=== PATIENT | female | born 1960 | race Caucasian/White ===

== ENCOUNTER → 2016-12-14 | Outpatient (CLI) | payer MEDICARE, MEDICAID ==
--- NOTE | 2016-12-14 11:10 | WOMENS IMAGING REPORT ---
EXAM DESCRIPTION: BONE DENSITY HIP/SPINE COMPLETED DATE/TIME: 12/14/2016 9:27 am REASON FOR STUDY: Z87.310 Z87.310 PERSONAL HISTORY OF (HEALED) OSTEOPOROSIS FRACTURE COMPARISON: None. TECHNIQUE: Dual-Energy X-ray Absorptiometry (DEXA) of the AP Spine and Hip. LIMITATIONS: None. FINDINGS: LUMBAR SPINE: The bone mineral density (BMD) measured from L1-L4 in the AP projection correlates with a T-score of -1.6, which is osteopenia as defined by the World Health Organization. HIP: The bone mineral density (BMD) measured in the right femoral neck at the hip correlates with a T-scor e of -1.8, which is osteopenia as defined by the World Health Organization. COMMENT: The World Health Organization defines low BMD as follows: T-score: Normal: Greater than -1.0 Osteopenia: Between -1.0 and -2.5 Osteoporosis: Less than -2.5 without fractures Established osteoporosis: Less than -2.5 with fractures In general, you may wish to consider: Diagnosis Treatment Follow-up DEXA Normal BMD Prevention 2-3 years Osteopenia Prevention/Therapy 1-2 years Osteoporosis Therapy Yearly TECHNICAL DOCUMENTATION: JOB ID: [id number] [employer]- All Rights Reserved
== END ==
LOC: WI 08:55
PROVIDERS: ATTEND Orthopaedic Surgery
DX: Z87.310 Personal history of (healed) osteoporosis fracture (principal)
CPT/HCPCS: 77080

== ENCOUNTER 2017-04-12 00:32 | Emergency (ER) | payer MEDICARE, MEDICAID ==
--- NOTE | 2017-04-12 01:31 | ER Document Report ---
ED General - General Stated Complaint: WEAKNESS Time Seen by Provider: 04/12/17 01:18 Notes: Patient is a 56-year-old female that comes from [facility] living [facility] for chief complaint of progressive altered mental status over the course of the past 2-3 days. Daughter states that this morning she noticed patient has begun to slur her words over the phone, patient here for evaluation for slurring words and intermittent. No fevers, no vomiting, patient states she has pains in her left hip which was broken. Patient has a history of schizophrenia, type 2 diabetes, COPD, obesity. Patient is on multiple sedating medications including Risperdal, gabapentin, Valium. Family states they believe she was started on the new medication but are unsure which one this is TRAVEL OUTSIDE OF THE [place] IN LAST 30 DAYS: No - Related Data Allergies/Adverse Reactions: dicyclomine HCl [From Bentyl] Allergy (Severe, Verified 11/06/16 06:24) throat swelling ibuprofen [From Motrin] Allergy (Severe, Verified 11/06/16 06:24) "increased headache",swelling Shellfish * [Shellfish] Allergy (Severe, Verified 11/06/16 06:24) rash,migraines Penicillins Allergy (Intermediate, Verified 11/06/16 06:24) Hives,vomit,fever sumatriptan succinate [From Imitrex] Allergy (Verified 11/06/16 06:24) Past Medical History - General Information source: Patient - Social History Smoking Status: Never Smoker Frequency of alcohol use: None Drug Abuse: None Lives with: Family Family History: Reviewed & Not Pertinent, Hypertension - Past Medical History Cardiac Medical History: Reports: Hx Coronary Artery Disease - 4 stents, Hx Heart Attack - AUG x 2, Hx Hypercholesterolemia, Hx Hypertension Denies: Hx Heart Murmur Pulmonary Medical History: Reports: Hx Asthma, Hx Bronchitis, Hx COPD, Hx Pneumonia Denies: Hx Respiratory Failure, Hx Sleep Apnea, Hx Tuberculosis Neurological Medical History: Reports: Hx Cerebrovascular Accident - 2007, Hx Migraine, Hx Seizures Endocrine Medical History: Reports: Hx Diabetes Mellitus Type 1, Hx Diabetes Mellitus Type 2 Renal/ Medical History: Reports: Hx Kidney Stones GI Medical History: Reports: Hx Gastroesophageal Reflux Disease, Hx Irritable Bowel Musculoskeltal Medical History: Reports Hx Arthritis - Back & Legs Psychiatric Medical History: Reports: Hx Bipolar Disorder, Hx Depression, Hx Post Traumatic Stress Disorder, Hx Schizophrenia Past Surgical History: Reports: Hx Appendectomy, Hx Cardiac Catheterization, Hx Cardiac Surgery - 3 stents, Hx Cholecystectomy, Hx Hysterectomy, Hx Orthopedic Surgery - L knee, Hx Tonsillectomy - Immunizations Immunizations up to date: Yes Hx Diphtheria, Pertussis, Tetanus Vaccination: Yes Hx Pneumococcal Vaccination: 11/26/12 Review of Systems - Review of Systems Constitutional: See HPI EENT: No symptoms reported Cardiovascular: No symptoms reported Respiratory: No symptoms reported Gastrointestinal: No symptoms reported Genitourinary: No symptoms reported Female Genitourinary: No symptoms reported Musculoskeletal: No symptoms reported Skin: No symptoms reported Hematologic/Lymphatic: No symptoms reported Neurological/Psychological: See HPI Physical Exam - Vital signs Vitals: Temp Pulse Resp BP Pulse Ox 98.7 F 80 14 115/49 L 93 04/12/17 01:18 04/12/17 01:18 04/12/17 01:18 04/12/17 01:18 04/12/17 01:18 Interpretation: Normal - General General appearance: Appears well - slightly drowsy in appearance In distress: None - HEENT Head: Normocephalic, Atraumatic Eyes: Normal Conjunctiva: Normal Extraocular movements intact: Yes Eyelashes: Normal Pupils: PERRL Nasal: Normal Mouth/Lips: Normal Mucous membranes: Normal Pharynx: Normal Neck: Normal - Respiratory Respiratory status: No respiratory distress Chest status: Nontender Breath sounds: Normal Chest palpation: Normal - Cardiovascular Rhythm: Regular. No: Tachycardia Heart sounds: Normal auscultation, S1 appreciated, S2 appreciated Murmur: No - Abdominal Inspection: Normal Distension: No distension Bowel sounds: Normal Tenderness: Nontender. No: Tender, Guarding Organomegaly: No organomegaly - Back Back: Normal, Nontender - Extremities General upper extremity: Normal inspection, Nontender, Normal color, Normal ROM , Normal temperature General lower extremity: Normal inspection, Nontender, Normal color, Normal ROM , Normal temperature, Normal weight bearing. No: Hellen's sign - Neurological Neuro grossly intact: Yes Cognition: Normal. No: Confused, Inattentive, Short term memory loss Orientation: AAOx4. 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 She denies any complaints other than feeling tired. CBC shows mild leukocytosis with no percentage shift, no fever, no tachycardia, no hypotension. Abdomen is soft, skin exam is unremarkable, urinalysis unremarkable, chest x-ray unremarkable. CAT scan of the head with no acute abnormality. Patient is on multiple sedating medications, I suspect this is why patient is drowsy. On reevaluation is patient less drowsy, more alert, more conversational, denies any complaint. Discussed workup and recommendations with patient, patient states understanding, states she is ready to go back home. Discharged with return precautions - Vital Signs Vital signs: Temp Pulse Resp BP Pulse Ox 98.7 F 80 14 115/49 L 93 04/12/17 01:18 04/12/17 01:18 04/12/17 01:18 04/12/17 01:18 04/12/17 01:18 - Laboratory Result Diagrams: 04/12/17 02:30 04/12/17 02:30 Laboratory results interpreted by me: 04/12/17 04/12/17 02:30 02:30 WBC 14.4 H Hgb 11.4 L Hct 35.9 L MCHC 31.8 L RDW 14.9 H Eosinophils % 6.7 H Absolute Neutrophils 8.4 H Absolute Eosinophils 1.0 H Est GFR (Non-Af Amer) 55 L Glucose 67 L Direct Bilirubin 0.5 H Discharge - Discharge Clinical Impression: Drowsiness Condition: Stable Disposition: HOME, SELF-CARE Additional Instructions: Imaging of the head shows no abnormality, workup shows no evidence of infection or other abnormality other than slightly low blood sugar. Patient may be overmedicated. Follow-up with primary within the next couple of days for a reevaluation. Return to emergency department for any concerning or worsening symptoms including fever, altered mental status, focal weakness, or any other concerning symptoms. Referrals: MARIELENA EVANS MD [Primary Care Provider] - Follow up as needed
[2017-04-12 02:52] LABS: ABSOLUTE BASOPHILS # (AUTO) 0.1 10^3/uL (0.0-0.2); ABSOLUTE MONOCYTES (AUTO) 0.9 10^3/uL (0.1-1.4); ABSOLUTE NEUT (AUTO) 8.4 10^3/uL (1.7-8.2); BASOPHILS % (AUTO) 0.9 % (0-2); EOSINOPHILS % (AUTO) 6.7 % (0-6); HEMATOCRIT 35.9 % (36.0-47.0); HEMOGLOBIN 11.4 g/dL (12.0-15.5); HGB HCT DIFFERENCE -1.7; LYMPHOCYTES % (AUTO) 28.1 % (13-45); MEAN CORPUSCULAR HEMOGLOBIN 28.6 pg (27.0-33.4); MEAN CORPUSCULAR HGB CONC 31.8 g/dL (32.0-36.0); MEAN CORPUSCULAR VOLUME 90 fl (80-97); MONOCYTES % (AUTO) 6.2 % (3-13); RED BLOOD COUNT 3.98 10^6/uL (3.72-5.28); RED CELL DISTRIBUTION WIDTH 14.9 % (11.5-14.0); SEGMENTED NEUTROPHILS % (AUTO) 58.1 % (42-78); WHITE BLOOD COUNT 14.4 10^3/uL (4.0-10.5)
[2017-04-12 03:04] LABS: ALANINE AMINOTRANSFERASE 31 U/L (9-52); ALKALINE PHOSPHATASE 90 U/L (38-126); ANION GAP 10 (5-19); ASPARTATE AMINO TRANSFERASE 31 U/L (14-36); BILIRUBIN,DIRECT 0.5 mg/dL (0.0-0.4); BILIRUBIN,TOTAL 0.7 mg/dL (0.2-1.3); BLOOD UREA NITROGEN 19 mg/dL (7-20); CALCIUM 9.9 mg/dL (8.4-10.2); CARBON DIOXIDE 26 mmol/L (22-30); CHLORIDE 107 mmol/L (98-107); CREATINE KINASE 89 U/L (30-135); CREATININE RESULT 1.05 mg/dL (0.52-1.25); GLUCOSE 67 mg/dL (75-110); POTASSIUM 4.6 mmol/L (3.6-5.0); SODIUM 142.9 mmol/L (137-145); TOTAL PROTEIN 6.9 g/dL (6.3-8.2)
[2017-04-12 03:16] LABS: CREATINE KINASE MB 1.25 ng/mL (<4.55); TROPONIN I < 0.012 ng/mL
[2017-04-12 05:11] LABS: APPEARANCE,URINE CLEAR; BILIRUBIN,URINE NEGATIVE (NEGATIVE); GLUCOSE, URINE NEGATIVE (NEGATIVE); KETONES,URINE NEGATIVE (NEGATIVE); LEUKOCYTE ESTERASE,URINE NEGATIVE (NEGATIVE); NITRITE,URINE NEGATIVE (NEGATIVE); PROTEIN,URINE NEGATIVE (NEGATIVE); URINE SPECIFIC GRAVITY 1.013; UROBILINOGEN,URINE NEGATIVE mg/dL (<2.0)
[2017-04-12 08:38] VITALS: BP 126/61
--- NOTE | 2017-04-12 10:31 | EKG REPORT ---
SEVERITY:- BORDERLINE ECG - SINUS RHYTHM BORDERLINE T ABNORMALITIES, ANT-LAT LEADS : Confirmed by: Eugenia Burgos MD 12-Apr-2017 10:30:27
== END 2017-04-12 08:38 | disposition home or self-care (01) ==
LOC: ER 00:32
DX: E11.9 Type 2 diabetes mellitus without complications (principal); R47.81 Slurred speech; D72.829 Elevated white blood cell count, unspecified; R53.83 Other fatigue; M25.552 Pain in left hip; F20.9 Schizophrenia, unspecified; I25.10 Atherosclerotic heart disease of native coronary artery without angina pectoris; I25.2 Old myocardial infarction; I10 Essential (primary) hypertension; J44.9 Chronic obstructive pulmonary disease, unspecified; Z79.899 Other long term (current) drug therapy; Z88.8 Allergy status to other drugs, medicaments and biological substances; Z88.6 Allergy status to analgesic agent; Z91.013 Allergy to seafood; Z88.0 Allergy status to penicillin; Z86.73 Personal history of transient ischemic attack (TIA), and cerebral infarction without residual deficits
CPT/HCPCS: 36415; 70450; 71010; 80053; 81001; 82550; 82553; 84484; 85025; 87040; 87086; 93005; 93010; 99285

== ENCOUNTER 2017-08-31 20:05 | Emergency (ER) | payer MEDICAID, MEDICARE ==
--- NOTE | 2017-08-31 20:34 | ER Document Report ---
ED Medical Screen (RME) - General Chief Complaint: Hip Pain Stated Complaint: FALL/HIP PAIN Time Seen by Provider: 08/31/17 20:33 Mode of Arrival: Wheelchair Information source: Patient, Relative Notes: 56-year-old female presents after a fall 4 days ago with complaints of right hip pain. I have greeted and performed a rapid initial assessment of this patient. A comprehensive ED assessment and evaluation of the patient, analysis of test results and completion of the medical decision making process will be conducted by additional ED providers. PHYSICAL EXAMINATION: GENERAL: Well-appearing, well-nourished and in no acute distress. HEAD: Atraumatic, normocephalic. EYES: Pupils equal round extraocular movements intact, conjunctiva are normal. ENT: Nares patent NECK: Normal range of motion LUNGS: No respiratory distress Musculoskeletal: pain with ROM of the right lower extremity NEUROLOGICAL: Normal speech, normal gait. PSYCH: Normal mood, normal affect. SKIN: Warm, Dry, normal turgor, no rashes or lesions noted. TRAVEL OUTSIDE OF THE [place] IN LAST 30 DAYS: No - Related Data Allergies/Adverse Reactions: dicyclomine HCl [From Bentyl] Allergy (Severe, Verified 11/06/16 06:24) throat swelling ibuprofen [From Motrin] Allergy (Severe, Verified 11/06/16 06:24) "increased headache",swelling Shellfish * [Shellfish] Allergy (Severe, Verified 11/06/16 06:24) rash,migraines Penicillins Allergy (Intermediate, Verified 11/06/16 06:24) Hives,vomit,fever sumatriptan succinate [From Imitrex] Allergy (Verified 11/06/16 06:24) Past Medical History - Past Medical History Cardiac Medical History: Reports: Hx Coronary Artery Disease - 4 stents, Hx Heart Attack - AUG x 2, Hx Hypercholesterolemia, Hx Hypertension Denies: Hx Heart Murmur Pulmonary Medical History: Reports: Hx Asthma, Hx Bronchitis, Hx COPD, Hx Pneumonia Denies: Hx Respiratory Failure, Hx Sleep Apnea, Hx Tuberculosis Neurological Medical History: Reports: Hx Cerebrovascular Accident - 2007, Hx Migraine, Hx Seizures Endocrine Medical History: Reports: Hx Diabetes Mellitus Type 1, Hx Diabetes Mellitus Type 2 Renal/ Medical History: Reports: Hx Kidney Stones. Denies: Hx Peritoneal Dialysis GI Medical History: Reports: Hx Gastroesophageal Reflux Disease, Hx Irritable Bowel Musculoskeltal Medical History: Reports Hx Arthritis - Back & Legs Psychiatric Medical History: Reports: Hx Bipolar Disorder, Hx Depression, Hx Post Traumatic Stress Disorder, Hx Schizophrenia Past Surgical History: Reports: Hx Appendectomy, Hx Cardiac Catheterization, Hx Cardiac Surgery - 3 stents, Hx Cholecystectomy, Hx Hysterectomy, Hx Orthopedic Surgery - L knee, Hx Tonsillectomy - Immunizations Immunizations up to date: Yes Hx Diphtheria, Pertussis, Tetanus Vaccination: Yes
[2017-08-31 20:35] VITALS: BP 148/69
--- NOTE | 2017-08-31 21:10 | RADIOLOGY REPORT (SQ) ---
EXAM DESCRIPTION: HIP RIGHT AP/LATERAL COMPLETED DATE/TIME: 08/31/2017 9:01 pm REASON FOR STUDY: fall COMPARISON: 11/06/2016 NUMBER OF VIEWS: Two views. TECHNIQUE: AP pelvis and additional frog-leg view of the right hip. LIMITATIONS: None. FINDINGS: MINERALIZATION: Normal. RIGHT HIP: No fracture or dislocation. No worrisome bone lesions. LEFT HIP: No hardware complication. No fracture or dislocation. No worrisome bone lesions. PUBIS AND ISCHIUM: No fracture. PELVIS: No fracture. SACRUM: No fracture or dislocation. No worrisome bone lesions. LOWER LUMBAR SPINE: No fracture or dislocation. No worrisome bone lesions. No significant disc disea se. SOFT TISSUES: No findings. OTHER: No other significant finding. IMPRESSION: NO RADIOGRAPHIC EVIDENCE OF ACUTE INJURY. TECHNICAL DOCUMENTATION: JOB ID: [id number] [employer]- All Rights Reserved
--- NOTE | 2017-08-31 21:10 | RADIOLOGY REPORT (SQ) ---
EXAM DESCRIPTION: KNEE RIGHT 4 VIEWS COMPLETED DATE/TIME: 08/31/2017 9:01 pm REASON FOR STUDY: fall COMPARISON: 03/13/2015 NUMBER OF VIEWS: Four views. TECHNIQUE: AP, lateral, and both oblique radiographic images acquired of the right knee. LIMITATIONS: None. FINDINGS: MINERALIZATION: Normal. BONES: No acute fracture or dislocation. No worrisome bone lesions. JOINT: No effusion. SOFT TISSUES: No soft tissue swelling. No radio-opaque foreign body. OTHER: No other significant finding. IMPRESSION: NO RADIOGRAPHIC EVIDENCE OF ACUTE INJURY. TECHNICAL DOCUMENTATION: JOB ID: [id number] [employer]- All Rights Reserved
[2017-08-31] MEDS ORDERED: TRAMADOL HCL 50 MG TABLET PO ONE (21:22)
--- NOTE | 2017-08-31 21:22 | ER Document Report ---
ED Hip Pain/Injury - General Chief Complaint: Hip Pain Stated Complaint: FALL/HIP PAIN Time Seen by Provider: 08/31/17 20:33 Mode of Arrival: Wheelchair Notes: Patient says she fell on her right hip about 4 days ago. She fell on a linoleum floor in her kitchen. She says the pain is getting worse. She is able to put weight on the leg and walk, although it is very painful. Hurt her thigh and down into the right knee somewhat as well. Denies any other injuries , however. Did not hit her head and does not have any neck pain. No loss of consciousness reported. No neurologic deficits. Patient is well-known to this emergency department and to this physician as she has had many visits here in the past. TRAVEL OUTSIDE OF THE [place] IN LAST 30 DAYS: No - Related Data Allergies/Adverse Reactions: dicyclomine HCl [From Bentyl] Allergy (Severe, Verified 08/31/17 20:35) throat swelling ibuprofen [From Motrin] Allergy (Severe, Verified 08/31/17 20:35) "increased headache",swelling Shellfish * [Shellfish] Allergy (Severe, Verified 08/31/17 20:35) rash,migraines Penicillins Allergy (Intermediate, Verified 08/31/17 20:35) Hives,vomit,fever sumatriptan succinate [From Imitrex] Allergy (Verified 08/31/17 20:35) Past Medical History - General Information source: Patient, Relative - Social History Smoking Status: Current Every Day Smoker Family History: Reviewed & Not Pertinent, Hypertension Patient has suicidal ideation: No Patient has homicidal ideation: No - Past Medical History Cardiac Medical History: Reports: Hx Coronary Artery Disease - 4 stents, Hx Heart Attack - AUG x 2, Hx Hypercholesterolemia, Hx Hypertension Pulmonary Medical History: Reports: Hx Asthma, Hx Bronchitis, Hx COPD, Hx Pneumonia Neurological Medical History: Reports: Hx Cerebrovascular Accident - 2007, Hx Migraine, Hx Seizures Endocrine Medical History: Reports: Hx Diabetes Mellitus Type 1, Hx Diabetes Mellitus Type 2 Renal/ Medical History: Reports: Hx Kidney Stones GI Medical History: Reports: Hx Gastroesophageal Reflux Disease, Hx Irritable Bowel Musculoskeltal Medical History: Reports Hx Arthritis - Back & Legs Psychiatric Medical History: Reports: Hx Bipolar Disorder, Hx Depression, Hx Post Traumatic Stress Disorder, Hx Schizophrenia Past Surgical History: Reports: Hx Appendectomy, Hx Cardiac Catheterization, Hx Cardiac Surgery - 3 stents, Hx Cholecystectomy, Hx Hysterectomy, Hx Orthopedic Surgery - L knee, Hx Tonsillectomy - Immunizations Immunizations up to date: Yes Hx Diphtheria, Pertussis, Tetanus Vaccination: Yes Hx Pneumococcal Vaccination: 11/26/12 Review of Systems - Review of Systems Notes: REVIEW OF SYSTEMS: CONSTITUTIONAL : Denies fever. EENT: Denies eye, ear, nose or mouth or throat pain or other symptoms. CARDIOVASCULAR: Denies chest pain. RESPIRATORY: Denies cough, chest congestion, or shortness of breath. GASTROINTESTINAL: Denies abdominal pain or nausea, vomiting, or diarrhea. GENITOURINARY: Denies difficulty or painful urinating, urinary frequency, blood in urine. MUSCULOSKELETAL: Denies back or neck pain. Denies joint pain or swelling. Pain in the right hip region, primarily with movement or standing. SKIN: Denies rash or skin lesions. NEUROLOGICAL: Denies LOC or altered mental status. Denies headache. Denies sensory loss or motor deficits. ALL OTHER SYSTEMS REVIEWED AND NEGATIVE. Physical Exam - Vital signs Vitals: Temp Pulse Resp BP Pulse Ox 98.3 F 88 20 148/69 H 95 08/31/17 20:32 08/31/17 20:32 08/31/17 20:32 08/31/17 20:32 08/31/17 20:32 Interpretation: Normal - Notes Notes: PHYSICAL EXAMINATION: GENERAL: Well-appearing, in no acute distress. Vital signs essentially normal. HEAD: Atraumatic, normocephalic. NECK: Normal range of motion, supple. No tenderness posteriorly. LUNGS: Breath sounds clear and equal bilaterally. No rib tenderness. HEART: Regular rate and rhythm without murmurs. ABDOMEN: Soft, nontender. No guarding or rebound. BACK: No tenderness throughout entire back. EXTREMITIES: Patient says she is having pain in the posterior aspect of the right hip. Tender to touch. No significant swelling. No displacement. Painful to move the right hip joint actively or passively. Otherwise, normal range of motion of other joints without pain. NEUROLOGICAL: Normal speech, normal gait. Normal sensory, motor, and reflex exams. Awake, alert, and oriented x3. Cranial nerves normal. PSYCH: Normal mood, normal affect. SKIN: Warm, dry, no rashes. Course - Vital Signs Vital signs: Temp Pulse Resp BP Pulse Ox 98.3 F 88 20 148/69 H 95 08/31/17 20:32 08/31/17 20:32 08/31/17 20:32 08/31/17 20:32 08/31/17 20:32 - Diagnostic Test Radiology results interpreted by me: 09/01/17 00:25 X-ray of the right hip is negative. Discharge - Discharge Clinical Impression: Contusion of right hip Condition: Stable Disposition: HOME, SELF-CARE Additional Instructions: MUSCLE STRAIN: You have strained a muscle -- torn the fibers within the muscle. This often occurs with strenuous exertion, or during an injury that suddenly stretches the muscle. The seriousness of a strain varies. Some strains heal within days, others cause problems for months. X-rays cannot show a muscle strain. X-rays are taken only if symptoms suggest that a fracture could be present. The usual treatment of a muscle strain is rest and ice packs. Sometimes, a sling, splint, or crutches may be necessary to rest the muscle. The muscle can be used again once pain subsides. Severe strains require a special exercise and stretching program to prevent permanent stiffness and disability. Your doctor will advise you if this will be necessary. Call the doctor immediately if pain or swelling becomes severe, or if numbness or discoloration develop. CONTUSION: Your injury has resulted in a contusion -- a crushing of the deep tissues. No injury to important structures was detected during the physician's exam. Contusions vary in the amount of pain they cause, and in the length of time required for healing. Typically, the area will become bruised, and will remain painful to touch for two or three weeks. However, most patients are back to working and playing within a few days. After the initial period of rest and cold-packs, your symptoms (together with the doctor's recommendations) will determine how rapidly you can get back to full activity. Usually this means "do what feels okay, but don't do things that hurt." If re-examination was recommended, it's important to follow up as instructed. Call the doctor or return any time if pain increases, if swelling becomes severe, if you develop numbness or weakness in an injured extremity, or if any other alarming symptoms occur. USE OF TYLENOL (ACETAMINOPHEN): Acetaminophen may be taken for pain relief or fever control. It's much safer than aspirin, offering a wider range of "safe" dosages. It is safe during . Some brand names are Tylenol, Panadol, Datril, Anacin 3, Tempra, and Liquiprin. Acetaminophen can be repeated every four hours. The following are maximum recommended dosages: WEIGHT Dose Drops Elixir Chewable( 80mg) (LBS.) drprs=droppers tsp=teaspoon >89 pounds or adults 650 mg to 900 mg Acetaminophen can be repeated every four hours. Maximum dose not to exceed 4000 mg a day. These maximum recommended dosages are slightly higher than the dosages written on the product container, but these dosages are very safe and below the toxic dosage for acetaminophen. WARM PACKS: After approximately two days, apply gentle heat (such as a heating pad or hot water bottle) for about 20 to 30 minutes about every two hours -- at least four times daily. Warmth and elevation will help you make a more rapid recovery , and will ease the pain considerably. Do not use HOT heat, and never apply heat for longer than 30 minutes. The continuous heat can invisibly damage skin and muscles -- even when no burn is seen on the surface. Damaged muscles can make you MORE sore. Ultram Ultram is an excellent drug for pain relief. It is not a narcotic, but it works in a similar way. Ultram can take up to two hours for full effect. Although not addicting, Ultram is best avoided in patients with a history of drug abuse. Ultram should not be used with alcohol, sleeping pills, or narcotics. If you're prone to seizures, Ultram can make you more likely to have a seizure. Ultram can be hazardous when combined with MAO-inhibitor antidepressants (such as Nardil or Parnate). Be sure your doctor is aware of all medicines you are taking. Persons with severe liver or kidney disease should increase the time between doses of Ultram. Discuss this with your doctor if you're uncertain. Side effects of Ultram can include dizziness, nausea, constipation, sleepiness, and itching. (These side effects are also seen with narcotic pain medicines.) Please call your doctor if you have other disturbing effects. FOLLOW-UP CARE: If you have been referred to a physician for follow-up care, call the physician s office for an appointment as you were instructed or within the next two days. If you experience worsening or a significant change in your symptoms, notify the physician immediately or return to the Emergency Department at any time for re-evaluation. Prescriptions: Tramadol HCl [Ultram 50 mg Tablet] 50 mg PO Q4HP PRN #10 tab PRN Reason:
== END 2017-08-31 21:37 | disposition home or self-care (01) ==
LOC: ER 20:05
DX: S70.01XA Contusion of right hip, initial encounter (principal); M25.551 Pain in right hip; W19.XXXA Unspecified fall, initial encounter
CPT/HCPCS: 99283; 73502; 73564; A9270

== ENCOUNTER → 2018-01-10 | Outpatient (CLI) | payer MEDICARE, MEDICAID ==
[2018-01-10 17:37] LABS: ALANINE AMINOTRANSFERASE 15 U/L (9-52); ALBUMIN 4.1 g/dL (3.5-5.0); ALKALINE PHOSPHATASE 137 U/L (38-126); ANION GAP 10 (5-19); ASPARTATE AMINO TRANSFERASE 12 U/L (14-36); BILIRUBIN,DIRECT 0.4 mg/dL (0.0-0.4); BILIRUBIN,TOTAL 0.4 mg/dL (0.2-1.3); BLOOD UREA NITROGEN 10 mg/dL (7-20); CALCIUM 9.9 mg/dL (8.4-10.2); CARBON DIOXIDE 27 mmol/L (22-30); CHLORIDE 106 mmol/L (98-107); GLUCOSE 125 mg/dL (75-110); POTASSIUM 4.7 mmol/L (3.6-5.0); SODIUM 142.9 mmol/L (137-145); TOTAL PROTEIN 7.2 g/dL (6.3-8.2)
== END ==
LOC: OD 16:56
PROVIDERS: ATTEND Internal Medicine Geriatric Medicine
DX: I10 Essential (primary) hypertension (principal)
CPT/HCPCS: 36415; 80053

== ENCOUNTER 2018-01-23 13:05 | Emergency (ER) | payer MEDICARE, MEDICAID ==
[2018-01-23] MEDS ORDERED: ASPIRIN 325 MG TABLET PO ONE (13:34)
--- NOTE | 2018-01-23 13:35 | ER Document Report ---
ED Medical Screen (RME) - General Chief Complaint: Cough Stated Complaint: COUGH Time Seen by Provider: 01/23/18 13:33 Notes: chest pain/cough for several days. hx cad with 4 stents. also copd TRAVEL OUTSIDE OF THE [place] IN LAST 30 DAYS: No - Related Data Allergies/Adverse Reactions: dicyclomine HCl [From Bentyl] Allergy (Severe, Verified 01/23/18 13:23) throat swelling ibuprofen [From Motrin] Allergy (Severe, Verified 01/23/18 13:23) "increased headache",swelling Shellfish * [Shellfish] Allergy (Severe, Verified 01/23/18 13:23) rash,migraines Penicillins Allergy (Intermediate, Verified 01/23/18 13:23) Hives,vomit,fever sumatriptan succinate [From Imitrex] Allergy (Verified 01/23/18 13:23) Past Medical History - Social History Chew tobacco use (# tins/day): No Frequency of alcohol use: Rare Drug Abuse: None - Past Medical History Cardiac Medical History: Reports: Hx Coronary Artery Disease - 4 stents, Hx Heart Attack - AUG x 2, Hx Hypercholesterolemia, Hx Hypertension Denies: Hx Heart Murmur Pulmonary Medical History: Reports: Hx Asthma, Hx Bronchitis, Hx COPD, Hx Pneumonia Denies: Hx Respiratory Failure, Hx Sleep Apnea, Hx Tuberculosis Neurological Medical History: Reports: Hx Cerebrovascular Accident - 2007, Hx Migraine, Hx Seizures Endocrine Medical History: Reports: Hx Diabetes Mellitus Type 1, Hx Diabetes Mellitus Type 2 Renal/ Medical History: Reports: Hx Kidney Stones. Denies: Hx Peritoneal Dialysis GI Medical History: Reports: Hx Gastroesophageal Reflux Disease, Hx Irritable Bowel. Denies: Hx Pancreatitis Musculoskeltal Medical History: Reports Hx Arthritis - Back & Legs Psychiatric Medical History: Reports: Hx Bipolar Disorder, Hx Depression, Hx Post Traumatic Stress Disorder, Hx Schizophrenia Past Surgical History: Reports: Hx Appendectomy, Hx Cardiac Catheterization, Hx Cardiac Surgery - 3 stents, Hx Cholecystectomy, Hx Hysterectomy, Hx Orthopedic Surgery - L knee, Hx Tonsillectomy - Immunizations Immunizations up to date: Yes Hx Diphtheria, Pertussis, Tetanus Vaccination: Yes Physical Exam - Vital signs Vitals: Temp Pulse Resp BP Pulse Ox 99.1 F 85 18 111/64 88 L 01/23/18 13:18 01/23/18 13:18 01/23/18 13:18 01/23/18 13:18 01/23/18 13:18 Course - Vital Signs Vital signs: Temp Pulse Resp BP Pulse Ox 99.1 F 85 18 111/64 95 01/23/18 13:18 01/23/18 13:18 01/23/18 13:18 01/23/18 13:18 01/23/18 13:26
--- NOTE | 2018-01-23 14:06 | RADIOLOGY REPORT (SQ) ---
EXAM DESCRIPTION: CHEST PA/LAT COMPLETED DATE/TIME: 01/23/2018 1:57 pm REASON FOR STUDY: cough COMPARISON: Chest films 11/12/2016, 08/07/2016, 10/13/2015 EXAM PARAMETERS: NUMBER OF VIEWS: two views TECHNIQUE: Digital Frontal and Lateral radiographic views of the chest acquired. RADIATION DOSE: NA LIMITATIONS: none FINDINGS: LUNGS AND PLEURA: No opacities, masses or pneumothorax. No pleural effusion. MEDIASTINUM AND HILAR STRUCTURES: No masses or contour abnormalities. HEART AND VASCULAR STRUCTURES: Heart normal size. No evidence for failure. BONES: Multiple old left lateral rib fractures. HARDWARE: None in the chest. OTHER: No other significant finding. IMPRESSION: Old left lateral rib fractures. No acute findings TECHNICAL DOCUMENTATION: JOB ID: [id number] [employer]- All Rights Reserved Reading location - IP/workstation name: [facility]
[2018-01-23 14:08] LABS: ABSOLUTE BASOPHILS # (AUTO) 0.1 10^3/uL (0.0-0.2); ABSOLUTE EOSINOPHILS # (AUTO) 0.3 10^3/uL (0.0-0.6); ABSOLUTE LYMPHOCYTES (AUTO) 2.6 10^3/uL (0.5-4.7); ABSOLUTE MONOCYTES (AUTO) 0.5 10^3/uL (0.1-1.4); ABSOLUTE NEUT (AUTO) 5.5 10^3/uL (1.7-8.2); BASOPHILS % (AUTO) 0.7 % (0-2); EOSINOPHILS % (AUTO) 3.3 % (0-6); HEMATOCRIT 39.8 % (36.0-47.0); LYMPHOCYTES % (AUTO) 28.8 % (13-45); MEAN CORPUSCULAR HEMOGLOBIN 27.3 pg (27.0-33.4); MEAN CORPUSCULAR HGB CONC 32.8 g/dL (32.0-36.0); MEAN CORPUSCULAR VOLUME 83 fl (80-97); PLATELET COUNT 245 10^3/uL (150-450); RED BLOOD COUNT 4.77 10^6/uL (3.72-5.28); RED CELL DISTRIBUTION WIDTH 15.8 % (11.5-14.0); SEGMENTED NEUTROPHILS % (AUTO) 61.2 % (42-78); TOTAL CELLS COUNTED % (AUTO) 100 %
[2018-01-23 14:28] LABS: ALANINE AMINOTRANSFERASE 21 U/L (9-52); ALKALINE PHOSPHATASE 129 U/L (38-126); ANION GAP 11 (5-19); ASPARTATE AMINO TRANSFERASE 14 U/L (14-36); BILIRUBIN,DIRECT 0.1 mg/dL (0.0-0.4); BILIRUBIN,TOTAL 0.3 mg/dL (0.2-1.3); BLOOD UREA NITROGEN 5 mg/dL (7-20); CALCIUM 9.5 mg/dL (8.4-10.2); CARBON DIOXIDE 27 mmol/L (22-30); CHLORIDE 104 mmol/L (98-107); GLUCOSE 99 mg/dL (75-110); SODIUM 141.9 mmol/L (137-145); TOTAL PROTEIN 6.7 g/dL (6.3-8.2)
--- NOTE | 2018-01-23 15:41 | ER Document Report ---
ED General - General Chief Complaint: Cough Stated Complaint: COUGH Time Seen by Provider: 01/23/18 13:33 Mode of Arrival: Ambulatory Information source: Patient Notes: Patient presents with cough cold and congestion for several days. She states that she is also having some left-sided chest pain that is worse with coughing. It is moderate. It does not radiate. It is intermittent. No vomiting or diarrhea. She states she does have previous cardiac history with multiple stents placed. No vomiting or diarrhea. TRAVEL OUTSIDE OF THE [place] IN LAST 30 DAYS: No - Related Data Allergies/Adverse Reactions: dicyclomine HCl [From Bentyl] Allergy (Severe, Verified 01/23/18 13:23) throat swelling ibuprofen [From Motrin] Allergy (Severe, Verified 01/23/18 13:23) "increased headache",swelling Shellfish * [Shellfish] Allergy (Severe, Verified 01/23/18 13:23) rash,migraines Penicillins Allergy (Intermediate, Verified 01/23/18 13:23) Hives,vomit,fever sumatriptan succinate [From Imitrex] Allergy (Verified 01/23/18 13:23) Past Medical History - General Information source: Patient - Social History Smoking Status: Current Every Day Smoker Chew tobacco use (# tins/day): No Frequency of alcohol use: Rare Drug Abuse: None Family History: Reviewed & Not Pertinent, Hypertension Patient has suicidal ideation: No Patient has homicidal ideation: No - Past Medical History Cardiac Medical History: Reports: Hx Coronary Artery Disease - 4 stents, Hx Heart Attack - AUG x 2, Hx Hypercholesterolemia, Hx Hypertension Denies: Hx Heart Murmur Pulmonary Medical History: Reports: Hx Asthma, Hx Bronchitis, Hx COPD, Hx Pneumonia Denies: Hx Respiratory Failure, Hx Sleep Apnea, Hx Tuberculosis Neurological Medical History: Reports: Hx Cerebrovascular Accident - 2007, Hx Migraine, Hx Seizures Endocrine Medical History: Reports: Hx Diabetes Mellitus Type 1, Hx Diabetes Mellitus Type 2 Renal/ Medical History: Reports: Hx Kidney Stones. Denies: Hx Peritoneal Dialysis GI Medical History: Reports: Hx Gastroesophageal Reflux Disease, Hx Irritable Bowel. Denies: Hx Pancreatitis Musculoskeltal Medical History: Reports Hx Arthritis - Back & Legs Psychiatric Medical History: Reports: Hx Bipolar Disorder, Hx Depression, Hx Post Traumatic Stress Disorder, Hx Schizophrenia Past Surgical History: Reports: Hx Appendectomy, Hx Cardiac Catheterization, Hx Cardiac Surgery - 3 stents, Hx Cholecystectomy, Hx Hysterectomy, Hx Orthopedic Surgery - L knee, Hx Tonsillectomy - Immunizations Immunizations up to date: Yes Hx Diphtheria, Pertussis, Tetanus Vaccination: Yes Hx Pneumococcal Vaccination: 11/26/12 Review of Systems - Review of Systems Constitutional: denies: Chills, Fever Cardiovascular: Chest pain. denies: Palpitations Respiratory: Cough, Short of breath -: Yes All other systems reviewed and negative Physical Exam - Vital signs Vitals: Temp Pulse Resp BP Pulse Ox 99.1 F 85 18 111/64 88 L 01/23/18 13:18 01/23/18 13:18 01/23/18 13:18 01/23/18 13:18 01/23/18 13:18 Interpretation: Normal, Other - Pulse ox was 88 apparently at triage. On my exam it was 95% on room air with unlabored respirations. - General General appearance: Appears well, Alert - HEENT Head: Normocephalic, Atraumatic Eyes: Normal Pupils: PERRL - Respiratory Respiratory status: No respiratory distress Chest status: Nontender Breath sounds: Normal Chest palpation: Normal - Cardiovascular Rhythm: Regular Heart sounds: Normal auscultation Murmur: No - Abdominal Inspection: Normal Distension: No distension Bowel sounds: Normal Tenderness: Nontender Organomegaly: No organomegaly - Back Back: Normal, Nontender - Extremities General upper extremity: Normal inspection, Nontender, Normal color, Normal ROM , Normal temperature General lower extremity: Normal inspection, Nontender, Normal color, Normal ROM , Normal temperature, Normal weight bearing. No: Hellen's sign - Neurological Neuro grossly intact: Yes Cognition: Normal Orientation: AAOx4 [place]loane Coma Scale Eye Opening: Spontaneous [place] Coma Scale Verbal: Oriented [place] Coma Scale Motor: Obeys Commands [place] Coma Scale Total: 15 Speech: Normal Motor strength normal: LUE, RUE, LLE, RLE Sensory: Normal - Psychological Associated symptoms: Normal affect, Normal mood - Skin Skin Temperature: Warm Skin Moisture: Dry Skin Color: Normal Course - Vital Signs Vital signs: Temp Pulse Resp BP Pulse Ox 99.1 F 85 18 111/64 95 01/23/18 13:18 01/23/18 13:18 01/23/18 13:18 01/23/18 13:18 01/23/18 13:26 - Laboratory Result Diagrams: 01/23/18 13:35 01/23/18 13:35 Laboratory results interpreted by me: 01/23/18 01/23/18 13:35 13:35 RDW 15.8 H BUN 5 L Alkaline Phosphatase 129 H - Diagnostic Test Radiology reviewed: Image reviewed, Reports reviewed - No infiltrate or edema - EKG Interpretation by Me EKG shows normal: Sinus rhythm Rate: Normal Rhythm: NSR Aydlett/QRS: No: Right axis deviation, Left axis deviation Discharge - Discharge Clinical Impression: COPD with exacerbation Condition: Stable Disposition: HOME, SELF-CARE Instructions: Chronic Obstructive Lung Disease ([facility]) Additional Instructions: Please make an appointment with your primary care physician as soon as possible Prescriptions: Albuterol Sulfate [Ventolin Hfa] 1 - 2 puff IH Q4 PRN #1 hfa.[id number].[id number] PRN Reason: Levofloxacin [Levaquin 750 mg Tablet] 750 mg PO DAILY #10 tab Tramadol HCl 50 mg PO Q6 PRN 5 Days #15 tablet PRN Reason:
[2018-01-23 15:55] VITALS: BP 104/68
--- NOTE | 2018-01-23 19:54 | EKG REPORT ---
SEVERITY:- ABNORMAL ECG - SINUS RHYTHM CONSIDER ANTEROSEPTAL INFARCT BORDERLINE T ABNORMALITIES, LATERAL LEADS : Confirmed by: Patrice Johnson MD 23-Jan-2018 19:53:53
== END 2018-01-23 15:58 | disposition home or self-care (01) ==
LOC: ER 13:05
DX: J44.1 Chronic obstructive pulmonary disease with (acute) exacerbation (principal); R05 Cough; R09.81 Nasal congestion; R07.9 Chest pain, unspecified; F17.200 Nicotine dependence, unspecified, uncomplicated
CPT/HCPCS: 93005; 99284; 36415; 85025; 80053; 84484; 71046; 93010; A9270

== ENCOUNTER 2018-05-14 02:28 | Emergency (ER) | payer MEDICARE, MEDICAID ==
--- NOTE | 2018-05-14 02:44 | ER Document Report ---
ED Cardiac - General Stated Complaint: CHEST PAIN Time Seen by Provider: 05/14/18 02:33 Mode of Arrival: Medic Information source: Patient Notes: Patient is a 57-year-old female who presents with complaint of chest pain. Patient reports the pain started at 11 PM tonight. Patient reports that the pain is worse with palpation. EMS gave patient 324 mg of aspirin as well as 2 sublingual nitro which completely resolved her chest pain. Patient is complaining of a headache, 2 out of 5. Patient has a history of angina, hypertension, diabetes and myocardial infarction with stent placement. Patient reports that this chest pain does not feel the same as when she has had heart attacks in the past however patient reports this does feel like her angina symptoms. Patient is completely alert and oriented and chest pain-free on my assessment. TRAVEL OUTSIDE OF THE [place] IN LAST 30 DAYS: No - Related Data Allergies/Adverse Reactions: dicyclomine HCl [From Bentyl] Allergy (Severe, Verified 01/23/18 13:23) throat swelling ibuprofen [From Motrin] Allergy (Severe, Verified 01/23/18 13:23) "increased headache",swelling Shellfish * [Shellfish] Allergy (Severe, Verified 01/23/18 13:23) rash,migraines Penicillins Allergy (Intermediate, Verified 01/23/18 13:23) Hives,vomit,fever sumatriptan succinate [From Imitrex] Allergy (Verified 01/23/18 13:23) Past Medical History - Social History Smoking Status: Current Every Day Smoker Frequency of alcohol use: None Drug Abuse: None Family History: Reviewed & Not Pertinent, Hypertension - Past Medical History Cardiac Medical History: Reports: Hx Coronary Artery Disease - 4 stents, Hx Heart Attack - AUG x 2, Hx Hypercholesterolemia, Hx Hypertension Denies: Hx Heart Murmur Pulmonary Medical History: Reports: Hx Asthma, Hx Bronchitis, Hx COPD, Hx Pneumonia Denies: Hx Respiratory Failure, Hx Sleep Apnea, Hx Tuberculosis Neurological Medical History: Reports: Hx Cerebrovascular Accident - 2007, Hx Migraine, Hx Seizures Endocrine Medical History: Reports: Hx Diabetes Mellitus Type 1, Hx Diabetes Mellitus Type 2 Renal/ Medical History: Reports: Hx Kidney Stones. Denies: Hx Peritoneal Dialysis GI Medical History: Reports: Hx Gastroesophageal Reflux Disease, Hx Irritable Bowel. Denies: Hx Pancreatitis Musculoskeltal Medical History: Reports Hx Arthritis - Back & Legs Psychiatric Medical History: Reports: Hx Bipolar Disorder, Hx Depression, Hx Post Traumatic Stress Disorder, Hx Schizophrenia Past Surgical History: Reports: Hx Appendectomy, Hx Cardiac Catheterization, Hx Cardiac Surgery - 3 stents, Hx Cholecystectomy, Hx Hysterectomy, Hx Orthopedic Surgery - L knee, Hx Tonsillectomy - Immunizations Immunizations up to date: Yes Hx Diphtheria, Pertussis, Tetanus Vaccination: Yes Hx Pneumococcal Vaccination: 11/26/12 Physical Exam - Vital signs Vitals: Resp 9 L 05/14/18 02:39 Course - Re-evaluation Re-evalutation: 57-year-old female patient with complaints of chest pain that began at 2300 last night. Patient does have a positive cardiac history for myocardial infarction with 4 stents placed. Patient is chest pain-free on arrival after received 2 sublingual nitro by EMS. Vital signs are within normal limits and without tachycardia or hypotension. Will perform chest pain workup. CBC and comprehensive metabolic panel are unremarkable. Initial troponin 0.074. Chest x-ray is unremarkable. EKG is a sinus rhythm with a rate of 82. There is some ST segment depression in leads V5 and V6 however this is unchanged from the previous EKG that was done in December 2017. Patient does remained chest pain-free since arrival to the emergency department. Delta troponin 0.068. Vital signs remained stable no tachycardia or hypotension. Will consult patient's primary care provider for possible observation versus admission. 05/14/18 07:[address] Hernández, awaiting call back. 05/14/18 08:[address] Hernández who recommends patient to be discharged. He will see patient in the office today. Patient's vital signs are within normal limits. Patient remains chest pain-free. - Vital Signs Vital signs: Temp Pulse Resp BP Pulse Ox 98.9 F 18 177/88 H 95 05/14/18 07:43 05/14/18 07:01 05/14/18 07:01 05/14/18 07:42 - Laboratory Result Diagrams: 05/14/18 02:46 05/14/18 02:46 Laboratory results interpreted by me: 05/14/18 05/14/18 02:46 02:46 WBC 15.0 H MCH 26.5 L RDW 16.8 H Absolute Neutrophils 11.0 H Chloride 108 H Glucose 144 H AST 9 L Alkaline Phosphatase 130 H Creatine Kinase 27 L Discharge - Discharge Clinical Impression: Chest pain Qualifiers: Chest pain type: unspecified Qualified Code(s): R07.9 - Chest pain, unspecified Condition: Stable Disposition: HOME, SELF-CARE Additional Instructions: Chest Pain of Unclear Cause The exact cause of your chest pain isn't clear. Fortunately, there is no evidence of a dangerous medical condition. Further testing may be required to find the source of the pain. Most often, we find that this pain is coming from the chest wall -- the muscles or rib joints in the chest. But chest pain can come from the lung and lung lining, the esophagus, the heart valves or heart lining, and even the stomach or gallbladder. Rest. Eat lightly until the pain is gone. We may prescribe medicine for pain and inflammation. You should call the physician immediately if the pain radiates to the shoulder, jaw or arms; if you start to run a fever or develop a cough; or if you develop shortness of breath, or other new or alarming symptoms. I spoke with Dr. Hernández who would like to see you in his office today. Please return to the emergency department if you develop worsening chest pain that is accompanied by nausea, diaphoresis, shortness of breath or any other symptom that is concerning to you. Referrals: LIYA HERNÁNDEZ MD [Primary Care Provider] - Follow up as needed
[2018-05-14 03:00] LABS: ABSOLUTE BASOPHILS # (AUTO) 0.1 10^3/uL (0.0-0.2); ABSOLUTE EOSINOPHILS # (AUTO) 0.3 10^3/uL (0.0-0.6); ABSOLUTE LYMPHOCYTES (AUTO) 2.8 10^3/uL (0.5-4.7); ABSOLUTE MONOCYTES (AUTO) 0.8 10^3/uL (0.1-1.4); BASOPHILS % (AUTO) 0.6 % (0-2); EOSINOPHILS % (AUTO) 2.2 % (0-6); HEMATOCRIT 37.2 % (36.0-47.0); LYMPHOCYTES % (AUTO) 18.8 % (13-45); MEAN CORPUSCULAR HEMOGLOBIN 26.5 pg (27.0-33.4); MEAN CORPUSCULAR HGB CONC 32.2 g/dL (32.0-36.0); MEAN CORPUSCULAR VOLUME 82 fl (80-97); MONOCYTES % (AUTO) 5.2 % (3-13); PLATELET COUNT 254 10^3/uL (150-450); RED BLOOD COUNT 4.52 10^6/uL (3.72-5.28); RED CELL DISTRIBUTION WIDTH 16.8 % (11.5-14.0); SEGMENTED NEUTROPHILS % (AUTO) 73.2 % (42-78); TOTAL CELLS COUNTED % (AUTO) 100 %
[2018-05-14 03:12] LABS: ALANINE AMINOTRANSFERASE 20 U/L (9-52); ALBUMIN 3.5 g/dL (3.5-5.0); ALKALINE PHOSPHATASE 130 U/L (38-126); ANION GAP 8 (5-19); ASPARTATE AMINO TRANSFERASE 9 U/L (14-36); BILIRUBIN,DIRECT 0.3 mg/dL (0.0-0.4); BILIRUBIN,TOTAL 0.4 mg/dL (0.2-1.3); BLOOD UREA NITROGEN 9 mg/dL (7-20); CALCIUM 9.4 mg/dL (8.4-10.2); CARBON DIOXIDE 27 mmol/L (22-30); CHLORIDE 108 mmol/L (98-107); CREATINE KINASE 27 U/L (30-135); GLUCOSE 144 mg/dL (75-110); POTASSIUM 3.9 mmol/L (3.6-5.0); SODIUM 143.1 mmol/L (137-145); TOTAL PROTEIN 6.6 g/dL (6.3-8.2)
[2018-05-14 03:23] LABS: CREATINE KINASE MB 0.69 ng/mL (<4.55)
[2018-05-14 03:27] LABS: TROPONIN I 0.074 ng/mL
--- NOTE | 2018-05-14 03:36 | RADIOLOGY REPORT (SQ) ---
EXAM DESCRIPTION: XR CHEST 1 VIEW COMPLETED DATE/TME: 05/14/2018 02:37 CLINICAL HISTORY: 57 years Female, chest pain COMPARISON: 2.28.18 NUMBER OF VIEWS/TECHNIQUE: 1/AP FINDINGS: Adequate lung volume, clear parenchyma, prominent cardiac silhouette, and intact bony thorax. IMPRESSION: No acute cardiopulmonary findings.
[2018-05-14] MEDS ORDERED: KETOROLAC TROMETHAMINE INJ/PF 30 MG/1 ML SDV IV ONE (06:37)
[2018-05-14 07:02] VITALS: BP 177/88
--- NOTE | 2018-05-14 08:38 | EKG REPORT ---
SEVERITY:- BORDERLINE ECG - SINUS RHYTHM CONSIDER ANTERIOR INFARCT BORDERLINE T ABNORMALITIES, INFERIOR LEADS : Confirmed by: Wilson Card 14-May-2018 08:37:58
== END 2018-05-14 09:02 | disposition home or self-care (01) ==
LOC: ER 02:28
DX: R07.9 Chest pain, unspecified (principal); R00.2 Palpitations; E11.9 Type 2 diabetes mellitus without complications; Z88.0 Allergy status to penicillin; Z88.6 Allergy status to analgesic agent; Z91.013 Allergy to seafood; Z90.49 Acquired absence of other specified parts of digestive tract; Z90.710 Acquired absence of both cervix and uterus
CPT/HCPCS: 93005; 99285; 96374; 36415; 82553; 82550; 85025; 80053; 84484; 71045; 93010; J1885

== ENCOUNTER → 2018-05-15 | Outpatient (CLI) | payer MEDICARE, MEDICAID ==
--- NOTE | 2018-05-16 14:33 | WOMENS IMAGING REPORT ---
EXAM DESCRIPTION: BILAT SCREENING MAMMO W/CAD COMPLETED DATE/TIME: 05/15/2018 1:08 pm REASON FOR STUDY: ROUTINE SCREENING;Z12.31 Z12.31 ENCNTR SCREEN MAMMOGRAM FOR MALIGNANT NEOPLASM OF SUSAN COMPARISON: None. TECHNIQUE: Standard craniocaudal and mediolateral oblique views of each breast recorded using [employer] acquisition. LIMITATIONS: None. FINDINGS: Findings present which are benign by mammographic criteria. No suspicious masses, calcifi cations or architectural distortion. Read with the assistance of CAD. .[facility] - R2 [employer] Version 1.3 .[facility] - R2 [employer] Version 1.3 .[facility] - R2 C[employer] Version 2.4 .[facility] - R2 C[employer] Version 2.4 .[facility] - R2 [employer] Version 9.2 Benign mammographic findings may include one or more of the following: Smooth masses, popcorn/rim/co arse calcifications, asymmetries, post-procedure changes, and lesions with long-standing stability. IMPRESSION: BENIGN MAMMOGRAPHIC FINDINGS. BIRADS 2 BREAST DENSITY: b. There are scattered areas of fibroglandular density. BIRAD: 2 BENIGN FINDING(S) RECOMMENDATION: ROUTINE SCREENING COMMENT: The patient has been notified of the results by letter per [place] requirements. Additional no tification policies are in place for contacting patient with suspicious or incomplete findings. Quality ID #[id number]: The [employer] recommends an annual screening mammogram for women aged 40 years or over. This facility utilizes a reminder system to ensure that all patients receive reminder letters, and/or direct phone calls for appointments. This includes reminders for routine scr eening mammograms, diagnostic mammograms, or other Breast Imaging Interventions when appropriate. Th is patient will be placed in the appropriate reminder system. The [employer] (ACR) has developed recommendations for screening MRI of the breast s in certain patient populations, to be used in conjunction with mammography. Breast MRI surveillanc e may be appropriate for women with more than 20% lifetime risk of developing breast cancer as deter mined by genetic testing, significant family history of the disease, or history of mantle radiation f or Hodgkins Disease. ACR Practice Guidelines 2008. TECHNICAL DOCUMENTATION: FINDING NUMBER: (1) ASSESSMENT: (1) JOB ID: [id number] [employer]- All Rights Reserved Reading location - IP/workstation name: [email or web address]
== END ==
LOC: WI 12:45
PROVIDERS: ATTEND Nurse Practitioner Family
DX: Z12.31 Encounter for screening mammogram for malignant neoplasm of breast (principal)
CPT/HCPCS: 77067

== ENCOUNTER 2018-05-22 21:53 | Inpatient (IN) | payer MEDICARE, MEDICAID ==
[2018-05-22] MEDS ORDERED: DEXTROSE 50%-WATER 25 GM/50 ML DISP.SYRIN IV ONE (22:25)
[2018-05-22] MEDS ORDERED: NORMAL SALINE 1000 ML 1,000 ML IV PRN (22:34)
--- NOTE | 2018-05-22 22:36 | ER Document Report ---
ED General - General Mode of Arrival: Ambulatory Information source: Patient TRAVEL OUTSIDE OF THE [place] IN LAST 30 DAYS: No - HPI Patient complains to provider of: Dictated <AVA OSULLIVAN - Last Filed: 05/23/18 03:50> <CHITRA OROZCOIAN - Last Filed: 05/23/18 06:18> - General Chief Complaint: Altered Mental Status Stated Complaint: ALTERED MENTAL STATUS Time Seen by Provider: 05/22/18 22:03 Notes: Chief complaint: Altered mentation History of complain:( obtained from----patient): 57 years old female with a history of COPD, chronic pain, diabetes, was found to have an altered mentation confused, EMS was called, EMS found her blood sugar be 46. Give sublingual glucose and brought her to the ED. She continuously being confused. Recheck of blood sugar was 59. Difficult to get history at this point. Onset: As above Duration: Sudden Severity: Moderate Quality: As above Context: On hypoglycemic, insulin Exacerbating factor and relieving factors: REVIEW OF SYSTEMS: CONSTITUTIONAL : Denies fever, chills, or sweats. Denies recent illness. EENT: Denies eye, ear, throat, or mouth pain or symptoms. Denies nasal or sinus congestion or discharge. Denies throat, tongue, or mouth swelling or difficulty swallowing. CARDIOVASCULAR: Denies chest pain. Denies palpitations or racing or irregular heart beat. Denies ankle edema. RESPIRATORY: Denies cough, cold, or chest congestion. Denies shortness of breath, difficulty breathing, or wheezing. GASTROINTESTINAL: Denies distention. Denies nausea, vomiting, or diarrhea. Denies blood in vomitus, stools, or per rectum. Denies black, tarry stools. Denies constipation. GENITOURINARY: Denies difficulty urinating, painful urination, burning, frequency, blood in urine, or discharge. FEMALE GENITOURINARY: Denies vaginal bleeding, heavy or abnormal periods, irregular periods. Denies vaginal discharge or odor. MUSCULOSKELETAL: Denies back or neck pain or stiffness. Denies joint pain or swelling. SKIN: Denies rash, lesions or sores. HEMATOLOGIC : Denies easy bruising or bleeding. LYMPHATIC: Denies swollen, enlarged glands. NEUROLOGICAL: Denies confusion or altered mental status. Denies passing out or loss of consciousness. Denies dizziness or lightheadedness. Denies headache. Denies weakness or paralysis or loss of use of either side. Denies problems with gait or speech. Denies sensory loss, numbness, or tingling. Denies seizures. PSYCHIATRIC: Denies anxiety or stress. Denies depression, suicidal ideation, or homicidal ideation. ALL OTHER SYSTEMS REVIEWED AND NEGATIVE. PHYSICAL EXAMINATION: GENERAL: Well-appearing, well-nourished and in acute distress. Morbid obesity HEAD: Atraumatic, normocephalic. EYES: Pupils equal round and reactive to light, extraocular movements intact, conjunctiva are normal. ENT: Nares patent, oropharynx clear without exudates. Moist mucous membranes. NECK: Normal range of motion, supple without lymphadenopathy LUNGS: Breath sounds clear to auscultation bilaterally and equal. No wheezes rales or rhonchi. HEART: Regular rate and rhythm without murmurs ABDOMEN: Soft, nontender, nondistended abdomen. No guarding, no rebound. No masses appreciated. Examination of genitals-deferred Musculoskeletal: Normal range of motion, no pitting or edema. No cyanosis. NEUROLOGICAL: Cranial nerves grossly intact. Normal speech, normal gait. Normal sensory, motor exams PSYCH: Normal mood, normal affect. SKIN: Warm, Dry, normal turgor, no rashes or lesions noted. Dictation was performed using [employer] voice recognition software altered mentation (AVA OSULLIVAN) - Related Data Allergies/Adverse Reactions: dicyclomine HCl [From Bentyl] Allergy (Severe, Verified 01/23/18 13:23) throat swelling ibuprofen [From Motrin] Allergy (Severe, Verified 01/23/18 13:23) "increased headache",swelling Shellfish * [Shellfish] Allergy (Severe, Verified 01/23/18 13:23) rash,migraines Penicillins Allergy (Intermediate, Verified 01/23/18 13:23) Hives,vomit,fever sumatriptan succinate [From Imitrex] Allergy (Verified 01/23/18 13:23) Past Medical History - General Information source: Patient - Social History Smoking Status: Former Smoker Cigarette use (# per day): No Chew tobacco use (# tins/day): No Smoking Education Provided: No Frequency of alcohol use: Rare Drug Abuse: None Family History: Reviewed & Not Pertinent, Hypertension - Past Medical History Cardiac Medical History: Reports: Hx Coronary Artery Disease - 4 stents, Hx Heart Attack - AUG x 2, Hx Hypercholesterolemia, Hx Hypertension Denies: Hx Heart Murmur Pulmonary Medical History: Reports: Hx Asthma, Hx Bronchitis, Hx COPD, Hx Pneumonia Denies: Hx Respiratory Failure, Hx Sleep Apnea, Hx Tuberculosis Neurological Medical History: Reports: Hx Cerebrovascular Accident - 2008, Hx Migraine, Hx Seizures Endocrine Medical History: Reports: Hx Diabetes Mellitus Type 1, Hx Diabetes Mellitus Type 2 Renal/ Medical History: Reports: Hx Kidney Stones. Denies: Hx Peritoneal Dialysis GI Medical History: Reports: Hx Gastroesophageal Reflux Disease, Hx Irritable Bowel. Denies: Hx Pancreatitis Musculoskeltal Medical History: Reports Hx Arthritis - Back & Legs Psychiatric Medical History: Reports: Hx Bipolar Disorder, Hx Depression, Hx Post Traumatic Stress Disorder, Hx Schizophrenia Past Surgical History: Reports: Hx Appendectomy, Hx Cardiac Catheterization, Hx Cardiac Surgery - 3 stents, Hx Cholecystectomy, Hx Hysterectomy, Hx Orthopedic Surgery - L knee, Hx Tonsillectomy - Immunizations Immunizations up to date: Yes Hx Diphtheria, Pertussis, Tetanus Vaccination: Yes Hx Pneumococcal Vaccination: 11/26/12 <AVA OSULLIVAN - Last Filed: 05/23/18 03:50> Review of Systems <AVA OSULLIVAN - Last Filed: 05/23/18 03:50> <EMEKA OROZCO - Last Filed: 05/23/18 06:18> - Review of Systems Notes: Dictated (AVA OSULLIVAN) Physical Exam <AVA OSULLIVAN - Last Filed: 05/23/18 03:50> <EMEKA OROZCO - Last Filed: 05/23/18 06:18> - Vital signs Vitals: Temp 99.8 F 05/22/18 22:03 - Notes Notes: Dictated (AVA OSULLIVAN) Course - Laboratory Result Diagrams: 05/22/18 22:30 05/22/18 22:30 - Diagnostic Test Radiology reviewed: Reports reviewed - CT of the head reported by radiologist as no acute bleeding or pathology. <AVA OSULLIVAN - Last Filed: 05/23/18 03:50> - Laboratory Result Diagrams: 05/22/18 22:30 06/27/18 22:30 <EMEKA OROZCO - Last Filed: 05/23/18 06:18> - Re-evaluation Re-evalutation: 05/23/18 03:49 Patient remained stable, alert and oriented. (AVA OSULLIVAN) Patient was up for discharge. Discharge was set up by Dr. Burdick. When the nurse went to discharge the patient family complained that the patient was still altered and requested patient be reevaluated. Dr. Lutz show a left and therefore I will reevaluate the patient. History of. Patient has history of COPD and she over last 3 days she has been more confused than usual and at times been slurring her words. On my exam she is awake and alert and does answer questions appropriately but occasionally does her words and does seem a little more somnolent than she should be. Her lung kaufman have some scattered wheezing and she does smell of cigarettes. Suspect is probably hypercapnic and therefore obtain a venous blood gas which showed that she is in respiratory acidosis with hypercapnia. Therefore gave her a dose Solu-Medrol and gave her DuoNeb treatment will place on BiPAP. I called and spoke with Dr. Hernández, patient's primary care physician, who agrees to admit the patient. Patient family agreeable to plan. Dictation of this chart was performed using voice recognition software; therefore, there may be some unintended grammatical errors. 05/23/18 06:17 (EMEKA OROZCO) - Vital Signs Vital signs: Temp Pulse Resp BP Pulse Ox 99.8 F 13 139/89 H 96 05/22/18 22:03 05/23/18 05:00 05/23/18 04:01 05/23/18 04:01 - Laboratory Laboratory results interpreted by me: 05/22/18 05/22/18 05/23/18 22:30 22:30 02:54 WBC 13.0 H MCH 25.7 L MCHC 31.6 L RDW 17.0 H Seg Neutrophils % 79.2 H Absolute Neutrophils 10.3 H VBG pH VBG pCO2 Sodium 145.9 H Chloride 108 H AST 13 L Ur Leukocyte Esterase SMALL H 05/23/18 05:55 WBC MCH MCHC RDW Seg Neutrophils % Absolute Neutrophils VBG pH 7.25 L VBG pCO2 71.9 H* Sodium Chloride AST Ur Leukocyte Esterase Discharge <AVA OSULLIVAN - Last Filed: 05/23/18 03:50> - Discharge Admitting Provider: Alexa Unit Admitted: I[facility] <EMEKA OROZCO - Last Filed: 05/23/18 06:18> - Discharge Clinical Impression: Hypoglycemia associated with type 2 diabetes mellitus, Respiratory acidosis, Hypercapnia Altered mental status Qualifiers: Altered mental status type: unspecified Qualified Code(s): R41.82 - Altered mental status, unspecified Condition: Stable Disposition: ADMITTED OBSERVATION Referrals: LIYA HERNÁNDEZ MD [Primary Care Provider] - Follow up as needed
[2018-05-22 22:40] LABS: ABSOLUTE BASOPHILS # (AUTO) 0.1 10^3/uL (0.0-0.2); ABSOLUTE EOSINOPHILS # (AUTO) 0.2 10^3/uL (0.0-0.6); ABSOLUTE LYMPHOCYTES (AUTO) 1.7 10^3/uL (0.5-4.7); ABSOLUTE MONOCYTES (AUTO) 0.7 10^3/uL (0.1-1.4); ABSOLUTE NEUT (AUTO) 10.3 10^3/uL (1.7-8.2); BASOPHILS % (AUTO) 0.6 % (0-2); EOSINOPHILS % (AUTO) 1.3 % (0-6); HEMATOCRIT 38.5 % (36.0-47.0); HEMOGLOBIN 12.1 g/dL (12.0-15.5); LYMPHOCYTES % (AUTO) 13.2 % (13-45); MEAN CORPUSCULAR HEMOGLOBIN 25.7 pg (27.0-33.4); MEAN CORPUSCULAR HGB CONC 31.6 g/dL (32.0-36.0); MEAN CORPUSCULAR VOLUME 81 fl (80-97); MONOCYTES % (AUTO) 5.7 % (3-13); PLATELET COUNT 188 10^3/uL (150-450); RED BLOOD COUNT 4.73 10^6/uL (3.72-5.28); SEGMENTED NEUTROPHILS % (AUTO) 79.2 % (42-78); TOTAL CELLS COUNTED % (AUTO) 100 %
[2018-05-22 22:53] LABS: ALANINE AMINOTRANSFERASE 18 U/L (9-52); ALBUMIN 3.6 g/dL (3.5-5.0); ALKALINE PHOSPHATASE 117 U/L (38-126); ANION GAP 12 (5-19); ASPARTATE AMINO TRANSFERASE 13 U/L (14-36); BILIRUBIN,DIRECT 0.3 mg/dL (0.0-0.4); BILIRUBIN,TOTAL 0.4 mg/dL (0.2-1.3); BLOOD UREA NITROGEN 9 mg/dL (7-20); CARBON DIOXIDE 26 mmol/L (22-30); CHLORIDE 108 mmol/L (98-107); GLUCOSE 88 mg/dL (75-110); POTASSIUM 3.8 mmol/L (3.6-5.0); SODIUM 145.9 mmol/L (137-145); TOTAL PROTEIN 6.4 g/dL (6.3-8.2)
--- NOTE | 2018-05-23 01:12 | RADIOLOGY REPORT (SQ) ---
EXAM DESCRIPTION: CT HEAD WITHOUT IV CONTRAST COMPLETED DATE/TME: 05/23/2018 00:00 CLINICAL HISTORY: 57 years, Female, confusion COMPARISON: 04/12/2017. TECHNIQUE: 194 Images stored on PACS. All CT scanners at this facility use dose modulation, iterative reconstruction, and/or weight based dosing when appropriate to reduce radiation dose to as low as reasonably achievable (ALARA). [facility]: Dose Right [facility]: CareDose [facility]: Dose Right [facility]: Teradose 4D [facility]: Smart Technologies LIMITATIONS: None. FINDINGS: Ventricles and sulci appear within normal limits for the patient's age and are unchanged as compared to the previous examination. No evidence of midline shift or mass effect. No acute intracranial hemorrhage. No extra axial fluid collection. Paranasal sinuses are clear. No masses identified. IMPRESSION: No evidence of acute process TECHNICAL DOCUMENTATION: Quality ID # 436: Final reports with documentation of one or more dose reduction techniques (e.g., Automated exposure control, adjustment of the mA and/or kV according to patient size, use of iterative reconstruction technique) 2010 [employer]- All Rights Reserved
[2018-05-23 03:39] LABS: APPEARANCE,URINE SLIGHTLY-CLOUDY; BILIRUBIN,URINE NEGATIVE (NEGATIVE); COLOR,URINE YELLOW; GLUCOSE, URINE NEGATIVE (NEGATIVE); KETONES,URINE NEGATIVE (NEGATIVE); LEUKOCYTE ESTERASE,URINE SMALL (NEGATIVE); NITRITE,URINE NEGATIVE (NEGATIVE); PROTEIN,URINE NEGATIVE (NEGATIVE); URINE SPECIFIC GRAVITY 1.016; UROBILINOGEN,URINE NEGATIVE mg/dL (<2.0)
[2018-05-23 06:04] LABS: VENOUS BLOOD BASE EXCESS 1.8 mmol/L; VENOUS BLOOD HCO3 30.8 mmol/L (20-32); VENOUS BLOOD PH 7.25 (7.30-7.42)
[2018-05-23 06:08] LABS: VENOUS BLOOD PCO2 71.9 mmHg (35-63)
[2018-05-23] MEDS ORDERED: METHYLPREDNISOLONE INJ 125 MG/2 ML SDV IV ONE (06:15)
[2018-05-23] MEDS ORDERED: IPRATROPIUM/ALBUTEROL 0.5-2.5 MG/3 ML AMPUL NEB ONE (06:16)
[2018-05-23 07:00] LABS: URINE AMPHETAMINES SCREEN NEGATIVE; URINE BARBITURATES SCREEN NEGATIVE; URINE BENZODIAZEPINES SCREEN NEGATIVE; URINE COCAINE SCREEN NEGATIVE; URINE MARIJUANA (THC) SCREEN NEGATIVE; URINE METHADONE SCREEN NEGATIVE; URINE PHENCYCLIDINE SCREEN NEGATIVE
[2018-05-23] MEDS ORDERED: FLUTICASONE NASAL SPRAY 50 MCG/SPRY 120 SPRAY/16 GM NASL PRN (18:06)
[2018-05-23] MEDS ORDERED: ALBUTEROL SULFATE HFA (90 MCG/PUFF) 200 PUFF/8.5 GM MDI IH PRN (18:06)
[2018-05-23] MEDS ORDERED: SUVOREXANT 10 MG PO PRN (18:06)
[2018-05-23] MEDS ORDERED: INSULIN LISPRO 100 UNIT/ML 3 ML VIAL SUBCUT PRN (18:08)
[2018-05-23] MEDS ORDERED: DEXTROSE 40% GEL 15 GM TUBE PO PRN ×2 (18:08)
[2018-05-23] MEDS ORDERED: DEXTROSE 50%-WATER 25 GM/50 ML DISP.SYRIN IV PRN ×2 (18:08)
[2018-05-23] MEDS ORDERED: GLUCAGON,HUMAN RECOMB 1 MG INJ IM PRN (18:08)
[2018-05-23 20:27] LABS: ARTERIAL BLOOD BASE EXCESS -2.1 mmol/L; ARTERIAL BLOOD FIO2 2.5; ARTERIAL BLOOD H2CO3 1.38 mmol/L (1.05-1.35); ARTERIAL BLOOD HCO3 23.9 mmol/L (20-26); ARTERIAL BLOOD O2 SATURATION 95.4 % (94-98); ARTERIAL BLOOD PCO2 45.7 mmHg (35-45); ARTERIAL BLOOD PH 7.34 (7.35-7.45); ARTERIAL BLOOD PO2 81.8 mmHg (80-100); ARTERIAL BLOOD TOTAL CO2 25.3 mmol/L (21-25)
[2018-05-23] MEDS ORDERED: ACETAMINOPHEN 325 MG TABLET PO PRN (20:46)
[2018-05-23] MEDS ORDERED: INSULIN DEGLUDEC 120 UNIT SQ SCH ×2 (21:00→22:00)
[2018-05-23] MEDS: PREGABALIN 75 MG CAPSULE PO SCH (21:34)
[2018-05-24] MEDS ORDERED: (PENDING PHARMACY ID) (Risperidone [Risperdal] 2 MG) PO SCH (08:00)
[2018-05-24] MEDS: RISPERIDONE 1 MG TABLET PO SCH (08:32)
--- NOTE | 2018-05-24 08:41 | PDOC H&P ---
History of Present Illness Admission Date/PCP: 05/23/18 06:25 LIYA EDGAR Patient complains of: Confusion History of Present Illness: NAVEEN TABARES is a 57 year old female known to my practice who presented to the ED via EMS with reported worsening confusional state. Patient's friend call the service due to patient's persistent inability to respond to questioning appropriately. She was found in hypoglycemia state by EMS crew upon arrival with glucose accuchek reading at 46mg/dL and despite resuscitative measures she persisted with hypoglycemia at 56 mg/dL necessitating transfer to the ED. Her initial evaluation in the ED was was significant for persistent alteration in mentation with hypercapnia and respiratory acidosis. She was managed with BiPAP support. At the time of my bedside evaluation she was awake, appropriate and able to contribute to her medical history. Her morbidities include COPD, Diabetes Mellitus type 2, Hypertension, CAD with old [place], Hyperlipidemia, GERD, Migraine Headache, Seizure disorder, Osteoarthritis and Chronic pain syndrome. She was advised admission to observation telemetry bed for further evaluation and management. Past Medical History Cardiac Medical History: Reports: Coronary Artery Disease - 4 stents, Myocardial Infarction - Jun x 2, Hyperlipidema, Hypertension Denies: Heart Murmur Pulmonary Medical History: Reports: Asthma, Bronchitis, Chronic Obstructive Pulmonary Disease (COPD), Pneumonia Denies: Respiratory Failure, Sleep Apnea, Tuberculosis Neurological Medical History: Reports: Migraine, Seizures Endocrine Medical History: Reports: Diabetes Mellitus Type 2 GI Medical History: Reports: Gastroesophageal Reflux Disease Musculoskeltal Medical History: Reports: Arthritis - Back & Legs Psychiatric Medical History: Reports: Bipolar Disorder, Depression, Post Traumatic Stress Disorder Hematology: Denies: Anemia Past Surgical History Past Surgical History: Reports: Appendectomy, Cardiac Catheterization, Cholecystectomy, Hysterectomy, Orthopedic Surgery - L knee, Tonsillectomy Social History Smoking Status: Current Every Day Smoker Cigarettes Packs Per Day: 0.5 Number of Years Smokin Last Time Smoked: yesterday Frequency of Alcohol Use: None Hx Recreational Drug Use: No Drugs: None Hx Prescription Drug Abuse: No Family History Family History: Reviewed & Not Pertinent, Hypertension Parental Family History Reviewed: Yes Children Family History Reviewed: Yes Sibling(s) Family History Reviewed.: Yes Medication/Allergy Home Medications: Albuterol Sulfate [Proair HFA Inhalation Aerosol 8.5 gm MDI] 1 puff IH Q4HP PRN 05/23/18 Atorvastatin Calcium [Lipitor 10 mg Tablet] 10 mg PO QPM 05/23/18 Benztropine Mesylate [Cogentin 1 mg Tablet] 1 mg PO BID 05/23/18 Clonazepam [Klonopin] 0.5 mg PO DAILY@1400 PRN 05/23/18 Fluticasone Propionate [Flonase Nasal [place] 50 Mcg/[place] 16 gm] 1 spray NASL DAILYP PRN 05/23/18 Insulin Degludec [Tresiba Flextouch U-200] 120 units SQ QHS 05/23/18 Levocetirizine Dihydrochloride [Xyzal] 5 mg PO DAILY 05/23/18 Lisinopril [Zestril] 5 mg PO DAILY 05/23/18 Metformin HCl [Glucophage] 1,000 mg PO BID 05/23/18 Pregabalin [Lyrica 75 mg Capsule] 75 mg PO Q12 05/23/18 Risperidone [Risperdal] 2 mg PO QAM 05/23/18 Risperidone [Risperdal] 3 mg PO QPM 05/23/18 Sertraline HCl [Zoloft] 100 mg PO DAILY 05/23/18 Sitagliptin Phosphate [Januvia] 100 mg PO DAILY 05/23/18 Suvorexant [Belsomra] 10 mg PO HSP PRN 05/23/18 Topiramate [Topamax 100 mg Tablet] 100 mg PO BID MDD TAKE WITH 50MG 05/23/18 Topiramate [Topamax] 50 mg PO BID MDD TAKE WITH 100MG 05/23/18 Allergies/Adverse Reactions: dicyclomine HCl [From Bentyl] Allergy (Severe, Verified 01/23/18 13:23) throat swelling ibuprofen [From Motrin] Allergy (Severe, Verified 01/23/18 13:23) "increased headache",swelling Shellfish * [Shellfish] Allergy (Severe, Verified 01/23/18 13:23) rash,migraines Penicillins Allergy (Intermediate, Verified 01/23/18 13:23) Hives,vomit,fever sumatriptan succinate [From Imitrex] Allergy (Verified 01/23/18 13:23) Review of Systems Constitutional: ABSENT: chills, fever(s), headache(s), weight gain, weight loss Eyes: ABSENT: visual disturbances Ears: ABSENT: hearing changes Nose, Mouth, and Throat: ABSENT: as per HPI, headache(s), mouth pain, sore throat, vertigo, other Cardiovascular: ABSENT: chest pain, dyspnea on exertion, edema, orthropnea, palpitations Respiratory: ABSENT: cough, hemoptysis Gastrointestinal: ABSENT: abdominal pain, constipation, diarrhea, hematemesis, hematochezia, nausea, vomiting Genitourinary: ABSENT: dysuria, hematuria Musculoskeletal: ABSENT: joint swelling Integumentary: ABSENT: rash, wounds Neurological: PRESENT: confusion Psychiatric: ABSENT: anxiety, depression, homidical ideation, suicidal ideation Endocrine: ABSENT: cold intolerance, heat intolerance, menstrual abnormalities, polydipsia, polyuria Hematologic/Lymphatic: ABSENT: easy bleeding, easy bruising, lymphadenopathy Allergic/Immunologic: ABSENT: seasonal rhinorrhea Physical Exam Vital Signs: Temp Pulse Resp BP Pulse Ox 99.3 F 80 24 H 164/70 H 95 05/23/18 15:30 05/23/18 15:30 05/23/18 15:30 05/23/18 15:30 05/23/18 16:34 Intake & Output 05/22/18 05/23/18 05/24/18 06:59 06:59 06:59 Intake Total 10 Balance 10 Weight 90.7 kg General appearance: PRESENT: mild distress - on supplemental oxygen via nasal cannula, obese Head exam: PRESENT: atraumatic, normocephalic Eye exam: PRESENT: conjunctiva pink, EOMI, PERRLA. ABSENT: scleral icterus Ear exam: PRESENT: normal external ear exam Mouth exam: PRESENT: moist, tongue midline Neck exam: PRESENT: full ROM. ABSENT: carotid bruit, JVD, lymphadenopathy, thyromegaly Respiratory exam: PRESENT: clear to auscultation luz elena Cardiovascular exam: PRESENT: RRR. ABSENT: diastolic murmur, rubs, systolic murmur Pulses: PRESENT: normal dorsalis pedis pul, +2 pedal pulses bilateral Vascular exam: PRESENT: normal capillary refill. ABSENT: pallor GI/Abdominal exam: PRESENT: normal bowel sounds, soft. ABSENT: distended, guarding, mass, organolmegaly, rebound, tenderness Rectal exam: PRESENT: deferred Extremities exam: ABSENT: pedal edema Musculoskeletal exam: PRESENT: normal inspection Neurological exam: PRESENT: alert, awake, oriented to person, oriented to place , oriented to time, oriented to situation, CN II-XII grossly intact. ABSENT: motor sensory deficit Psychiatric exam: PRESENT: appropriate affect, normal mood. ABSENT: homicidal ideation, suicidal ideation Skin exam: PRESENT: dry, intact, warm. ABSENT: cyanosis, rash Results Impressions: Head CT 05/23/18 00:00 IMPRESSION: No evidence of acute process TECHNICAL DOCUMENTATION: Quality ID # 436: Final reports with documentation of one or more dose reduction techniques (e.g., Automated exposure control, adjustment of the mA and/or kV according to patient size, use of iterative reconstruction technique) 2010 [employer]- All Rights Reserved Assessment & Plan - Diagnosis (1) Altered mental status Qualifiers: Altered mental status type: unspecified Qualified Code(s): R41.82 - Altered mental status, unspecified Is this a current diagnosis for this admission?: Yes Plan: See admitting physician orders. (2) Hypercapnia Is this a current diagnosis for this admission?: Yes Plan: See admitting physician orders. (3) Respiratory acidosis Is this a current diagnosis for this admission?: Yes Plan: See admitting physician orders. (4) COPD (chronic obstructive pulmonary disease) Qualifiers: Emphysema type: unspecified Is this a current diagnosis for this admission?: Yes Plan: See admitting physician orders. (5) Hypoglycemia associated with type 2 diabetes mellitus Is this a current diagnosis for this admission?: Yes Plan: See admitting physician orders. (6) Diabetes mellitus type 2 in obese Is this a current diagnosis for this admission?: Yes Plan: See admitting physician orders. (7) Hypertension Qualifiers: Hypertension type: essential hypertension Qualified Code(s): I10 - Essential (primary) hypertension Is this a current diagnosis for this admission?: Yes Plan: See admitting physician orders. (8) Hyperlipidemia associated with type 2 diabetes mellitus Is this a current diagnosis for this admission?: Yes Plan: See admitting physician orders. (9) GERD (gastroesophageal reflux disease) Qualifiers: Esophagitis presence: without esophagitis Qualified Code(s): K21.9 - Gastro -esophageal reflux disease without esophagitis Is this a current diagnosis for this admission?: Yes Plan: See admitting physician orders. (10) Osteoarthritis involving multiple joints on both sides of body Is this a current diagnosis for this admission?: Yes Plan: See admitting physician orders. (11) Chronic pain syndrome Is this a current diagnosis for this admission?: Yes Plan: See admitting physician orders. - Time Time Spent: 50 to 70 Minutes Medications reviewed and adjusted accordingly: Yes Anticipated discharge: Home Within: within 48 hours - Plan Summary Plan Summary: See admitting physician orders.
[2018-05-24] MEDS ORDERED: SITAGLIPTIN PHOSPHATE 50 MG TABLET PO SCH (10:00)
[2018-05-24] MEDS ORDERED: METFORMIN HCL 500 MG TABLET PO SCH (10:00)
[2018-05-24] MEDS: LISINOPRIL 5 MG TABLET PO SCH (10:20)
[2018-05-24] MEDS: PREGABALIN 75 MG CAPSULE PO SCH ×2 (10:33→23:05)
[2018-05-24] MEDS: CETIRIZINE 5 MG TABLET PO SCH (10:33)
[2018-05-24] MEDS: SERTRALINE HCL 50 MG TABLET PO SCH (10:33)
[2018-05-24] MEDS: BENZTROPINE MESYLATE 1 MG TABLET PO SCH ×2 (10:33→17:34)
[2018-05-24] MEDS: TOPIRAMATE 25 MG TABLET PO SCH ×2 (10:34→17:34)
[2018-05-24] MEDS: TOPIRAMATE 100 MG TABLET PO SCH ×2 (10:34→17:34)
[2018-05-24] MEDS ORDERED: SITAGLIPTIN PHOSPHATE 50 MG TABLET PO ONE (12:00)
[2018-05-24] MEDS ORDERED: METFORMIN HCL 500 MG TABLET PO ONE (12:00)
--- NOTE | 2018-05-24 14:20 | PDOC PROGRESS REPORT ---
Subjective Progress Note for:: 05/24/18 Subjective:: Patient had episode of low blood glucose on POC accu-check necessitating decrease in her diabetic mellitus medication management. No chest pain or difficulty. No fever or chills. There has been improvement in her confusional state. Reason For Visit: HYPOGLYCEMIA,AMS,RESPIRATORY ACIDOSIS,HYPERCAPNIA, Physical Exam Vital Signs: Temp Pulse Resp BP Pulse Ox 98.7 F 81 18 128/71 H 99 05/24/18 11:57 05/24/18 14:00 05/24/18 11:57 05/24/18 11:57 05/24/18 11:57 Intake & Output 05/23/18 05/24/18 05/25/18 06:59 06:59 06:59 Intake Total 133 225 Balance 133 225 Weight 91.8 kg General appearance: PRESENT: obese Head exam: PRESENT: atraumatic, normocephalic Mouth exam: PRESENT: moist Respiratory exam: PRESENT: clear to auscultation luz elena Cardiovascular exam: PRESENT: RRR. ABSENT: diastolic murmur, rubs, systolic murmur Vascular exam: PRESENT: normal capillary refill. ABSENT: pallor GI/Abdominal exam: PRESENT: normal bowel sounds, soft. ABSENT: distended, guarding, mass, organolmegaly, rebound, tenderness Extremities exam: PRESENT: tenderness - right knee joint. ABSENT: pedal edema Musculoskeletal exam: PRESENT: deformity - related to multiple joints involvement with arthritis Neurological exam: PRESENT: alert, awake, oriented to person, oriented to place , oriented to time, oriented to situation, CN II-XII grossly intact. ABSENT: motor sensory deficit Psychiatric exam: PRESENT: appropriate affect, normal mood. ABSENT: homicidal ideation, suicidal ideation Skin exam: PRESENT: dry, intact, warm. ABSENT: cyanosis, rash Results Laboratory Results: 05/23/18 18:50 Carbonic Acid 1.38 H HCO3/H2CO3 Ratio 17:1 ABG pH 7.34 L ABG pCO2 45.7 H ABG pO2 81.8 ABG HCO3 23.9 ABG O2 Saturation 95.4 ABG Base Excess -2.1 FiO2 2.5 Impressions: Head CT 05/23/18 00:00 IMPRESSION: No evidence of acute process TECHNICAL DOCUMENTATION: Quality ID # 436: Final reports with documentation of one or more dose reduction techniques (e.g., Automated exposure control, adjustment of the mA and/or kV according to patient size, use of iterative reconstruction technique) 2010 [employer]- All Rights Reserved Assessment & Plan - Diagnosis (1) Altered mental status Qualifiers: Altered mental status type: unspecified Qualified Code(s): R41.82 - Altered mental status, unspecified Is this a current diagnosis for this admission?: Yes Plan: Improving. (2) Hypercapnia Is this a current diagnosis for this admission?: Yes Plan: Improving. (3) Respiratory acidosis Is this a current diagnosis for this admission?: Yes Plan: Improving. (4) COPD (chronic obstructive pulmonary disease) Qualifiers: Emphysema type: unspecified Is this a current diagnosis for this admission?: Yes Plan: Continue current medication management. (5) Hypoglycemia associated with type 2 diabetes mellitus Is this a current diagnosis for this admission?: Yes Plan: Improving. Decrease diabetes mellitus medication dosage. See attending physician orders. (6) Diabetes mellitus type 2 in obese Is this a current diagnosis for this admission?: Yes Plan: Decrease Metformin to 500 mg po bid. Split Januvia to 50 mg po bid. See admitting physician orders. (7) Hypertension Qualifiers: Hypertension type: essential hypertension Qualified Code(s): I10 - Essential (primary) hypertension Is this a current diagnosis for this admission?: Yes Plan: See attending physician orders. (8) Hyperlipidemia associated with type 2 diabetes mellitus Is this a current diagnosis for this admission?: Yes Plan: See attending physician orders. (9) GERD (gastroesophageal reflux disease) Qualifiers: Esophagitis presence: without esophagitis Qualified Code(s): K21.9 - Gastro -esophageal reflux disease without esophagitis Is this a current diagnosis for this admission?: Yes Plan: See attending physician orders. (10) Osteoarthritis involving multiple joints on both sides of body Is this a current diagnosis for this admission?: Yes Plan: See attending physician orders. (11) Chronic pain syndrome Is this a current diagnosis for this admission?: Yes Plan: See attending physician orders. - Time Time Spent with patient: 25-34 minutes Medications reviewed and adjusted accordingly: Yes Anticipated discharge: Home Within: within 24 hours - Plan Summary Plan Summary: See attending physician orders.
[2018-05-24] MEDS: SITAGLIPTIN PHOSPHATE 50 MG TABLET PO SCH (17:34)
[2018-05-24] MEDS: METFORMIN HCL 500 MG TABLET PO SCH (17:34)
[2018-05-24] MEDS ORDERED: (PENDING PHARMACY ID) (Risperidone [Risperdal] 3 MG) PO SCH (18:00)
[2018-05-24] MEDS ORDERED: ATORVASTATIN CALCIUM 10 MG TABLET PO SCH (18:00)
[2018-05-24] MEDS ORDERED: RISPERIDONE 1 MG TABLET PO SCH (18:00)
[2018-05-25] MEDS: RISPERIDONE 1 MG TABLET PO SCH (09:02)
[2018-05-25] MEDS: BENZTROPINE MESYLATE 1 MG TABLET PO SCH (09:03)
[2018-05-25] MEDS: SITAGLIPTIN PHOSPHATE 50 MG TABLET PO SCH (09:03)
[2018-05-25] MEDS: LISINOPRIL 5 MG TABLET PO SCH (09:03)
[2018-05-25 09:04] VITALS: BP 141/82
[2018-05-25] MEDS: SERTRALINE HCL 50 MG TABLET PO SCH (09:04)
[2018-05-25] MEDS: PREGABALIN 75 MG CAPSULE PO SCH (09:04)
[2018-05-25] MEDS: METFORMIN HCL 500 MG TABLET PO SCH (09:04)
[2018-05-25] MEDS: TOPIRAMATE 25 MG TABLET PO SCH (09:07)
[2018-05-25] MEDS: CETIRIZINE 5 MG TABLET PO SCH (09:07)
[2018-05-25] MEDS: TOPIRAMATE 100 MG TABLET PO SCH (09:07)
--- NOTE | 2018-05-25 13:57 | PDOC DISCHARGE SUMMARY ---
General - Admit/Disc Date/PCP Admission Date/Primary Care Provider: 05/23/18 06:25 LIYA EDGAR Discharge Date: 05/25/18 - Discharge Diagnosis (1) Hypoglycemic encephalopathy Is this a current diagnosis for this admission?: Yes (3) Diabetes mellitus type 2 in obese Is this a current diagnosis for this admission?: Yes - Additional Information Home Medications: Albuterol Sulfate [Proair HFA Inhalation Aerosol 8.5 gm MDI] 1 puff IH Q4HP PRN 05/23/18 Atorvastatin Calcium [Lipitor 10 mg Tablet] 10 mg PO QPM 05/23/18 Benztropine Mesylate [Cogentin 1 mg Tablet] 1 mg PO BID 05/23/18 Clonazepam [Klonopin] 0.5 mg PO DAILY@1400 PRN 05/23/18 Fluticasone Propionate [Flonase Nasal [place] 50 Mcg/[place] 16 gm] 1 spray NASL DAILYP PRN 05/23/18 Insulin Degludec [Tresiba Flextouch U-200] 120 units SQ QHS 05/23/18 Levocetirizine Dihydrochloride [Xyzal] 5 mg PO DAILY 05/23/18 Lisinopril [Zestril] 5 mg PO DAILY 05/23/18 Pregabalin [Lyrica 75 mg Capsule] 75 mg PO Q12 05/23/18 Risperidone [Risperdal] 2 mg PO QAM 05/23/18 Risperidone [Risperdal] 3 mg PO QPM 05/23/18 Sertraline HCl [Zoloft] 100 mg PO DAILY 05/23/18 Suvorexant [Belsomra] 10 mg PO HSP PRN 05/23/18 Metformin HCl [Glucophage 500 mg Tablet] 500 mg PO BIDBS #60 tablet 05/25/18 Sitagliptin Phosphate [Januvia 50 mg Tablet] 50 mg PO BIDBS #60 tablet 05/25/18 Topiramate [Topamax 25 mg Tablet] 50 mg PO BID tablet 05/25/18 History of Present Illness History of Present Illness: NAVEEN TABARES is a 57 year old female she was admitted on 05/23/2018 when she presented with altered mental status, she was confused, she was found to be severely hypoglycemic the Accu-Chek was 46 mg but this year. She was resuscitated in the emergency room with 50% dextrose despite all that she remained hypoglycemic, she also had hypercapnic respiratory failure requiring noninvasive ventilation in the emergency room, admission was advised. Hospital Course Hospital Course: Patient was admitted for the management of hypoglycemia and hypercapnic respiratory failure, medication was adjusted, she was admitted and managed by Dr. Liu. The dosages of Januvia and metformin was adjusted downwards, I saw patient this morning she is alert she is oriented to time place or person she wants to go home, there is no more indication to continue inpatient care at this time, she be discharged home today she will follow with Dr. Liu outpatient. Physical Exam Vital Signs: Temp Pulse Resp BP Pulse Ox 99.3 F 77 18 141/82 H 97 05/25/18 07:57 05/25/18 07:57 05/25/18 07:57 05/25/18 07:57 05/25/18 08:00 Intake & Output 05/24/18 05/25/18 05/26/18 06:59 06:59 06:59 Intake Total 133 715 655 Balance 133 715 655 Weight 91.8 kg 91.8 kg General appearance: PRESENT: no acute distress, well-developed, well-nourished Head exam: PRESENT: atraumatic, normocephalic Eye exam: PRESENT: conjunctiva pink, EOMI, PERRLA Ear exam: PRESENT: normal external ear exam Mouth exam: PRESENT: moist, tongue midline Neck exam: PRESENT: full ROM Respiratory exam: PRESENT: clear to auscultation luz elena Cardiovascular exam: PRESENT: RRR, +S1, +S2 Vascular exam: PRESENT: normal capillary refill GI/Abdominal exam: PRESENT: normal bowel sounds, soft Rectal exam: PRESENT: deferred Neurological exam: PRESENT: alert, awake, oriented to person, oriented to place , oriented to time, oriented to situation, CN II-XII grossly intact Psychiatric exam: PRESENT: appropriate affect, normal mood Skin exam: PRESENT: dry, intact, warm Results Impressions: Head CT 05/23/18 00:00 IMPRESSION: No evidence of acute process TECHNICAL DOCUMENTATION: Quality ID # 436: Final reports with documentation of one or more dose reduction techniques (e.g., Automated exposure control, adjustment of the mA and/or kV according to patient size, use of iterative reconstruction technique) 2010 [employer]- All Rights Reserved Qualifiers - * PATIENT BEING DISCHARGED WITH ANY OF THE FOLLOWING DIAGNOSIS: No
== END 2018-05-25 15:20 | disposition home health service (06) | DRG 637 ==
LOC: ER 21:53 → OBSVTOIN 05-23 06:25 → EH 05-23 06:25 → 4W 05-23 13:56 → 3N 05-23 15:11
PROVIDERS: ADMIT Internal Medicine Geriatric Medicine; ATTEND Internal Medicine Geriatric Medicine
PROC: 5A09457 Assistance with Respiratory Ventilation, 24-96 Consecutive Hours, Continuous Positive Airway Pressure (ICD-10-PCS; principal; 2018-05-23)
DX: E11.649 Type 2 diabetes mellitus with hypoglycemia without coma (principal); G93.41 Metabolic encephalopathy; J96.02 Acute respiratory failure with hypercapnia; E66.9 Obesity, unspecified; Z79.4 Long term (current) use of insulin; Z79.899 Other long term (current) drug therapy; J44.9 Chronic obstructive pulmonary disease, unspecified; I10 Essential (primary) hypertension; I25.10 Atherosclerotic heart disease of native coronary artery without angina pectoris; I25.2 Old myocardial infarction; E78.5 Hyperlipidemia, unspecified; K21.9 Gastro-esophageal reflux disease without esophagitis; F17.210 Nicotine dependence, cigarettes, uncomplicated; F31.9 Bipolar disorder, unspecified; G40.909 Epilepsy, unspecified, not intractable, without status epilepticus; G43.909 Migraine, unspecified, not intractable, without status migrainosus; M19.90 Unspecified osteoarthritis, unspecified site; G89.29 Other chronic pain; Z95.5 Presence of coronary angioplasty implant and graft; Z86.59 Personal history of other mental and behavioral disorders; Z90.49 Acquired absence of other specified parts of digestive tract; Z91.013 Allergy to seafood; Z88.0 Allergy status to penicillin; Z88.8 Allergy status to other drugs, medicaments and biological substances
CPT/HCPCS: 36415; 36600; 70450; 80053; 80307; 81001; 82803; 82962; 85025; 94640; 94660; 96374; 99285; G0378; J2930; J3490; J7620

== ENCOUNTER 2018-07-22 16:16 | Inpatient (IN) | payer MEDICARE, MEDICAID ==
[2018-07-22] MEDS ORDERED: NORMAL SALINE 500 ML IV ONE (16:44)
--- NOTE | 2018-07-22 17:06 | RADIOLOGY REPORT (SQ) ---
EXAM DESCRIPTION: CT HEAD WITHOUT COMPLETED DATE/TIME: 07/22/2018 4:54 pm REASON FOR STUDY: feeling unwell COMPARISON: 05/23/2018 TECHNIQUE: Axial images acquired through the brain without intravenous contrast. Images reviewed wi th bone, brain and subdural windows. Additional sagittal and coronal reconstructions were generated. Images stored on PACS. All CT scanners at this facility use dose modulation, iterative reconstruction, and/or weight based d osing when appropriate to reduce radiation dose to as low as reasonably achievable (ALARA). [facility]: Dose Right [facility]: CareDose [facility]: Dose Right [facility]: Teradose 4D [facility]: [employer] RADIATION DOSE: CT Rad equipment meets quality standard of care and radiation dose reduction techniq ues were employed. CTDIvol: 53.2 mGy. DLP: 1070 mGy-cm. mGy. LIMITATIONS: None. FINDINGS: VENTRICLES: Normal size and contour. CEREBRUM: No masses. No hemorrhage. No midline shift. No evidence for acute infarction. Normal gra y/white matter differentiation. No areas of low density in the white matter. CEREBELLUM: No masses. No hemorrhage. No alteration of density. No evidence for acute infarction. EXTRAAXIAL SPACES: No fluid collections. No masses. ORBITS AND GLOBE: No intra- or extraconal masses. Normal contour of globe without masses. CALVARIUM: No fracture. PARANASAL SINUSES: No fluid or mucosal thickening. SOFT TISSUES: No mass or hematoma. OTHER: No other significant finding. IMPRESSION: NORMAL BRAIN CT WITHOUT CONTRAST. EVIDENCE OF ACUTE STROKE: NO. COMMENT: Quality ID # 436: Final reports with documentation of one or more dose reduction techniques (e.g., Automated exposure control, adjustment of the mA and/or kV according to patient size, use of iterative reconstruction technique) TECHNICAL DOCUMENTATION: JOB ID: [id number] [employer]- All Rights Reserved Reading location - IP/workstation name: [email or web address]
--- NOTE | 2018-07-22 17:08 | RADIOLOGY REPORT (SQ) ---
EXAM DESCRIPTION: CHEST SINGLE VIEW COMPLETED DATE/TIME: 07/22/2018 4:57 pm REASON FOR STUDY: feeling unwell COMPARISON: 05/14/2018 EXAM PARAMETERS: NUMBER OF VIEWS: One view. TECHNIQUE: Single frontal radiographic view of the chest acquired. RADIATION DOSE: NA LIMITATIONS: None. FINDINGS: LUNGS AND PLEURA: Ill-defined opacification in the medial right base. MEDIASTINUM AND HILAR STRUCTURES: No masses. Contour normal. HEART AND VASCULAR STRUCTURES: Heart size is borderline. No pulmonary edema. BONES: No acute findings. HARDWARE: None in the chest. OTHER: No other significant finding. IMPRESSION: Borderline cardiomegaly without CHF. Cannot exclude limited right middle lobe or lower lobe pneumonia. TECHNICAL DOCUMENTATION: JOB ID: [id number] [employer]- All Rights Reserved Reading location - IP/workstation name: [email or web address]
[2018-07-22 18:37] LABS: ABSOLUTE BASOPHILS # (AUTO) 0.1 10^3/uL (0.0-0.2); ABSOLUTE EOSINOPHILS # (AUTO) 0.4 10^3/uL (0.0-0.6); ABSOLUTE LYMPHOCYTES (AUTO) 2.9 10^3/uL (0.5-4.7); ABSOLUTE MONOCYTES (AUTO) 0.6 10^3/uL (0.1-1.4); ABSOLUTE NEUT (AUTO) 9.1 10^3/uL (1.7-8.2); BASOPHILS % (AUTO) 0.5 % (0-2); HEMATOCRIT 38.1 % (36.0-47.0); HEMOGLOBIN 12.2 g/dL (12.0-15.5); MEAN CORPUSCULAR HEMOGLOBIN 26.8 pg (27.0-33.4); MEAN CORPUSCULAR HGB CONC 31.9 g/dL (32.0-36.0); MEAN CORPUSCULAR VOLUME 84 fl (80-97); MONOCYTES % (AUTO) 4.6 % (3-13); PLATELET COUNT 194 10^3/uL (150-450); RED BLOOD COUNT 4.54 10^6/uL (3.72-5.28); SEGMENTED NEUTROPHILS % (AUTO) 69.9 % (42-78); TOTAL CELLS COUNTED % (AUTO) 100 %; WHITE BLOOD COUNT 13.1 10^3/uL (4.0-10.5)
[2018-07-22 18:38] LABS: VENOUS BLOOD BASE EXCESS -4.4 mmol/L; VENOUS BLOOD HCO3 25.4 mmol/L (20-32)
[2018-07-22 18:45] LABS: VENOUS BLOOD PCO2 70.6 mmHg (35-63); VENOUS BLOOD PH 7.17 (7.30-7.42)
[2018-07-22 18:58] LABS: ALANINE AMINOTRANSFERASE 16 U/L (9-52); ALBUMIN 3.8 g/dL (3.5-5.0); ALKALINE PHOSPHATASE 98 U/L (38-126); ANION GAP 12 (5-19); ASPARTATE AMINO TRANSFERASE 15 U/L (14-36); BILIRUBIN,DIRECT 0.3 mg/dL (0.0-0.4); BILIRUBIN,TOTAL 0.3 mg/dL (0.2-1.3); BLOOD UREA NITROGEN 20 mg/dL (7-20); CALCIUM 9.5 mg/dL (8.4-10.2); CARBON DIOXIDE 25 mmol/L (22-30); CHLORIDE 110 mmol/L (98-107); CREATINE KINASE 43 U/L (30-135); GLUCOSE 83 mg/dL (75-110); POTASSIUM 4.4 mmol/L (3.6-5.0); SODIUM 147.3 mmol/L (137-145); TOTAL PROTEIN 6.8 g/dL (6.3-8.2)
[2018-07-22 19:22] LABS: APPEARANCE,URINE CLEAR; BILIRUBIN,URINE NEGATIVE (NEGATIVE); COLOR,URINE YELLOW; GLUCOSE, URINE NEGATIVE (NEGATIVE); KETONES,URINE NEGATIVE (NEGATIVE); LEUKOCYTE ESTERASE,URINE NEGATIVE (NEGATIVE); NITRITE,URINE NEGATIVE (NEGATIVE); PROTEIN,URINE 100 mg/dL (NEGATIVE); URINE SPECIFIC GRAVITY 1.015; UROBILINOGEN,URINE NEGATIVE mg/dL (<2.0)
--- NOTE | 2018-07-22 19:25 | EKG REPORT ---
SEVERITY:- ABNORMAL ECG - SINUS RHYTHM ANTERIOR INFARCT, AGE INDETERMINATE : Confirmed by: Patrice Johnson MD 22-Jul-2018 19:24:39
[2018-07-22] MEDS ORDERED: LEVOFLOXACIN 500 MG/D5W RTU 500 MG/100 ML RTUPB IV ONE (19:27)
[2018-07-22 19:31] LABS: CREATINE KINASE MB 0.37 ng/mL (<4.55)
[2018-07-22 19:32] LABS: TROPONIN I < 0.012 ng/mL
[2018-07-22 19:35] LABS: URINE AMPHETAMINES SCREEN NEGATIVE; URINE BARBITURATES SCREEN NEGATIVE; URINE BENZODIAZEPINES SCREEN NEGATIVE; URINE COCAINE SCREEN NEGATIVE; URINE METHADONE SCREEN NEGATIVE; URINE PHENCYCLIDINE SCREEN NEGATIVE
[2018-07-22] MEDS ORDERED: NORMAL SALINE 1000 ML 1,000 ML IV ONE (19:39)
[2018-07-22] MEDS ORDERED: CEFEPIME 2 GM/D5W RTU 2 GM/50 ML RTUPB IV ONE ×3 (19:46→23:03)
--- NOTE | 2018-07-22 19:47 | ER Document Report ---
ED General - General Chief Complaint: Weakness Stated Complaint: ALTERED MENTAL STATUS Time Seen by Provider: 07/22/18 16:32 TRAVEL OUTSIDE OF THE [place] IN LAST 30 DAYS: No - HPI Patient complains to provider of: Altered mental status weakness Notes: Patient coming in for depressive symptoms apparently ongoing for 2 days according to EMS report. Upon my evaluation patient is a note to the 3 which is waxing and waning the patient denies any chest pain abdominal pain nausea vomiting fever chills. Apparently patient does wear CPAP states she has been compliant with her CPAP at home. Patient otherwise is disheveled denies any shortness of breath numbness or tingling. - Related Data Allergies/Adverse Reactions: dicyclomine HCl [From Bentyl] Allergy (Severe, Verified 07/22/18 16:19) throat swelling ibuprofen [From Motrin] Allergy (Severe, Verified 07/22/18 16:19) "increased headache",swelling Shellfish * [Shellfish] Allergy (Severe, Verified 07/22/18 16:19) rash,migraines Penicillins Allergy (Intermediate, Verified 07/22/18 16:19) Hives,vomit,fever sumatriptan succinate [From Imitrex] Allergy (Verified 07/22/18 16:19) Past Medical History - Social History Smoking Status: Current Every Day Smoker Chew tobacco use (# tins/day): No Frequency of alcohol use: None Family History: Reviewed & Not Pertinent, Hypertension Patient has suicidal ideation: No Patient has homicidal ideation: No - Past Medical History Cardiac Medical History: Reports: Hx Coronary Artery Disease - 4 stents, Hx Heart Attack - AUG x 2, Hx Hypercholesterolemia, Hx Hypertension Denies: Hx Heart Murmur Pulmonary Medical History: Reports: Hx Asthma, Hx Bronchitis, Hx COPD, Hx Pneumonia Denies: Hx Respiratory Failure, Hx Sleep Apnea, Hx Tuberculosis Neurological Medical History: Reports: Hx Cerebrovascular Accident - 2007, Hx Migraine, Hx Seizures Endocrine Medical History: Reports: Hx Diabetes Mellitus Type 1, Hx Diabetes Mellitus Type 2 Renal/ Medical History: Reports: Hx Kidney Stones. Denies: Hx Peritoneal Dialysis GI Medical History: Reports: Hx Gastroesophageal Reflux Disease, Hx Irritable Bowel. Denies: Hx Pancreatitis Musculoskeletal Medical History: Reports Hx Arthritis - Back & Legs Psychiatric Medical History: Reports: Hx Bipolar Disorder, Hx Depression, Hx Post Traumatic Stress Disorder, Hx Schizophrenia Past Surgical History: Reports: Hx Appendectomy, Hx Cardiac Catheterization, Hx Cardiac Surgery - 3 stents, Hx Cholecystectomy, Hx Hysterectomy, Hx Orthopedic Surgery - L knee, Hx Tonsillectomy - Immunizations Immunizations up to date: Yes Hx Diphtheria, Pertussis, Tetanus Vaccination: Yes Hx Pneumococcal Vaccination: 11/26/12 Review of Systems - Review of Systems -: Yes ROS unobtainable due to patient's medical condition - Altered mental status Physical Exam - Vital signs Vitals: Temp Pulse Resp BP Pulse Ox 98.8 F 70 16 104/90 H 93 07/22/18 16:41 07/22/18 16:41 07/22/18 16:41 07/22/18 16:41 07/22/18 16:41 Interpretation: Normal - General General appearance: Appears well, Alert - HEENT Head: Normocephalic, Atraumatic Eyes: Normal Pupils: PERRL - Respiratory Respiratory status: No respiratory distress Chest status: Nontender Breath sounds: Normal Chest palpation: Normal - Cardiovascular Rhythm: Regular Heart sounds: Normal auscultation Murmur: No - Abdominal Inspection: Normal Distension: No distension Bowel sounds: Normal Tenderness: Nontender Organomegaly: No organomegaly - Back Back: Normal, Nontender - Extremities General upper extremity: Normal inspection, Nontender, Normal color, Normal ROM , Normal temperature General lower extremity: Normal inspection, Nontender, Normal color, Normal ROM , Normal temperature, Normal weight bearing. No: Hellen's sign - Neurological Neuro grossly intact: Yes Cognition: Normal Orientation: No: AAOx4 - Waxing and waning and a 2-3 patient has become confused as far as the date and year but is easily redirected Sloane Coma Scale Eye Opening: Spontaneous [place]ane Coma Scale Verbal: Oriented [place] Coma Scale Motor: Obeys Commands Sloane Coma Scale Total: 15 Speech: Normal Motor strength normal: LUE, RUE, LLE, RLE Sensory: Normal - Psychological Associated symptoms: Normal affect, Normal mood - Skin Skin Temperature: Warm Skin Moisture: Dry Skin Color: Normal Course - Re-evaluation Re-evalutation: 07/22/18 23:39 Chest x-ray is concerning for possible pneumonia patient is acidotic with hypercapnia. Patient was placed on BiPAP. Discuss with PCP will admit the patient to [facility] use of pain Levaquin started for the patient. - Vital Signs Vital signs: Temp Pulse Resp BP Pulse Ox 98.2 F 65 12 140/58 H 92 07/22/18 22:59 07/22/18 22:59 07/22/18 22:59 07/22/18 22:59 07/22/18 22:59 - Laboratory Result Diagrams: 07/22/18 17:55 07/22/18 17:55 Laboratory results interpreted by me: 07/22/18 07/22/18 07/22/18 17:55 17:55 17:55 WBC 13.1 H MCH 26.8 L MCHC 31.9 L RDW 21.0 H Absolute Neutrophils 9.1 H VBG pH 7.17 L* VBG pCO2 70.6 H* Sodium 147.3 H Chloride 110 H Creatinine 2.40 H Est GFR ( Amer) 25 L Est GFR (Non-Af Amer) 21 L Urine Protein 07/22/18 19:02 WBC MCH MCHC RDW Absolute Neutrophils VBG pH VBG pCO2 Sodium Chloride Creatinine Est GFR ( Amer) Est GFR (Non-Af Amer) Urine Protein 100 H Critical Care Note - Critical Care Note Total time excluding time spent on procedures (mins): 35 Comments: Multiple evaluation for patient respiratory acidosis altered mental status Discharge - Discharge Clinical Impression: COPD (chronic obstructive pulmonary disease), Altered mental status, Hypercapnic respiratory failure, Pneumonia, Acute kidney failure Condition: Fair Disposition: ADMITTED INPATIENT Admitting Provider: Alexa Unit Admitted: [facility]
[2018-07-22 20:17] LABS: URINE MARIJUANA (THC) SCREEN UNCONFIRMED POSITIVE
[2018-07-22 21:20] LABS: ARTERIAL BLOOD BASE EXCESS -4.5 mmol/L; ARTERIAL BLOOD H2CO3 1.81 mmol/L (1.05-1.35); ARTERIAL BLOOD HCO3 23.9 mmol/L (20-26); ARTERIAL BLOOD O2 SATURATION 92.6 % (94-98); ARTERIAL BLOOD PCO2 60.2 mmHg (35-45); ARTERIAL BLOOD PH 7.22 (7.35-7.45); ARTERIAL BLOOD PO2 77.8 mmHg (80-100); ARTERIAL BLOOD TOTAL CO2 25.8 mmol/L (21-25)
[2018-07-22 21:21] LABS: ARTERIAL BLOOD FIO2 30%
--- NOTE | 2018-07-23 08:56 | PDOC H&P ---
History of Present Illness Admission Date/PCP: 07/22/18 19:59 LIYA EDGAR Patient complains of: Altered mental status History of Present Illness: NAVEEN TABARES is a 57 year old female known to my practice brought to the ED by EMS with compliant of alteration of her mentation. She was not able to contribute to her medial history while in the ED. Her assessment did revealed significant respiratory acidosis with hypercapnia, leukocytosis and X ray findings suggestive of right middle lobe air space disease process. Her CT scan of head was without acute pathology. She was admitted for further evaluation and management. At the time of my assessment this morning, she remain lucid and appropriate on BiPAP therapy. She received IV Levofloxacin and Cefepime since admission. She claimed compliance with CPAP usage at home. She admitted to occasional use of Marijuana for pain. Her morbidities include Diabetes Mellitus Type 2, Hypertension, Hyperlipidemia, CAD s/p stent angioplasty and old LA, COPD , Asthma, prior stroke, Seizure disorder, Migraine Headache, GERD, IBS, Osteoarthritis with back and leg pain, Bipolar Depression, Schizophrenia, and PTSD. Past Medical History Cardiac Medical History: Reports: Coronary Artery Disease - 4 stents, Myocardial Infarction - AUG x 2, Hyperlipidema, Hypertension Denies: Heart Murmur Pulmonary Medical History: Reports: Asthma, Bronchitis, Chronic Obstructive Pulmonary Disease (COPD), Pneumonia Denies: Respiratory Failure, Sleep Apnea, Tuberculosis Neurological Medical History: Reports: Migraine, Seizures Endocrine Medical History: Reports: Diabetes Mellitus Type 1, Diabetes Mellitus Type 2 GI Medical History: Reports: Gastroesophageal Reflux Disease Musculoskeltal Medical History: Reports: Arthritis - Back & Legs Psychiatric Medical History: Reports: Bipolar Disorder, Depression, Post Traumatic Stress Disorder Hematology: Denies: Anemia Past Surgical History Past Surgical History: Reports: Appendectomy, Cardiac Catheterization, Cholecystectomy, Hysterectomy, Orthopedic Surgery - L knee, Tonsillectomy Social History Smoking Status: Current Every Day Smoker Frequency of Alcohol Use: None Hx Recreational Drug Use: No Drugs: None Hx Prescription Drug Abuse: No Family History Family History: Reviewed & Not Pertinent, Hypertension Parental Family History Reviewed: Yes Children Family History Reviewed: Yes Sibling(s) Family History Reviewed.: Yes Medication/Allergy Home Medications: Aspirin [Aspirin EC] 81 mg PO DAILY 07/22/18 Celecoxib [Celebrex 200 mg Capsule] 200 mg PO DAILY 07/22/18 Levocetirizine Dihydrochloride [Xyzal] 5 mg PO DAILY 07/22/18 Lisinopril [Prinivil 5 mg Tablet] 5 mg PO DAILY 07/22/18 Metformin HCl [Glucophage] 1,000 mg PO BID 07/22/18 Risperidone [Risperdal 1 mg Tablet] 2 mg PO QAM 07/22/18 Risperidone [Risperdal 1 mg Tablet] 3 mg PO QHS 07/22/18 Sertraline HCl [Zoloft] 100 mg PO DAILY 07/22/18 Sitagliptin Phosphate [Januvia] 100 mg PO DAILY 07/22/18 Topiramate [Topiramate ER] 150 mg PO Q12 07/22/18 Allergies/Adverse Reactions: dicyclomine HCl [From Bentyl] Allergy (Severe, Verified 07/22/18 16:19) throat swelling ibuprofen [From Motrin] Allergy (Severe, Verified 07/22/18 16:19) "increased headache",swelling Shellfish * [Shellfish] Allergy (Severe, Verified 07/22/18 16:19) rash,migraines Penicillins Allergy (Intermediate, Verified 07/22/18 16:19) Hives,vomit,fever sumatriptan succinate [From Imitrex] Allergy (Verified 07/22/18 16:19) Review of Systems Constitutional: ABSENT: chills, fever(s), headache(s), weight gain, weight loss Eyes: ABSENT: visual disturbances Ears: ABSENT: hearing changes Nose, Mouth, and Throat: ABSENT: headache(s), sore throat, vertigo Cardiovascular: PRESENT: dyspnea on exertion. ABSENT: as per HPI, chest pain, edema, orthropnea, palpitations, other Respiratory: PRESENT: cough, dyspnea, sputum - minimally productive Gastrointestinal: ABSENT: abdominal pain, constipation, diarrhea, hematemesis, hematochezia, nausea, vomiting Genitourinary: ABSENT: dysuria, hematuria Musculoskeletal: PRESENT: back pain, other - multiple joints pain Integumentary: ABSENT: rash, wounds Neurological: PRESENT: abnormal gait - due to lower back and multiple joints aches and pain, confusion - occasionally Psychiatric: PRESENT: anxiety, depression. ABSENT: hallucinations, homidical ideation, suicidal ideation Endocrine: ABSENT: cold intolerance, heat intolerance, polydipsia, polyuria Hematologic/Lymphatic: ABSENT: easy bleeding, easy bruising, lymphadenopathy Allergic/Immunologic: ABSENT: seasonal rhinorrhea Physical Exam Vital Signs: Temp Pulse Resp BP Pulse Ox 98.7 F 61 10 L 125/49 L 96 07/23/18 07:48 07/23/18 07:48 07/23/18 08:03 07/23/18 07:48 07/23/18 08:03 Intake & Output 07/22/18 07/23/18 07/24/18 06:59 06:59 06:59 Intake Total 1050 Output Total 0 Balance 1050 Weight 95.3 kg General appearance: PRESENT: disheveled, obese Head exam: PRESENT: atraumatic, normocephalic Eye exam: PRESENT: conjunctiva pink, EOMI, PERRLA. ABSENT: scleral icterus Ear exam: PRESENT: normal external ear exam Mouth exam: PRESENT: moist Throat exam: ABSENT: post pharyngeal erythema, tonsillar erythema, tonsillar exudate, tonsillogmegaly, other Neck exam: PRESENT: full ROM. ABSENT: carotid bruit, JVD, lymphadenopathy, thyromegaly Respiratory exam: PRESENT: crackles - bilateral lower lung zones, decreased breath sounds Cardiovascular exam: PRESENT: RRR. ABSENT: diastolic murmur, rubs, systolic murmur Vascular exam: PRESENT: normal capillary refill. ABSENT: pallor GI/Abdominal exam: PRESENT: normal bowel sounds, soft. ABSENT: distended, guarding, mass, organolmegaly, rebound, tenderness Rectal exam: PRESENT: deferred Extremities exam: ABSENT: pedal edema Musculoskeletal exam: PRESENT: deformity - related to multiple joints involvement with arthritis Neurological exam: PRESENT: alert, awake, oriented to person, oriented to place , oriented to time, oriented to situation, CN II-XII grossly intact. ABSENT: motor sensory deficit Psychiatric exam: PRESENT: appropriate affect, normal mood. ABSENT: homicidal ideation, suicidal ideation Skin exam: PRESENT: dry, intact, warm. ABSENT: cyanosis, rash Results Laboratory Results: 07/22/18 21:09 Carbonic Acid 1.81 H HCO3/H2CO3 Ratio 13:1 ABG pH 7.22 L ABG pCO2 60.2 H ABG pO2 77.8 L ABG HCO3 23.9 ABG O2 Saturation 92.6 L ABG Base Excess -4.5 FiO2 30% 07/22/18 20:23 Troponin I < 0.012 Impressions: Head CT 07/22/18 16:42 IMPRESSION: NORMAL BRAIN CT WITHOUT CONTRAST. EVIDENCE OF ACUTE STROKE: NO. Chest X-Ray 07/22/18 16:45 IMPRESSION: Borderline cardiomegaly without CHF. Cannot exclude limited right middle lobe or lower lobe pneumonia. Assessment & Plan - Diagnosis (1) Altered mental status Qualifiers: Altered mental status type: disorientation Qualified Code(s): R41.0 - Disorientation, unspecified Is this a current diagnosis for this admission?: Yes Plan: See admitting attending physician orders. (2) COPD (chronic obstructive pulmonary disease) Qualifiers: COPD type: unspecified COPD Qualified Code(s): J44.9 - Chronic obstructive pulmonary disease, unspecified Is this a current diagnosis for this admission?: Yes Plan: See admitting attending physician orders (3) Hypercapnic respiratory failure Qualifiers: Chronicity: acute on chronic Qualified Code(s): J96.22 - Acute and chronic respiratory failure with hypercapnia Is this a current diagnosis for this admission?: Yes Plan: See admitting attending physician orders (4) Pneumonia Qualifiers: Pneumonia type: due to unspecified organism Laterality: right Lung location: middle lobe of lung Qualified Code(s): J18.1 - Lobar pneumonia, unspecified organism Is this a current diagnosis for this admission?: Yes Plan: See admitting attending physician orders (5) Acute kidney failure Qualifiers: Acute renal failure type: unspecified Qualified Code(s): N17.9 - Acute kidney failure, unspecified Is this a current diagnosis for this admission?: Yes Plan: See admitting attending physician orders (6) Diabetes mellitus type 2 in obese Is this a current diagnosis for this admission?: Yes Plan: See admitting attending physician orders (7) Hypertension Qualifiers: Hypertension type: essential hypertension Qualified Code(s): I10 - Essential (primary) hypertension Is this a current diagnosis for this admission?: Yes Plan: See admitting attending physician orders (8) CAD (coronary artery disease) Qualifiers: Coronary Disease-Associated Artery/Lesion type: [place] artery [place] vs. transplanted heart: unspecified whether mohegan or transplanted heart Associated angina: with unspecified angina Qualified Code(s): I25.119 - Atherosclerotic heart disease of [place] coronary artery with unspecified angina pectoris Is this a current diagnosis for this admission?: Yes Plan: See admitting attending physician orders (9) Hyperlipidemia associated with type 2 diabetes mellitus Is this a current diagnosis for this admission?: Yes Plan: See admitting attending physician orders - Time Time Spent: 50 to 70 Minutes Medications reviewed and adjusted accordingly: Yes Anticipated discharge: Home with Homehealth Within: Other - Inpatient Certification Based on my medical assessment, after consideration of the patient's comorbidities, presenting symptoms, or acuity I expect that the services needed warrant INPATIENT care.: Yes I certify that my determination is in accordance with my understanding of Medicare's requirements for reasonable and necessary INPATIENT services [42 CFR 412.3e].: Yes Medical Necessity: Need Close Monitoring Due to Risk of Patient Decompensation, Need For IV Fluids, Need For Continuous Telemetry Monitoring, Need for Nebulizer Therapy and Monitoring of Response, Need for IV Antibiotics, Risk of Complication if Not Cared For in Hospital Post Hospital Care: D/C Flavor Maker Documentation - Plan Summary Plan Summary: See admitting attending physician orders
[2018-07-23] MEDS ORDERED: GLUCAGON,HUMAN RECOMB 1 MG INJ IM PRN (08:58)
[2018-07-23] MEDS ORDERED: DEXTROSE 50%-WATER 25 GM/50 ML DISP.SYRIN IV PRN ×2 (08:58)
[2018-07-23] MEDS ORDERED: DEXTROSE 40% GEL 15 GM TUBE PO PRN ×2 (08:58)
[2018-07-23] MEDS: LISINOPRIL 5 MG TABLET PO SCH (09:57)
[2018-07-23] MEDS: SERTRALINE HCL 50 MG TABLET PO SCH (09:57)
[2018-07-23] MEDS: CETIRIZINE 5 MG TABLET PO SCH (09:57)
[2018-07-23] MEDS: SITAGLIPTIN PHOSPHATE 25 MG TABLET PO SCH (09:58)
[2018-07-23] MEDS: ASPIRIN 81 MG TABLET, ENT COATED PO SCH (09:58)
[2018-07-23] MEDS: ENOXAPARIN SODIUM INJ 30 MG/0.3 ML DISP.SYRIN SUBCUT SCH (09:59)
[2018-07-23] MEDS ORDERED: SITAGLIPTIN PHOSPHATE 50 MG TABLET PO SCH (10:00)
[2018-07-23] MEDS: LANSOPRAZOLE 30 MG TAB.RAP.DR PO SCH (10:00)
[2018-07-23] MEDS ORDERED: TOPIRAMATE 150 MG PO SCH (10:00)
[2018-07-23] MEDS ORDERED: LEVOFLOXACIN 500 MG/D5W RTU 500 MG/100 ML RTUPB IV SCH (10:00)
[2018-07-23] MEDS ORDERED: ENOXAPARIN SODIUM INJ 40 MG/0.4 ML DISP.SYRIN SUBCUT SCH (10:00)
[2018-07-23] MEDS ORDERED: METFORMIN HCL 500 MG TABLET PO SCH (10:00)
[2018-07-23] MEDS: RISPERIDONE 1 MG TABLET PO SCH (21:08)
[2018-07-23] MEDS: CEFEPIME 1 GM/D5W RTU 1 GM/50 ML RTUPB IV SCH (21:10)
[2018-07-24] MEDS: LANSOPRAZOLE 30 MG TAB.RAP.DR PO SCH (05:16)
[2018-07-24 06:49] LABS: ABSOLUTE BASOPHILS # (AUTO) 0.1 10^3/uL (0.0-0.2); ABSOLUTE EOSINOPHILS # (AUTO) 0.3 10^3/uL (0.0-0.6); ABSOLUTE MONOCYTES (AUTO) 0.4 10^3/uL (0.1-1.4); ABSOLUTE NEUT (AUTO) 4.5 10^3/uL (1.7-8.2); BASOPHILS % (AUTO) 0.7 % (0-2); EOSINOPHILS % (AUTO) 4.1 % (0-6); HEMATOCRIT 34.2 % (36.0-47.0); HEMOGLOBIN 11.3 g/dL (12.0-15.5); LYMPHOCYTES % (AUTO) 35.9 % (13-45); MEAN CORPUSCULAR HEMOGLOBIN 26.8 pg (27.0-33.4); MEAN CORPUSCULAR HGB CONC 32.9 g/dL (32.0-36.0); MEAN CORPUSCULAR VOLUME 82 fl (80-97); MONOCYTES % (AUTO) 5.3 % (3-13); PLATELET COUNT 154 10^3/uL (150-450); RED CELL DISTRIBUTION WIDTH 21.2 % (11.5-14.0); TOTAL CELLS COUNTED % (AUTO) 100 %; WHITE BLOOD COUNT 8.4 10^3/uL (4.0-10.5)
[2018-07-24 07:06] LABS: ALANINE AMINOTRANSFERASE 23 U/L (9-52); ALBUMIN 3.4 g/dL (3.5-5.0); ALKALINE PHOSPHATASE 83 U/L (38-126); ANION GAP 11 (5-19); ASPARTATE AMINO TRANSFERASE 12 U/L (14-36); BILIRUBIN,DIRECT 0.3 mg/dL (0.0-0.4); BILIRUBIN,TOTAL 0.4 mg/dL (0.2-1.3); BLOOD UREA NITROGEN 17 mg/dL (7-20); CALCIUM 8.7 mg/dL (8.4-10.2); CARBON DIOXIDE 26 mmol/L (22-30); CHLORIDE 111 mmol/L (98-107); GLUCOSE 88 mg/dL (75-110); SODIUM 148.1 mmol/L (137-145); TOTAL PROTEIN 6.2 g/dL (6.3-8.2)
[2018-07-24 07:26] LABS: ANISOCYTOSIS 3+; PLATELET COMMENT ADEQUATE
[2018-07-24] MEDS: NORMAL SALINE 1000 ML 1,000 ML IV PRN ×2 (08:06→13:52)
[2018-07-24] MEDS: ASPIRIN 81 MG TABLET, ENT COATED PO SCH (09:12)
[2018-07-24] MEDS: LEVOFLOXACIN 250 MG TABLET PO SCH (09:12)
[2018-07-24] MEDS: SITAGLIPTIN PHOSPHATE 25 MG TABLET PO SCH (09:12)
[2018-07-24] MEDS: RISPERIDONE 1 MG TABLET PO SCH ×2 (09:12→22:55)
[2018-07-24] MEDS: LISINOPRIL 5 MG TABLET PO SCH (09:13)
[2018-07-24] MEDS: SERTRALINE HCL 50 MG TABLET PO SCH (09:13)
[2018-07-24] MEDS: ENOXAPARIN SODIUM INJ 30 MG/0.3 ML DISP.SYRIN SUBCUT SCH (09:13)
[2018-07-24] MEDS: CETIRIZINE 5 MG TABLET PO SCH (09:14)
[2018-07-24] MEDS: TOPIRAMATE 25 MG TABLET PO SCH ×2 (09:20→22:56)
[2018-07-24] MEDS: TOPIRAMATE 100 MG TABLET PO SCH ×2 (09:20→22:56)
--- NOTE | 2018-07-24 18:31 | PDOC PROGRESS REPORT ---
Subjective Progress Note for:: 07/24/18 Subjective:: Patient continue to demonstrate episodes of confusion although answer simple questions appropriately. She denied any chest pain and has been on supplemental oxygen via nasal cannula most of the day. Reason For Visit: LOBAL PNEUMONIA,COPD WITH HYPERCAPNIA,ACUTE KIDNEY Physical Exam Vital Signs: Temp Pulse Resp BP Pulse Ox 98.6 F 68 17 117/51 L 99 07/24/18 15:12 07/24/18 15:12 07/24/18 15:12 07/24/18 15:12 07/24/18 16:55 Intake & Output 07/23/18 07/24/18 07/25/18 06:59 06:59 06:59 Intake Total 8574 892 5391 Output Total 0 Balance 4750 316 2415 Weight 95.3 kg 98.8 kg General appearance: PRESENT: no acute distress Head exam: PRESENT: atraumatic, normocephalic Eye exam: PRESENT: conjunctiva pink Ear exam: PRESENT: normal external ear exam Mouth exam: PRESENT: moist Teeth exam: PRESENT: poor dentation Respiratory exam: PRESENT: clear to auscultation luz elena, decreased breath sounds - at lung bases Cardiovascular exam: PRESENT: RRR. ABSENT: diastolic murmur, rubs, systolic murmur Vascular exam: ABSENT: pallor GI/Abdominal exam: PRESENT: normal bowel sounds, soft. ABSENT: distended, guarding, mass, organolmegaly, rebound, tenderness Extremities exam: ABSENT: pedal edema Musculoskeletal exam: PRESENT: normal inspection Neurological exam: PRESENT: alert, awake, oriented to person, oriented to place , oriented to time, oriented to situation, CN II-XII grossly intact, motor sensory deficit Psychiatric exam: PRESENT: appropriate affect, normal mood. ABSENT: homicidal ideation, suicidal ideation Skin exam: PRESENT: dry, intact, warm. ABSENT: cyanosis, rash Results Laboratory Results: 07/24/18 05:54 07/24/18 05:54 07/24/18 07/24/18 05:54 05:54 WBC 8.4 RBC 4.20 Hgb 11.3 L Hct 34.2 L MCV 82 MCH 26.8 L MCHC 32.9 RDW 21.2 H Plt Count 154 Seg Neutrophils % 54.0 Lymphocytes % 35.9 Monocytes % 5.3 Eosinophils % 4.1 Basophils % 0.7 Absolute Neutrophils 4.5 Absolute Lymphocytes 3.0 Absolute Monocytes 0.4 Absolute Eosinophils 0.3 Absolute Basophils 0.1 Sodium 148.1 H Potassium 4.0 Chloride 111 H Carbon Dioxide 26 Anion Gap 11 BUN 17 Creatinine 1.39 H Est GFR ( Amer) 48 L Est GFR (Non-Af Amer) 39 L Glucose 88 Calcium 8.7 Total Bilirubin 0.4 AST 12 L ALT 23 Alkaline Phosphatase 83 Total Protein 6.2 L Albumin 3.4 L 07/22/18 20:23 Troponin I < 0.012 Impressions: Head CT 07/22/18 16:42 IMPRESSION: NORMAL BRAIN CT WITHOUT CONTRAST. EVIDENCE OF ACUTE STROKE: NO. Chest X-Ray 07/22/18 16:45 IMPRESSION: Borderline cardiomegaly without CHF. Cannot exclude limited right middle lobe or lower lobe pneumonia. Assessment & Plan - Diagnosis (1) Altered mental status Qualifiers: Altered mental status type: disorientation Qualified Code(s): R41.0 - Disorientation, unspecified Is this a current diagnosis for this admission?: Yes (2) COPD (chronic obstructive pulmonary disease) Qualifiers: COPD type: unspecified COPD Qualified Code(s): J44.9 - Chronic obstructive pulmonary disease, unspecified Is this a current diagnosis for this admission?: Yes (3) Hypercapnic respiratory failure Qualifiers: Chronicity: acute on chronic Qualified Code(s): J96.22 - Acute and chronic respiratory failure with hypercapnia Is this a current diagnosis for this admission?: Yes (4) Pneumonia Qualifiers: Pneumonia type: due to unspecified organism Laterality: right Lung location: middle lobe of lung Qualified Code(s): J18.1 - Lobar pneumonia, unspecified organism Is this a current diagnosis for this admission?: Yes (5) Acute kidney failure Qualifiers: Acute renal failure type: unspecified Qualified Code(s): N17.9 - Acute kidney failure, unspecified Is this a current diagnosis for this admission?: Yes (6) Diabetes mellitus type 2 in obese Is this a current diagnosis for this admission?: Yes (7) Hypertension Qualifiers: Hypertension type: essential hypertension Qualified Code(s): I10 - Essential (primary) hypertension Is this a current diagnosis for this admission?: Yes (8) CAD (coronary artery disease) Qualifiers: Coronary Disease-Associated Artery/Lesion type: [place] artery [place] vs. transplanted heart: unspecified whether [place] or transplanted heart Associated angina: with unspecified angina Qualified Code(s): I25.119 - Atherosclerotic heart disease of [place] coronary artery with unspecified angina pectoris Is this a current diagnosis for this admission?: Yes (9) Hyperlipidemia associated with type 2 diabetes mellitus Is this a current diagnosis for this admission?: Yes - Time Time Spent with patient: 25-34 minutes Medications reviewed and adjusted accordingly: Yes Anticipated discharge: Home with Homehealth Within: Other - Inpatient Certification Based on my medical assessment, after consideration of the patient's comorbidities, presenting symptoms, or acuity I expect that the services needed warrant INPATIENT care.: Yes I certify that my determination is in accordance with my understanding of Medicare's requirements for reasonable and necessary INPATIENT services [42 CFR 412.3e].: Yes Medical Necessity: Need Close Monitoring Due to Risk of Patient Decompensation, Need For IV Fluids, Need For Continuous Telemetry Monitoring, Need for IV Antibiotics, Risk of Complication if Not Cared For in Hospital 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
[2018-07-24] MEDS: CEFEPIME 1 GM/D5W RTU 1 GM/50 ML RTUPB IV SCH (22:55)
[2018-07-24] MEDS: INSULIN LISPRO 100 UNIT/ML 3 ML VIAL SUBCUT PRN (22:58)
[2018-07-25] MEDS: NORMAL SALINE 1000 ML 1,000 ML IV PRN ×2 (03:00→17:53)
[2018-07-25] MEDS: LANSOPRAZOLE 30 MG TAB.RAP.DR PO SCH (05:59)
[2018-07-25] MEDS: LISINOPRIL 5 MG TABLET PO SCH (09:13)
[2018-07-25] MEDS: ASPIRIN 81 MG TABLET, ENT COATED PO SCH (09:13)
[2018-07-25] MEDS: RISPERIDONE 1 MG TABLET PO SCH ×2 (09:13→21:40)
[2018-07-25] MEDS: ENOXAPARIN SODIUM INJ 30 MG/0.3 ML DISP.SYRIN SUBCUT SCH (09:14)
[2018-07-25] MEDS: SERTRALINE HCL 50 MG TABLET PO SCH (09:14)
[2018-07-25] MEDS: SITAGLIPTIN PHOSPHATE 25 MG TABLET PO SCH (09:14)
[2018-07-25] MEDS: CETIRIZINE 5 MG TABLET PO SCH (09:15)
[2018-07-25] MEDS: TOPIRAMATE 25 MG TABLET PO SCH ×2 (09:15→21:38)
[2018-07-25] MEDS: TOPIRAMATE 100 MG TABLET PO SCH ×2 (09:15→21:38)
[2018-07-25] MEDS: LEVOFLOXACIN 250 MG TABLET PO SCH (09:23)
[2018-07-25] MEDS: INSULIN LISPRO 100 UNIT/ML 3 ML VIAL SUBCUT PRN ×2 (18:39→21:47)
--- NOTE | 2018-07-25 19:47 | PDOC PROGRESS REPORT ---
Subjective Progress Note for:: 07/25/18 Subjective:: Patient denied any chest pain or difficulty with breathing. She is more cooperative with care today. No nausea or vomiting. Tolerating oral feeding. No reported fever or chills. Remain on oral Levofloxacin and IV Cefepime coverage. Reason For Visit: LOBAL PNEUMONIA,COPD WITH HYPERCAPNIA,ACUTE KIDNEY Physical Exam Vital Signs: Temp Pulse Resp BP Pulse Ox 98.4 F 62 12 148/59 H 98 07/25/18 07:20 07/25/18 07:20 07/25/18 07:20 07/25/18 07:20 07/25/18 08:00 Intake & Output 07/24/18 07/25/18 07/26/18 06:59 06:59 06:59 Intake Total 850 2555 Balance 850 2555 Weight 98.8 kg 98.5 kg Physical Exam: General appearance: PRESENT: no acute distress Head exam: PRESENT: atraumatic, normocephalic Eye exam: PRESENT: conjunctiva pink Mouth exam: PRESENT: moist Teeth exam: PRESENT: poor dentation Respiratory exam: PRESENT: clear to auscultation luz elena, decreased breath sounds - at lung bases Cardiovascular exam: PRESENT: RRR. ABSENT: diastolic murmur, rubs, systolic murmur Vascular exam: ABSENT: pallor GI/Abdominal exam: PRESENT: normal bowel sounds, soft. ABSENT: distended, guarding, mass, organomegaly, rebound, tenderness Extremities exam: ABSENT: pedal edema Musculoskeletal exam: PRESENT: normal inspection Neurological exam: PRESENT: alert, awake, oriented to person, oriented to place , oriented to time, oriented to situation, CN II-XII grossly intact, motor sensory deficit Psychiatric exam: PRESENT: appropriate affect, normal mood. ABSENT: homicidal ideation, suicidal ideation Skin exam: PRESENT: dry, intact, warm. ABSENT: cyanosis, rash Results Laboratory Results: 07/24/18 05:54 07/24/18 05:54 07/22/18 20:23 Troponin I < 0.012 Impressions: Head CT 07/22/18 16:42 IMPRESSION: NORMAL BRAIN CT WITHOUT CONTRAST. EVIDENCE OF ACUTE STROKE: NO. Chest X-Ray 07/22/18 16:45 IMPRESSION: Borderline cardiomegaly without CHF. Cannot exclude limited right middle lobe or lower lobe pneumonia. Assessment & Plan - Diagnosis (1) Altered mental status Qualifiers: Altered mental status type: disorientation Qualified Code(s): R41.0 - Disorientation, unspecified Is this a current diagnosis for this admission?: Yes (2) COPD (chronic obstructive pulmonary disease) Qualifiers: COPD type: unspecified COPD Qualified Code(s): J44.9 - Chronic obstructive pulmonary disease, unspecified Is this a current diagnosis for this admission?: Yes (3) Hypercapnic respiratory failure Qualifiers: Chronicity: acute on chronic Qualified Code(s): J96.22 - Acute and chronic respiratory failure with hypercapnia Is this a current diagnosis for this admission?: Yes (4) Pneumonia Qualifiers: Pneumonia type: due to unspecified organism Laterality: right Lung location: middle lobe of lung Qualified Code(s): J18.1 - Lobar pneumonia, unspecified organism Is this a current diagnosis for this admission?: Yes (5) Acute kidney failure Qualifiers: Acute renal failure type: unspecified Qualified Code(s): N17.9 - Acute kidney failure, unspecified Is this a current diagnosis for this admission?: Yes (6) Diabetes mellitus type 2 in obese Is this a current diagnosis for this admission?: Yes (7) Hypertension Qualifiers: Hypertension type: essential hypertension Qualified Code(s): I10 - Essential (primary) hypertension Is this a current diagnosis for this admission?: Yes (8) CAD (coronary artery disease) Qualifiers: Coronary Disease-Associated Artery/Lesion type: [place] artery [place] vs. transplanted heart: unspecified whether [place] or transplanted heart Associated angina: with unspecified angina Qualified Code(s): I25.119 - Atherosclerotic heart disease of [place] coronary artery with unspecified angina pectoris Is this a current diagnosis for this admission?: Yes (9) Hyperlipidemia associated with type 2 diabetes mellitus Is this a current diagnosis for this admission?: Yes - Time Time Spent with patient: 25-34 minutes Medications reviewed and adjusted accordingly: Yes Anticipated discharge: Home with Homehealth Within: Other - Inpatient Certification Based on my medical assessment, after consideration of the patient's comorbidities, presenting symptoms, or acuity I expect that the services needed warrant INPATIENT care.: Yes I certify that my determination is in accordance with my understanding of Medicare's requirements for reasonable and necessary INPATIENT services [42 CFR 412.3e].: Yes Medical Necessity: Need Close Monitoring Due to Risk of Patient Decompensation, Need For IV Fluids, Need For Continuous Telemetry Monitoring, Need for IV Antibiotics 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 Follow up on blood culture final report. There is concern for possible contamination.
[2018-07-25] MEDS: CEFEPIME 1 GM/D5W RTU 1 GM/50 ML RTUPB IV SCH (21:35)
[2018-07-26] MEDS: LANSOPRAZOLE 30 MG TAB.RAP.DR PO SCH (05:06)
[2018-07-26 06:26] LABS: ABSOLUTE BASOPHILS # (AUTO) 0.1 10^3/uL (0.0-0.2); ABSOLUTE EOSINOPHILS # (AUTO) 0.3 10^3/uL (0.0-0.6); ABSOLUTE LYMPHOCYTES (AUTO) 2.8 10^3/uL (0.5-4.7); ABSOLUTE MONOCYTES (AUTO) 0.5 10^3/uL (0.1-1.4); ABSOLUTE NEUT (AUTO) 4.5 10^3/uL (1.7-8.2); BASOPHILS % (AUTO) 0.7 % (0-2); EOSINOPHILS % (AUTO) 4.1 % (0-6); HEMATOCRIT 35.7 % (36.0-47.0); HEMOGLOBIN 11.7 g/dL (12.0-15.5); LYMPHOCYTES % (AUTO) 34.4 % (13-45); MEAN CORPUSCULAR HEMOGLOBIN 26.9 pg (27.0-33.4); MEAN CORPUSCULAR HGB CONC 32.9 g/dL (32.0-36.0); MEAN CORPUSCULAR VOLUME 82 fl (80-97); MONOCYTES % (AUTO) 6.4 % (3-13); PLATELET COUNT 152 10^3/uL (150-450); RED BLOOD COUNT 4.36 10^6/uL (3.72-5.28); RED CELL DISTRIBUTION WIDTH 21.2 % (11.5-14.0); SEGMENTED NEUTROPHILS % (AUTO) 54.4 % (42-78); TOTAL CELLS COUNTED % (AUTO) 100 %; WHITE BLOOD COUNT 8.3 10^3/uL (4.0-10.5)
[2018-07-26 06:41] LABS: ALANINE AMINOTRANSFERASE 18 U/L (9-52); ALBUMIN 3.8 g/dL (3.5-5.0); ALKALINE PHOSPHATASE 84 U/L (38-126); ANION GAP 12 (5-19); ASPARTATE AMINO TRANSFERASE 12 U/L (14-36); BILIRUBIN,DIRECT 0.3 mg/dL (0.0-0.4); BILIRUBIN,TOTAL 0.4 mg/dL (0.2-1.3); BLOOD UREA NITROGEN 11 mg/dL (7-20); CALCIUM 8.9 mg/dL (8.4-10.2); CARBON DIOXIDE 25 mmol/L (22-30); CHLORIDE 111 mmol/L (98-107); GLUCOSE 106 mg/dL (75-110); POTASSIUM 3.9 mmol/L (3.6-5.0); SODIUM 148.2 mmol/L (137-145); TOTAL PROTEIN 6.8 g/dL (6.3-8.2)
[2018-07-26] MEDS: RISPERIDONE 1 MG TABLET PO SCH ×2 (07:49→21:25)
[2018-07-26] MEDS: NORMAL SALINE 1000 ML 1,000 ML IV PRN (07:49)
[2018-07-26] MEDS: ENOXAPARIN SODIUM INJ 30 MG/0.3 ML DISP.SYRIN SUBCUT SCH (09:19)
[2018-07-26] MEDS: CETIRIZINE 5 MG TABLET PO SCH (09:20)
[2018-07-26] MEDS: LISINOPRIL 5 MG TABLET PO SCH (09:20)
[2018-07-26] MEDS: SITAGLIPTIN PHOSPHATE 25 MG TABLET PO SCH (09:20)
[2018-07-26] MEDS: SERTRALINE HCL 50 MG TABLET PO SCH (09:20)
[2018-07-26] MEDS: ASPIRIN 81 MG TABLET, ENT COATED PO SCH (09:20)
[2018-07-26] MEDS: TOPIRAMATE 25 MG TABLET PO SCH ×2 (09:21→21:28)
[2018-07-26] MEDS: TOPIRAMATE 100 MG TABLET PO SCH ×2 (09:21→21:28)
[2018-07-26] MEDS: LEVOFLOXACIN 250 MG TABLET PO SCH (09:31)
--- NOTE | 2018-07-26 15:40 | PDOC PROGRESS REPORT ---
Subjective Progress Note for:: 07/26/18 Subjective:: No chest pain or difficulty with breathing. No abdominal pain, nausea or vomiting. Tolerating oral feeding. No reported fever or chills. Remain on oral Levofloxacin and IV Cefepime coverage. Blood culture second bottle no growth to date. Reason For Visit: LOBAL PNEUMONIA,COPD WITH HYPERCAPNIA,ACUTE KIDNEY Physical Exam Vital Signs: Temp Pulse Resp BP Pulse Ox 97.9 F 55 L 10 L 142/60 H 94 07/26/18 07:30 07/26/18 07:30 07/26/18 07:30 07/26/18 07:30 07/26/18 07:30 Intake & Output 07/25/18 07/26/18 07/27/18 06:59 06:59 06:59 Intake Total 2555 1436 1118 Balance 2555 1436 1118 Weight 98.5 kg 98.5 kg Physical Exam: General appearance: PRESENT: no acute distress Head exam: PRESENT: atraumatic, normocephalic Eye exam: PRESENT: conjunctiva pink Mouth exam: PRESENT: moist Respiratory exam: PRESENT: clear to auscultation luz elena, decreased breath sounds - at lung bases Cardiovascular exam: PRESENT: RRR. ABSENT: diastolic murmur, rubs, systolic murmur Vascular exam: ABSENT: pallor GI/Abdominal exam: PRESENT: normal bowel sounds, soft. ABSENT: distended, guarding, mass, organomegaly, rebound, tenderness Extremities exam: ABSENT: pedal edema Musculoskeletal exam: PRESENT: normal inspection Neurological exam: PRESENT: alert, awake, oriented to person, oriented to place , oriented to time, oriented to situation, CN II-XII grossly intact, motor sensory deficit Psychiatric exam: PRESENT: appropriate affect, normal mood. ABSENT: homicidal ideation, suicidal ideation Skin exam: PRESENT: dry, intact, warm. ABSENT: cyanosis, rash Results Laboratory Results: 07/26/18 05:35 07/26/18 05:35 07/26/18 07/26/18 05:35 05:35 WBC 8.3 RBC 4.36 Hgb 11.7 L Hct 35.7 L MCV 82 MCH 26.9 L MCHC 32.9 RDW 21.2 H Plt Count 152 Seg Neutrophils % 54.4 Lymphocytes % 34.4 Monocytes % 6.4 Eosinophils % 4.1 Basophils % 0.7 Absolute Neutrophils 4.5 Absolute Lymphocytes 2.8 Absolute Monocytes 0.5 Absolute Eosinophils 0.3 Absolute Basophils 0.1 Sodium 148.2 H Potassium 3.9 Chloride 111 H Carbon Dioxide 25 Anion Gap 12 BUN 11 Creatinine 0.82 Est GFR ( Amer) > 60 Est GFR (Non-Af Amer) > 60 Glucose 106 Calcium 8.9 Total Bilirubin 0.4 AST 12 L ALT 18 Alkaline Phosphatase 84 Total Protein 6.8 Albumin 3.8 07/22/18 20:23 Troponin I < 0.012 Impressions: Head CT 07/22/18 16:42 IMPRESSION: NORMAL BRAIN CT WITHOUT CONTRAST. EVIDENCE OF ACUTE STROKE: NO. Chest X-Ray 07/22/18 16:45 IMPRESSION: Borderline cardiomegaly without CHF. Cannot exclude limited right middle lobe or lower lobe pneumonia. Assessment & Plan - Diagnosis (1) Altered mental status Qualifiers: Altered mental status type: disorientation Qualified Code(s): R41.0 - Disorientation, unspecified Is this a current diagnosis for this admission?: Yes (2) COPD (chronic obstructive pulmonary disease) Qualifiers: COPD type: unspecified COPD Qualified Code(s): J44.9 - Chronic obstructive pulmonary disease, unspecified Is this a current diagnosis for this admission?: Yes (3) Hypercapnic respiratory failure Qualifiers: Chronicity: acute on chronic Qualified Code(s): J96.22 - Acute and chronic respiratory failure with hypercapnia Is this a current diagnosis for this admission?: Yes (4) Pneumonia Qualifiers: Pneumonia type: due to unspecified organism Laterality: right Lung location: middle lobe of lung Qualified Code(s): J18.1 - Lobar pneumonia, unspecified organism Is this a current diagnosis for this admission?: Yes (5) Acute kidney failure Qualifiers: Acute renal failure type: unspecified Qualified Code(s): N17.9 - Acute kidney failure, unspecified Is this a current diagnosis for this admission?: Yes (6) Diabetes mellitus type 2 in obese Is this a current diagnosis for this admission?: Yes (7) Hypertension Qualifiers: Hypertension type: essential hypertension Qualified Code(s): I10 - Essential (primary) hypertension Is this a current diagnosis for this admission?: Yes (8) CAD (coronary artery disease) Qualifiers: Coronary Disease-Associated Artery/Lesion type: [place] artery [place] vs. transplanted heart: unspecified whether [place] or transplanted heart Associated angina: with unspecified angina Qualified Code(s): I25.119 - Atherosclerotic heart disease of [place] coronary artery with unspecified angina pectoris Is this a current diagnosis for this admission?: Yes (9) Hyperlipidemia associated with type 2 diabetes mellitus Is this a current diagnosis for this admission?: Yes - Time Time Spent with patient: 25-34 minutes Medications reviewed and adjusted accordingly: Yes Anticipated discharge: Home with Homehealth Within: Other - Inpatient Certification Based on my medical assessment, after consideration of the patient's comorbidities, presenting symptoms, or acuity I expect that the services needed warrant INPATIENT care.: Yes I certify that my determination is in accordance with my understanding of Medicare's requirements for reasonable and necessary INPATIENT services [42 CFR 412.3e].: Yes Medical Necessity: Need Close Monitoring Due to Risk of Patient Decompensation, Need For IV Fluids, Need For Continuous Telemetry Monitoring, Need for IV Antibiotics, Risk of Complication if Not Cared For in Hospital 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 Follow up on culture final report.
[2018-07-26] MEDS: INSULIN LISPRO 100 UNIT/ML 3 ML VIAL SUBCUT PRN ×2 (17:52→21:34)
[2018-07-26] MEDS: CEFEPIME 1 GM/D5W RTU 1 GM/50 ML RTUPB IV SCH (21:28)
[2018-07-27] MEDS: NORMAL SALINE 1000 ML 1,000 ML IV PRN ×2 (00:14→17:07)
[2018-07-27] MEDS: LANSOPRAZOLE 30 MG TAB.RAP.DR PO SCH (05:46)
[2018-07-27] MEDS: ENOXAPARIN SODIUM INJ 30 MG/0.3 ML DISP.SYRIN SUBCUT SCH (10:17)
[2018-07-27] MEDS: ASPIRIN 81 MG TABLET, ENT COATED PO SCH (10:17)
[2018-07-27] MEDS: RISPERIDONE 1 MG TABLET PO SCH ×2 (10:17→21:12)
[2018-07-27] MEDS: LEVOFLOXACIN 250 MG TABLET PO SCH (10:18)
[2018-07-27] MEDS: SITAGLIPTIN PHOSPHATE 25 MG TABLET PO SCH (10:18)
[2018-07-27] MEDS: TOPIRAMATE 100 MG TABLET PO SCH ×2 (10:18→21:12)
[2018-07-27] MEDS: LISINOPRIL 5 MG TABLET PO SCH (10:18)
[2018-07-27] MEDS: TOPIRAMATE 25 MG TABLET PO SCH ×2 (10:18→21:12)
[2018-07-27] MEDS: SERTRALINE HCL 50 MG TABLET PO SCH (10:19)
[2018-07-27] MEDS: CETIRIZINE 5 MG TABLET PO SCH (10:19)
[2018-07-27] MEDS: INSULIN LISPRO 100 UNIT/ML 3 ML VIAL SUBCUT PRN (13:02)
--- NOTE | 2018-07-27 14:52 | PDOC PROGRESS REPORT ---
Subjective Progress Note for:: 07/27/18 Subjective:: No chest pain or difficulty with breathing. No reported fever or chills. No abdominal pain, nausea or vomiting. Tolerating oral feeding. Remain on oral Levofloxacin and IV Cefepime coverage. Blood culture second bottle no growth to date. Reason For Visit: LOBAL PNEUMONIA,COPD WITH HYPERCAPNIA,ACUTE KIDNEY Physical Exam Vital Signs: Temp Pulse Resp BP Pulse Ox 98.9 F 53 L 18 114/84 90 L 07/27/18 11:04 07/27/18 11:04 07/27/18 11:04 07/27/18 11:04 07/27/18 11:04 Intake & Output 07/26/18 07/27/18 07/28/18 06:59 06:59 06:59 Intake Total 1436 2605 355 Balance 1436 2605 355 Weight 98.5 kg 96.9 kg Physical Exam: General appearance: PRESENT: no acute distress Head exam: PRESENT: atraumatic, normocephalic Eye exam: PRESENT: conjunctiva pink Mouth exam: PRESENT: moist Respiratory exam: PRESENT: clear to auscultation luz elena, decreased breath sounds - at lung bases Cardiovascular exam: PRESENT: RRR. ABSENT: diastolic murmur, rubs, systolic murmur Vascular exam: ABSENT: pallor GI/Abdominal exam: PRESENT: normal bowel sounds, soft. ABSENT: distended, guarding, mass, organomegaly, rebound, tenderness Extremities exam: ABSENT: pedal edema Musculoskeletal exam: PRESENT: normal inspection Neurological exam: PRESENT: alert, awake, oriented to person, oriented to place , oriented to time, oriented to situation, CN II-XII grossly intact, motor sensory deficit Psychiatric exam: PRESENT: appropriate affect, normal mood. ABSENT: homicidal ideation, suicidal ideation Skin exam: PRESENT: dry, intact, warm. ABSENT: cyanosis, rash Results Laboratory Results: 07/26/18 05:35 07/26/18 05:35 07/22/18 20:23 Troponin I < 0.012 Impressions: Head CT 07/22/18 16:42 IMPRESSION: NORMAL BRAIN CT WITHOUT CONTRAST. EVIDENCE OF ACUTE STROKE: NO. Chest X-Ray 07/22/18 16:45 IMPRESSION: Borderline cardiomegaly without CHF. Cannot exclude limited right middle lobe or lower lobe pneumonia. Assessment & Plan - Diagnosis (1) Altered mental status Qualifiers: Altered mental status type: disorientation Qualified Code(s): R41.0 - Disorientation, unspecified Is this a current diagnosis for this admission?: Yes (2) COPD (chronic obstructive pulmonary disease) Qualifiers: COPD type: unspecified COPD Qualified Code(s): J44.9 - Chronic obstructive pulmonary disease, unspecified Is this a current diagnosis for this admission?: Yes (3) Hypercapnic respiratory failure Qualifiers: Chronicity: acute on chronic Qualified Code(s): J96.22 - Acute and chronic respiratory failure with hypercapnia Is this a current diagnosis for this admission?: Yes (4) Pneumonia Qualifiers: Pneumonia type: due to unspecified organism Laterality: right Lung location: middle lobe of lung Qualified Code(s): J18.1 - Lobar pneumonia, unspecified organism Is this a current diagnosis for this admission?: Yes (5) Acute kidney failure Qualifiers: Acute renal failure type: unspecified Qualified Code(s): N17.9 - Acute kidney failure, unspecified Is this a current diagnosis for this admission?: Yes (6) Diabetes mellitus type 2 in obese Is this a current diagnosis for this admission?: Yes (7) Hypertension Qualifiers: Hypertension type: essential hypertension Qualified Code(s): I10 - Essential (primary) hypertension Is this a current diagnosis for this admission?: Yes (8) CAD (coronary artery disease) Qualifiers: Coronary Disease-Associated Artery/Lesion type: [place] artery [place] vs. transplanted heart: unspecified whether [place] or transplanted heart Associated angina: with unspecified angina Qualified Code(s): I25.119 - Atherosclerotic heart disease of [place] coronary artery with unspecified angina pectoris Is this a current diagnosis for this admission?: Yes (9) Hyperlipidemia associated with type 2 diabetes mellitus Is this a current diagnosis for this admission?: Yes - Time Time Spent with patient: 25-34 minutes Medications reviewed and adjusted accordingly: Yes Anticipated discharge: Home with Homehealth Within: Other - Inpatient Certification Based on my medical assessment, after consideration of the patient's comorbidities, presenting symptoms, or acuity I expect that the services needed warrant INPATIENT care.: Yes I certify that my determination is in accordance with my understanding of Medicare's requirements for reasonable and necessary INPATIENT services [42 CFR 412.3e].: Yes Medical Necessity: Need Close Monitoring Due to Risk of Patient Decompensation, Need For IV Fluids, Need For Continuous Telemetry Monitoring, Need for IV Antibiotics, Risk of Complication if Not Cared For in Hospital 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 Follow up on blood culture findings.
[2018-07-27] MEDS: CEFEPIME 1 GM/D5W RTU 1 GM/50 ML RTUPB IV SCH (21:12)
[2018-07-28] MEDS: LANSOPRAZOLE 30 MG TAB.RAP.DR PO SCH (06:00)
[2018-07-28] MEDS: TOPIRAMATE 100 MG TABLET PO SCH ×2 (10:42→21:48)
[2018-07-28] MEDS: SERTRALINE HCL 50 MG TABLET PO SCH (10:42)
[2018-07-28] MEDS: LISINOPRIL 5 MG TABLET PO SCH (10:42)
[2018-07-28] MEDS: RISPERIDONE 1 MG TABLET PO SCH ×2 (10:42→21:49)
[2018-07-28] MEDS: ASPIRIN 81 MG TABLET, ENT COATED PO SCH (10:42)
[2018-07-28] MEDS: SITAGLIPTIN PHOSPHATE 25 MG TABLET PO SCH (10:43)
[2018-07-28] MEDS: CETIRIZINE 5 MG TABLET PO SCH (10:43)
[2018-07-28] MEDS: LEVOFLOXACIN 250 MG TABLET PO SCH (10:52)
[2018-07-28] MEDS: TOPIRAMATE 25 MG TABLET PO SCH ×2 (10:52→21:48)
[2018-07-28] MEDS: ENOXAPARIN SODIUM INJ 30 MG/0.3 ML DISP.SYRIN SUBCUT SCH (10:53)
--- NOTE | 2018-07-28 12:14 | PDOC PROGRESS REPORT ---
Subjective Progress Note for:: 07/28/18 Subjective:: No chest pain or difficulty with breathing. No abdominal pain, nausea or vomiting. Tolerating oral feeding. No reported fever or chills. Remain on oral Levofloxacin and IV Cefepime coverage. Blood culture second bottle no growth to date. Reason For Visit: LOBAL PNEUMONIA,COPD WITH HYPERCAPNIA,ACUTE KIDNEY Physical Exam Vital Signs: Temp Pulse Resp BP Pulse Ox 98.8 F 68 18 180/67 H 98 07/28/18 07:23 07/28/18 07:23 07/28/18 07:23 07/28/18 07:23 07/28/18 07:23 Intake & Output 07/27/18 07/28/18 07/29/18 06:59 06:59 06:59 Intake Total 2605 2200 Balance 2605 2200 Weight 96.9 kg 97.2 kg Physical Exam: General appearance: PRESENT: no acute distress Head exam: PRESENT: atraumatic, normocephalic Eye exam: PRESENT: conjunctiva pink Mouth exam: PRESENT: moist Respiratory exam: PRESENT: clear to auscultation luz elena, decreased breath sounds - at lung bases Cardiovascular exam: PRESENT: RRR. ABSENT: diastolic murmur, rubs, systolic murmur Vascular exam: ABSENT: pallor GI/Abdominal exam: PRESENT: normal bowel sounds, soft. ABSENT: distended, guarding, mass, organomegaly, rebound, tenderness Extremities exam: ABSENT: pedal edema Musculoskeletal exam: PRESENT: normal inspection Neurological exam: PRESENT: alert, awake, oriented to person, oriented to place , oriented to time, oriented to situation, CN II-XII grossly intact, motor sensory deficit Psychiatric exam: PRESENT: appropriate affect, normal mood. ABSENT: homicidal ideation, suicidal ideation Skin exam: PRESENT: dry, intact, warm. ABSENT: cyanosis, rash Results Laboratory Results: 07/26/18 05:35 07/26/18 05:35 07/22/18 21:39 Blood Blood Culture - Final NO GROWTH IN 5 DAYS 07/22/18 20:23 Troponin I < 0.012 Impressions: Head CT 07/22/18 16:42 IMPRESSION: NORMAL BRAIN CT WITHOUT CONTRAST. EVIDENCE OF ACUTE STROKE: NO. Chest X-Ray 07/22/18 16:45 IMPRESSION: Borderline cardiomegaly without CHF. Cannot exclude limited right middle lobe or lower lobe pneumonia. Assessment & Plan - Diagnosis (1) Altered mental status Qualifiers: Altered mental status type: disorientation Qualified Code(s): R41.0 - Disorientation, unspecified Is this a current diagnosis for this admission?: Yes (2) COPD (chronic obstructive pulmonary disease) Qualifiers: COPD type: unspecified COPD Qualified Code(s): J44.9 - Chronic obstructive pulmonary disease, unspecified Is this a current diagnosis for this admission?: Yes (3) Hypercapnic respiratory failure Qualifiers: Chronicity: acute on chronic Qualified Code(s): J96.22 - Acute and chronic respiratory failure with hypercapnia Is this a current diagnosis for this admission?: Yes (4) Pneumonia Qualifiers: Pneumonia type: due to unspecified organism Laterality: right Lung location: middle lobe of lung Qualified Code(s): J18.1 - Lobar pneumonia, unspecified organism Is this a current diagnosis for this admission?: Yes (5) Acute kidney failure Qualifiers: Acute renal failure type: unspecified Qualified Code(s): N17.9 - Acute kidney failure, unspecified Is this a current diagnosis for this admission?: Yes (6) Diabetes mellitus type 2 in obese Is this a current diagnosis for this admission?: Yes (7) Hypertension Qualifiers: Hypertension type: essential hypertension Qualified Code(s): I10 - Essential (primary) hypertension Is this a current diagnosis for this admission?: Yes (8) CAD (coronary artery disease) Qualifiers: Coronary Disease-Associated Artery/Lesion type: [place] artery [place] vs. transplanted heart: unspecified whether [place] or transplanted heart Associated angina: with unspecified angina Qualified Code(s): I25.119 - Atherosclerotic heart disease of [place] coronary artery with unspecified angina pectoris Is this a current diagnosis for this admission?: Yes (9) Hyperlipidemia associated with type 2 diabetes mellitus Is this a current diagnosis for this admission?: Yes - Time Time Spent with patient: 25-34 minutes Medications reviewed and adjusted accordingly: Yes Anticipated discharge: Home with Homehealth Within: Other - Inpatient Certification Based on my medical assessment, after consideration of the patient's comorbidities, presenting symptoms, or acuity I expect that the services needed warrant INPATIENT care.: Yes I certify that my determination is in accordance with my understanding of Medicare's requirements for reasonable and necessary INPATIENT services [42 CFR 412.3e].: Yes Medical Necessity: Need Close Monitoring Due to Risk of Patient Decompensation, Need For IV Fluids, Need For Continuous Telemetry Monitoring, Need for IV Antibiotics, Risk of Complication if Not Cared For in Hospital Post Hospital Care: D/C Body Designer Documentation - Plan Summary Plan Summary: D/C IV Cefepime. Second bottle of blood culture is no growth x 5 days. Maintainn oral Levofloxacin therapy. Obtain CBC with diff, CMP in am. Possible d /c in am if clinically stable.
[2018-07-28 13:39] LABS: ABSOLUTE BASOPHILS # (AUTO) 0.1 10^3/uL (0.0-0.2); ABSOLUTE EOSINOPHILS # (AUTO) 0.4 10^3/uL (0.0-0.6); ABSOLUTE LYMPHOCYTES (AUTO) 1.7 10^3/uL (0.5-4.7); ABSOLUTE MONOCYTES (AUTO) 0.5 10^3/uL (0.1-1.4); ABSOLUTE NEUT (AUTO) 4.9 10^3/uL (1.7-8.2); EOSINOPHILS % (AUTO) 4.9 % (0-6); HEMATOCRIT 35.3 % (36.0-47.0); HEMOGLOBIN 11.7 g/dL (12.0-15.5); LYMPHOCYTES % (AUTO) 22.3 % (13-45); MEAN CORPUSCULAR HEMOGLOBIN 27.2 pg (27.0-33.4); MEAN CORPUSCULAR HGB CONC 33.2 g/dL (32.0-36.0); MEAN CORPUSCULAR VOLUME 82 fl (80-97); MONOCYTES % (AUTO) 6.2 % (3-13); PLATELET COUNT 158 10^3/uL (150-450); RED CELL DISTRIBUTION WIDTH 21.3 % (11.5-14.0); SEGMENTED NEUTROPHILS % (AUTO) 65.6 % (42-78); TOTAL CELLS COUNTED % (AUTO) 100 %; WHITE BLOOD COUNT 7.5 10^3/uL (4.0-10.5)
[2018-07-28] MEDS: INSULIN LISPRO 100 UNIT/ML 3 ML VIAL SUBCUT PRN (18:20)
[2018-07-29 05:17] LABS: ANION GAP 12 (5-19); BLOOD UREA NITROGEN 12 mg/dL (7-20); CALCIUM 9.5 mg/dL (8.4-10.2); CARBON DIOXIDE 25 mmol/L (22-30); CHLORIDE 111 mmol/L (98-107); GLUCOSE 108 mg/dL (75-110); POTASSIUM 3.7 mmol/L (3.6-5.0); SODIUM 147.6 mmol/L (137-145)
[2018-07-29] MEDS: LANSOPRAZOLE 30 MG TAB.RAP.DR PO SCH (06:00)
[2018-07-29] MEDS: RISPERIDONE 1 MG TABLET PO SCH (07:59)
[2018-07-29] MEDS: SERTRALINE HCL 50 MG TABLET PO SCH (10:12)
[2018-07-29] MEDS: TOPIRAMATE 100 MG TABLET PO SCH (10:13)
[2018-07-29] MEDS: TOPIRAMATE 25 MG TABLET PO SCH (10:13)
[2018-07-29] MEDS: SITAGLIPTIN PHOSPHATE 25 MG TABLET PO SCH (10:13)
[2018-07-29] MEDS: LISINOPRIL 5 MG TABLET PO SCH (10:13)
[2018-07-29] MEDS: LEVOFLOXACIN 250 MG TABLET PO SCH (10:13)
[2018-07-29] MEDS: ASPIRIN 81 MG TABLET, ENT COATED PO SCH (10:13)
[2018-07-29] MEDS: CETIRIZINE 5 MG TABLET PO SCH (10:13)
[2018-07-29] MEDS: ENOXAPARIN SODIUM INJ 30 MG/0.3 ML DISP.SYRIN SUBCUT SCH (10:23)
--- NOTE | 2018-07-29 13:31 | PDOC DISCHARGE SUMMARY ---
General - Admit/Disc Date/PCP Admission Date/Primary Care Provider: 07/22/18 19:59 LIYA EDGAR Discharge Date: 07/29/18 - Discharge Diagnosis (1) Altered mental status Is this a current diagnosis for this admission?: Yes (2) COPD (chronic obstructive pulmonary disease) Is this a current diagnosis for this admission?: Yes (3) Hypercapnic respiratory failure Is this a current diagnosis for this admission?: Yes (4) Pneumonia Is this a current diagnosis for this admission?: Yes (5) Acute kidney failure Is this a current diagnosis for this admission?: Yes (6) Diabetes mellitus type 2 in obese Is this a current diagnosis for this admission?: Yes (7) Hypertension Is this a current diagnosis for this admission?: Yes (8) CAD (coronary artery disease) Is this a current diagnosis for this admission?: Yes (9) Hyperlipidemia associated with type 2 diabetes mellitus Is this a current diagnosis for this admission?: Yes - Additional Information Discharge Diet: Cardiac, Diabetic Discharge Activity: Activity As Tolerated, Slowly Increase Activity Prescriptions: Levofloxacin [Levaquin 250 mg Tablet] 250 mg PO DAILY #5 tablet Home Medications: Aspirin [Aspirin EC] 81 mg PO DAILY 07/22/18 Levocetirizine Dihydrochloride [Xyzal] 5 mg PO DAILY 07/22/18 Lisinopril [Prinivil 5 mg Tablet] 5 mg PO DAILY 07/22/18 Metformin HCl [Glucophage] 1,000 mg PO BID 07/22/18 Risperidone [Risperdal 1 mg Tablet] 2 mg PO QAM 07/22/18 Risperidone [Risperdal 1 mg Tablet] 3 mg PO QHS 07/22/18 Sertraline HCl [Zoloft] 100 mg PO DAILY 07/22/18 Sitagliptin Phosphate [Januvia] 100 mg PO DAILY 07/22/18 Topiramate [Topiramate ER] 150 mg PO Q12 07/22/18 Levofloxacin [Levaquin 250 mg Tablet] 250 mg PO DAILY #5 tablet 07/29/18 History of Present Illness Patient complains of: Altered mental status History of Present Illness: NAVEEN TABARES is a 57 year old female known to my practice brought to the ED by EMS with compliant of alteration of her mentation. She was not able to contribute to her medial history while in the ED. Her assessment did revealed significant respiratory acidosis with hypercapnia, leukocytosis and X ray findings suggestive of right middle lobe air space disease process. Her CT scan of head was without acute pathology. She was admitted for further evaluation and management. At the time of my assessment this morning, she remain lucid and appropriate on BiPAP therapy. She received IV Levofloxacin and Cefepime since admission. She claimed compliance with CPAP usage at home. She admitted to occasional use of Marijuana for pain. Her morbidities include Diabetes Mellitus Type 2, Hypertension, Hyperlipidemia, CAD s/p stent angioplasty and old CA, COPD , Asthma, prior stroke, Seizure disorder, Migraine Headache, GERD, IBS, Osteoarthritis with back and leg pain, Bipolar Depression, Schizophrenia, and PTSD. Hospital Course Hospital Course: She was admitted for altered mental status with pneumonia, COPD with hypercapnia and respiratory acidosis. She was managed with BiPAP and IV antibiotic including Levofloxacin and Cefepime. Her blood culture, 1 bottle, did grew Group B Beta streptococcus, Staphy. intermedius and streptococcus salivarius. The first two organisms were sensitive to Levofloxacin. She was discharged home on five more days of antibiotic therapy. She has remain afebrile for more than 48 hours. Her initial admission leukocytosis have resolved. Her renal indices did improved during this hospitalization. Patient was instructed to discontinue use of Celebrex due to effect on her kidney status. She will follow up in the office as instructed upon discharge. Physical Exam Vital Signs: Temp Pulse Resp BP Pulse Ox 98.8 F 53 L 16 144/59 H 92 07/29/18 07:21 07/29/18 07:21 07/29/18 07:21 07/29/18 07:21 07/29/18 07:21 Intake & Output 07/28/18 07/29/18 07/30/18 06:59 06:59 06:59 Intake Total 2200 1840 Output Total 0 Balance 2200 1840 Weight 97.2 kg 96.6 kg Physical Exam: General appearance: PRESENT: no acute distress Head exam: PRESENT: atraumatic, normocephalic Eye exam: PRESENT: conjunctiva pink Mouth exam: PRESENT: moist Respiratory exam: PRESENT: clear to auscultation luz elena, decreased breath sounds - at lung bases Cardiovascular exam: PRESENT: RRR. ABSENT: diastolic murmur, rubs, systolic murmur Vascular exam: ABSENT: pallor GI/Abdominal exam: PRESENT: normal bowel sounds, soft. ABSENT: distended, guarding, mass, organomegaly, rebound, tenderness Extremities exam: ABSENT: pedal edema Musculoskeletal exam: PRESENT: normal inspection Neurological exam: PRESENT: alert, awake, oriented to person, oriented to place , oriented to time, oriented to situation, CN II-XII grossly intact, motor sensory deficit Psychiatric exam: PRESENT: appropriate affect, normal mood. ABSENT: homicidal ideation, suicidal ideation Skin exam: PRESENT: dry, intact, warm. ABSENT: cyanosis, rash Results Laboratory Results: 07/28/18 12:49 07/29/18 04:20 07/28/18 07/29/18 12:49 04:20 WBC 7.5 RBC 4.30 Hgb 11.7 L Hct 35.3 L MCV 82 MCH 27.2 MCHC 33.2 RDW 21.3 H Plt Count 158 Seg Neutrophils % 65.6 Lymphocytes % 22.3 Monocytes % 6.2 Eosinophils % 4.9 Basophils % 1.0 Absolute Neutrophils 4.9 Absolute Lymphocytes 1.7 Absolute Monocytes 0.5 Absolute Eosinophils 0.4 Absolute Basophils 0.1 Sodium 147.6 H Potassium 3.7 Chloride 111 H Carbon Dioxide 25 Anion Gap 12 BUN 12 Creatinine 0.86 Est GFR ( Amer) > 60 Est GFR (Non-Af Amer) > 60 Glucose 108 Calcium 9.5 07/22/18 20:23 Blood Blood Culture - Final Group B Beta Streptococcus Staphylococcus Intermedius Streptococcus Salivarius 07/22/18 20:23 Troponin I < 0.012 Impressions: Head CT 07/22/18 16:42 IMPRESSION: NORMAL BRAIN CT WITHOUT CONTRAST. EVIDENCE OF ACUTE STROKE: NO. Chest X-Ray 07/22/18 16:45 IMPRESSION: Borderline cardiomegaly without CHF. Cannot exclude limited right middle lobe or lower lobe pneumonia. Qualifiers - * PATIENT BEING DISCHARGED WITH ANY OF THE FOLLOWING DIAGNOSIS: No Plan Discharge Plan: Discharge home today with Home Health Agency services for visiting nurse, PCS, and physical therapy for home safety check and rehabilitation.
[2018-07-29 13:43] VITALS: BP 160/68
== END 2018-07-29 16:45 | disposition home health service (06) | DRG 189 ==
LOC: ER 16:16 → EH 19:59 → 3S 22:20
PROVIDERS: ADMIT Internal Medicine Geriatric Medicine; ATTEND Internal Medicine Geriatric Medicine
PROC: 5A09457 Assistance with Respiratory Ventilation, 24-96 Consecutive Hours, Continuous Positive Airway Pressure (ICD-10-PCS; principal; 2018-07-22)
DX: J96.22 Acute and chronic respiratory failure with hypercapnia (principal); J18.1 Lobar pneumonia, unspecified organism; N17.9 Acute kidney failure, unspecified; J44.0 Chronic obstructive pulmonary disease with (acute) lower respiratory infection; E87.2 Acidosis; E11.9 Type 2 diabetes mellitus without complications; I25.119 Atherosclerotic heart disease of native coronary artery with unspecified angina pectoris; I10 Essential (primary) hypertension; E78.5 Hyperlipidemia, unspecified; K21.9 Gastro-esophageal reflux disease without esophagitis; K58.9 Irritable bowel syndrome, unspecified; M19.90 Unspecified osteoarthritis, unspecified site; F31.9 Bipolar disorder, unspecified; F20.9 Schizophrenia, unspecified; F43.10 Post-traumatic stress disorder, unspecified; Z79.82 Long term (current) use of aspirin; Z79.899 Other long term (current) drug therapy; Z79.84 Long term (current) use of oral hypoglycemic drugs; I25.2 Old myocardial infarction
CPT/HCPCS: 36415; 51701; 70450; 71045; 80048; 80053; 80307; 81001; 82550; 82553; 82803; 82962; 83036; 84484; 85025; 87040; 87077; 87186; 93005; 93010; 94660; 96360; 99291; J0692; J1650; J1815; J1956; J3490; J7030; J7040

== ENCOUNTER 2018-09-16 22:13 | Inpatient (IN) | payer MEDICARE ==
[2018-09-16] MEDS ORDERED: ASPIRIN 81 MG TABLET, CHEWABLE PO ONE (22:21)
--- NOTE | 2018-09-16 23:06 | RADIOLOGY REPORT (SQ) ---
EXAM DESCRIPTION: XR CHEST 1 VIEW COMPLETED DATE/TME: 09/16/2018 22:21 CLINICAL HISTORY: 57 years Female, chest painq COMPARISON: 6.19.18 NUMBER OF VIEWS/TECHNIQUE: 1/AP FINDINGS: Adequate lung volume, prominent interstitium, normal cardiac silhouette, and chronic deformity of multiple bilateral midthoracic ribs, left more than right. IMPRESSION: No acute cardiopulmonary findings.
--- NOTE | 2018-09-16 23:16 | EKG REPORT ---
SEVERITY:- BORDERLINE ECG - SINUS RHYTHM PROBABLE LEFT ATRIAL ABNORMALITY BORDERLINE T ABNORMALITIES, ANT-LAT LEADS : Confirmed by: Wilson Card 16-Sep-2018 23:15:00
--- NOTE | 2018-09-17 01:38 | ER Document Report ---
ED Medical Screen (RME) - General Chief Complaint: Chest Pain > 30 Stated Complaint: LEFT SIDE CHEST PAINS Time Seen by Provider: 09/17/18 01:31 Mode of Arrival: Wheelchair Information source: Patient Notes: Patient is a 57-year-old female comes emergency room complaining of chest pain on and off for 3 days. Patient states that originally started up under her left breast but it will occasionally shoot to the neck to the back and down left arm. She has a history strong for 2 MIs in the past, IDDM and also take oral pills for her diabetes. History of hypertension. Has a history of migraines which she says this 1 is in full swing because of the chest pain. She states that the pain feels like a "C-clamp" on my chest. Patient also states that she is not sure but may be her pneumonia came back or not. She states she is somewhat more short of breath she denies having any fevers no productive cough and does not have any wheezing according to patient. She does state that she is under immensely more stress than usual. Patient also states she smokes a pack of cigarettes a day. TRAVEL OUTSIDE OF THE [place] IN LAST 30 DAYS: No - HPI Onset: Other - 3 days ago Onset/Duration: Sudden, Persistent Quality of pain: Pressure, Sharp, Stabbing Severity: Moderate Pain Level: 3 Associated Symptoms: Chest pain, Cough (nonproductive), Shortness of breath Exacerbated by: Denies Relieved by: Denies Similar symptoms previously: Yes Recently seen / treated by doctor: No - Related Data Smoking: Greater than 1 pack/day Frequency of alcohol use: Rare Drug Abuse: None Allergies/Adverse Reactions: dicyclomine HCl [From Bentyl] Allergy (Severe, Verified 09/16/18 22:19) throat swelling ibuprofen [From Motrin] Allergy (Severe, Verified 09/16/18 22:19) "increased headache",swelling Shellfish * [Shellfish] Allergy (Severe, Verified 09/16/18 22:19) rash,migraines Penicillins Allergy (Intermediate, Verified 09/16/18 22:19) Hives,vomit,fever sumatriptan succinate [From Imitrex] Allergy (Verified 09/16/18 22:19) Past Medical History - General Information source: Patient - Social History Cigarette use (# per day): Yes - 1 pack a day Chew tobacco use (# tins/day): No Frequency of alcohol use: None Drug Abuse: None Lives with: Family Family history: Reviewed & Not Pertinent - Past Medical History Cardiac Medical History: Reports: Hx Coronary Artery Disease - 4 stents, Hx Heart Attack - AUG x 2, Hx Hypercholesterolemia, Hx Hypertension Denies: Hx Heart Murmur Pulmonary Medical History: Reports: Hx Asthma, Hx Bronchitis, Hx COPD, Hx Pneumonia Denies: Hx Respiratory Failure, Hx Sleep Apnea, Hx Tuberculosis Neurological Medical History: Reports: Hx Cerebrovascular Accident - 2007, Hx Migraine, Hx Seizures Endocrine Medical History: Reports: Hx Diabetes Mellitus Type 1, Hx Diabetes Mellitus Type 2 Renal/ Medical History: Reports: Hx Kidney Stones. Denies: Hx Peritoneal Dialysis GI Medical History: Reports: Hx Gastroesophageal Reflux Disease, Hx Irritable Bowel. Denies: Hx Pancreatitis Musculoskeltal Medical History: Reports Hx Arthritis - Back & Legs Psychiatric Medical History: Reports: Hx Bipolar Disorder, Hx Depression, Hx Post Traumatic Stress Disorder, Hx Schizophrenia Past Surgical History: Reports: Hx Appendectomy, Hx Cardiac Catheterization, Hx Cardiac Surgery - 3 stents, Hx Cholecystectomy, Hx Hysterectomy, Hx Orthopedic Surgery - L knee, Hx Tonsillectomy - Immunizations Immunizations up to date: Yes Hx Diphtheria, Pertussis, Tetanus Vaccination: Yes Review of Systems - Review of Systems Constitutional: No symptoms reported EENT: No symptoms reported Cardiovascular: Chest pain Respiratory: See HPI, Cough, Short of breath Gastrointestinal: No symptoms reported Genitourinary: No symptoms reported Female Genitourinary: No symptoms reported Musculoskeletal: No symptoms reported Skin: No symptoms reported Hematologic/Lymphatic: No symptoms reported Neurological/Psychological: No symptoms reported -: Yes All other systems reviewed and negative Physical Exam - Vital signs Vitals: Temp Pulse Resp BP Pulse Ox 98.6 F 81 20 158/81 H 98 09/16/18 22:38 09/16/18 22:38 09/16/18 22:38 09/16/18 22:38 09/16/18 22:38 Interpretation: Hypertensive - Notes Notes: PHYSICAL EXAMINATION: GENERAL: Well-appearing, well-nourished and in no acute distress. HEAD: Atraumatic, normocephalic. EYES: Pupils equal round and reactive to light, extraocular movements intact, conjunctiva are normal. ENT: Nares patent, oropharynx clear without exudates. Moist mucous membranes. NECK: Normal range of motion, supple without lymphadenopathy LUNGS: Breath sounds clear to auscultation bilaterally and equal. No wheezes rales or rhonchi. HEART: Regular rate and rhythm without murmurs ABDOMEN: Soft, nontender, nondistended abdomen. No guarding, no rebound. No masses appreciated. Female : deferred Musculoskeletal: Normal range of motion, no pitting or edema. No cyanosis. NEUROLOGICAL: Cranial nerves grossly intact. Normal speech, normal gait. Normal sensory, motor exams PSYCH: Normal mood, normal affect. SKIN: Warm, Dry, normal turgor, no rashes or lesions noted. Course - Vital Signs Vital signs: Temp Pulse Resp BP Pulse Ox 98.6 F 81 20 158/81 H 98 09/16/18 22:38 09/16/18 22:38 09/16/18 22:38 09/16/18 22:38 09/16/18 22:38 Doctor's Discharge - Discharge Clinical Impression: Chest pain Referrals: LIYA HERNÁNDEZ MD [Primary Care Provider] - Follow up as needed
[2018-09-17] MEDS ORDERED: ASPIRIN 81 MG TABLET, CHEWABLE ONE (01:55)
[2018-09-17 02:09] LABS: ABSOLUTE BASOPHILS # (AUTO) 0.2 10^3/uL (0.0-0.2); ABSOLUTE EOSINOPHILS # (AUTO) 0.4 10^3/uL (0.0-0.6); ABSOLUTE LYMPHOCYTES (AUTO) 4.4 10^3/uL (0.5-4.7); ABSOLUTE MONOCYTES (AUTO) 0.8 10^3/uL (0.1-1.4); ABSOLUTE NEUT (AUTO) 10.7 10^3/uL (1.7-8.2); BASOPHILS % (AUTO) 1.2 % (0-2); EOSINOPHILS % (AUTO) 2.3 % (0-6); HEMATOCRIT 43.1 % (36.0-47.0); HEMOGLOBIN 14.8 g/dL (12.0-15.5); LYMPHOCYTES % (AUTO) 26.4 % (13-45); MEAN CORPUSCULAR HEMOGLOBIN 29.3 pg (27.0-33.4); MEAN CORPUSCULAR HGB CONC 34.3 g/dL (32.0-36.0); MEAN CORPUSCULAR VOLUME 86 fl (80-97); PLATELET COUNT 292 10^3/uL (150-450); RED BLOOD COUNT 5.04 10^6/uL (3.72-5.28); SEGMENTED NEUTROPHILS % (AUTO) 65.1 % (42-78); TOTAL CELLS COUNTED % (AUTO) 100 %; WHITE BLOOD COUNT 16.5 10^3/uL (4.0-10.5)
[2018-09-17 02:24] LABS: ALANINE AMINOTRANSFERASE 14 U/L (9-52); ALBUMIN 4.5 g/dL (3.5-5.0); ALKALINE PHOSPHATASE 144 U/L (38-126); ANION GAP 11 (5-19); ASPARTATE AMINO TRANSFERASE 13 U/L (14-36); BILIRUBIN,DIRECT 0.3 mg/dL (0.0-0.4); BILIRUBIN,TOTAL 0.7 mg/dL (0.2-1.3); BLOOD UREA NITROGEN 6 mg/dL (7-20); CALCIUM 9.8 mg/dL (8.4-10.2); CARBON DIOXIDE 32 mmol/L (22-30); CHLORIDE 98 mmol/L (98-107); CREATINE KINASE 28 U/L (30-135); GLUCOSE 191 mg/dL (75-110); POTASSIUM 3.4 mmol/L (3.6-5.0); SODIUM 140.5 mmol/L (137-145)
[2018-09-17 02:38] LABS: TROPONIN I < 0.012 ng/mL
--- NOTE | 2018-09-17 02:49 | ER Document Report ---
ED General - General Chief Complaint: Chest Pain > 30 Stated Complaint: LEFT SIDE CHEST PAINS Time Seen by Provider: 09/17/18 01:31 Mode of Arrival: Wheelchair Notes: Patient is a pleasant 57-year-old female presents with complaint of left-sided chest pain he rates into the neck and into the left shoulder. Pain comes in waves. Some psychosocial shortness of breath. Is been intermittent for the last 3 days but has become much more consistent today therefore she came to the ER. She was recently admitted to the hospital for pneumonia. She says she is on any further fevers and feels that this is probably cleared. She does have a history of previous TX. She has had 2 MIs. She has 4 stents. Last stent was several years ago. No cardiac stress testing or heart cath since then. Patient also has a mild headache. She says she has chronic recurrent headaches and this headache feels just like her previous headaches. Headache was gradual in onset. No associated focal neurologic deficits. TRAVEL OUTSIDE OF THE [place] IN LAST 30 DAYS: No - Related Data Allergies/Adverse Reactions: dicyclomine HCl [From Bentyl] Allergy (Severe, Verified 09/16/18 22:19) throat swelling ibuprofen [From Motrin] Allergy (Severe, Verified 09/16/18 22:19) "increased headache",swelling Shellfish * [Shellfish] Allergy (Severe, Verified 09/16/18 22:19) rash,migraines Penicillins Allergy (Intermediate, Verified 09/16/18 22:19) Hives,vomit,fever sumatriptan succinate [From Imitrex] Allergy (Verified 09/16/18 22:19) Past Medical History - General Information source: Patient - Social History Smoking Status: Current Every Day Smoker Cigarette use (# per day): Yes - 1 pack a day Chew tobacco use (# tins/day): No Frequency of alcohol use: None Drug Abuse: None Lives with: Family Family History: Reviewed & Not Pertinent, Hypertension Patient has suicidal ideation: No Patient has homicidal ideation: No - Past Medical History Cardiac Medical History: Reports: Hx Coronary Artery Disease - 4 stents, Hx Heart Attack - AUG x 2, Hx Hypercholesterolemia, Hx Hypertension Denies: Hx Heart Murmur Pulmonary Medical History: Reports: Hx Asthma, Hx Bronchitis, Hx COPD, Hx Pneumonia Denies: Hx Respiratory Failure, Hx Sleep Apnea, Hx Tuberculosis Neurological Medical History: Reports: Hx Cerebrovascular Accident - 2008, Hx Migraine, Hx Seizures Endocrine Medical History: Reports: Hx Diabetes Mellitus Type 1, Hx Diabetes Mellitus Type 2 Renal/ Medical History: Reports: Hx Kidney Stones. Denies: Hx Peritoneal Dialysis GI Medical History: Reports: Hx Gastroesophageal Reflux Disease, Hx Irritable Bowel. Denies: Hx Pancreatitis Musculoskeletal Medical History: Reports Hx Arthritis - Back & Legs Psychiatric Medical History: Reports: Hx Bipolar Disorder, Hx Depression, Hx Post Traumatic Stress Disorder, Hx Schizophrenia Past Surgical History: Reports: Hx Appendectomy, Hx Cardiac Catheterization, Hx Cardiac Surgery - 3 stents, Hx Cholecystectomy, Hx Hysterectomy, Hx Orthopedic Surgery - L knee, Hx Tonsillectomy - Immunizations Immunizations up to date: Yes Hx Diphtheria, Pertussis, Tetanus Vaccination: Yes Hx Pneumococcal Vaccination: 11/26/12 Review of Systems - Review of Systems Notes: My Normal Review Basic REVIEW OF SYSTEMS: CONSTITUTIONAL : Denies fever, chills, or sweats. Denies recent illness. EENT: Denies eye, ear, throat, or mouth pain or symptoms. Denies nasal or sinus congestion. CARDIOVASCULAR: Has chest pain RESPIRATORY: Denies cough, cold, or chest congestion. Denies shortness of breath, difficulty breathing, or wheezing. GASTROINTESTINAL: Denies abdominal pain. Denies nausea, vomiting, or diarrhea. Denies constipation. Last BM: GENITOURINARY: Denies difficulty urinating, painful urination, burning, frequency, or blood in urine. SKIN: Denies rash or skin lesions. NEUROLOGICAL: Denies altered mental status or loss of consciousness. Has a headache. Denies weakness or paralysis or loss of use of either side. Denies problems with gait or speech. Denies sensory or motor loss. ALL OTHER SYSTEMS REVIEWED AND NEGATIVE. Physical Exam - Vital signs Vitals: Temp Pulse Resp BP Pulse Ox 98.6 F 81 20 158/81 H 98 09/16/18 22:38 09/16/18 22:38 09/16/18 22:38 09/16/18 22:38 09/16/18 22:38 - Notes Notes: General Appearance: Well nourished, alert, cooperative, no acute distress, no obvious discomfort. Well-appearing. Vitals: reviewed, See vital signs table. Head: no swelling or tenderness to the head Eyes: PERRL, EOMI, Conjuctiva clear Mouth: No decreasd moisture Chest wall: No reproducible pain to palpation of chest wall. Lungs: No wheezing, No rales, No rhonci, No accessory muscle use, good air exchange bilaterally. Heart: Normal rate, Regular rythm, No murmur, no rub Abdomen: Normal BS, soft, No rigidity, No abdominal tenderness, No guarding, no rebound, no abdominal masses, no organomegaly Extremities: strength 5/5 in all extremities, good pulses in all extremities, no swelling or tenderness in the extremities, no edema. Skin: warm, dry, appropriate color, no rash Neuro: speech clear, oriented x 3, normal affect, responds appropriately to questions. Cranial nerves II through XII are intact. Distal sensation intact. Patient moves all extremities without difficulty. Course - Re-evaluation Re-evalutation: 09/17/18 03:45 Patient's chest pain is improving after receiving the nitro. I did give her morphine because of headache. She clinically looks well. Heart score is 5. She has multiple cardiac risk factors including previous TX and stents. I have spoken with Dr. Hernández, patient's primary care physician, who agrees to accept the patient for admission. Dictation of this chart was performed using voice recognition software; therefore, there may be some unintended grammatical errors. - Vital Signs Vital signs: Temp Pulse Resp BP Pulse Ox 98.1 F 84 20 149/77 H 93 09/17/18 01:55 09/17/18 01:55 09/17/18 01:55 09/17/18 01:55 09/17/18 01:55 - Laboratory Result Diagrams: 09/17/18 01:59 09/17/18 01:59 Laboratory results interpreted by me: 09/17/18 09/17/18 01:59 01:59 WBC 16.5 H RDW 15.0 H Absolute Neutrophils 10.7 H Potassium 3.4 L Carbon Dioxide 32 H BUN 6 L Glucose 191 H AST 13 L Alkaline Phosphatase 144 H Creatine Kinase 28 L - EKG Interpretation by Me Additional EKG results interpreted by me: 09/17/18 02:48 EKG is reviewed and interpreted by me. EKG shows sinus rhythm with a rate of [address] segment elevation or depression. No ischemic T wave inversions. [place] interval, QRS duration, QTc intervals are within normal range. Old EKG for comparison is from July 22, 2018. Discharge - Discharge Clinical Impression: Chest pain Qualifiers: Chest pain type: unspecified Qualified Code(s): R07.9 - Chest pain, unspecified Condition: Stable Disposition: ADMITTED OBSERVATION Admitting Provider: Alexa Unit Admitted: [facility] Referrals: LIYA HERNÁNDEZ MD [Primary Care Provider] - Follow up as needed
[2018-09-17] MEDS ORDERED: NITROGLYCERIN 2% OINTMENT 1 GM PACKET TP ONE (02:50)
[2018-09-17] MEDS ORDERED: MORPHINE SULFATE 10 MG/ML INJ IV ONE (02:50)
[2018-09-17] MEDS ORDERED: ASPIRIN 81 MG TABLET, CHEWABLE PO ONE (03:16)
[2018-09-17] MEDS ORDERED: DEXTROSE 40% GEL 15 GM TUBE PO PRN ×2 (08:38)
[2018-09-17] MEDS ORDERED: DEXTROSE 50%-WATER 25 GM/50 ML DISP.SYRIN IV PRN ×2 (08:38)
[2018-09-17] MEDS ORDERED: NORMAL SALINE 1000 ML 1,000 ML IV PRN (08:38)
[2018-09-17] MEDS ORDERED: GLUCAGON,HUMAN RECOMB 1 MG INJ IM PRN (08:38)
[2018-09-17] MEDS ORDERED: INSULIN LISPRO 100 UNIT/ML 3 ML VIAL SUBCUT PRN (08:38)
[2018-09-17 09:22] LABS: APPEARANCE,URINE SLIGHTLY-CLOUDY; BILIRUBIN,URINE NEGATIVE (NEGATIVE); COLOR,URINE YELLOW; GLUCOSE, URINE NEGATIVE (NEGATIVE); KETONES,URINE NEGATIVE (NEGATIVE); LEUKOCYTE ESTERASE,URINE MODERATE (NEGATIVE); NITRITE,URINE NEGATIVE (NEGATIVE); PROTEIN,URINE 30 mg/dL (NEGATIVE); URINE SPECIFIC GRAVITY 1.014
[2018-09-17] MEDS: POTASSIUM CHLORIDE 10 MEQ CAPSULE.ER PO SCH ×2 (10:17→13:09)
[2018-09-17] MEDS: ENOXAPARIN SODIUM INJ 40 MG/0.4 ML DISP.SYRIN SUBCUT SCH (10:18)
[2018-09-17 11:05] LABS: CREATINE KINASE MB 0.48 ng/mL (<4.55)
[2018-09-17 11:11] LABS: TROPONIN I < 0.012 ng/mL
[2018-09-17 11:18] LABS: URINE AMPHETAMINES SCREEN NEGATIVE; URINE BARBITURATES SCREEN NEGATIVE; URINE BENZODIAZEPINES SCREEN NEGATIVE; URINE COCAINE SCREEN NEGATIVE; URINE MARIJUANA (THC) SCREEN NEGATIVE; URINE METHADONE SCREEN NEGATIVE; URINE PHENCYCLIDINE SCREEN NEGATIVE
[2018-09-17 15:46] LABS: CREATINE KINASE MB 0.44 ng/mL (<4.55)
[2018-09-17 15:53] LABS: TROPONIN I < 0.012 ng/mL
[2018-09-17] MEDS ORDERED: SUVOREXANT 10 MG PO PRN (19:21)
[2018-09-17] MEDS ORDERED: (PENDING PHARMACY ID) (Clonazepam [Klonopin] 0.5 MG) PO PRN (19:21)
[2018-09-17] MEDS ORDERED: CLONAZEPAM 1 MG TABLET PO PRN (19:34)
--- NOTE | 2018-09-17 19:44 | PDOC H&P ---
History of Present Illness Admission Date/PCP: 09/17/18 03:59 LIYA HERNÁNDEZ History of Present Illness: NAVEEN TABARES is a 57 year old female known to my practice who presented to the ED with compliant of intermittent chest pain over several days. She localized pain to left side of her chest radiating into her neck and shoulder joint. She denied any associate palpation, diaphoresis, nausea or vomiting. No exertional or at rest shortness of breath. She denied any any recent trauma or instrumentation. Her initial evaluation in the Ed was unrevealing but due to her significant cardiac history including prior SC and stent angioplasty she was advised admission to rule out cardiac etiology for her chest pain. She admitted to right flank pain, chills, nausea and episode of vomiting prior to her ED arrival. Her ED evaluation did revealed leukocytosis and subsequent urinalysis suggest possible genitourinary tract infection. Her morbidities include Hypertension, Diabetes mellitus type 2, Hyperlipidemia, CAD with stent angioplasty, old myocardial infarction, GERD, osteoarthritis, seizure disorder, migraine headache, Bipolar Disorder with Depression, Post Traumatic Stress Disorder, and Schizophrenia. Past Medical History Cardiac Medical History: Reports: Coronary Artery Disease - 4 stents, Myocardial Infarction - Jun x 2, Hyperlipidema, Hypertension Denies: Heart Murmur Pulmonary Medical History: Reports: Asthma, Bronchitis, Chronic Obstructive Pulmonary Disease (COPD), Pneumonia Denies: Respiratory Failure, Sleep Apnea, Tuberculosis Neurological Medical History: Reports: Migraine, Seizures Endocrine Medical History: Reports: Diabetes Mellitus Type 1, Diabetes Mellitus Type 2 GI Medical History: Reports: Gastroesophageal Reflux Disease Musculoskeltal Medical History: Reports: Arthritis - Back & Legs Psychiatric Medical History: Reports: Bipolar Disorder, Depression, Post Traumatic Stress Disorder Hematology: Denies: Anemia Past Surgical History Past Surgical History: Reports: Appendectomy, Cardiac Catheterization, Cholecystectomy, Hysterectomy, Orthopedic Surgery - L knee, Tonsillectomy Social History Lives with: Family Smoking Status: Current Every Day Smoker Frequency of Alcohol Use: None Hx Recreational Drug Use: No Drugs: None Hx Prescription Drug Abuse: No - Advance Directive Resuscitation Status: Full Code Family History Family History: Reviewed & Not Pertinent, Hypertension Parental Family History Reviewed: Yes Children Family History Reviewed: Yes Sibling(s) Family History Reviewed.: Yes Medication/Allergy Home Medications: Aspirin [Aspirin EC] 81 mg PO DAILY 07/22/18 Levocetirizine Dihydrochloride [Xyzal] 5 mg PO DAILY 07/22/18 Lisinopril [Prinivil 5 mg Tablet] 5 mg PO DAILY 07/22/18 Metformin HCl [Glucophage] 1,000 mg PO BID 07/22/18 Risperidone [Risperdal 1 mg Tablet] 2 mg PO QAM 07/22/18 Risperidone [Risperdal 1 mg Tablet] 3 mg PO QHS 07/22/18 Sertraline HCl [Zoloft] 100 mg PO DAILY 07/22/18 Sitagliptin Phosphate [Januvia] 100 mg PO DAILY 07/22/18 Atorvastatin Calcium [Lipitor 10 mg Tablet] 10 mg PO QHS 09/17/18 Benztropine Mesylate [Cogentin 1 mg Tablet] 1 mg PO Q12 09/17/18 Clonazepam [Klonopin] 0.5 mg PO DAILYP PRN 09/17/18 Insulin Degludec [Tresiba Flextouch U-200] 120 unit SQ QHS 09/17/18 Pregabalin [Lyrica 75 mg Capsule] 75 mg PO Q12 09/17/18 Suvorexant [Belsomra] 10 mg PO HSP PRN 09/17/18 Topiramate [Topamax] 150 mg PO Q12 09/17/18 Allergies/Adverse Reactions: dicyclomine HCl [From Bentyl] Allergy (Severe, Verified 09/16/18 22:19) throat swelling ibuprofen [From Motrin] Allergy (Severe, Verified 09/16/18 22:19) "increased headache",swelling Shellfish * [Shellfish] Allergy (Severe, Verified 09/16/18 22:19) rash,migraines Penicillins Allergy (Intermediate, Verified 09/16/18 22:19) Hives,vomit,fever sumatriptan succinate [From Imitrex] Allergy (Verified 09/16/18 22:19) Review of Systems Constitutional: PRESENT: chills, weakness Eyes: ABSENT: visual disturbances Ears: ABSENT: hearing changes Nose, Mouth, and Throat: ABSENT: as per HPI, headache(s), mouth pain, sore throat, vertigo, other Cardiovascular: PRESENT: chest pain. ABSENT: as per HPI, dyspnea on exertion, edema, orthropnea, palpitations, other Respiratory: ABSENT: cough, hemoptysis Gastrointestinal: PRESENT: nausea, vomiting Genitourinary: PRESENT: other - right CVA tenderness. ABSENT: dysuria, hematuria Musculoskeletal: ABSENT: joint swelling Integumentary: ABSENT: rash, wounds Neurological: ABSENT: abnormal gait, abnormal speech, confusion, dizziness, focal weakness, syncope Psychiatric: ABSENT: anxiety, depression, homidical ideation, suicidal ideation Endocrine: ABSENT: cold intolerance, heat intolerance, polydipsia, polyuria Hematologic/Lymphatic: ABSENT: easy bleeding, easy bruising, lymphadenopathy Allergic/Immunologic: ABSENT: seasonal rhinorrhea Physical Exam Vital Signs: Temp Pulse Resp BP Pulse Ox 98.7 F 56 L 18 163/76 H 99 09/17/18 15:07 09/17/18 15:07 09/17/18 15:07 09/17/18 15:07 09/17/18 15:07 Intake & Output 09/16/18 09/17/18 09/18/18 06:59 06:59 06:59 Intake Total 300 Balance 300 General appearance: PRESENT: no acute distress, obese Head exam: PRESENT: atraumatic, normocephalic Eye exam: PRESENT: conjunctiva pink, EOMI, PERRLA. ABSENT: scleral icterus Ear exam: PRESENT: normal external ear exam Mouth exam: PRESENT: moist Neck exam: PRESENT: full ROM. ABSENT: carotid bruit, JVD, lymphadenopathy, thyromegaly Respiratory exam: PRESENT: clear to auscultation luz elena Cardiovascular exam: PRESENT: RRR. ABSENT: diastolic murmur, rubs, systolic murmur Pulses: PRESENT: normal dorsalis pedis pul, +2 pedal pulses bilateral Vascular exam: PRESENT: normal capillary refill. ABSENT: pallor GI/Abdominal exam: PRESENT: normal bowel sounds, soft, tenderness - expressed right CVA tendteness to ballotment. ABSENT: distended, guarding, mass, organolmegaly, rebound Rectal exam: PRESENT: deferred Extremities exam: ABSENT: pedal edema Musculoskeletal exam: PRESENT: normal inspection Neurological exam: PRESENT: alert, awake, oriented to person, oriented to place , oriented to time, oriented to situation, CN II-XII grossly intact. ABSENT: motor sensory deficit Psychiatric exam: PRESENT: appropriate affect, normal mood. ABSENT: homicidal ideation, suicidal ideation Skin exam: PRESENT: dry, intact, warm. ABSENT: cyanosis, rash Results Laboratory Results: I reviewed her laboratory lab results on [employer] an contribute to my medical decision making. 09/17/18 08:50 Urine Color YELLOW Urine Appearance SLIGHTLY-CLOUDY Urine pH 6.0 Ur Specific [place] 1.014 Urine Protein 30 H Urine Glucose (UA) NEGATIVE Urine Ketones NEGATIVE Urine Blood NEGATIVE Urine Nitrite NEGATIVE Ur Leukocyte Esterase MODERATE H Urine WBC (Auto) 9 Urine RBC (Auto) 2 09/17/18 09/17/18 09/17/18 10:05 10:05 14:40 Creatine Kinase < 20 L < 20 L CK-MB (CK-2) 0.48 Troponin I < 0.012 09/17/18 14:40 Creatine Kinase CK-MB (CK-2) 0.44 Troponin I < 0.012 Impressions: Chest X-Ray 09/16/18 22:21 IMPRESSION: No acute cardiopulmonary findings. Assessment & Plan - Diagnosis (1) Chest pain with moderate risk of acute coronary syndrome Is this a current diagnosis for this admission?: Yes Plan: See admitting attending physician orders. (2) CAD (coronary artery disease) Qualifiers: Coronary Disease-Associated Artery/Lesion type: [place] artery [place] vs. transplanted heart: unspecified whether [place] or transplanted heart Associated angina: with unspecified angina Qualified Code(s): I25.119 - Atherosclerotic heart disease of [place] coronary artery with unspecified angina pectoris Is this a current diagnosis for this admission?: Yes Plan: See admitting attending physician orders. (3) UTI (urinary tract infection), bacterial Is this a current diagnosis for this admission?: Yes Plan: See admitting attending physician orders. (4) Diabetes mellitus type 2 in obese Is this a current diagnosis for this admission?: Yes Plan: See admitting attending physician orders. (5) Hypertension Qualifiers: Hypertension type: essential hypertension Qualified Code(s): I10 - Essential (primary) hypertension Is this a current diagnosis for this admission?: Yes Plan: See admitting attending physician orders. (6) Hyperlipidemia associated with type 2 diabetes mellitus Is this a current diagnosis for this admission?: Yes Plan: See admitting attending physician orders. (7) GERD (gastroesophageal reflux disease) Qualifiers: Esophagitis presence: without esophagitis Qualified Code(s): K21.9 - Gastro -esophageal reflux disease without esophagitis Is this a current diagnosis for this admission?: Yes Plan: See admitting attending physician orders. - Time Time Spent: 50 to 70 Minutes Medications reviewed and adjusted accordingly: Yes Anticipated discharge: Home with Homehealth Within: Other - Inpatient Certification Based on my medical assessment, after consideration of the patient's comorbidities, presenting symptoms, or acuity I expect that the services needed warrant INPATIENT care.: Yes I certify that my determination is in accordance with my understanding of Medicare's requirements for reasonable and necessary INPATIENT services [42 CFR 412.3e].: Yes Medical Necessity: Need Close Monitoring Due to Risk of Patient Decompensation, Need For IV Fluids, Need For Continuous Telemetry Monitoring, Need for IV Antibiotics, Risk of Complication if Not Cared For in Hospital 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
[2018-09-17 20:47] LABS: TROPONIN I < 0.012 ng/mL
[2018-09-17] MEDS: LISINOPRIL 5 MG TABLET PO SCH (20:56)
[2018-09-17] MEDS: BENZTROPINE MESYLATE 1 MG TABLET PO SCH (21:52)
[2018-09-17] MEDS: ATORVASTATIN CALCIUM 10 MG TABLET PO SCH (21:52)
[2018-09-17] MEDS: TOPIRAMATE 100 MG TABLET PO SCH (21:52)
[2018-09-17] MEDS: PREGABALIN 75 MG CAPSULE PO SCH (21:53)
[2018-09-17] MEDS: RISPERIDONE 1 MG TABLET PO SCH (21:53)
[2018-09-17] MEDS: LEVOFLOXACIN 500 MG/D5W RTU 500 MG/100 ML RTUPB IV SCH (21:55)
[2018-09-17] MEDS ORDERED: (PENDING PHARMACY ID) (Topiramate [Topamax] 150 MG) PO SCH (22:00)
[2018-09-17] MEDS ORDERED: INSULIN DEGLUDEC 120 UNIT SQ SCH (22:00)
[2018-09-18] MEDS: LANSOPRAZOLE 30 MG TAB.RAP.DR PO SCH (05:26)
[2018-09-18 06:07] LABS: ABSOLUTE BASOPHILS # (AUTO) 0.1 10^3/uL (0.0-0.2); ABSOLUTE EOSINOPHILS # (AUTO) 0.5 10^3/uL (0.0-0.6); ABSOLUTE LYMPHOCYTES (AUTO) 3.1 10^3/uL (0.5-4.7); ABSOLUTE MONOCYTES (AUTO) 0.5 10^3/uL (0.1-1.4); ABSOLUTE NEUT (AUTO) 5.3 10^3/uL (1.7-8.2); BASOPHILS % (AUTO) 0.8 % (0-2); EOSINOPHILS % (AUTO) 4.8 % (0-6); HEMATOCRIT 37.7 % (36.0-47.0); HEMOGLOBIN 12.8 g/dL (12.0-15.5); LYMPHOCYTES % (AUTO) 32.8 % (13-45); MEAN CORPUSCULAR HEMOGLOBIN 29.2 pg (27.0-33.4); MEAN CORPUSCULAR VOLUME 86 fl (80-97); MONOCYTES % (AUTO) 5.4 % (3-13); PLATELET COUNT 202 10^3/uL (150-450); RED BLOOD COUNT 4.38 10^6/uL (3.72-5.28); RED CELL DISTRIBUTION WIDTH 14.7 % (11.5-14.0); SEGMENTED NEUTROPHILS % (AUTO) 56.2 % (42-78); TOTAL CELLS COUNTED % (AUTO) 100 %; WHITE BLOOD COUNT 9.5 10^3/uL (4.0-10.5)
[2018-09-18 06:37] LABS: ALANINE AMINOTRANSFERASE 87 U/L (9-52); ALBUMIN 3.6 g/dL (3.5-5.0); ALKALINE PHOSPHATASE 225 U/L (38-126); ANION GAP 7 (5-19); ASPARTATE AMINO TRANSFERASE 68 U/L (14-36); BILIRUBIN,DIRECT 0.2 mg/dL (0.0-0.4); BILIRUBIN,TOTAL 0.7 mg/dL (0.2-1.3); BLOOD UREA NITROGEN 8 mg/dL (7-20); CARBON DIOXIDE 29 mmol/L (22-30); CHLORIDE 106 mmol/L (98-107); GLUCOSE 126 mg/dL (75-110); POTASSIUM 4.1 mmol/L (3.6-5.0); SODIUM 141.6 mmol/L (137-145); TOTAL PROTEIN 6.3 g/dL (6.3-8.2)
[2018-09-18] MEDS: BENZTROPINE MESYLATE 1 MG TABLET PO SCH ×2 (10:29→22:59)
[2018-09-18] MEDS: LISINOPRIL 5 MG TABLET PO SCH (10:29)
[2018-09-18] MEDS: METFORMIN HCL 500 MG TABLET PO SCH ×2 (10:29→18:23)
[2018-09-18] MEDS: RISPERIDONE 1 MG TABLET PO SCH ×2 (10:29→23:02)
[2018-09-18] MEDS: ASPIRIN 81 MG TABLET, ENT COATED PO SCH (10:29)
[2018-09-18] MEDS: PREGABALIN 75 MG CAPSULE PO SCH ×2 (10:29→22:59)
[2018-09-18] MEDS: SITAGLIPTIN PHOSPHATE 50 MG TABLET PO SCH (10:29)
[2018-09-18] MEDS: TOPIRAMATE 100 MG TABLET PO SCH ×2 (10:32→23:02)
[2018-09-18] MEDS: NORMAL SALINE 1000 ML 1,000 ML IV PRN ×2 (10:32→18:24)
[2018-09-18] MEDS: CETIRIZINE 5 MG TABLET PO SCH (10:41)
[2018-09-18] MEDS: SERTRALINE HCL 50 MG TABLET PO SCH (10:41)
[2018-09-18] MEDS: ENOXAPARIN SODIUM INJ 40 MG/0.4 ML DISP.SYRIN SUBCUT SCH (10:42)
--- NOTE | 2018-09-18 18:48 | PDOC PROGRESS REPORT ---
Subjective Progress Note for:: 09/18/18 Subjective:: Patient reported less nausea but no vomiting. No abdominal pain. No chest pain or difficulty with breathing. She continue to experience intermittent chills but no fever. Reason For Visit: CHEST PAIN R/O ACS,UTI Physical Exam Vital Signs: Temp Pulse Resp BP Pulse Ox 99.1 F 65 18 94/77 L 90 L 09/18/18 16:28 09/18/18 16:28 09/18/18 16:28 09/18/18 16:28 09/18/18 16:28 Intake & Output 09/17/18 09/18/18 09/19/18 06:59 06:59 06:59 Intake Total 300 1462 Output Total 400 Balance 300 1062 Physical Exam: General appearance: PRESENT: no acute distress, obese Head exam: PRESENT: atraumatic, normocephalic Eye exam: PRESENT: conjunctiva pink, EOMI, PERRLA. ABSENT: scleral icterus Ear exam: PRESENT: normal external ear exam Mouth exam: PRESENT: moist Teeth exam: PRESENT: poor dentition Respiratory exam: PRESENT: clear to auscultation luz elena Cardiovascular exam: PRESENT: RRR. ABSENT: diastolic murmur, rubs, systolic murmur Vascular exam: ABSENT: pallor GI/Abdominal exam: PRESENT: normal bowel sounds, soft, tenderness - lower quadrants. ABSENT: rebound, guarding, organomegaly Extremities exam: PRESENT: pedal edema Musculoskeletal exam: PRESENT: deformity - related to arthritis Neurological exam: PRESENT: alert, awake, oriented to person, oriented to place , oriented to time, oriented to situation, CN II-XII grossly intact. ABSENT: motor sensory deficit Psychiatric exam: PRESENT: appropriate affect, normal mood. ABSENT: homicidal ideation, suicidal ideation Skin exam: PRESENT: dry, intact, warm. ABSENT: cyanosis, rash Results Laboratory Results: 09/18/18 05:29 09/18/18 05:29 09/18/18 09/18/18 05:29 05:29 WBC 9.5 RBC 4.38 Hgb 12.8 Hct 37.7 MCV 86 MCH 29.2 MCHC 34.0 RDW 14.7 H Plt Count 202 Seg Neutrophils % 56.2 Lymphocytes % 32.8 Monocytes % 5.4 Eosinophils % 4.8 Basophils % 0.8 Absolute Neutrophils 5.3 Absolute Lymphocytes 3.1 Absolute Monocytes 0.5 Absolute Eosinophils 0.5 Absolute Basophils 0.1 Sodium 141.6 Potassium 4.1 Chloride 106 Carbon Dioxide 29 Anion Gap 7 BUN 8 Creatinine 0.74 Est GFR ( Amer) > 60 Est GFR (Non-Af Amer) > 60 Glucose 126 H Calcium 9.0 Total Bilirubin 0.7 AST 68 H ALT 87 H Alkaline Phosphatase 225 H Total Protein 6.3 Albumin 3.6 09/17/18 09/17/18 09/17/18 10:05 10:05 14:40 Creatine Kinase < 20 L < 20 L CK-MB (CK-2) 0.48 Troponin I < 0.012 09/17/18 09/17/18 09/17/18 14:40 20:13 20:13 Creatine Kinase < 20 L CK-MB (CK-2) 0.44 0.40 Troponin I < 0.012 < 0.012 Impressions: Chest X-Ray 09/16/18 22:21 IMPRESSION: No acute cardiopulmonary findings. Assessment & Plan - Diagnosis (1) Chest pain with moderate risk of acute coronary syndrome Is this a current diagnosis for this admission?: Yes (2) CAD (coronary artery disease) Qualifiers: Coronary Disease-Associated Artery/Lesion type: [place] artery [place] vs. transplanted heart: unspecified whether [place] or transplanted heart Associated angina: with unspecified angina Qualified Code(s): I25.119 - Atherosclerotic heart disease of [place] coronary artery with unspecified angina pectoris Is this a current diagnosis for this admission?: Yes (3) UTI (urinary tract infection), bacterial Is this a current diagnosis for this admission?: Yes (4) Diabetes mellitus type 2 in obese Is this a current diagnosis for this admission?: Yes (5) Hypertension Qualifiers: Hypertension type: essential hypertension Qualified Code(s): I10 - Essential (primary) hypertension Is this a current diagnosis for this admission?: Yes (6) Hyperlipidemia associated with type 2 diabetes mellitus Is this a current diagnosis for this admission?: Yes (7) GERD (gastroesophageal reflux disease) Qualifiers: Esophagitis presence: without esophagitis Qualified Code(s): K21.9 - Gastro -esophageal reflux disease without esophagitis Is this a current diagnosis for this admission?: Yes - Time Time Spent with patient: 25-34 minutes Medications reviewed and adjusted accordingly: Yes Anticipated discharge: Home with Homehealth Within: Other - Inpatient Certification Based on my medical assessment, after consideration of the patient's comorbidities, presenting symptoms, or acuity I expect that the services needed warrant INPATIENT care.: Yes I certify that my determination is in accordance with my understanding of Medicare's requirements for reasonable and necessary INPATIENT services [42 CFR 412.3e].: Yes Medical Necessity: Need Close Monitoring Due to Risk of Patient Decompensation, Need For IV Fluids, Need For Continuous Telemetry Monitoring, Need for IV Antibiotics, Risk of Complication if Not Cared For in Hospital 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 Maintain on IV fluid support. Continue other current management.
[2018-09-18] MEDS ORDERED: LEVOFLOXACIN 500 MG/D5W RTU 500 MG/100 ML RTUPB IV ONE (22:56)
[2018-09-18] MEDS: LEVOFLOXACIN 500 MG/D5W RTU 500 MG/100 ML RTUPB IV SCH (22:56)
[2018-09-18] MEDS: ATORVASTATIN CALCIUM 10 MG TABLET PO SCH (22:59)
[2018-09-19] MEDS: LANSOPRAZOLE 30 MG TAB.RAP.DR PO SCH (05:32)
[2018-09-19] MEDS: RISPERIDONE 1 MG TABLET PO SCH ×2 (08:23→22:41)
[2018-09-19] MEDS: METFORMIN HCL 500 MG TABLET PO SCH ×2 (08:23→17:19)
--- NOTE | 2018-09-19 08:52 | PDOC PROGRESS REPORT ---
Subjective Progress Note for:: 09/19/18 Subjective:: Patient reported no nausea, vomiting, or abdominal pain. She reported persistent diarrhea. No fever or chills. No chest pain or difficulty with breathing. Reason For Visit: CHEST PAIN R/O ACS,UTI Physical Exam Vital Signs: Temp Pulse Resp BP Pulse Ox 97.8 F 51 L 19 110/50 L 98 09/19/18 07:35 09/19/18 07:35 09/19/18 07:35 09/19/18 07:35 09/19/18 07:35 Intake & Output 09/18/18 09/19/18 09/20/18 06:59 06:59 06:59 Intake Total 400 1698 Output Total 700 Balance 400 998 Physical Exam: General appearance: PRESENT: no acute distress, obese Head exam: PRESENT: atraumatic, normocephalic Eye exam: PRESENT: conjunctiva pink, EOMI, PERRLA. ABSENT: scleral icterus Ear exam: PRESENT: normal external ear exam Mouth exam: PRESENT: moist Respiratory exam: PRESENT: clear to auscultation luz elena Cardiovascular exam: PRESENT: RRR. ABSENT: diastolic murmur, rubs, systolic murmur Vascular exam: ABSENT: pallor GI/Abdominal exam: PRESENT: normal bowel sounds, soft ABSENT: tenderness, rebound, guarding, organomegaly Extremities exam: PRESENT: pedal edema Musculoskeletal exam: PRESENT: deformity - related to arthritis Neurological exam: PRESENT: alert, awake, oriented to person, oriented to place , oriented to time, oriented to situation, CN II-XII grossly intact. ABSENT: motor sensory deficit Psychiatric exam: PRESENT: appropriate affect, normal mood. ABSENT: homicidal ideation, suicidal ideation Skin exam: PRESENT: dry, intact, warm. ABSENT: cyanosis, rash Results Laboratory Results: 09/18/18 05:29 09/18/18 05:29 09/17/18 09/17/18 09/17/18 10:05 10:05 14:40 Creatine Kinase < 20 L < 20 L CK-MB (CK-2) 0.48 Troponin I < 0.012 09/17/18 09/17/18 09/17/18 14:40 20:13 20:13 Creatine Kinase < 20 L CK-MB (CK-2) 0.44 0.40 Troponin I < 0.012 < 0.012 Impressions: Chest X-Ray 09/16/18 22:21 IMPRESSION: No acute cardiopulmonary findings. Assessment & Plan - Diagnosis (1) Chest pain with moderate risk of acute coronary syndrome Is this a current diagnosis for this admission?: Yes (2) CAD (coronary artery disease) Qualifiers: Coronary Disease-Associated Artery/Lesion type: ho-[place] artery [place] vs. transplanted heart: unspecified whether [place] or transplanted heart Associated angina: with unspecified angina Qualified Code(s): I25.119 - Atherosclerotic heart disease of ho-chunk coronary artery with unspecified angina pectoris Is this a current diagnosis for this admission?: Yes (3) UTI (urinary tract infection), bacterial Is this a current diagnosis for this admission?: Yes (4) Diabetes mellitus type 2 in obese Is this a current diagnosis for this admission?: Yes (5) Hypertension Qualifiers: Hypertension type: essential hypertension Qualified Code(s): I10 - Essential (primary) hypertension Is this a current diagnosis for this admission?: Yes (6) Hyperlipidemia associated with type 2 diabetes mellitus Is this a current diagnosis for this admission?: Yes (7) GERD (gastroesophageal reflux disease) Qualifiers: Esophagitis presence: without esophagitis Qualified Code(s): K21.9 - Gastro -esophageal reflux disease without esophagitis Is this a current diagnosis for this admission?: Yes (8) Diarrhea Qualifiers: Diarrhea type: unspecified type Qualified Code(s): R19.7 - Diarrhea, unspecified Is this a current diagnosis for this admission?: Yes Plan: Obtain stool wbc, C. difficile toxin titer, occult blood. - Time Time Spent with patient: 25-34 minutes Medications reviewed and adjusted accordingly: Yes Anticipated discharge: Home with Homehealth - Inpatient Certification Based on my medical assessment, after consideration of the patient's comorbidities, presenting symptoms, or acuity I expect that the services needed warrant INPATIENT care.: Yes I certify that my determination is in accordance with my understanding of Medicare's requirements for reasonable and necessary INPATIENT services [42 CFR 412.3e].: Yes Medical Necessity: Need Close Monitoring Due to Risk of Patient Decompensation, Need For IV Fluids, Need For Continuous Telemetry Monitoring, Need for IV Antibiotics, Risk of Complication if Not Cared For in Hospital Post Hospital Care: D/C Hydrometer Calibrator Documentation - Plan Summary Plan Summary: See attending physician orders.
--- NOTE | 2018-09-19 09:31 | Physician Advisory Note ---
Physician Advisor ProgressNote .: Pursuant to the plan for Debora Leung, I have reviewed the medical record for this patient. Physician Advisor Statement: Please consider documenting, if you agree: 1. Most likely cause of CP. (record states mod risk ACS, cardiac enz.s neg - do you believe pt has "angina", or do you suspect another dx is more likely?) 2. ? "Acute pyelonephritis"? or "cystitis"? (record reports pt had (+)CVAT/Rt flank pain, chills, N/V ...) 3. Medical necessity: Please make it clear in each day's note the reason(s) the patient still needs hospitalization. - This is especially important when patient is made Inpatient with a dx that often requires only 1 night in hospital, such as CP, CHF, syncope, HARDEEP, TIA, .... - STating no explanation, or only "See orders", tends to invite INpatient status denials. - Please avoid stating "CP, r/o DC", since these days, payers interpret that to mean DC has been ruled out already, so another reason for stay must be given. Thanks! CK
[2018-09-19] MEDS: BENZTROPINE MESYLATE 1 MG TABLET PO SCH ×2 (09:43→22:03)
[2018-09-19] MEDS: SERTRALINE HCL 50 MG TABLET PO SCH (09:43)
[2018-09-19] MEDS: TOPIRAMATE 100 MG TABLET PO SCH ×2 (09:43→22:04)
[2018-09-19] MEDS: LISINOPRIL 5 MG TABLET PO SCH (09:43)
[2018-09-19] MEDS: ASPIRIN 81 MG TABLET, ENT COATED PO SCH (09:43)
[2018-09-19] MEDS: SITAGLIPTIN PHOSPHATE 50 MG TABLET PO SCH (09:43)
[2018-09-19] MEDS: CETIRIZINE 5 MG TABLET PO SCH (09:43)
[2018-09-19] MEDS: PREGABALIN 75 MG CAPSULE PO SCH ×2 (09:43→22:04)
[2018-09-19] MEDS: ENOXAPARIN SODIUM INJ 40 MG/0.4 ML DISP.SYRIN SUBCUT SCH (09:44)
[2018-09-19] MEDS: NORMAL SALINE 1000 ML 1,000 ML IV PRN (10:26)
[2018-09-19] MEDS: LEVOFLOXACIN 500 MG/D5W RTU 500 MG/100 ML RTUPB IV SCH (22:04)
[2018-09-19] MEDS: ATORVASTATIN CALCIUM 10 MG TABLET PO SCH (22:40)
[2018-09-20] MEDS ORDERED: LANSOPRAZOLE 30 MG TAB.RAP.DR PO SCH (06:00)
[2018-09-20] MEDS: SITAGLIPTIN PHOSPHATE 50 MG TABLET PO SCH (11:04)
[2018-09-20] MEDS: RISPERIDONE 1 MG TABLET PO SCH (11:04)
[2018-09-20] MEDS: ASPIRIN 81 MG TABLET, ENT COATED PO SCH (11:04)
[2018-09-20] MEDS: BENZTROPINE MESYLATE 1 MG TABLET PO SCH (11:04)
[2018-09-20] MEDS: LISINOPRIL 5 MG TABLET PO SCH (11:05)
[2018-09-20] MEDS: PREGABALIN 75 MG CAPSULE PO SCH (11:05)
[2018-09-20] MEDS: ENOXAPARIN SODIUM INJ 40 MG/0.4 ML DISP.SYRIN SUBCUT SCH (11:05)
[2018-09-20] MEDS: METFORMIN HCL 500 MG TABLET PO SCH (11:05)
[2018-09-20] MEDS: TOPIRAMATE 100 MG TABLET PO SCH (11:06)
[2018-09-20] MEDS: CETIRIZINE 5 MG TABLET PO SCH (11:11)
[2018-09-20] MEDS: SERTRALINE HCL 50 MG TABLET PO SCH (11:11)
[2018-09-20 15:59] VITALS: BP 109/40
--- NOTE | 2018-09-20 16:06 | PDOC DISCHARGE SUMMARY ---
General - Admit/Disc Date/PCP Admission Date/Primary Care Provider: 09/17/18 03:59 LIYA EDGAR Discharge Date: 09/20/18 - Discharge Diagnosis (1) Chest pain with moderate risk of acute coronary syndrome Is this a current diagnosis for this admission?: Yes (2) CAD (coronary artery disease) Is this a current diagnosis for this admission?: Yes (3) Acute cystitis Is this a current diagnosis for this admission?: Yes Summary: D/c home on oral Levofloxacin coverage. (4) Diabetes mellitus type 2 in obese Is this a current diagnosis for this admission?: Yes (5) Hypertension Is this a current diagnosis for this admission?: Yes (6) Hyperlipidemia associated with type 2 diabetes mellitus Is this a current diagnosis for this admission?: Yes (7) GERD (gastroesophageal reflux disease) Is this a current diagnosis for this admission?: Yes (8) Diarrhea Is this a current diagnosis for this admission?: Yes - Additional Information Resuscitation Status: Full Code Prescriptions: Levofloxacin 250 mg PO DAILY #5 tablet Home Medications: Aspirin [Aspirin EC] 81 mg PO DAILY 07/22/18 Levocetirizine Dihydrochloride [Xyzal] 5 mg PO DAILY 07/22/18 Lisinopril [Prinivil 5 mg Tablet] 5 mg PO DAILY 07/22/18 Metformin HCl [Glucophage] 1,000 mg PO BID 07/22/18 Risperidone [Risperdal 1 mg Tablet] 2 mg PO QAM 07/22/18 Risperidone [Risperdal 1 mg Tablet] 3 mg PO QHS 07/22/18 Sertraline HCl [Zoloft] 100 mg PO DAILY 07/22/18 Sitagliptin Phosphate [Januvia] 100 mg PO DAILY 07/22/18 Atorvastatin Calcium [Lipitor 10 mg Tablet] 10 mg PO QHS 09/17/18 Benztropine Mesylate [Cogentin 1 mg Tablet] 1 mg PO Q12 09/17/18 Clonazepam [Klonopin] 0.5 mg PO DAILYP PRN 09/17/18 Insulin Degludec [Tresiba Flextouch U-200] 120 unit SQ QHS 09/17/18 Pregabalin [Lyrica 75 mg Capsule] 75 mg PO Q12 09/17/18 Suvorexant [Belsomra] 10 mg PO HSP PRN 09/17/18 Topiramate [Topamax] 150 mg PO Q12 09/17/18 Levofloxacin 250 mg PO DAILY #5 tablet 09/20/18 History of Present Illness Patient complains of: intermittent chest pain History of Present Illness: NAVEEN TABARES is a 57 year old female known to my practice who presented to the ED with compliant of intermittent chest pain over several days. She localized pain to left side of her chest radiating into her neck and shoulder joint. She denied any associate palpation, diaphoresis, nausea or vomiting. No exertional or at rest shortness of breath. She denied any any recent trauma or instrumentation. Her initial evaluation in the Ed was unrevealing but due to her significant cardiac history including prior NE and stent angioplasty she was advised admission to rule out cardiac etiology for her chest pain. She admitted to right flank pain, chills, nausea and episode of vomiting prior to her ED arrival. Her ED evaluation did revealed leukocytosis and subsequent urinalysis suggest possible genitourinary tract infection. Her morbidities include Hypertension, Diabetes mellitus type 2, Hyperlipidemia, CAD with stent angioplasty, old myocardial infarction, GERD, osteoarthritis, seizure disorder, migraine headache, Bipolar Disorder with Depression, Post Traumatic Stress Disorder, and Schizophrenia. Hospital Course Hospital Course: Patient ruled out for cardiac etiology for chest pain with serial cardiac enzymes. Her abnormal urinalysis and associated left CVA tenderness and leukocytosis suggested possible urinary tract infection. Her urine culture grew Group B streptococcus 50,000 - 60,000 col / mL. She was initially management with IV Levofloxacin and IV fluid support. She reported improvement in her symptoms with resolution of her leukocytosis. There was concern about her diarrhea but evaluation was essentially negative for any signifinat pathologic findings. She will be discharge home with oral Levofloxacin therapy for five days. She will follow up in the office as instructed upon discharge. Physical Exam Vital Signs: Temp Pulse Resp BP Pulse Ox 97.3 F 83 18 125/66 90 L 09/20/18 11:50 09/20/18 11:50 09/20/18 11:50 09/20/18 11:50 09/20/18 11:50 Intake & Output 09/19/18 09/20/18 09/21/18 06:59 06:59 06:59 Intake Total 2798 591 Output Total 700 300 Balance 2098 -300 591 Physical Exam: General appearance: PRESENT: no acute distress, obese Head exam: PRESENT: atraumatic, normocephalic Eye exam: PRESENT: conjunctiva pink, EOMI, PERRLA. ABSENT: scleral icterus Ear exam: PRESENT: normal external ear exam Mouth exam: PRESENT: moist Respiratory exam: PRESENT: clear to auscultation luz elena Cardiovascular exam: PRESENT: RRR. ABSENT: diastolic murmur, rubs, systolic murmur Vascular exam: ABSENT: pallor GI/Abdominal exam: PRESENT: normal bowel sounds, soft ABSENT: tenderness, rebound, guarding, organomegaly Extremities exam: PRESENT: pedal edema Musculoskeletal exam: PRESENT: deformity - related to arthritis Neurological exam: PRESENT: alert, awake, oriented to person, oriented to place , oriented to time, oriented to situation, CN II-XII grossly intact. ABSENT: motor sensory deficit Psychiatric exam: PRESENT: appropriate affect, normal mood. ABSENT: homicidal ideation, suicidal ideation Skin exam: PRESENT: dry, intact, warm. ABSENT: cyanosis, rash Results Laboratory Results: 09/18/18 05:29 09/18/18 05:29 09/20/18 09/20/18 00:55 00:55 Stool Occult Blood NEGATIVE Stool for White Cells NO WBCs SEEN 09/17/18 08:50 Clean Catch Midstream Urine Culture - Final Group B Streptococcus 09/17/18 09/17/18 09/17/18 10:05 10:05 14:40 Creatine Kinase < 20 L < 20 L CK-MB (CK-2) 0.48 Troponin I < 0.012 09/17/18 09/17/18 09/17/18 14:40 20:13 20:13 Creatine Kinase < 20 L CK-MB (CK-2) 0.44 0.40 Troponin I < 0.012 < 0.012 Impressions: Chest X-Ray 09/16/18 22:21 IMPRESSION: No acute cardiopulmonary findings. Qualifiers - * PATIENT BEING DISCHARGED WITH ANY OF THE FOLLOWING DIAGNOSIS: No Plan Discharge Plan: Discharge home today. Follow up in the office as instructed upon discharge.
== END 2018-09-20 20:50 | disposition home or self-care (01) | DRG 690 ==
LOC: ER 22:13 → EH 09-17 03:59 → OBSVTOIN 09-17 03:59 → 3S 09-17 12:48
PROVIDERS: ADMIT Internal Medicine Geriatric Medicine; ATTEND Internal Medicine Geriatric Medicine
DX: N30.00 Acute cystitis without hematuria (principal); B95.1 Streptococcus, group B, as the cause of diseases classified elsewhere; I25.10 Atherosclerotic heart disease of native coronary artery without angina pectoris; E78.5 Hyperlipidemia, unspecified; E11.9 Type 2 diabetes mellitus without complications; K21.9 Gastro-esophageal reflux disease without esophagitis; J44.9 Chronic obstructive pulmonary disease, unspecified; F31.9 Bipolar disorder, unspecified; M19.90 Unspecified osteoarthritis, unspecified site; G40.909 Epilepsy, unspecified, not intractable, without status epilepticus; G43.909 Migraine, unspecified, not intractable, without status migrainosus; F43.10 Post-traumatic stress disorder, unspecified; F20.9 Schizophrenia, unspecified; F17.200 Nicotine dependence, unspecified, uncomplicated; I10 Essential (primary) hypertension; R19.7 Diarrhea, unspecified; I25.2 Old myocardial infarction; Z95.5 Presence of coronary angioplasty implant and graft; Z90.49 Acquired absence of other specified parts of digestive tract; Z79.82 Long term (current) use of aspirin; Z79.899 Other long term (current) drug therapy; Z79.4 Long term (current) use of insulin; Z88.2 Allergy status to sulfonamides; Z88.0 Allergy status to penicillin; Z91.013 Allergy to seafood
CPT/HCPCS: 36415; 71045; 80053; 80307; 81001; 82272; 82550; 82553; 82962; 83735; 84484; 85025; 87086; 87088; 87493; 89055; 93005; 93010; 96374; 99285; G0378; J1650; J1815; J1956; J2270; J3490; J7030

== ENCOUNTER 2019-02-18 15:14 | Inpatient (IN) | payer MEDICARE, MEDICAID ==
[2019-02-18 16:40] LABS: HEMATOCRIT 37.6 % (36.0-47.0); HEMOGLOBIN 12.4 g/dL (12.0-15.5); RED BLOOD COUNT 4.38 10^6/uL (3.72-5.28); WHITE BLOOD COUNT 9.8 10^3/uL (4.0-10.5)
[2019-02-18 16:41] LABS: ABSOLUTE BASOPHILS # (AUTO) 0.1 10^3/uL (0.0-0.2); ABSOLUTE EOSINOPHILS # (AUTO) 0.3 10^3/uL (0.0-0.6); ABSOLUTE LYMPHOCYTES (AUTO) 2.4 10^3/uL (0.5-4.7); ABSOLUTE MONOCYTES (AUTO) 0.8 10^3/uL (0.1-1.4); ABSOLUTE NEUT (AUTO) 6.2 10^3/uL (1.7-8.2); BASOPHILS % (AUTO) 1.3 % (0-2); EOSINOPHILS % (AUTO) 2.9 % (0-6); LYMPHOCYTES % (AUTO) 24.3 % (13-45); MEAN CORPUSCULAR HEMOGLOBIN 28.2 pg (27.0-33.4); MEAN CORPUSCULAR HGB CONC 32.9 g/dL (32.0-36.0); MEAN CORPUSCULAR VOLUME 86 fl (80-97); MONOCYTES % (AUTO) 8.3 % (3-13); PLATELET COUNT 169 10^3/uL (150-450); RED CELL DISTRIBUTION WIDTH 16.3 % (11.5-14.0); SEGMENTED NEUTROPHILS % (AUTO) 63.2 % (42-78); TOTAL CELLS COUNTED % (AUTO) 100 %
[2019-02-18 16:50] LABS: INTERNATIONAL RATION (INR) 0.92; PROTHROMBIN TIME 12.8 SEC (11.4-15.4)
[2019-02-18 17:19] LABS: APPEARANCE,URINE CLEAR; BILIRUBIN,URINE NEGATIVE (NEGATIVE); COLOR,URINE YELLOW; GLUCOSE, URINE NEGATIVE (NEGATIVE); KETONES,URINE NEGATIVE (NEGATIVE); LEUKOCYTE ESTERASE,URINE NEGATIVE (NEGATIVE); NITRITE,URINE NEGATIVE (NEGATIVE); PROTEIN,URINE NEGATIVE (NEGATIVE); URINE SPECIFIC GRAVITY 1.017; UROBILINOGEN,URINE NEGATIVE mg/dL (<2.0)
[2019-02-18 17:51] LABS: ALANINE AMINOTRANSFERASE 22 U/L (9-52); ALBUMIN 3.6 g/dL (3.5-5.0); ALKALINE PHOSPHATASE 101 U/L (38-126); ANION GAP 9 (5-19); ASPARTATE AMINO TRANSFERASE 19 U/L (14-36); BILIRUBIN,DIRECT 0.3 mg/dL (0.0-0.4); BILIRUBIN,TOTAL 0.3 mg/dL (0.2-1.3); BLOOD UREA NITROGEN 18 mg/dL (7-20); CALCIUM 9.3 mg/dL (8.4-10.2); CARBON DIOXIDE 30 mmol/L (22-30); CHLORIDE 102 mmol/L (98-107); CREATINE KINASE 134 U/L (30-135); GLUCOSE 102 mg/dL (75-110); POTASSIUM 4.4 mmol/L (3.6-5.0); TOTAL PROTEIN 6.7 g/dL (6.3-8.2)
[2019-02-18 18:03] LABS: CREATINE KINASE MB 4.56 ng/mL (<4.55)
[2019-02-18 18:05] LABS: TROPONIN I 1.28 ng/mL
[2019-02-18] MEDS ORDERED: ASPIRIN 81 MG TABLET, CHEWABLE PO ONE (18:17)
[2019-02-18] MEDS ORDERED: NITROGLYCERIN/D5W 50 MG/250 ML RTUINJ IV PRN (18:25)
--- NOTE | 2019-02-18 19:26 | RADIOLOGY REPORT (SQ) ---
EXAM DESCRIPTION: CHEST SINGLE VIEW COMPLETED DATE/TIME: 02/18/2019 6:43 pm REASON FOR STUDY: syncope, NSTEMI COMPARISON: 09/16/2018 and earlier EXAM PARAMETERS: NUMBER OF VIEWS: One view. TECHNIQUE: Single frontal radiographic view of the chest acquired. RADIATION DOSE: NA LIMITATIONS: None. FINDINGS: LUNGS AND PLEURA: Lungs are hypoaerated. No focal consolidation, pleural effusion, pneumo thorax. MEDIASTINUM AND HILAR STRUCTURES: No masses. Contour normal. HEART AND VASCULAR STRUCTURES: Unchanged mild cardiomegaly. Central pulmonary vasculature is promine nt. BONES: Chronic left-sided rib fractures. HARDWARE: None in the chest. OTHER: No other significant finding. IMPRESSION: Cardiomegaly with mild pulmonary vascular congestion. TECHNICAL DOCUMENTATION: JOB ID: [id number] [employer]- All Rights Reserved Reading location - IP/workstation name: [email or web address]
--- NOTE | 2019-02-18 21:49 | EKG REPORT ---
SEVERITY:- ABNORMAL ECG - SINUS TACHYCARDIA MULTIPLE VENTRICULAR PREMATURE COMPLEXES MULT INTERPOLATED VENT PREMATURE COMPLEXES ABNRM R PROG, CONSIDER ASMI OR LEAD PLACEMENT BORDERLINE T WAVE ABNORMALITIES : Confirmed by: Eugenia Burgos MD 18-Feb-2019 21:48:42
[2019-02-18] MEDS: HEPARIN SODIUM,PORCINE/D5W 25,000 UNIT/250 ML RTUINJ IV PRN (22:04)
[2019-02-18] MEDS: HEPARIN SOD (PORCINE) 1,000 UNIT/ML 10 ML VIAL IV PRN (22:46)
[2019-02-18] MEDS ORDERED: HEPARIN SOD (PORCINE) 1,000 UNIT/ML 10 ML VIAL IV PRN (23:10)
[2019-02-19] MEDS ORDERED: DEXTROSE 40% GEL 15 GM TUBE PO PRN ×2 (00:20)
[2019-02-19] MEDS ORDERED: DEXTROSE 50%-WATER 25 GM/50 ML DISP.SYRIN IV PRN ×2 (00:20)
[2019-02-19] MEDS ORDERED: GLUCAGON,HUMAN RECOMB 1 MG INJ IM PRN (00:20)
[2019-02-19] MEDS ORDERED: NITROGLYCERIN 0.4 MG/TAB 25 TAB/BOTTLE SL PRN (00:20)
[2019-02-19] MEDS ORDERED: MAG HYDROX/AL HYDROX/SIMETH SUSP 30 ML UDCUP PO PRN (00:20)
--- NOTE | 2019-02-19 00:23 | ER Document Report ---
ED General - General Chief Complaint: Near Syncope Stated Complaint: POSSIBLE SYNCOPE Time Seen by Provider: 02/18/19 16:19 Primary Care Provider: LIYA HERNÁNDEZ MD [Primary Care Provider] - Follow up as needed TRAVEL OUTSIDE OF THE [place] IN LAST 30 DAYS: No - HPI Notes: Patient is a 58-year-old female who presents to the emergency department for evaluation. She states she just has not been "feeling well" for the last several days. This evening she was walking down the hallway at her residential. She states she was going outside to smoke a cigarette. The next thing she knew she was on the floor. She denied any chest pain or shortness of breath. She states overall that she has no acute complaints other than "not feeling well." She is taking her medications as prescribed. - Related Data Allergies/Adverse Reactions: dicyclomine HCl [From Bentyl] Allergy (Severe, Verified 09/16/18 22:19) throat swelling ibuprofen [From Motrin] Allergy (Severe, Verified 09/16/18 22:19) "increased headache",swelling Shellfish * [Shellfish] Allergy (Severe, Verified 09/16/18 22:19) rash,migraines Penicillins Allergy (Intermediate, Verified 09/16/18 22:19) Hives,vomit,fever sumatriptan succinate [From Imitrex] Allergy (Verified 09/16/18 22:19) Past Medical History - General Information source: Patient - Social History Smoking Status: Current Every Day Smoker Family History: Reviewed & Not Pertinent, Hypertension Patient has suicidal ideation: No Patient has homicidal ideation: No - Past Medical History Cardiac Medical History: Reports: Hx Coronary Artery Disease - 4 stents, Hx Heart Attack - AUG x 2, Hx Hypercholesterolemia, Hx Hypertension Denies: Hx Heart Murmur Pulmonary Medical History: Reports: Hx Asthma, Hx Bronchitis, Hx COPD, Hx Pneumonia Denies: Hx Respiratory Failure, Hx Sleep Apnea, Hx Tuberculosis Neurological Medical History: Reports: Hx Cerebrovascular Accident - 2007, Hx Migraine, Hx Seizures Endocrine Medical History: Reports: Hx Diabetes Mellitus Type 1, Hx Diabetes Mellitus Type 2 Renal/ Medical History: Reports: Hx Kidney Stones. Denies: Hx Peritoneal Di alysis GI Medical History: Reports: Hx Gastroesophageal Reflux Disease, Hx Irritable Bowel. Denies: Hx Pancreatitis Musculoskeletal Medical History: Reports Hx Arthritis - Back & Legs Psychiatric Medical History: Reports: Hx Bipolar Disorder, Hx Depression, Hx Post Traumatic Stress Disorder, Hx Schizophrenia Past Surgical History: Reports: Hx Appendectomy, Hx Cardiac Catheterization, Hx Cardiac Surgery - 3 stents, Hx Cholecystectomy, Hx Hysterectomy, Hx Orthopedic Surgery - L knee, Hx Tonsillectomy - Immunizations Immunizations up to date: Yes Hx Diphtheria, Pertussis, Tetanus Vaccination: Yes Hx Pneumococcal Vaccination: 11/26/12 Review of Systems - Review of Systems Constitutional: No symptoms reported EENT: No symptoms reported Cardiovascular: See HPI, Syncope Respiratory: No symptoms reported Gastrointestinal: No symptoms reported Female Genitourinary: No symptoms reported Musculoskeletal: No symptoms reported Skin: No symptoms reported Hematologic/Lymphatic: No symptoms reported Neurological/Psychological: No symptoms reported Physical Exam - Vital signs Vitals: Temp Pulse Resp BP Pulse Ox 98.8 F 87 16 122/74 96 02/18/19 15:21 02/18/19 15:21 02/18/19 15:21 02/18/19 15:21 02/18/19 15:21 - Notes Notes: Vital signs reviewed, please refer to chart. Patient is normocephalic, atraumatic. Pupils equal round, reactive to light. Neck is supple without meningismus. Heart is regular rate and rhythm. Lungs are clear to auscultation bilaterally. Abdomen is soft, nontender, normoactive bowel sounds throughout. Extremities without cyanosis, clubbing, . Peripheral pulses are equal. Skin is warm and dry. Patient is awake, alert, oriented x3. Cranial nerves II through XII are grossly intact without focal neurological deficits. Strength is plus 5 out of 5 bilateral upper and lower extremities. Sensation is intact. Intact [id number], rapid alternating movements, heel to rinaldi. Course - Re-evaluation Re-evalutation: 02/19/19 00:20 Patient presented to the emergency department for evaluation. She had absolutely no complete of chest pain, difficulty breathing. She was placed on a court monitor, oxygen per nasal cannula. Laboratory investigations were ordered. EKG revealed no acute ST changes, no significant change from prior study. Laboratory investigations did however reveal a significant the elevated beta troponin. The patient was given aspirin, placed on a low-dose nitroglycerin drip. She was placed on heparin drip. I spoke with Dr. Burgos, he accepted the patient in consult. I did attempt to admit the patient to Dr. Hernández, the patient's primary care physician. He was concerned about this patient's elevated troponin and would not accept the patient. Extensive conversations ensued regarding the proper disposition of the patient. During the course of this, the patient remained completely stable. She never had chest pain, never had difficulty breathing. She was remaining comfortable and actually sleeping upon multiple evaluations during her stay here. I eventually spoke with Dr. Weeks, who accepted the patient. - Vital Signs Vital signs: Temp Pulse Resp BP Pulse Ox 98.8 F 87 15 147/60 H 95 02/18/19 15:21 02/18/19 15:21 02/18/19 21:01 02/18/19 21:01 02/18/19 21:01 - Laboratory Result Diagrams: 02/18/19 16:24 02/18/19 16:24 Laboratory results interpreted by me: 02/18/19 02/18/19 02/18/19 16:24 16:24 16:24 RDW 16.3 H Creatinine 1.28 H Est GFR ( Amer) 52 L Est GFR (Non-Af Amer) 43 L CK-MB (CK-2) 4.56 H NT-Pro-B Natriuret Pep 02/18/19 16:24 RDW Creatinine Est GFR ( Amer) Est GFR (Non-Af Amer) CK-MB (CK-2) NT-Pro-B Natriuret Pep 2000 H - Diagnostic Test Radiology reviewed: Reports reviewed - Cardiomegaly and mild pulmonary vascular congestion - EKG Interpretation by Me Additional EKG results interpreted by me: 02/19/19 00:22 Sinus mechanism with a rate of 86 bpm. Normal axis and intervals, no acute ST changes concerning for ischemia or infarction. No significant change compared to prior study of 09/16/18. Discharge - Discharge Clinical Impression: Non-STEMI (non-ST elevated myocardial infarction) Condition: Stable Disposition: ADMITTED INPATIENT Unit Admitted: IMCU Referrals: LIYA HERNÁNDEZ MD [Primary Care Provider] - Follow up as needed
[2019-02-19] MEDS ORDERED: CLONAZEPAM 1 MG TABLET PO PRN (00:30)
[2019-02-19] MEDS ORDERED: CLOPIDOGREL BISULFATE 300 MG TABLET PO ONE (01:00)
[2019-02-19] MEDS ORDERED: PREGABALIN 75 MG CAPSULE PO ONE (01:00)
[2019-02-19] MEDS ORDERED: RISPERIDONE 1 MG TABLET PO ONE (01:00)
[2019-02-19] MEDS ORDERED: BENZTROPINE MESYLATE 1 MG TABLET PO ONE (01:00)
[2019-02-19] MEDS ORDERED: ATORVASTATIN CALCIUM 10 MG TABLET PO ONE (01:00)
--- NOTE | 2019-02-19 05:09 | PDOC H&P ---
History of Present Illness Admission Date/PCP: 02/19/19 01:14 LIYA ANDREARACIELJose Juan Patient complains of: Syncope History of Present Illness: NAVEEN TABARES is a 58 year old female with past medical history of coronary artery disease status post stent x4, myocardial infarction, cardiomyopathy, type 2 diabetes, morbid obesity, migraine headache, bipolar disorder, schizophrenia, PTSD and tobacco dependence. She is in long-term skilled nursing resident who presents after an argument with staff that resulted in palpitations with chest tightness followed by brief loss of consciousness she slid out of her wheelchair to the floor without head injury. There is no limb shaking, incontinence, nausea or vomiting. She is brought to the emergency room for evaluation. She denies recent change in medications. Workup reveals non-ST elevation SD with a rising troponin of 1.2-1.8 without chest pain palpitations nausea vomiting she started on heparin, aspirin, beta-hitesh and referred to the hospitalist for admission. She cannot recall her last cardiac stress test. Past Medical History Cardiac Medical History: Reports: Coronary Artery Disease - 4 stents, Myocardial Infarction - Jun x 2, Hyperlipidema, Hypertension Denies: Heart Murmur Pulmonary Medical History: Reports: Asthma, Bronchitis, Chronic Obstructive Pulmonary Disease (COPD), Pneumonia Denies: Respiratory Failure, Sleep Apnea, Tuberculosis Neurological Medical History: Reports: Migraine, Seizures Endocrine Medical History: Reports: Diabetes Mellitus Type 1, Diabetes Mellitus Type 2 GI Medical History: Reports: Gastroesophageal Reflux Disease Musculoskeltal Medical History: Reports: Arthritis - Back & Legs Psychiatric Medical History: Reports: Bipolar Disorder, Depression, Post Traumatic Stress Disorder Hematology: Denies: Anemia Past Surgical History Past Surgical History: Reports: Appendectomy, Cardiac Catheterization, Cholecystectomy, Hysterectomy, Orthopedic Surgery - L knee, Tonsillectomy Social History Information Source: Patient Smoking Status: Current Every Day Smoker Cigarettes Packs Per Day: 1 Number of Years Smokin Last Time Smoked: 02/18/2019 Frequency of Alcohol Use: None Hx Recreational Drug Use: No Drugs: None Hx Prescription Drug Abuse: No - Advance Directive Resuscitation Status: Full Code Family History Family History: Hypertension Parental Family History Reviewed: Yes Children Family History Reviewed: Yes Sibling(s) Family History Reviewed.: Yes Medication/Allergy Home Medications: Aspirin [Aspirin EC] 81 mg PO DAILY 07/22/18 Levocetirizine Dihydrochloride [Xyzal] 5 mg PO DAILY 07/22/18 Lisinopril [Prinivil 5 mg Tablet] 5 mg PO DAILY 07/22/18 Metformin HCl [Glucophage] 1,000 mg PO BID 07/22/18 Risperidone [Risperdal 1 mg Tablet] 2 mg PO QAM 07/22/18 Risperidone [Risperdal 1 mg Tablet] 3 mg PO QHS 07/22/18 Sertraline HCl [Zoloft] 100 mg PO DAILY 07/22/18 Sitagliptin Phosphate [Januvia] 100 mg PO DAILY 07/22/18 Atorvastatin Calcium [Lipitor 10 mg Tablet] 10 mg PO QHS 09/17/18 Benztropine Mesylate [Cogentin 1 mg Tablet] 1 mg PO Q12 09/17/18 Clonazepam [Klonopin] 0.5 mg PO DAILYP PRN 09/17/18 Insulin Degludec [Tresiba Flextouch U-200] 120 unit SQ QHS 09/17/18 Pregabalin [Lyrica 75 mg Capsule] 75 mg PO Q12 09/17/18 Suvorexant [Belsomra] 10 mg PO HSP PRN 09/17/18 Topiramate [Topamax] 150 mg PO Q12 09/17/18 Levofloxacin 250 mg PO DAILY #5 tablet 09/20/18 Allergies/Adverse Reactions: dicyclomine HCl [From Bentyl] Allergy (Severe, Verified 09/16/18 22:19) throat swelling ibuprofen [From Motrin] Allergy (Severe, Verified 09/16/18 22:19) "increased headache",swelling Shellfish * [Shellfish] Allergy (Severe, Verified 09/16/18 22:19) rash,migraines Penicillins Allergy (Intermediate, Verified 09/16/18 22:19) Hives,vomit,fever sumatriptan succinate [From Imitrex] Allergy (Verified 09/16/18 22:19) Review of Systems Constitutional: PRESENT: as per HPI, fatigue. ABSENT: fever(s), headache(s), weight gain, weight loss Eyes: ABSENT: visual disturbances Ears: ABSENT: hearing changes Cardiovascular: ABSENT: chest pain, dyspnea on exertion, edema, orthropnea, palpitations Respiratory: ABSENT: cough, hemoptysis Gastrointestinal: ABSENT: abdominal pain, constipation, diarrhea, hematemesis, hematochezia, nausea, vomiting Genitourinary: ABSENT: dysuria, hematuria Musculoskeletal: ABSENT: joint swelling Integumentary: ABSENT: rash, wounds Neurological: ABSENT: abnormal gait, abnormal speech, confusion, dizziness, foca l weakness, syncope Psychiatric: ABSENT: anxiety, depression, homidical ideation, suicidal ideation Endocrine: ABSENT: cold intolerance, heat intolerance, polydipsia, polyuria Hematologic/Lymphatic: ABSENT: easy bleeding, easy bruising Physical Exam Vital Signs: Temp Pulse Resp BP Pulse Ox 98.4 F 83 17 125/42 L 93 02/19/19 04:02 02/19/19 03:36 02/19/19 03:01 02/19/19 03:01 02/19/19 03:01 Intake & Output 02/17/19 02/18/19 02/19/19 11:59 11:59 11:59 Weight 106.4 kg General appearance: PRESENT: no acute distress, cooperative, disheveled, morbidly obese, well-developed Head exam: PRESENT: atraumatic, normocephalic Eye exam: PRESENT: conjunctiva pink, EOMI, PERRLA. ABSENT: scleral icterus Ear exam: PRESENT: normal external ear exam Mouth exam: PRESENT: moist, tongue midline Neck exam: ABSENT: carotid bruit, JVD, lymphadenopathy, thyromegaly Respiratory exam: PRESENT: clear to auscultation luz elena, crackles, symmetrical. ABSENT: rales, rhonchi, wheezes Cardiovascular exam: PRESENT: RRR. ABSENT: diastolic murmur, rubs, systolic murmur Pulses: PRESENT: normal dorsalis pedis pul Vascular exam: PRESENT: normal capillary refill GI/Abdominal exam: PRESENT: normal bowel sounds, soft. ABSENT: distended, guarding, mass, organolmegaly, rebound, tenderness Rectal exam: PRESENT: deferred Extremities exam: PRESENT: full ROM, +1 edema. ABSENT: calf tenderness, clubbing, pedal edema Neurological exam: PRESENT: alert, awake, oriented to person, oriented to place, oriented to time, oriented to situation, CN II-XII grossly intact. ABSENT: motor sensory deficit Psychiatric exam: PRESENT: unusual affect. ABSENT: depressed, manic, suicidal i deation Skin exam: PRESENT: dry, intact, warm. ABSENT: cyanosis, rash Results Laboratory Results: 02/18/19 16:24 02/18/19 16:24 02/18/19 02/18/19 02/18/19 16:24 16:24 16:41 WBC 9.8 RBC 4.38 Hgb 12.4 Hct 37.6 MCV 86 MCH 28.2 MCHC 32.9 RDW 16.3 H Plt Count 169 Seg Neutrophils % 63.2 Lymphocytes % 24.3 Monocytes % 8.3 Eosinophils % 2.9 Basophils % 1.3 Absolute Neutrophils 6.2 Absolute Lymphocytes 2.4 Absolute Monocytes 0.8 Absolute Eosinophils 0.3 Absolute Basophils 0.1 Sodium 141.0 Potassium 4.4 Chloride 102 Carbon Dioxide 30 Anion Gap 9 BUN 18 Creatinine 1.28 H Est GFR ( Amer) 52 L Est GFR (Non-Af Amer) 43 L Glucose 102 Calcium 9.3 Total Bilirubin 0.3 AST 19 ALT 22 Alkaline Phosphatase 101 Total Protein 6.7 Albumin 3.6 Urine Color YELLOW Urine Appearance CLEAR Urine pH 7.0 Ur Specific Lindstrom 1.017 Urine Protein NEGATIVE Urine Glucose (UA) NEGATIVE Urine Ketones NEGATIVE Urine Blood NEGATIVE Urine Nitrite NEGATIVE Ur Leukocyte Esterase NEGATIVE Urine WBC (Auto) 1 Urine RBC (Auto) 1 02/18/19 02/18/19 02/18/19 16:24 16:24 16:24 Creatine Kinase 134 CK-MB (CK-2) 4.56 H Troponin I 1.280 NT-Pro-B Natriuret Pep 2000 H 02/18/19 20:39 Creatine Kinase CK-MB (CK-2) Troponin I 1.810 NT-Pro-B Natriuret Pep Impressions: Chest X-Ray 02/18/19 18:24 IMPRESSION: Cardiomegaly with mild pulmonary vascular congestion. Assessment and Plan - Diagnosis (1) Non-STEMI (non-ST elevated myocardial infarction) Is this a current diagnosis for this admission?: Yes Plan: Chest pain care set, cardiology consult. (2) Syncope Is this a current diagnosis for this admission?: Yes Plan: Possibly secondary to #1, telemetry monitoring (3) Diabetes mellitus type 2 in obese Is this a current diagnosis for this admission?: Yes Plan: Outpatient regiment with exception to metformin, sliding scale insulin. (4) Tobacco abuse Is this a current diagnosis for this admission?: Yes Plan: Tobacco Dependence patient received tobacco cessation counseling and offered nicotine replacement options - Time Time Spent with patient: 25-34 minutes - Inpatient Certification Medical Necessity: Need Close Monitoring Due to Risk of Patient Decompensation
[2019-02-19] MEDS: HEPARIN SOD (PORCINE) 1,000 UNIT/ML 10 ML VIAL IV PRN ×2 (05:20→12:22)
[2019-02-19 09:24] LABS: CREATINE KINASE MB 4.6 ng/mL (<4.55)
[2019-02-19 09:27] LABS: TROPONIN I 1.3 ng/mL
[2019-02-19] MEDS: INSULIN LISPRO 100 UNIT/ML 3 ML VIAL SUBCUT SCH ×3 (10:03→16:12)
[2019-02-19] MEDS: PREGABALIN 75 MG CAPSULE PO SCH ×2 (10:04→21:19)
[2019-02-19] MEDS: BENZTROPINE MESYLATE 1 MG TABLET PO SCH ×2 (10:04→21:19)
[2019-02-19] MEDS: RISPERIDONE 1 MG TABLET PO SCH ×2 (10:04→21:19)
[2019-02-19] MEDS: ASPIRIN 81 MG TABLET, ENT COATED PO SCH (10:04)
[2019-02-19] MEDS ORDERED: REGADENOSON INJ 0.4 MG/5 ML DISP.SYRIN IV ONE (12:01)
[2019-02-19] MEDS: HEPARIN SODIUM,PORCINE/D5W 25,000 UNIT/250 ML RTUINJ IV PRN (16:08)
--- NOTE | 2019-02-19 17:42 | Progress Note ---
Provider Note Provider Note: This is a long-term care patient has a retirement facility with a history of bipolar disorder who apparently got into an argument with somebody at the facility, had some chest pain and then syncopal type episode. Her troponins were trending up, peaked at 1.8, and then came down most recently 1.3. Cardiology is been consulted. She has Dr. Ojeda and Emilie listed as her primary care provider but I called his office and he very curtly told me that he would not be seeing this patient.
--- NOTE | 2019-02-19 21:34 | PDOC CONSULTATION ---
Consultation-Blank Consultation: CARDIOLOGY CONSULTATION BY Dr.Lakshmi Burgos on 02/19/19. IMPRESSION/RECOMMENDATION: 1. Chest Pain: Patient had a good historian. Sounds noncardiac, but the patient's troponin is elevated. 2. Elevated troponin I? Etiology. Will trend the troponin, and once the troponin comes below 1 and rescheduled the patient for IV Lexiscan cardiac stress test. 3. Syncopal episodes as per nursing in the ER. Patient denies, and states that she just slid out of the chair after having an argument. 4. Palpitations: This is after argument with the nurses. Unfortunately the rhythm was not captured. 5. Coronary artery disease: History of CA, history of stents in the right co ronary artery in the past. We will add Toprol XL and isosorbide mononitrate. We will stop the patient's IV nitroglycerin drip. Continue patient on aspirin and Plavix. 6. Significant COPD: Continue anti-COPD medication. 7.? Cardiomyopathy? Ischemic: Later would recommend getting an echocardiogram on the patient. This is for LV ejection fraction estimation. But we will start the patient on lisinopril 10 mg p.o. every 12 hours. This will be increase as tolerated. 8. Hypertension: Blood pressure seems to be well controlled. 9. Bipolar disorder: At present seems to be in remission. 10. History of old CVA: No recurrence this admission. Patient does not ambulate, uses wheelchair. 11. Continued tobacco abuse disorder: Tobacco cessation counseling given to the patient 3 minutes spent on this. Medications reviewed would continue current medication. Will order serial EKGs and troponins. We will check an echo in the morning. Medical decision making is of high complexity. Discussed with attending physician on the case. The patient is a full code. Her daughter is her surrogate healthcare decision maker.
[2019-02-20] MEDS ORDERED: METOPROLOL SUCCINATE 25 MG TAB.SR.24H PO ONE (00:40)
[2019-02-20] MEDS ORDERED: LISINOPRIL 10 MG TABLET PO ONE (00:40)
[2019-02-20] MEDS: INSULIN LISPRO 100 UNIT/ML 3 ML VIAL SUBCUT SCH ×3 (09:45→16:49)
[2019-02-20] MEDS: HEPARIN SODIUM,PORCINE/D5W 25,000 UNIT/250 ML RTUINJ IV PRN (09:49)
[2019-02-20] MEDS: LISINOPRIL 10 MG TABLET PO SCH ×2 (09:51→21:41)
[2019-02-20] MEDS: ISOSORBIDE MONONITRATE 60 MG TAB.ER.24H PO SCH (09:51)
[2019-02-20] MEDS: ASPIRIN 81 MG TABLET, ENT COATED PO SCH (09:51)
[2019-02-20] MEDS: RISPERIDONE 1 MG TABLET PO SCH ×2 (09:52→21:41)
[2019-02-20] MEDS: METOPROLOL SUCCINATE 25 MG TAB.SR.24H PO SCH ×2 (09:52→21:40)
[2019-02-20] MEDS: PREGABALIN 75 MG CAPSULE PO SCH ×2 (09:52→21:40)
[2019-02-20] MEDS: BENZTROPINE MESYLATE 1 MG TABLET PO SCH ×2 (09:52→21:41)
--- NOTE | 2019-02-20 14:45 | EKG REPORT ---
SEVERITY:- BORDERLINE ECG - SINUS RHYTHM BORDERLINE T ABNORMALITIES, ANT-LAT LEADS : Confirmed by: Eugenia Burgos MD 20-Feb-2019 14:44:41
--- NOTE | 2019-02-20 16:56 | PDOC PROGRESS REPORT ---
Subjective Progress Note for:: 02/20/19 Subjective:: No adverse events overnight. No new complaints. No chest pain or shortness of breath. No neck or jaw pain. No syncopal or near syncopal events. The patient said that it was not really that she passed out, just that she sort of slid out of the chair prior to coming to the hospital. Reason For Visit: SYNCOPE SOLE RUFFER BIPOLAR Physical Exam Vital Signs: Temp Pulse Resp BP Pulse Ox 98.2 F 71 18 121/54 L 93 02/20/19 12:00 02/20/19 14:00 02/20/19 12:00 02/20/19 12:00 02/20/19 12:00 Intake & Output 02/19/19 02/20/19 02/21/19 06:59 06:59 06:59 Intake Total 72 1429 428 Output Total 250 2000 Balance -178 -571 428 Weight 106.4 kg 96.2 kg General appearance: PRESENT: no acute distress, cooperative, disheveled, morbidly obese Respiratory exam: PRESENT: clear to auscultation luz elena, symmetrical, unlabored. ABSENT: accessory muscle use, crackles, prolonged expiratory phas, rhonchi, ta chypnea, wheezes Cardiovascular exam: PRESENT: RRR, +S1, +S2 Pulses: PRESENT: normal carotid pulses Vascular exam: PRESENT: normal capillary refill GI/Abdominal exam: PRESENT: normal bowel sounds, soft. ABSENT: distended, guarding, rebound, tenderness Extremities exam: ABSENT: clubbing, pedal edema Musculoskeletal exam: PRESENT: normal inspection. ABSENT: deformity Neurological exam: PRESENT: alert, awake, oriented to person, oriented to place, oriented to situation Psychiatric exam: PRESENT: flat affect, normal mood Skin exam: PRESENT: dry, warm Results Laboratory Results: 02/18/19 16:24 02/18/19 16:24 02/18/19 02/18/19 02/18/19 16:24 16:24 16:24 Creatine Kinase 134 CK-MB (CK-2) 4.56 H Troponin I 1.280 NT-Pro-B Natriuret Pep 2000 H 02/18/19 02/19/19 02/20/19 20:39 08:00 05:55 Creatine Kinase CK-MB (CK-2) 4.60 H Troponin I 1.810 1.300 0.782 NT-Pro-B Natriuret Pep Impressions: Chest X-Ray 02/18/19 18:24 IMPRESSION: Cardiomegaly with mild pulmonary vascular congestion. Assessment and Plan - Diagnosis (1) Non-STEMI (non-ST elevated myocardial infarction) Is this a current diagnosis for this admission?: Yes Plan: She is not having any chest pain, but her troponin trended up, peaked at 1.8, and has now trended down and is below 1. She is been medically optimized and cardiology is following her. Plan for stress test tomorrow. (2) Syncope Qualifiers: Syncope type: psychogenic syncope Qualified Code(s): F48.8 - Other specified nonpsychotic mental disorders Is this a current diagnosis for this admission?: Yes Plan: What she described to me did not really sound like a syncopal episode, however in the event that her history of this event is not that reliable, an echocardiogram is pending. She is also on the monitor, no events have been witnessed. She has not had any syncopal or near syncopal episodes here. (3) Diabetes mellitus type 2 in obese Is this a current diagnosis for this admission?: Yes - Time Time Spent with patient: 25-34 minutes - Inpatient Certification Based on my medical assessment, after consideration of the patient's comorbidities, presenting symptoms, or acuity I expect that the services needed warrant INPATIENT care.: Yes I certify that my determination is in accordance with my understanding of Medicare's requirements for reasonable and necessary INPATIENT services [42 CFR 412.3e].: Yes Medical Necessity: Risk of Diagnosis Which Will Require Inpatient Eval/Care/Monitoring
--- NOTE | 2019-02-20 20:39 | XCELERA REPORT ---
[address] [address] Transthoracic Echocardiogram Report Name: NAVEEN TABARES Age: 58 yrs Gender: Female : 1960 Patient Status: Inpatient Patient Location: [address] [place], [place] [address] Study Date: 02/20/2019 09:58 AM Height: 64 in Weight: 234 lb BSA: 2.1 m2 Procedure: A two-dimensional transthoracic echocardiogram with color flow Doppler was performed. The study was technically difficult with many images being suboptimal in quality. poor endocardialvisualisation. Reason For Study: CAd / Cardiomyopathy History: CAd / Cardiomyopathy. Ordering Physician: EUGENIA BOX Performed By: Miranda Canela Interpretation Summary poor endocardialvisualisation. The left ventricle is normal in size. There is normal left ventricular wall thickness. LV EF is 40% Left ventricular systolic function is moderately reduced. The IV septum and Inferior wall are moderate toseverely hypokinetic.Rest of the LV titus are very mildly hypokinetic. There is no thrombus. There is no ventricular septal defect visualized. The right ventricle is mildly dilated. There is mild right ventricular hypertrophy. The right ventricular systolic function is normal. The right atrium is normal. The left atrium is mildly dilated. The interatrial septum is intact with no evidence for an atrial septal defect. There is no Doppler evidence for an interatrial shunt There is no evidence of mitral valve prolapse. There is no vegetation seen on the mitral valve. There is no mitral valve stenosis. There is a trace amount of mitral regurgitation There is no aortic valvular vegetation. There is no aortic valve stenosis There is no LVOT obstruction. No aortic regurgitation is present. There is no tricuspid stenosis. There is a trace amount of tricuspid regurgitation Unable to calculate RVSPdue to lack of TR jet. The pulmonic valve is not well visualized. The aortic root is not well visualized. Minimal pericardial effusion. There are no echocardiographic or Doppler indications for cardiac tamponade MMode/2D Measurements & Calculations RVDd: 3.6 cm LVIDd: 5.7 cm FS: 24.1 % Ao root diam: 2.6 cm IVSd: 0.89 cm LVIDs: 4.3 cm EDV(Teich): 158.3 ml Ao root area: 5.2 cm2 LVPWd: 0.89 cm ESV(Teich): 83.4 ml LA dimension: 4.4 cm EF(Teich): 47.3 % Doppler Measurements & Calculations MV E max mary jo: MV P1/2t max mary jo: Ao V2 max: LV V1 max P.8 cm/sec 80.1 cm/sec 163.7 cm/sec 4.6 mmHg MV A max mary jo: MV P1/2t: 79.2 msec Ao max PG: LV V1 max: 107.8 cm/sec MVA(P1/2t): 2.8 cm2 10.7 mmHg 107.4 cm/sec MV E/A: 0.76 MV dec slope: 296.1 cm/sec2 MV dec time: 0.26 sec PA V2 max: MV P1/2t-pr_phl: 88.4 cm/sec 79.2 msec PA max P.1 mmHg Left Ventricle The left ventricle is normal in size. There is normal left ventricular wall thickness. LV EF is 40%. Left ventricular systolic function is moderately reduced. Doppler measurements suggest impaired left ventricular relaxation, which is associated with grade I/IV or mild diastolic dysfunction. The IV septum and Inferior wall are moderate toseverely hypokinetic.Rest of the LV titus are very mildly hypokinetic. There is no thrombus. There is no ventricular septal defect visualized. Right Ventricle The right ventricle is mildly dilated. There is mild right ventricular hypertrophy. The right ventricular systolic function is normal. Atria The right atrium is normal. The left atrium is mildly dilated. The interatrial septum is intact with no evidence for an atrial septal defect. There is no Doppler evidence for an interatrial shunt. Mitral Valve There is no evidence of mitral valve prolapse. There is no vegetation seen on the mitral valve. There is no mitral valve stenosis. There is a trace amount of mitral regurgitation. Aortic Valve There is no aortic valvular vegetation. There is no aortic valve stenosis. There is no LVOT obstruction. No aortic regurgitation is present. Tricuspid Valve There is no tricuspid stenosis. There is a trace amount of tricuspid regurgitation. Unable to calculate RVSPdue to lack of TR jet. Pulmonic Valve The pulmonic valve is not well visualized. Great Vessels The aortic root is not well visualized. Effusions Minimal pericardial effusion. There are no echocardiographic or Doppler indications for cardiac tamponade. : EUGNEIA BOX > Eugenia Box
--- NOTE | 2019-02-20 21:24 | Progress Note ---
Provider Note Provider Note: CARDIOLOGY PROGRESS NOTE by Dr. Eugenia Burgos on 02/20/2019. SUBJECTIVE: The patient denies any further chest pain or discomfort. There is no acute exacerbation of COPD, and no complaints of shortness of breath or wheezing or cough. She has no PND orthopnea. The patient has no anginal symptoms. There is no TIA CVA symptoms. There is no arrhythmias seen on the monitor. There is no pedal edema. OBJECTIVE: The patient is mild to moderately obese. She is well-groomed. She is in no acute distress. Selected Entries 02/20/19 07:28 Temperature 97.9 F Temperature Oral Source Pulse Rate 73 Respiratory 13 Rate Blood Pressure 96/53 L Blood Pressure 67 Mean BP Location Right Arm BP Position Supine O2 Sat by Pulse 96 Oximetry Oxygen Flow 2.50 Rate Oxygen Delivery Nasal Cannula Method Head: Is atraumatic normocephalic. EYES: Pupils equal round regular react to light accommodation. Extraocular movements a ABDOMEN: Is obese. Nontender. There is no hepatosplenomegaly. Bowel sounds are well heard. There is no tender areas masses. EXTREMITIES: Femorals are diminished. There is no femoral bruits. Leg pulses are diminished. There is no pedal edema. There is no DVT or cellulitis. There is no calf tenderness. 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 PSYCHIATRIC: Patient judgment insight today are intact. Her affect is normal. [She is has bipolar disorder at present in remission]. Re normal. There is no clinical pallor. There is no scleral icterus. ENT is negative. NECK: Is supple. There is no JVD. Carotids equal there is no bruits. SKIN: There is no skin rashes. There is no particular ecchymosis. There is no skin lesions. NECK: Is supple. There is no JVD. Carotids are equal there is no bruits. There is no lymphadenopathy. Trachea central. There is no accessory muscle respiration use. LUNGS: There is diminished air entry and prolonged expiration, without any rhonchi rales or wheezing. On percussion there is hyperresonance. On palpation there is no chest wall tenderness today. HEART: S1-S2 is heard there is no S3 gallop. There is no S4 gallop. There is systolic murmur left sternal border and apex there is no rub. 02/20/19 02/20/19 02/20/19 05:55 07:29 12:00 POC Glucose 138 H 136 H Troponin I 0.782 ECHO: The patient is wall motion reality with a LV ejection fraction moderately reduced at 40% to 45%. There is no significant valvular disease. There is no significant pulmonary hypertension. EKG: Sinus rhythm. Borderline T abnormalities in anterolateral leads. IMPRESSION/RECOMMENDATION: 1. Chest Pain: Patient had a good historian. Sounds noncardiac, but the patient's troponin is trending down. We will schedule the patient for IV Lexiscan Cardiolite stress test tomorrow morning. 2. Elevated troponin I? Etiology. Will trend the troponin, and since the troponin has trended down, the patient for IV Lexiscan cardiac stress test to be done tomorrow. 3. Syncopal episodes as per nursing in the ER. Patient denies, and states that she just slid out of the chair after having an argument. No recurrence of syncope. No arrhythmias on the monitor. 4. Palpitations: This is after argument with the nurses. Unfortunately the rhythm was not captured. 5. Coronary artery disease: History of SD, history of stents in the right coronary artery in the past. We will add Toprol XL and isosorbide mononitrate. We will stop the patient's IV nitroglycerin drip. Continue patient on aspirin and Plavix. 6. Significant COPD: Continue anti-COPD medication. 7.? Cardiomyopathy? Ischemic: Later would recommend getting an echocardiogram on the patient. This is for LV ejection fraction estimation. But we will start the patient on lisinopril 10 mg p.o. every 12 hours. This will be increase as tolerated. 8. Hypertension: Blood pressure seems to be well controlled. 9. Bipolar disorder: At present seems to be in remission. 10. History of old CVA: No recurrence this admission. Patient does not ambulate, uses wheelchair. 11. Continued tobacco abuse disorder: Tobacco cessation counseling given to the patient 3 minutes spent on this. Medications reviewed would continue current medication. Medical decision making is of high complexity. Discussed with attending physician on the case. The patient is a full code. Her daughter is her surrogate healthcare decision maker. Discussed with the patient and patient's daughter.
[2019-02-20] MEDS ORDERED: ATORVASTATIN CALCIUM 10 MG TABLET PO SCH (22:00)
[2019-02-21] MEDS: HEPARIN SODIUM,PORCINE/D5W 25,000 UNIT/250 ML RTUINJ IV PRN (03:04)
[2019-02-21] MEDS: INSULIN LISPRO 100 UNIT/ML 3 ML VIAL SUBCUT SCH ×3 (08:59→16:18)
--- NOTE | 2019-02-21 09:18 | PDOC PROGRESS REPORT ---
Subjective Progress Note for:: 02/21/19 Subjective:: NAVEEN TABARES is a 58 year old female with past medical history of coronary artery disease status post stent x4, myocardial infarction, cardiomyopathy, type 2 diabetes, morbid obesity, migraine headache, bipolar disorder, schizophrenia, PTSD and tobacco dependence. She is in long-term longterm resident who presents after an argument with staff that resulted in palpitations with chest tightness followed by brief loss of consciousness she slid out of her wheelchair to the floor without head injury. There is no limb shaking, incontinence, nausea or vomiting. She is brought to the emergency room for evaluation. She denies recent change in medications. Workup reveals non-ST elevation [place] with a rising troponin of 1.2-1.8 without chest pain palpitations nausea vomiting she started on heparin, aspirin, beta-hitesh and referred to the hospitalist for admission. She cannot recall her last cardiac stress test. 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 Physical Exam Vital Signs: Temp Pulse Resp BP Pulse Ox 98.6 F 58 L 18 141/68 H 100 02/21/19 04:24 02/21/19 07:00 02/21/19 04:24 02/21/19 04:24 02/21/19 04:24 Intake & Output 02/20/19 02/21/19 02/22/19 06:59 06:59 06:59 Intake Total 1429 1598 Output Total 2000 Balance -571 1598 Weight 96.2 kg Results Laboratory Results: 02/18/19 16:24 02/18/19 16:24 02/18/19 02/18/19 02/18/19 16:24 16:24 16:24 Creatine Kinase 134 CK-MB (CK-2) 4.56 H Troponin I 1.280 NT-Pro-B Natriuret Pep 2000 H 02/18/19 02/19/19 02/20/19 20:39 08:00 05:55 Creatine Kinase CK-MB (CK-2) 4.60 H Troponin I 1.810 1.300 0.782 NT-Pro-B Natriuret Pep 02/21/19 05:40 Creatine Kinase CK-MB (CK-2) Troponin I 0.491 NT-Pro-B Natriuret Pep Impressions: Chest X-Ray 02/18/19 18:24 IMPRESSION: Cardiomegaly with mild pulmonary vascular congestion.
[2019-02-21] MEDS: PREGABALIN 75 MG CAPSULE PO SCH ×2 (11:06→21:17)
[2019-02-21] MEDS: RISPERIDONE 1 MG TABLET PO SCH ×2 (11:07→21:17)
[2019-02-21] MEDS: METOPROLOL SUCCINATE 25 MG TAB.SR.24H PO SCH ×2 (11:07→21:17)
[2019-02-21] MEDS: ASPIRIN 81 MG TABLET, ENT COATED PO SCH (11:08)
[2019-02-21] MEDS: BENZTROPINE MESYLATE 1 MG TABLET PO SCH ×2 (11:08→21:17)
[2019-02-21] MEDS: ISOSORBIDE MONONITRATE 60 MG TAB.ER.24H PO SCH (11:08)
[2019-02-21] MEDS: LISINOPRIL 10 MG TABLET PO SCH ×2 (11:09→21:16)
[2019-02-21] MEDS ORDERED: REGADENOSON INJ 0.4 MG/5 ML DISP.SYRIN IV ONE (12:02)
--- NOTE | 2019-02-21 14:44 | PDOC TRANSFER SUMMARY ---
General Admission Date/PCP: 02/19/19 01:14 Resuscitation Status: Full Code - Transfer Medications Home Medications: Aspirin [Aspirin EC] 81 mg PO DAILY 07/22/18 Levocetirizine Dihydrochloride [Xyzal] 5 mg PO DAILYP PRN 07/22/18 Lisinopril [Prinivil 5 mg Tablet] 5 mg PO DAILY 07/22/18 Metformin HCl [Glucophage] 1,000 mg PO Q12 07/22/18 Risperidone [Risperdal 1 mg Tablet] 3 mg PO QHS 07/22/18 Atorvastatin Calcium [Lipitor 10 mg Tablet] 10 mg PO QHS 09/17/18 Benztropine Mesylate [Cogentin 1 mg Tablet] 1 mg PO Q12 09/17/18 Clonazepam [Klonopin] 0.5 mg PO DAILYP PRN 09/17/18 Insulin Degludec [Tresiba Flextouch U-200] 120 unit SQ QHS 09/17/18 Pregabalin [Lyrica 75 mg Capsule] 75 mg PO DAILY 09/17/18 Topiramate [Topamax] 150 mg PO Q12 09/17/18 Furosemide [Lasix 20 mg Tablet] 20 mg PO DAILY 02/19/19 Meloxicam [Mobic] 15 mg PO DAILYP PRN 02/19/19 Sertraline HCl [Zoloft 50 mg Tablet] 50 mg PO DAILY 02/19/19 Suvorexant [Belsomra] 15 mg PO DAILY 02/19/19 Valbenazine Tosylate [Ingrezza] 40 mg PO DAILY 02/19/19 Transfer Medications: Current Medications Al Hydrox/Mg Hydrox/Simethicone (Maalox Plus Susp 30 Udcup) 30 ml PO Q4HP PRN PRN Reason: HEARTBURN Stop: 03/21/19 00:19 Aspirin (Ecotrin 81 Mg Ec Tablet) 81 mg PO DAILY DARRYN Stop: 03/21/19 09:59 Last Admin: 02/21/19 11:08 Dose: 81 mg Documented by: Atorvastatin Calcium (Lipitor 10 Mg Tablet) 10 mg PO QHS DARRYN Stop: 03/22/19 21:59 Last Admin: 02/20/19 21:40 Dose: 10 mg Documented by: Benztropine Mesylate (Cogentin 1 Mg Tablet) 1 mg PO Q12 DARRYN Stop: 03/21/19 09:59 Last Admin: 02/21/19 11:08 Dose: 1 mg Documented by: Clonazepam (Klonopin 1 Mg Tablet) 0.5 mg PO DAILYP PRN PRN Reason: 1400 FOR ANXIETY Stop: 02/26/19 00:29 Dextrose (Dextrose Inj 50% Syringe (25 Gm/50 Ml)) 12.5 gm IV PRN PRN; Protocol PRN Reason: FOR BG 50-69 IN ALERT PATIENT Stop: 03/21/19 00:19 Dextrose (Dextrose Inj 50% Syringe (25 Gm/50 Ml)) 25 gm IV PRN PRN; Protocol PRN Reason: PER PROTOCOL Stop: 03/21/19 00:19 Glucagon (Glucagen Inj 1 Mg Vial) 1 mg IM PRN PRN; Protocol PRN Reason: Evaluate for BG < 70 Stop: 03/21/19 00:19 Glucose (Glutose 40% Gel 15 Gm Tube) 15 gm PO PRN PRN; Protocol PRN Reason: FOR BG 50-69 IN ALERT PATIENT Stop: 03/21/19 00:19 Glucose (Glutose 40% Gel 15 Gm Tube) 30 gm PO PRN PRN; Protocol PRN Reason: FOR BG < 50 IN ALERT PATIENT Stop: 03/21/19 00:19 Heparin Sodium (Porcine) (Heparin Inj 1,000 Unit/Ml 10 Ml Vial) 0 - 12,000 unit IV .BOLUS PER PROTOCOL PRN; Protocol PRN Reason: RESPOND TO aPTT VALUE Stop: 03/20/19 22:29 Last Admin: 02/19/19 12:22 Dose: 4,000 unit Documented by: Heparin Sodium/Dextrose (Heparin Rtu 25,000 Unit/250 Ml D5w Premix) 25,000 unit in 250 mls @ 0 mls/hr IV CONTINUOUS PRN; Protocol PRN Reason: THIS MED IS NOT "PRN" Stop: 03/20/19 20:07 Last Admin: 02/21/19 03:04 Dose: 15.3 mls/hr, 15.3 mls/hr Documented by: Insulin Human Lispro (Humalog Insulin 100 Unit/1 Ml 3 Ml Vial) 0 - 12 unit SUBCUT AC DARRYN; Protocol Stop: 03/21/19 07:59 Last Admin: 02/21/19 12:37 Dose: Not Given Documented by: Isosorbide Mononitrate (Imdur 60 Mg Tablet.Er) 30 mg PO DAILY [facility] Stop: 03/22/19 09:59 Last Admin: 02/21/19 11:08 Dose: 30 mg Documented by: Lisinopril (Prinivil 10 Mg Tablet) 10 mg PO Q12 DARRYN Stop: 03/22/19 09:59 Last Admin: 02/21/19 11:09 Dose: 10 mg Documented by: Metoprolol Succinate (Toprol Xl 25 Mg Tab.Sr) 25 mg PO Q12 DARRYN Stop: 03/22/19 09:59 Last Admin: 02/21/19 11:07 Dose: 25 mg Documented by: Nitroglycerin (Nitrostat 0.4 Mg (1/150 Gr) Tabs 25/Bottle) 1 tab SL Q5MP PRN PRN Reason: FOR CHEST PAIN Pregabalin (Lyrica 75 Mg Capsule) 75 mg PO Q12 [facility] Stop: 03/21/19 09:59 Last Admin: 02/21/19 11:06 Dose: 75 mg Documented by: Risperidone (Risperdal 1 Mg Tablet) 2 mg PO QAM [facility] Stop: 03/21/19 07:59 Last Admin: 02/21/19 11:07 Dose: 2 mg Documented by: Risperidone (Risperdal 1 Mg Tablet) 3 mg PO QHS [facility] Stop: 03/21/19 21:59 Last Admin: 02/20/19 21:41 Dose: 3 mg Documented by: Sodium Chloride (Saline Flush 2.5 Ml Monoject Prefil Syrin) 2.5 ml IV Q8 [facility] Stop: 03/21/19 05:59 Last Admin: 02/21/19 05:04 Dose: 2.5 ml Documented by: - Allergies Allergies/Adverse Reactions: dicyclomine HCl [From Bentyl] Allergy (Severe, Verified 09/16/18 22:19) throat swelling ibuprofen [From Motrin] Allergy (Severe, Verified 09/16/18 22:19) "increased headache",swelling Shellfish * [Shellfish] Allergy (Severe, Verified 09/16/18 22:19) rash,migraines Penicillins Allergy (Intermediate, Verified 09/16/18 22:19) Hives,vomit,fever sumatriptan succinate [From Imitrex] Allergy (Verified 09/16/18 22:19) Hospital Course Hospital Course: NAVEEN TABARES is a 58 year old female with past medical history of coronary artery disease status post stent x4, myocardial infarction, cardiomyopathy, type 2 diabetes, morbid obesity, migraine headache, bipolar disorder, schizophrenia, PTSD and tobacco dependence. She is in long-term long term resident who presents after an argument with staff that resulted in palpitations with chest tightness followed by brief loss of consciousness she slid out of her wheelchair to the floor without head injury. There is no limb shaking, incontinence, nausea or vomiting. She is brought to the emergency room for evaluation. She denies recent change in medications. Workup reveals non-ST elevation [place] with a rising troponin of 1.2-1.8 without chest pain palpitations nausea vomiting she started on heparin, aspirin, beta-hitesh and referred to the hospitalist for admission. She cannot recall her last cardiac stress test. (1) Non-STEMI (non-ST elevated myocardial infarction) Troponin on admission 1.280, 1.810, 1.30. Chest pain likely noncardiac as per cardiology note. IV Lexiscan Cardiolite stress test done 02/21/2019 pending results at the time of dictation, as per my conversation with Dr. Burgos crutch maker patient could be sent home to follow-up with him as outpatient for a follow-up and cardiac event monitor placement. Will be discharged to continue with antiplatelets, nitro, QUENTIN and beta-blockers. (2) Syncope No recurrence. No arrhythmias on building stonecutter. Cardiology consulted. Gentle follow-up with Dr. Burgos as outpatient for cardiac event monitor placement. (3) Diabetes mellitus type 2 in obese Is this a current diagnosis for this admission?: Yes Plan: Outpatient regiment with exception to metformin, sliding scale insulin. (4) Tobacco abuse Is this a current diagnosis for this admission?: Yes Plan: Tobacco Dependence patient received tobacco cessation counseling and offered nicotine replacement options Physical Exam Vital Signs: Temp Pulse Resp BP Pulse Ox 98.2 F 61 17 122/51 L 94 02/21/19 12:30 02/21/19 12:30 02/21/19 12:30 02/21/19 12:30 02/21/19 12:30 Intake & Output 02/20/19 02/21/19 02/22/19 06:59 06:59 06:59 Intake Total 1429 1598 472 Output Total 1999 Balance -571 1598 472 Weight 96.2 kg Results Laboratory Results: 02/18/19 16:24 02/18/19 16:24 02/18/19 02/18/19 02/18/19 16:24 16:24 16:24 Creatine Kinase 134 CK-MB (CK-2) 4.56 H Troponin I 1.280 NT-Pro-B Natriuret Pep 2000 H 02/18/19 02/19/19 02/20/19 20:39 08:00 05:55 Creatine Kinase CK-MB (CK-2) 4.60 H Troponin I 1.810 1.300 0.782 NT-Pro-B Natriuret Pep 02/21/19 05:40 Creatine Kinase CK-MB (CK-2) Troponin I 0.491 NT-Pro-B Natriuret Pep Impressions: Chest X-Ray 02/18/19 18:24 IMPRESSION: Cardiomegaly with mild pulmonary vascular congestion.
--- NOTE | 2019-02-21 14:55 | PDOC PROGRESS REPORT ---
Subjective Progress Note for:: 02/21/19 Subjective:: NAVEEN TABARES is a 58 year old female with past medical history of coronary artery disease status post stent x4, myocardial infarction, cardiomyopathy, type 2 diabetes, morbid obesity, migraine headache, bipolar disorder, schizophrenia, PTSD and tobacco dependence. She is in long-term [place] [facility] resident who presents after an argument with staff that resulted in palpitations with chest tightness followed by brief loss of consciousness she slid out of her wheelchair to the floor without head injury. There is no limb shaking, incontinence, nausea or vomiting. She is brought to the emergency room for evaluation. She denies recent change in medications. Workup reveals non-ST elevation [place] with a rising troponin of 1.2-1.8 without chest pain palpitations nausea vomiting she started on heparin, aspirin, beta-hitesh and referred to the hospitalist for admission. She cannot recall her last cardiac stress test. 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 ABSENT: rales, rhonchi, wheezes Cardiovascular exam: PRESENT: RRR. ABSENT: diastolic murmur, rubs, systolic murmur GI/Abdominal exam: PRESENT: normal bowel sounds, soft. ABSENT: distended, guarding, mass, organolmegaly, rebound, tenderness Neurological exam: PRESENT: alert, awake, oriented to person, oriented to place, oriented to time, oriented to situation, CN II-XII grossly intact. ABSENT: motor sensory deficit Skin exam: PRESENT: dry, intact, warm. ABSENT: cyanosis, rash Results Laboratory Results: 02/18/19 16:24 02/18/19 16:24 02/18/19 02/18/19 02/18/19 16:24 16:24 16:24 Creatine Kinase 134 CK-MB (CK-2) 4.56 H Troponin I 1.280 NT-Pro-B Natriuret Pep 2000 H 02/18/19 02/19/19 02/20/19 20:39 08:00 05:55 Creatine Kinase CK-MB (CK-2) 4.60 H Troponin I 1.810 1.300 0.782 NT-Pro-B Natriuret Pep 02/21/19 05:40 Creatine Kinase CK-MB (CK-2) Troponin I 0.491 NT-Pro-B Natriuret Pep Impressions: Chest X-Ray 02/18/19 18:24 IMPRESSION: Cardiomegaly with mild pulmonary vascular congestion. Assessment and Plan - Diagnosis (1) Non-STEMI (non-ST elevated myocardial infarction) Is this a current diagnosis for this admission?: Yes Plan: Troponin on admission 1.280, 1.810, 1.30. 02/20/2019. 2D echo left ventricular ejection fraction 40%. Grade I/IV mild diastolic dysfunction. Chest pain likely noncardiac as per cardiology note. IV Lexiscan Cardiolite stress test done 02/21/2019 pending results at the time of dictation, as per my conversation with Dr. Burgos professor of theater patient could be sent home to follow-up with him as outpatient for a follow-up and cardiac event monitor placement. Will be discharged to continue with antiplatelets, nitro, QUENTIN and beta-blockers. (2) Syncope Qualifiers: Syncope type: psychogenic syncope Qualified Code(s): F48.8 - Other specified nonpsychotic mental disorders Is this a current diagnosis for this admission?: Yes Plan: No recurrence. No arrhythmia recorded on telemetry. 2D echo ejection fraction 40%. Unlikely syncope based on her history. Continue fall, seizure precautions. (3) Bipolar disorder Qualifiers: Active/Remission status: remission status unspecified Qualified Code(s): F31.9 - Bipolar disorder, unspecified Is this a current diagnosis for this admission?: No Plan: Continue current meds. Outpatient psychiatry follow-up. (4) CAD (coronary artery disease) Qualifiers: Coronary Disease-Associated Artery/Lesion type: [place] artery [place] vs. transplanted heart: unspecified whether zuni or transplanted heart Associated angina: with unspecified angina Qualified Code(s): I25.119 - Atherosclerotic heart disease of zuni coronary artery with unspecified angina pectoris Is this a current diagnosis for this admission?: No Plan: History of PCI and stent placement x4. Continue beta-hitesh, nitrates, QUENTIN, statins, aspirin. Outpatient cardiology follow-up. (5) COPD (chronic obstructive pulmonary disease) Qualifiers: COPD type: unspecified COPD Qualified Code(s): J44.9 - Chronic obstructive pulmonary disease, unspecified Is this a current diagnosis for this admission?: No Plan: Not on acute exacerbation. Patient currently smoking. Rest on stopping smoking. (6) Hypertension Qualifiers: Hypertension type: essential hypertension Qualified Code(s): I10 - Essential (primary) hypertension Is this a current diagnosis for this admission?: No Plan: Controlled. Continue current meds. Meds as needed. (7) Diabetes type 2, uncontrolled Is this a current diagnosis for this admission?: No Plan: A1c 6.5 on 07/24/2018. Continue long-acting insulin, pre-meal insulin, sliding scale insulin, diabetic diet. Outpatient PCP follow-up.
--- NOTE | 2019-02-21 20:51 | EKG REPORT ---
SEVERITY:- ABNORMAL ECG - SINUS RHYTHM ABNRM R PROG, CONSIDER ASMI OR LEAD PLACEMENT BORDERLINE T WAVE ABNORMALITIES : Confirmed by: Eugenia Burgos MD 21-Feb-2019 20:51:20
[2019-02-21] MEDS: ATORVASTATIN CALCIUM 10 MG TABLET PO SCH (21:17)
[2019-02-22 04:45] LABS: ABSOLUTE EOSINOPHILS # (AUTO) 0.3 10^3/uL (0.0-0.6); ABSOLUTE MONOCYTES (AUTO) 0.6 10^3/uL (0.1-1.4); BASOPHILS % (AUTO) 0.4 % (0-2); EOSINOPHILS % (AUTO) 2.7 % (0-6); HEMOGLOBIN 11.6 g/dL (12.0-15.5); LYMPHOCYTES % (AUTO) 29.8 % (13-45); MEAN CORPUSCULAR HEMOGLOBIN 28.5 pg (27.0-33.4); MEAN CORPUSCULAR HGB CONC 33.3 g/dL (32.0-36.0); MEAN CORPUSCULAR VOLUME 86 fl (80-97); MONOCYTES % (AUTO) 6.5 % (3-13); PLATELET COUNT 180 10^3/uL (150-450); RED BLOOD COUNT 4.08 10^6/uL (3.72-5.28); RED CELL DISTRIBUTION WIDTH 16.2 % (11.5-14.0); SEGMENTED NEUTROPHILS % (AUTO) 60.6 % (42-78); TOTAL CELLS COUNTED % (AUTO) 100 %; WHITE BLOOD COUNT 9.9 10^3/uL (4.0-10.5)
[2019-02-22 05:13] LABS: ALANINE AMINOTRANSFERASE 16 U/L (9-52); ALBUMIN 3.5 g/dL (3.5-5.0); ALKALINE PHOSPHATASE 92 U/L (38-126); ANION GAP 5 (5-19); ASPARTATE AMINO TRANSFERASE 15 U/L (14-36); BILIRUBIN,DIRECT 0.2 mg/dL (0.0-0.4); BILIRUBIN,TOTAL 0.4 mg/dL (0.2-1.3); BLOOD UREA NITROGEN 17 mg/dL (7-20); CALCIUM 9.4 mg/dL (8.4-10.2); CARBON DIOXIDE 28 mmol/L (22-30); CHLORIDE 109 mmol/L (98-107); GLUCOSE 126 mg/dL (75-110); POTASSIUM 4.1 mmol/L (3.6-5.0); SODIUM 142.4 mmol/L (137-145); TOTAL PROTEIN 6.4 g/dL (6.3-8.2)
[2019-02-22] MEDS: INSULIN LISPRO 100 UNIT/ML 3 ML VIAL SUBCUT SCH ×3 (09:05→17:14)
[2019-02-22] MEDS: METOPROLOL SUCCINATE 25 MG TAB.SR.24H PO SCH ×2 (09:06→21:08)
[2019-02-22] MEDS: ISOSORBIDE MONONITRATE 60 MG TAB.ER.24H PO SCH (09:07)
--- NOTE | 2019-02-22 09:39 | PDOC PROGRESS REPORT ---
Subjective Progress Note for:: 02/22/19 Subjective:: NAVEEN TABARES is a 58 year old female with past medical history of coronary artery disease status post stent x4, myocardial infarction, cardiomyopathy, type 2 diabetes, morbid obesity, migraine headache, bipolar disorder, schizophrenia, PTSD and tobacco dependence. She is in long-term care home resident who presents after an argument with staff that resulted in palpitations with chest tightness followed by brief loss of consciousness she slid out of her wheelchair to the floor without head injury. There is no limb shaking, incontinence, nausea or vomiting. She is brought to the emergency room for evaluation. She denies recent change in medications. Workup reveals non-ST elevation [place] with a rising troponin of 1.2-1.8 without chest pain palpitations nausea vomiting she started on heparin, aspirin, beta-hitesh and referred to the hospitalist for admission. She cannot recall her last cardiac stress test. 02/22/2019. No acute events overnight. No recurrence of chest pain or syncope or dizziness. Patient had a good night sleep. Denies any fever, chills, nausea, vomiting, diarrhea, constipation or any urinary symptoms. Patient had stress test yesterday which as per my conversation with Dr. Burgos she could be sent back to [facility] however she is pending transfer due to some paperwork which needs to be done before transfer. Discharge planning working on it. Possible transfer back to [facility] on Sunday. 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 ABSENT: diastolic murmur, rubs, systolic murmur GI/Abdominal exam: PRESENT: normal bowel sounds, soft. ABSENT: distended, guarding, mass, organolmegaly, rebound, tenderness Extremities exam: PRESENT: full ROM. ABSENT: calf tenderness, clubbing, pedal edema Neurological exam: PRESENT: alert, awake, oriented to person, oriented to place, oriented to time, oriented to situation, CN II-XII grossly intact. ABSENT: motor sensory deficit Results Laboratory Results: 02/22/19 03:35 02/22/19 03:55 02/22/19 02/22/19 03:35 03:55 WBC 9.9 RBC 4.08 Hgb 11.6 L Hct 35.0 L MCV 86 MCH 28.5 MCHC 33.3 RDW 16.2 H Plt Count 180 Seg Neutrophils % 60.6 Lymphocytes % 29.8 Monocytes % 6.5 Eosinophils % 2.7 Basophils % 0.4 Absolute Neutrophils 6.0 Absolute Lymphocytes 3.0 Absolute Monocytes 0.6 Absolute Eosinophils 0.3 Absolute Basophils 0.0 Sodium 142.4 Potassium 4.1 Chloride 109 H Carbon Dioxide 28 Anion Gap 5 BUN 17 Creatinine 0.95 Est GFR ( Amer) > 60 Est GFR (Non-Af Amer) > 60 Glucose 126 H Calcium 9.4 Magnesium 2.0 Total Bilirubin 0.4 AST 15 ALT 16 Alkaline Phosphatase 92 Total Protein 6.4 Albumin 3.5 02/18/19 02/18/19 02/18/19 16:24 16:24 16:24 Creatine Kinase 134 CK-MB (CK-2) 4.56 H Troponin I 1.280 NT-Pro-B Natriuret Pep 2000 H 02/18/19 02/19/19 02/20/19 20:39 08:00 05:55 Creatine Kinase CK-MB (CK-2) 4.60 H Troponin I 1.810 1.300 0.782 NT-Pro-B Natriuret Pep 02/21/19 05:40 Creatine Kinase CK-MB (CK-2) Troponin I 0.491 NT-Pro-B Natriuret Pep Impressions: Chest X-Ray 02/18/19 18:24 IMPRESSION: Cardiomegaly with mild pulmonary vascular congestion. Assessment and Plan - Diagnosis (1) Non-STEMI (non-ST elevated myocardial infarction) Is this a current diagnosis for this admission?: Yes Plan: Troponin on admission 1.280, 1.810, 1.30. 02/20/2019. 2D echo left ventricular ejection fraction 40%. Grade I/IV mild diastolic dysfunction. Chest pain resolved likely noncardiac as per cardiology note. IV Lexiscan Cardiolite stress test done 02/21/2019 pending results at the time of dictation, as per my conversation with Dr. Burgos cement finisher apprentice patient could be sent home to follow-up with him as outpatient for a follow-up and cardiac event monitor placement. Continue antiplatelets, nitrates, QUENTIN and beta-blockers. Adjust meds as needed guided by vitals. Will be discharged to continue with antiplatelets, nitro, QUENTIN and beta-blockers. (2) Syncope Qualifiers: Syncope type: psychogenic syncope Qualified Code(s): F48.8 - Other specified nonpsychotic mental disorders Is this a current diagnosis for this admission?: Yes Plan: No recurrence. No arrhythmia recorded on telemetry. 2D echo ejection fraction 40%. Unlikely syncope based on her history. Continue fall, seizure precautions. (3) Bipolar disorder Qualifiers: Active/Remission status: remission status unspecified Qualified Code(s): F31.9 - Bipolar disorder, unspecified Is this a current diagnosis for this admission?: No Plan: Continue current meds. Outpatient psychiatry follow-up. (4) CAD (coronary artery disease) Qualifiers: Coronary Disease-Associated Artery/Lesion type: [place] artery [place] vs. transplanted heart: unspecified whether [place] or transplanted heart Associated angina: with unspecified angina Qualified Code(s): I25.119 - At herosclerotic heart disease of [place] coronary artery with unspecified angina pectoris Is this a current diagnosis for this admission?: No Plan: History of PCI and stent placement x4. Continue beta-hitesh, nitrates, QUENTIN, statins, aspirin. Outpatient cardiology follow-up. (5) COPD (chronic obstructive pulmonary disease) Qualifiers: COPD type: unspecified COPD Qualified Code(s): J44.9 - Chronic obstructive pulmonary disease, unspecified Is this a current diagnosis for this admission?: No Plan: Not on acute exacerbation. Patient currently smoking. Rest on stopping smoking. (6) Hypertension Qualifiers: Hypertension type: essential hypertension Qualified Code(s): I10 - Essential (primary) hypertension Is this a current diagnosis for this admission?: No Plan: Controlled. Continue current meds. Meds as needed. (7) Diabetes type 2, uncontrolled Is this a current diagnosis for this admission?: No Plan: A1c 6.5 on 07/24/2018. Controlled. Continue long-acting insulin, pre-meal insulin, sliding scale insulin, diabetic diet. Outpatient PCP follow-up.
[2019-02-22] MEDS: ASPIRIN 81 MG TABLET, ENT COATED PO SCH (09:48)
[2019-02-22] MEDS: RISPERIDONE 1 MG TABLET PO SCH ×2 (09:48→21:08)
[2019-02-22] MEDS: BENZTROPINE MESYLATE 1 MG TABLET PO SCH ×2 (09:48→21:08)
[2019-02-22] MEDS: PREGABALIN 75 MG CAPSULE PO SCH ×2 (09:48→21:07)
[2019-02-22] MEDS: LISINOPRIL 10 MG TABLET PO SCH ×2 (12:48→21:07)
--- NOTE | 2019-02-22 17:58 | DRAGON STRESS TEST REPORT ---
Intravenous Lexiscan Cardiolite stress test using single photon emmision computerized tomography. Date of procedure: 02/21/2019. Ordering Provider: Dr. Eugenia Burgos. Patient's status: In Patient Indication: Syncope, elevated troponin I, in a patient with coronary artery disease. Coronary risk factors: Age, diabetes mellitus, and tobacco abuse disorder.. Resting EKG: Sinus Rhythm. Nonspecific minor ST-T changes in the anterior lateral leads. Stress EKG: No changes of ischemia. She has no chest pain or discomfort, and there were no arrhythmias seen. Reason for termination: Protocol. Conclusions: Normal EKG and hemodynamic response to IV Lexiscan. Nuclear data: At rest the patient was given 9.43 millicuries of technetium 99m sestamibi injected intravenously. As per protocol rest non gated SPECT images were obtained. Subsequently the patient was given intravenous Lexiscan at a dose of 0.4 mg in 5 mL intravenously, followed by flush with normal saline. Subsequently the stress dose of 32.4 millicuries of technetium 99m sestamibi was injected intravenously. As per protocol stress gated images were obtained. Nuclear interpretation: Review of images showed that perfusion defect involving the left ventricle apex in both the rest and stress images, with not much of a difference in the intensity of the perfusion defect. This area is absent to severe knee reduced motion contraction and thickening. Hence this is prior myocardial infarction. The rest of the segments of the myocardium had normal perfusion at rest, and normal perfusion post stress with IV Lexiscan. The rest of the segments of the myocardium thickening by gated study. Is mild left ventricular dilatation, and moderate global hypokinesis, with a apical scar/DE, consistent with ischemic, and dilated cardiomyopathy. T. I D. ratio was normal at 1.15. There is no transient ischemic dilatation of the left ventricle. Computer read rest, and stress left ventricular ejection fraction were 45 %, and 41 %, respectively. Visually both the stress and rest ejection fractions were normal, and greater than 55%. Conclusion: 1. There is no scintigraphic evidence of Lexiscan induced myocardial ischemia. 2. There is scintigraphic evidence of myocardial infarction/scar involving the left ventricle apex. 3. Ischemic and dilated cardiomyopathy, with moderately reduced LV ejection fraction.. Recommendations: 1. Aggressive treatment of coronary artery disease and cardia myopathy. 2. 30-day event monitor in view of the patient's syncope. 3. Aggressive risk factor modification, and treating the underlying co- morbidities. [id number]
[2019-02-22] MEDS: ATORVASTATIN CALCIUM 10 MG TABLET PO SCH (21:07)
[2019-02-22] MEDS: ACETAMINOPHEN 325 MG TABLET PO PRN (21:08)
[2019-02-23] MEDS: INSULIN LISPRO 100 UNIT/ML 3 ML VIAL SUBCUT SCH ×3 (08:21→18:04)
--- NOTE | 2019-02-23 08:53 | PDOC PROGRESS REPORT ---
Subjective Progress Note for:: 02/23/19 Subjective:: NAVEEN TABARES is a 58 year old female with past medical history of coronary artery disease status post stent x4, myocardial infarction, cardiomyopathy, type 2 diabetes, morbid obesity, migraine headache, bipolar disorder, schizophrenia, PTSD and tobacco dependence. She is in long-term detention resident who presents after an argument with staff that resulted in palpitations with chest tightness followed by brief loss of consciousness she slid out of her wheelchair to the floor without head injury. There is no limb shaking, incontinence, nausea or vomiting. She is brought to the emergency room for evaluation. She denies recent change in medications. Workup reveals non-ST elevation [place] with a rising troponin of 1.2-1.8 without chest pain palpitations nausea vomiting she started on heparin, aspirin, beta-hitesh and referred to the hospitalist for admission. She cannot recall her last cardiac stress test. 02/22/2019. No acute events overnight. No recurrence of chest pain or syncope or dizziness. Patient had a good night sleep. Denies any fever, chills, nausea, vomiting, diarrhea, constipation or any urinary symptoms. Patient had stress test yesterday which as per my conversation with Dr. Burgos she could be sent back to [facility] however she is pending transfer due to some paperwork which needs to be done before transfer. Discharge planning working on it. Possible transfer back to [facility] on Sunday. 02/23/2019. No acute events overnight. Denies any recurrence of chest pain, dizziness, syncope or palpitations. Denies any fever, chills, nausea, vomiting, diarrhea, constipation or any urinary symptoms. Patient waiting to be transferred to [facility] hopefully tomorrow. 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 ABSENT: rales, rhonchi, wheezes Cardiovascular exam: PRESENT: RRR. ABSENT: diastolic murmur, rubs, systolic murmur Rectal exam: PRESENT: deferred Neurological exam: PRESENT: alert, awake, oriented to person, oriented to place, oriented to time, oriented to situation, CN II-XII grossly intact. ABSENT: motor sensory deficit Results Laboratory Results: 02/22/19 03:35 02/22/19 03:55 02/18/19 02/18/19 02/18/19 16:24 16:24 16:24 Creatine Kinase 134 CK-MB (CK-2) 4.56 H Troponin I 1.280 NT-Pro-B Natriuret Pep 2000 H 02/18/19 02/19/19 02/20/19 20:39 08:00 05:55 Creatine Kinase CK-MB (CK-2) 4.60 H Troponin I 1.810 1.300 0.782 NT-Pro-B Natriuret Pep 02/21/19 05:40 Creatine Kinase CK-MB (CK-2) Troponin I 0.491 NT-Pro-B Natriuret Pep Impressions: Chest X-Ray 02/18/19 18:24 IMPRESSION: Cardiomegaly with mild pulmonary vascular congestion. Assessment and Plan - Diagnosis (1) Non-STEMI (non-ST elevated myocardial infarction) Is this a current diagnosis for this admission?: Yes Plan: Denies any active chest pain. Troponin on admission 1.280, 1.810, 1.30. 02/20/2019. 2D echo left ventricular ejection fraction 40%. Grade I/IV mild diastolic dysfunction. Chest pain resolved likely noncardiac as per cardiology note. 02/22/2019. Cardiac a stress test negative for any scintigraphic evidence of lexicon induced myocardial ischemia. Scintigraphic evidence of myocardial in farction/scar involving the left ventricle apex. Ischemic and dilated cardiomyopathy, with moderately reduced left ventricular ejection fraction. Recommendation is aggressive treatment of coronary artery disease and cardiomyopathy. Plan is to follow-up with Dr. Burgos as outpatient for placement of a 30-day event monitor. Patient has an appointment with Dr. Burgos as outpatient. Continue antiplatelets, nitrates, QUENTIN and beta-blockers. Decrease metoprolol to 12.5 twice daily due to asymptomatic bradycardia. Monitor vitals adjust meds as needed. Will be discharged to continue with antiplatelets, nitro, QUENTIN and beta-blockers. (2) Syncope Qualifiers: Syncope type: psychogenic syncope Qualified Code(s): F48.8 - Other specified nonpsychotic mental disorders Is this a current diagnosis for this admission?: Yes Plan: No recurrence. No arrhythmia recorded on telemetry. 2D echo ejection fraction 40%. Unlikely syncope based on her history. Continue fall, seizure precautions. Follow-up as outpatient with Dr. Burgos for a 30-day event monitor placement as outpatient. (3) Bipolar disorder Qualifiers: Active/Remission status: remission status unspecified Qualified Code(s): F31.9 - Bipolar disorder, unspecified Is this a current diagnosis for this admission?: No Plan: Continue current meds. Outpatient psychiatry follow-up. (4) CAD (coronary artery disease) Qualifiers: Coronary Disease-Associated Artery/Lesion type: [place] artery [place] vs. transplanted heart: unspecified whether [place] or transplanted heart Associated angina: with unspecified angina Qualified Code(s): I25.119 - Atherosclerotic heart disease of [place] coronary artery with unspecified angina pectoris Is this a current diagnosis for this admission?: No Plan: History of PCI and stent placement x4. Continue beta-hitesh, nitrates, QUENTIN, statins, aspirin. Outpatient cardiology follow-up. (5) COPD (chronic obstructive pulmonary disease) Qualifiers: COPD type: unspecified COPD Qualified Code(s): J44.9 - Chronic obstructive pulmonary disease, unspecified Is this a current diagnosis for this admission?: No Plan: Not on acute exacerbation. Patient currently smoking. Rest on stopping smoking. (6) Hypertension Qualifiers: Hypertension type: essential hypertension Qualified Code(s): I10 - Essential (primary) hypertension Is this a current diagnosis for this admission?: No Plan: Controlled. Continue current meds. Meds as needed. (7) Diabetes type 2, uncontrolled Is this a current diagnosis for this admission?: No Plan: A1c 6.5 on 07/24/2018. Controlled. Continue long-acting insulin, pre-meal insulin, sliding scale insulin, diabetic diet. Outpatient PCP follow-up.
[2019-02-23] MEDS: PREGABALIN 75 MG CAPSULE PO SCH ×2 (09:25→21:46)
[2019-02-23] MEDS: ASPIRIN 81 MG TABLET, ENT COATED PO SCH (09:25)
[2019-02-23] MEDS: LISINOPRIL 10 MG TABLET PO SCH ×2 (09:28→21:45)
[2019-02-23] MEDS: ISOSORBIDE MONONITRATE 60 MG TAB.ER.24H PO SCH (09:31)
[2019-02-23] MEDS: BENZTROPINE MESYLATE 1 MG TABLET PO SCH ×2 (09:31→21:46)
[2019-02-23] MEDS: RISPERIDONE 1 MG TABLET PO SCH ×2 (09:33→21:45)
[2019-02-23] MEDS: METOPROLOL SUCCINATE 25 MG TAB.SR.24H PO SCH (09:37)
[2019-02-23] MEDS: HEPARIN SOD (PORCINE) 5,000 UNIT/ML 1 ML SYRINGE SUBCUT SCH ×2 (14:32→21:47)
[2019-02-23] MEDS: ACETAMINOPHEN 325 MG TABLET PO PRN (20:00)
[2019-02-23] MEDS: ATORVASTATIN CALCIUM 10 MG TABLET PO SCH (21:46)
[2019-02-24] MEDS: METOPROLOL SUCCINATE 25 MG TAB.SR.24H PO SCH ×3 (00:23→21:22)
[2019-02-24] MEDS: HEPARIN SOD (PORCINE) 5,000 UNIT/ML 1 ML SYRINGE SUBCUT SCH ×3 (05:42→21:19)
[2019-02-24] MEDS: INSULIN LISPRO 100 UNIT/ML 3 ML VIAL SUBCUT SCH ×3 (07:36→16:40)
[2019-02-24] MEDS: RISPERIDONE 1 MG TABLET PO SCH ×2 (07:43→21:21)
[2019-02-24] MEDS: PREGABALIN 75 MG CAPSULE PO SCH ×2 (12:29→21:20)
[2019-02-24] MEDS: LISINOPRIL 10 MG TABLET PO SCH ×2 (12:29→21:20)
[2019-02-24] MEDS: ASPIRIN 81 MG TABLET, ENT COATED PO SCH (12:29)
[2019-02-24] MEDS: ISOSORBIDE MONONITRATE 60 MG TAB.ER.24H PO SCH (12:29)
[2019-02-24] MEDS: BENZTROPINE MESYLATE 1 MG TABLET PO SCH ×2 (12:30→21:23)
--- NOTE | 2019-02-24 14:56 | PDOC PROGRESS REPORT ---
Subjective Progress Note for:: 02/24/19 Subjective:: No adverse events overnight. No new complaints. Vital signs been stable. No chest pain or shortness of breath. She is been resting in bed without oxygen. 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 ABSENT: accessory muscle use, crackles, prolonged expiratory phas, rhonchi, tachypnea, wheezes Cardiovascular exam: PRESENT: RRR, +S1, +S2 Pulses: PRESENT: normal carotid pulses Vascular exam: PRESENT: normal capillary refill GI/Abdominal exam: PRESENT: normal bowel sounds, soft. ABSENT: distended, guarding, rebound, tenderness Extremities exam: ABSENT: clubbing, pedal edema Musculoskeletal exam: PRESENT: normal inspection. ABSENT: deformity Neurological exam: PRESENT: alert, awake, oriented to person, oriented to place, oriented to situation Psychiatric exam: PRESENT: flat affect, normal mood Skin exam: PRESENT: dry, warm Results Laboratory Results: 02/22/19 03:35 02/22/19 03:55 02/18/19 02/18/19 02/18/19 16:24 16:24 16:24 Creatine Kinase 134 CK-MB (CK-2) 4.56 H Troponin I 1.280 NT-Pro-B Natriuret Pep 2000 H 02/18/19 02/19/19 02/20/19 20:39 08:00 05:55 Creatine Kinase CK-MB (CK-2) 4.60 H Troponin I 1.810 1.300 0.782 NT-Pro-B Natriuret Pep 02/21/19 05:40 Creatine Kinase CK-MB (CK-2) Troponin I 0.491 NT-Pro-B Natriuret Pep Impressions: Chest X-Ray 02/18/19 18:24 IMPRESSION: Cardiomegaly with mild pulmonary vascular congestion. Assessment and Plan - Diagnosis (1) Non-STEMI (non-ST elevated myocardial infarction) Is this a current diagnosis for this admission?: Yes Plan: Resolved. Stress test was negative. Continue risk factor modification and cardiac medication optimization. Will discharge back to [facility] once her PASSR number comes through. (2) Syncope Qualifiers: Syncope type: psychogenic syncope Qualified Code(s): F48.8 - Other specified nonpsychotic mental disorders Is this a current diagnosis for this admission?: Yes Plan: No recurrence. No arrhythmia recorded on telemetry. 2D echo ejection fraction 40%. Unlikely syncope based on her history. Continue fall, seizure precautions. Follow-up as outpatient with Dr. Burgos for a 30-day event monitor placement as outpatient. (3) Diabetes mellitus type 2 in obese Is this a current diagnosis for this admission?: Yes Plan: Outpatient regiment with exception to metformin, sliding scale insulin. - Time Time Spent with patient: 25-34 minutes
[2019-02-24] MEDS: ATORVASTATIN CALCIUM 10 MG TABLET PO SCH (21:20)
[2019-02-25] MEDS: HEPARIN SOD (PORCINE) 5,000 UNIT/ML 1 ML SYRINGE SUBCUT SCH ×3 (05:09→21:04)
[2019-02-25] MEDS: RISPERIDONE 1 MG TABLET PO SCH ×2 (07:41→21:05)
[2019-02-25] MEDS: INSULIN LISPRO 100 UNIT/ML 3 ML VIAL SUBCUT SCH ×3 (09:43→17:41)
[2019-02-25] MEDS: METOPROLOL SUCCINATE 25 MG TAB.SR.24H PO SCH ×2 (10:01→21:06)
[2019-02-25] MEDS: LISINOPRIL 10 MG TABLET PO SCH ×2 (10:02→21:06)
[2019-02-25] MEDS: ISOSORBIDE MONONITRATE 60 MG TAB.ER.24H PO SCH (10:02)
[2019-02-25] MEDS: PREGABALIN 75 MG CAPSULE PO SCH ×2 (10:02→21:05)
[2019-02-25] MEDS: BENZTROPINE MESYLATE 1 MG TABLET PO SCH ×2 (10:02→21:05)
[2019-02-25] MEDS: ASPIRIN 81 MG TABLET, ENT COATED PO SCH (10:02)
[2019-02-25] MEDS: ACETAMINOPHEN 325 MG TABLET PO PRN (14:43)
[2019-02-25] MEDS ORDERED: CLONAZEPAM 1 MG TABLET PO PRN (15:30)
[2019-02-25] MEDS: NICOTINE 21 MG/24 HR PATCH.TD24 TD SCH (18:19)
[2019-02-25] MEDS: ATORVASTATIN CALCIUM 10 MG TABLET PO SCH (21:05)
--- NOTE | 2019-02-26 04:51 | PDOC PROGRESS REPORT ---
Subjective Progress Note for:: 02/25/19 Subjective:: NAVEEN TABARES is a 58 year old female with past medical history of coronary artery disease status post stent x4, myocardial infarction, cardiomyopathy, type 2 diabetes, morbid obesity, migraine headache, bipolar disorder, schizophrenia, PTSD and tobacco dependence. She is in long-term detention resident who presents after an argument with staff that resulted in palpitations with chest tightness followed by brief loss of consciousness she slid out of her wheelchair to the floor without head injury. Workup reveals non-ST elevation [place] with a troponin 1.8. The patient was without chest pain, palpitations, nausea or vomiting. She was started on heparin, aspirin, beta-hitesh and referred to the hospitalist for admission. The patient was seen this morning on rounds. She is resting comfortably in bed on supplemental O2. She has no complaints at this time. The patient is awaiting transfer back to [facility]. 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 Physical Exam Vital Signs: Temp Pulse Resp BP Pulse Ox 98.6 F 52 L 20 139/48 H 97 02/25/19 20:41 02/25/19 20:41 02/25/19 20:41 02/25/19 20:41 02/25/19 20:41 Intake & Output 02/24/19 02/25/19 02/26/19 06:59 06:59 06:59 Intake Total 658 640 437 Output Total 1600 Balance -942 640 437 Weight 102.6 kg 102.7 kg General appearance: PRESENT: morbidly obese Eye exam: PRESENT: conjunctiva pink, PERRLA Mouth exam: PRESENT: moist Teeth exam: PRESENT: edentulous Neck exam: PRESENT: full ROM Respiratory exam: PRESENT: clear to auscultation luz elena, symmetrical, unlabored Cardiovascular exam: PRESENT: RRR Pulses: PRESENT: normal radial pulses, normal dorsalis pedis pul GI/Abdominal exam: PRESENT: normal bowel sounds, soft. ABSENT: distended, tenderness Rectal exam: PRESENT: deferred Extremities exam: PRESENT: full ROM, pedal edema - trace, +1 edema Musculoskeletal exam: PRESENT: ambulatory, full ROM, normal inspection Neurological exam: PRESENT: alert, awake, oriented to person, oriented to place, oriented to time, oriented to situation Psychiatric exam: PRESENT: appropriate affect Skin exam: PRESENT: intact Results Laboratory Results: 02/22/19 03:35 02/22/19 03:55 02/18/19 02/18/19 02/18/19 16:24 16:24 16:24 Creatine Kinase 134 CK-MB (CK-2) 4.56 H Troponin I 1.280 NT-Pro-B Natriuret Pep 2000 H 02/18/19 02/19/19 02/20/19 20:39 08:00 05:55 Creatine Kinase CK-MB (CK-2) 4.60 H Troponin I 1.810 1.300 0.782 NT-Pro-B Natriuret Pep 02/21/19 05:40 Creatine Kinase CK-MB (CK-2) Troponin I 0.491 NT-Pro-B Natriuret Pep Impressions: Chest X-Ray 02/18/19 18:24 IMPRESSION: Cardiomegaly with mild pulmonary vascular congestion. Status: Imported from PACS Assessment and Plan - Diagnosis (1) Non-STEMI (non-ST elevated myocardial infarction) Is this a current diagnosis for this admission?: Yes Plan: Denies any active chest pain. Troponin on admission 1.280, 1.810, 1.30. No longer trending ECHOcardiogram left ventricular ejection fraction 40%. Grade I/IV mild diastolic dysfunction. Cardiac a stress test negative for myocardial ischemia. Scintigraphic evidence of myocardial infarction/scar involving the left ventricle apex. Ischemic and dilated cardiomyopathy, with moderately reduced left ventricular ejection fraction. Recommendation is aggressive treatment of coronary artery disease and car diomyopathy. Plan is to follow-up with Dr. Burgos as outpatient for placement of a 30-day event monitor. Patient has an appointment with Dr. Burgos as outpatient. Continue ASA and plavix, nitrates, QUENTIN and beta-blockers. (2) Bipolar disorder Qualifiers: Active/Remission status: remission status unspecified Qualified Code(s): F31.9 - Bipolar disorder, unspecified Is this a current diagnosis for this admission?: No Plan: Continue Cogentin and Risperidone. Outpatient psychiatry follow-up. (3) Syncope Qualifiers: Syncope type: psychogenic syncope Qualified Code(s): F48.8 - Other specified nonpsychotic mental disorders Is this a current diagnosis for this admission?: Yes Plan: No recurrence. No arrhythmia recorded on telemetry. 2D echo ejection fraction 40%. Continue fall, seizure precautions. Follow-up as outpatient with Dr. Burgos for a 30-day event monitor placement as outpatient. (4) CAD (coronary artery disease) Qualifiers: Coronary Disease-Associated Artery/Lesion type: [place] artery [place] vs. transplanted heart: unspecified whether [place] or transplanted heart Associated angina: with unspecified angina Qualified Code(s): I25.119 - Atherosclerotic heart disease of [place] coronary artery with unspecified angina pectoris Is this a current diagnosis for this admission?: No Plan: History of PCI and stent placement x4. Continue beta-hitesh, nitrates, QUENTIN, statins, aspirin. Outpatient cardiology follow-up. (5) COPD (chronic obstructive pulmonary disease) Qualifiers: COPD type: unspecified COPD Qualified Code(s): J44.9 - Chronic obstructive pulmonary disease, unspecified Is this a current diagnosis for this admission?: No Plan: Without exacerbation. Patient currently smoking. Offered nicotine patch and patient declined. Stated she wanted to "finish out her current pack." Will send back to SNF with prescription for Nicotine patch when patient is ready to quit (6) Hypertension Qualifiers: Hypertension type: essential hypertension Qualified Code(s): I10 - Essential (primary) hypertension Is this a current diagnosis for this admission?: No Plan: Controlled. Continue Imdur, lisinopril, Toprol XL (7) Diabetes mellitus type 2 in obese Is this a current diagnosis for this admission?: Yes Plan: A1c 6.5. Controlled. Continue long-acting insulin, pre-meal insulin, sliding scale insulin, diabetic diet. - Time Anticipated discharge: SNF - Inpatient Certification Based on my medical assessment, after consideration of the patient's comorbidities, presenting symptoms, or acuity I expect that the services needed warrant INPATIENT care.: Yes I certify that my determination is in accordance with my understanding of Medicare's requirements for reasonable and necessary INPATIENT services [42 CFR 412.3e].: Yes Medical Necessity: Risk of Complication if Not Cared For in Hospital
[2019-02-26] MEDS: HEPARIN SOD (PORCINE) 5,000 UNIT/ML 1 ML SYRINGE SUBCUT SCH (05:22)
[2019-02-26] MEDS: INSULIN LISPRO 100 UNIT/ML 3 ML VIAL SUBCUT SCH ×2 (07:58→12:36)
[2019-02-26] MEDS: ASPIRIN 81 MG TABLET, ENT COATED PO SCH (10:00)
[2019-02-26] MEDS: PREGABALIN 75 MG CAPSULE PO SCH (10:00)
[2019-02-26] MEDS ORDERED: ISOSORBIDE MONONITRATE 30 MG TAB.ER.24H PO SCH (10:00)
[2019-02-26] MEDS: BENZTROPINE MESYLATE 1 MG TABLET PO SCH (10:00)
[2019-02-26] MEDS: LISINOPRIL 10 MG TABLET PO SCH (10:01)
[2019-02-26] MEDS: RISPERIDONE 1 MG TABLET PO SCH (10:02)
[2019-02-26] MEDS: METOPROLOL SUCCINATE 25 MG TAB.SR.24H PO SCH (10:03)
[2019-02-26] MEDS: NICOTINE 21 MG/24 HR PATCH.TD24 TD SCH (10:03)
--- NOTE | 2019-02-26 11:13 | PDOC TRANSFER SUMMARY ---
General - Admit/Disc Date/PCP Admission Date/Primary Care Provider: 02/19/19 01:14 Discharge Date: 02/26/19 - Discharge Diagnosis (1) NYHA class 2 acute on chronic systolic heart failure Is this a current diagnosis for this admission?: Yes (2) Non-STEMI (non-ST elevated myocardial infarction) Is this a current diagnosis for this admission?: Yes (3) Bipolar disorder Is this a current diagnosis for this admission?: No (4) Syncope Is this a current diagnosis for this admission?: Yes (5) CAD (coronary artery disease) Is this a current diagnosis for this admission?: No (6) COPD (chronic obstructive pulmonary disease) Is this a current diagnosis for this admission?: No (7) Hypertension Is this a current diagnosis for this admission?: No (8) Diabetes mellitus type 2 in obese Is this a current diagnosis for this admission?: Yes - Additional Information Resuscitation Status: Full Code Home Medications: Aspirin [Aspirin EC] 81 mg PO DAILY 07/22/18 Levocetirizine Dihydrochloride [Xyzal] 5 mg PO DAILYP PRN 07/22/18 Lisinopril [Prinivil 5 mg Tablet] 5 mg PO DAILY 07/22/18 Metformin HCl [Glucophage] 1,000 mg PO Q12 07/22/18 Risperidone [Risperdal 1 mg Tablet] 3 mg PO QHS 07/22/18 Atorvastatin Calcium [Lipitor 10 mg Tablet] 10 mg PO QHS 09/17/18 Benztropine Mesylate [Cogentin 1 mg Tablet] 1 mg PO Q12 09/17/18 Clonazepam [Klonopin] 0.5 mg PO DAILYP PRN 09/17/18 Insulin Degludec [Tresiba Flextouch U-200] 120 unit SQ QHS 09/17/18 Pregabalin [Lyrica 75 mg Capsule] 75 mg PO DAILY 09/17/18 Topiramate [Topamax] 150 mg PO Q12 09/17/18 Furosemide [Lasix 20 mg Tablet] 20 mg PO DAILY 02/19/19 Meloxicam [Mobic] 15 mg PO DAILYP PRN 02/19/19 Sertraline HCl [Zoloft 50 mg Tablet] 50 mg PO DAILY 02/19/19 Suvorexant [Belsomra] 15 mg PO DAILY 03/27/19 Valbenazine Tosylate [Ingrezza] 40 mg PO DAILY 02/19/19 History of Present Illness Admission Date/PCP: 02/19/19 01:14 History of Present Illness: NAVEEN TABARES is a 58 year old female with past medical history of coronary artery disease status post stent x4, myocardial infarction, cardiomyopathy, type 2 diabetes, morbid obesity, migraine headache, bipolar disorder, schizophrenia, PTSD and tobacco dependence. She is in long-term group home resident who presents after an argument with staff that resulted in palpitations with chest tightness followed by brief loss of consciousness she slid out of her wheelchair to the floor without head injury. There is no limb shaking, incontinence, nausea or vomiting. She is brought to the emergency room for evaluation. She denies recent change in medications. Workup reveals non-ST elevation [place] with a rising troponin of 1.2-1.8 without chest pain palpitations nausea vomiting she started on heparin, aspirin, beta-bibi and referred to the hospitalist for admission. She cannot recall her last cardiac stress test. Hospital Course Hospital Course: NAVEEN TABARES is a 58 year old female with past medical history of coronary artery disease status post stent x4, myocardial infarction, cardiomyopathy, type 2 diabetes, morbid obesity, migraine headache, bipolar disorder, schizophrenia, PTSD and tobacco dependence. She is in long-term group home resident who presents after an argument with staff that resulted in palpitations with chest tightness followed by brief loss of consciousness she slid out of her wheelchair to the floor without head injury. Workup reveals non-ST elevation [place] with a troponin 1.8. The patient was without chest pain, palpitations, nausea or vomiting. She was started on heparin, aspirin, beta-bibi and referred to the hospitalist for admission. ECHOcardiogram left ventricular ejection fraction 40%. Grade I/IV mild diastolic dysfunction. Cardiac a stress test negative for myocardial ischemia. Scintigraphic evidence of myocardial infarction/scar involving the left ventricle apex. Ischemic and dilated cardiomyopathy, with moderately reduced left ventricular ejection fraction. Recommendation is aggressive treatment of coronary artery disease and cardiomyopathy. Plan is to follow-up with Dr. Burgos as outpatient for placement of a 30-day event monitor. Patient has an appointment with Dr. Burgos as outpatient. Continue ASA and plavix, nitrates, QUENTIN and beta-blockers following discharge. Physical Exam Vital Signs: Temp Pulse Resp BP Pulse Ox 98.3 F 50 L 16 114/70 93 02/26/19 07:10 02/26/19 07:10 02/26/19 07:10 02/26/19 07:10 02/26/19 07:10 Intake & Output 02/25/19 02/26/19 02/27/19 06:59 06:59 06:59 Intake Total 640 1049 Output Total 2000 Balance 640 -951 Weight 102.7 kg 101.4 kg General appearance: PRESENT: no acute distress Head exam: PRESENT: atraumatic Eye exam: PRESENT: PERRLA Mouth exam: PRESENT: moist Teeth exam: PRESENT: edentulous Neck exam: PRESENT: full ROM Respiratory exam: PRESENT: clear to auscultation luz elena, symmetrical Cardiovascular exam: PRESENT: RRR Pulses: PRESENT: normal radial pulses, normal dorsalis pedis pul Vascular exam: PRESENT: normal capillary refill GI/Abdominal exam: PRESENT: normal bowel sounds, tenderness. ABSENT: distended Rectal exam: PRESENT: deferred Extremities exam: PRESENT: full ROM Musculoskeletal exam: PRESENT: ambulatory, full ROM Neurological exam: PRESENT: alert, awake, oriented to person, oriented to place, oriented to time, oriented to situation Psychiatric exam: PRESENT: appropriate affect Skin exam: PRESENT: dry, intact, normal color Results Laboratory Results: 02/22/19 03:35 02/22/19 03:55 02/18/19 02/18/19 02/18/19 16:24 16:24 16:24 Creatine Kinase 134 CK-MB (CK-2) 4.56 H Troponin I 1.280 NT-Pro-B Natriuret Pep 2000 H 02/18/19 02/19/19 02/20/19 20:39 08:00 05:55 Creatine Kinase CK-MB (CK-2) 4.60 H Troponin I 1.810 1.300 0.782 NT-Pro-B Natriuret Pep 02/21/19 05:40 Creatine Kinase CK-MB (CK-2) Troponin I 0.491 NT-Pro-B Natriuret Pep Impressions: Chest X-Ray 02/18/19 18:24 IMPRESSION: Cardiomegaly with mild pulmonary vascular congestion. Status: Imported from PACS Transfer Plan - Time Spent with Patient Time spent with patient: Less than 30 Minutes Qualifiers - * PATIENT BEING DISCHARGED WITH ANY OF THE FOLLOWING DIAGNOSIS: Heart Failure HF Pt being discharged on ACEI for LVEF less than 40%?: Yes HF Pt being discharged on ARBS for LVEF less than 40%?: No Reason(s) for not prescribing ARBS:: Not indicated HF Pt with Afib discharged with Warfarin?: No Reason(s) for not prescribing Warfarin:: Not indicated - patient does not have afib HF Pt discharged on evidence-based Beta Bibi:: Yes
[2019-02-26 12:05] VITALS: BP 132/60
== END 2019-02-26 14:45 | DRG 280 ==
LOC: ER 15:14 → EH 02-19 01:14 → 3W 02-19 04:20
PROVIDERS: ADMIT Internal Medicine; ATTEND Internal Medicine
DX: I21.4 Non-ST elevation (NSTEMI) myocardial infarction (principal); I50.23 Acute on chronic systolic (congestive) heart failure; I11.0 Hypertensive heart disease with heart failure; F31.9 Bipolar disorder, unspecified; J44.9 Chronic obstructive pulmonary disease, unspecified; E11.65 Type 2 diabetes mellitus with hyperglycemia; E66.01 Morbid (severe) obesity due to excess calories; F20.9 Schizophrenia, unspecified; F43.10 Post-traumatic stress disorder, unspecified; F17.210 Nicotine dependence, cigarettes, uncomplicated; W05.0XXA Fall from non-moving wheelchair, initial encounter; I25.5 Ischemic cardiomyopathy; E78.5 Hyperlipidemia, unspecified; K21.9 Gastro-esophageal reflux disease without esophagitis; I25.119 Atherosclerotic heart disease of native coronary artery with unspecified angina pectoris; F48.8 Other specified nonpsychotic mental disorders; I25.2 Old myocardial infarction; Z79.82 Long term (current) use of aspirin; Z79.4 Long term (current) use of insulin; Z79.899 Other long term (current) drug therapy; Z95.5 Presence of coronary angioplasty implant and graft; Z86.73 Personal history of transient ischemic attack (TIA), and cerebral infarction without residual deficits; Z90.49 Acquired absence of other specified parts of digestive tract; Z90.710 Acquired absence of both cervix and uterus; Z88.8 Allergy status to other drugs, medicaments and biological substances; Z88.6 Allergy status to analgesic agent; Z88.0 Allergy status to penicillin; Z91.013 Allergy to seafood; Z82.49 Family history of ischemic heart disease and other diseases of the circulatory system
CPT/HCPCS: 36415; 51701; 71045; 78452; 80053; 81001; 82550; 82553; 82962; 83735; 83880; 84484; 85025; 85610; 85730; 93005; 93010; 93017; 93306; 99285; A9500; J1644; J1815; J2785; J3490; Q9969

== ENCOUNTER 2019-08-07 12:09 | Observation (INO) | payer MEDICARE, MEDICAID ==
--- NOTE | 2019-08-07 13:08 | RADIOLOGY REPORT (SQ) ---
EXAM DESCRIPTION: CT CERVICAL SPINE WITHOUT COMPLETED DATE/TIME: 08/07/2019 12:57 pm REASON FOR STUDY: bed mp s/p fall hit head per shayy COMPARISON: 03/16/2013. TECHNIQUE: Axial images acquired through the cervical spine without intravenous contrast. Images re viewed with lung, soft tissue and bone windows. Reconstructed coronal and sagittal MPR images review ed. Images stored on PACS. All CT scanners at this facility use dose modulation, iterative reconstruction, and/or weight based d osing when appropriate to reduce radiation dose to as low as reasonably achievable (ALARA). [facility]: Dose Right [facility]: CareDose [facility]: Dose Right [facility]: Teradose 4D [facility]: Smart [employer]ures RADIATION DOSE: CT Rad equipment meets quality standard of care and radiation dose reduction techniq ues were employed. CTDIvol: 28.2 mGy. DLP: 520 mGy-cm. mGy. LIMITATIONS: None. FINDINGS: ALIGNMENT: Anatomic. MINERALIZATION: Normal. VERTEBRAL BODIES: No fractures or dislocation. DISCS: No significant disc disease. FACETS, LATERAL MASSES, POSTERIOR ELEMENTS: No fractures. No dislocation. No acute findings. HARDWARE: None in the spine. VISUALIZED RIBS: No fractures. LUNG APICES AND SOFT TISSUES: No significant or acute findings. OTHER: No other significant finding. IMPRESSION: NO ACUTE OR SIGNIFICANT FINDINGS IN THE CERVICAL SPINE. TECHNICAL DOCUMENTATION: JOB ID: [id number] Quality ID # [id number]: Final reports with documentation of one or more dose reduction techniques (e.g., Au tomated exposure control, adjustment of the mA and/or kV according to patient size, use of iterative reconstruction technique) 2010 [employer]- All Rights Reserved Reading location - IP/workstation name: [email or web address]
--- NOTE | 2019-08-07 13:09 | RADIOLOGY REPORT (SQ) ---
EXAM DESCRIPTION: CT HEAD WITHOUT COMPLETED DATE/TIME: 08/07/2019 12:57 pm REASON FOR STUDY: bed mp s/p fall hit head per shayy COMPARISON: 07/22/2018. TECHNIQUE: Axial images acquired through the brain without intravenous contrast. Images reviewed wi th bone, brain and subdural windows. Additional sagittal and coronal reconstructions were generated. Images stored on PACS. All CT scanners at this facility use dose modulation, iterative reconstruction, and/or weight based d osing when appropriate to reduce radiation dose to as low as reasonably achievable (ALARA). [facility]: Dose Right [facility]: CareDose [facility]: Dose Right [facility]: Teradose 4D [facility]: Smart [employer] RADIATION DOSE: CT Rad equipment meets quality standard of care and radiation dose reduction techniq ues were employed. CTDIvol: 53.2 mGy. DLP: 1070 mGy-cm. mGy. LIMITATIONS: None. FINDINGS: VENTRICLES: Normal size and contour. CEREBRUM: No masses. No hemorrhage. No midline shift. No evidence for acute infarction. Normal gra y/white matter differentiation. No areas of low density in the white matter. CEREBELLUM: No masses. No hemorrhage. No alteration of density. No evidence for acute infarction. EXTRAAXIAL SPACES: No fluid collections. No masses. ORBITS AND GLOBE: No intra- or extraconal masses. Normal contour of globe without masses. CALVARIUM: No fracture. PARANASAL SINUSES: No fluid or mucosal thickening. SOFT TISSUES: No mass or hematoma. OTHER: No other significant finding. IMPRESSION: NORMAL BRAIN CT WITHOUT CONTRAST. EVIDENCE OF ACUTE STROKE: NO. COMMENT: Quality ID # [id number]: Final reports with documentation of one or more dose reduction techniques (e.g., Automated exposure control, adjustment of the mA and/or kV according to patient size, use of iterative reconstruction technique) TECHNICAL DOCUMENTATION: JOB ID: [id number] [employer]- All Rights Reserved Reading location - IP/workstation name: [email or web address]
--- NOTE | 2019-08-07 14:04 | ER Document Report ---
ED Medical Screen (RME) - General Stated Complaint: WEAKNESS Time Seen by Provider: 08/07/19 14:02 Primary Care Provider: SOBIA YANEZ MD [Primary Care Provider] - Follow up as needed Mode of Arrival: Medic Information source: Patient Notes: 58-year-old female presented to ED for complaint of a fall at 6 AM. She states she just fell hitting her right knee on the floor and her head hit the tray. She states she did not have any loss of consciousness and she did not have any vomiting. She states she is on aspirin but no other blood thinners. He is very alert oriented speaking in full sentences. No obvious neurological deficits noted. I have greeted and performed a rapid initial assessment of this patient. A comprehensive ED assessment and evaluation of the patient, analysis of test results and completion of medical decision making process will be conducted by an additional ED providers. TRAVEL OUTSIDE OF THE [place] IN LAST 30 DAYS: No - Related Data Allergies/Adverse Reactions: dicyclomine HCl [From Bentyl] Allergy (Severe, Verified 09/16/18 22:19) throat swelling ibuprofen [From Motrin] Allergy (Severe, Verified 09/16/18 22:19) "increased headache",swelling Shellfish * [Shellfish] Allergy (Severe, Verified 09/16/18 22:19) rash,migraines Penicillins Allergy (Intermediate, Verified 09/16/18 22:19) Hives,vomit,fever sumatriptan succinate [From Imitrex] Allergy (Verified 09/16/18 22:19) Past Medical History - Social History Family history: Reviewed & Not Pertinent - Past Medical History Cardiac Medical History: Reports: Hx Coronary Artery Disease - 4 stents, Hx Heart Attack - AUG x 2, Hx Hypercholesterolemia, Hx Hypertension Denies: Hx Heart Murmur Pulmonary Medical History: Reports: Hx Asthma, Hx Bronchitis, Hx COPD, Hx Pneumonia Denies: Hx Respiratory Failure, Hx Sleep Apnea, Hx Tuberculosis Neurological Medical History: Reports: Hx Cerebrovascular Accident - 2007, Hx Migraine, Hx Seizures Endocrine Medical History: Reports: Hx Diabetes Mellitus Type 1, Hx Diabetes Mellitus Type 2 Renal/ Medical History: Reports: Hx Kidney Stones. Denies: Hx Peritoneal Rhona lysis GI Medical History: Reports: Hx Gastroesophageal Reflux Disease, Hx Irritable Bowel. Denies: Hx Pancreatitis Musculoskeltal Medical History: Reports Hx Arthritis - Back & Legs, Denies Hx Systemic Lupus Erythematosus Psychiatric Medical History: Reports: Hx Bipolar Disorder, Hx Depression, Hx Post Traumatic Stress Disorder, Hx Schizophrenia Past Surgical History: Reports: Hx Appendectomy, Hx Cardiac Catheterization, Hx Cardiac Surgery - 3 stents, Hx Cholecystectomy, Hx Hysterectomy, Hx Orthopedic Surgery - L knee, Hx Tonsillectomy - Immunizations Immunizations up to date: Yes Hx Diphtheria, Pertussis, Tetanus Vaccination: Yes Doctor's Discharge - Discharge Referrals: SOBIA YANEZ MD [Primary Care Provider] - Follow up as needed
[2019-08-07 14:30] LABS: ABSOLUTE EOSINOPHILS # (AUTO) 0.2 10^3/uL (0.0-0.6); ABSOLUTE LYMPHOCYTES (AUTO) 1.5 10^3/uL (0.5-4.7); ABSOLUTE MONOCYTES (AUTO) 0.7 10^3/uL (0.1-1.4); ABSOLUTE NEUT (AUTO) 7.6 10^3/uL (1.7-8.2); ADD MANUAL MICROSCOPIC YES; APPEARANCE,URINE CLEAR; BASOPHILS % (AUTO) 0.5 % (0-2); BILIRUBIN,URINE NEGATIVE (NEGATIVE); COLOR,URINE YELLOW; EOSINOPHILS % (AUTO) 1.9 % (0-6); GLUCOSE, URINE NEGATIVE (NEGATIVE); HEMATOCRIT 39.2 % (36.0-47.0); HEMOGLOBIN 12.7 g/dL (12.0-15.5); KETONES,URINE NEGATIVE (NEGATIVE); LEUKOCYTE ESTERASE,URINE NEGATIVE (NEGATIVE); LYMPHOCYTES % (AUTO) 15.1 % (13-45); MEAN CORPUSCULAR HEMOGLOBIN 28.7 pg (27.0-33.4); MEAN CORPUSCULAR HGB CONC 32.4 g/dL (32.0-36.0); MEAN CORPUSCULAR VOLUME 89 fl (80-97); MONOCYTES % (AUTO) 6.6 % (3-13); NITRITE,URINE NEGATIVE (NEGATIVE); PLATELET COUNT 197 10^3/uL (150-450); PROTEIN,URINE NEGATIVE (NEGATIVE); RED BLOOD COUNT 4.43 10^6/uL (3.72-5.28); SEGMENTED NEUTROPHILS % (AUTO) 75.9 % (42-78); TOTAL CELLS COUNTED % (AUTO) 100 %; URINE SPECIFIC GRAVITY 1.008; UROBILINOGEN,URINE NEGATIVE mg/dL (<2.0)
[2019-08-07 14:44] LABS: BACTERIA,URINE 1+ /HPF; WBC,URINE 0-1 /HPF; YEAST,URINE PRESENT
[2019-08-07 14:45] LABS: URINE AMPHETAMINES SCREEN NEGATIVE; URINE BARBITURATES SCREEN NEGATIVE; URINE BENZODIAZEPINES SCREEN NEGATIVE; URINE COCAINE SCREEN NEGATIVE; URINE MARIJUANA (THC) SCREEN NEGATIVE; URINE METHADONE SCREEN NEGATIVE; URINE PHENCYCLIDINE SCREEN NEGATIVE
[2019-08-07 14:54] LABS: ALBUMIN 3.7 g/dL (3.5-5.0); ALKALINE PHOSPHATASE 95 U/L (38-126); ANION GAP 8 (5-19); ASPARTATE AMINO TRANSFERASE 16 U/L (14-36); BILIRUBIN,DIRECT 0.1 mg/dL (0.0-0.4); BILIRUBIN,TOTAL 0.2 mg/dL (0.2-1.3); BLOOD UREA NITROGEN 14 mg/dL (7-20); CALCIUM 9.2 mg/dL (8.4-10.2); CARBON DIOXIDE 33 mmol/L (22-30); CHLORIDE 100 mmol/L (98-107); POTASSIUM 4.1 mmol/L (3.6-5.0); TOTAL PROTEIN 6.5 g/dL (6.3-8.2)
[2019-08-07 14:55] LABS: ALCOHOL < 10 mg/dL (NONE DETECTED)
[2019-08-07 14:56] LABS: GLUCOSE 68 mg/dL (75-110)
[2019-08-07] MEDS ORDERED: DEXTROSE 50%-WATER 25 GM/50 ML DISP.SYRIN IV ONE (14:56)
--- NOTE | 2019-08-07 15:06 | RADIOLOGY REPORT (SQ) ---
EXAM DESCRIPTION: KNEE RIGHT 2 VIEWS COMPLETED DATE/TIME: 08/07/2019 2:58 pm REASON FOR STUDY: pain fall COMPARISON: 08/31/2017. NUMBER OF VIEWS: Two views. TECHNIQUE: AP and lateral radiographic images acquired of the right knee. LIMITATIONS: None. FINDINGS: MINERALIZATION: Normal. BONES: No acute fracture or dislocation. No worrisome bone lesions. JOINT: No effusion. SOFT TISSUES: No soft tissue swelling. No radio-opaque foreign body. OTHER: No other significant finding. IMPRESSION: NEGATIVE STUDY OF THE RIGHT KNEE. NO RADIOGRAPHIC EVIDENCE OF ACUTE INJURY. TECHNICAL DOCUMENTATION: JOB ID: [id number] [employer]- All Rights Reserved Reading location - IP/workstation name: [email or web address]
--- NOTE | 2019-08-07 15:07 | RADIOLOGY REPORT (SQ) ---
EXAM DESCRIPTION: CHEST SINGLE VIEW COMPLETED DATE/TIME: 08/07/2019 2:58 pm REASON FOR STUDY: DB COMPARISON: 02/18/2019. EXAM PARAMETERS: NUMBER OF VIEWS: One view. TECHNIQUE: Single frontal radiographic view of the chest acquired. RADIATION DOSE: NA LIMITATIONS: None. FINDINGS: LUNGS AND PLEURA: No opacities, masses or pneumothorax. No pleural effusion. MEDIASTINUM AND HILAR STRUCTURES: No masses. Contour normal. HEART AND VASCULAR STRUCTURES: Stable cardiomegaly. Mild vascular prominence. BONES: No acute findings. HARDWARE: None in the chest. OTHER: No other significant finding. IMPRESSION: STABLE CARDIOMEGALY WITH MILD VASCULAR PROMINENCE. NO ACUTE RADIOGRAPHIC FINDING IN THE CHEST. TECHNICAL DOCUMENTATION: JOB ID: [id number] [employer]- All Rights Reserved Reading location - IP/workstation name: [email or web address]
[2019-08-07] MEDS ORDERED: IPRATROPIUM/ALBUTEROL 0.5-2.5 MG/3 ML AMPUL NEB ONE ×2 (15:15→16:25)
--- NOTE | 2019-08-07 15:15 | ER Document Report ---
ED General - General Chief Complaint: General Weakness Stated Complaint: WEAKNESS Time Seen by Provider: 08/07/19 14:02 Primary Care Provider: SOBIA YANEZ MD [Primary Care Provider] - Follow up as needed Mode of Arrival: Medic Notes: Patient says she fell about 6 AM this morning. She was in a local long term, [facility], and is confined to wheelchair and bed and is unable to walk she says that she was not unconscious when that she hit the back of her head this morning. She complains of pain in the anterior aspect of the right knee. She says it buckled. Patient denies any chest injuries. Patient has chronic shortness of breath because she has COPD. In the long term, she has available oxygen if needed. She says she rarely uses it and has not used it for the past month. Denies any significant cough or chest congestion. No fevers. Patient is an insulin-dependent diabetic. Not sure if she got her insulin this morning but thinks she did. Did not eat breakfast. Patient still smokes cigarettes. TRAVEL OUTSIDE OF THE [place] IN LAST 30 DAYS: No - Related Data Allergies/Adverse Reactions: dicyclomine HCl [From Bentyl] Allergy (Severe, Verified 09/16/18 22:19) throat swelling ibuprofen [From Motrin] Allergy (Severe, Verified 09/16/18 22:19) "increased headache",swelling Shellfish * [Shellfish] Allergy (Severe, Verified 09/16/18 22:19) rash,migraines Penicillins Allergy (Intermediate, Verified 09/16/18 22:19) Hives,vomit,fever sumatriptan succinate [From Imitrex] Allergy (Verified 09/16/18 22:19) Past Medical History - General Information source: Patient - Social History Smoking Status: Current Every Day Smoker Frequency of alcohol use: None Drug Abuse: None Family History: Reviewed & Not Pertinent, Hypertension Patient has suicidal ideation: No Patient has homicidal ideation: No - Past Medical History Cardiac Medical History: Reports: Hx Coronary Artery Disease - 4 stents, Hx Heart Attack - AUG x 2, Hx Hypercholesterolemia, Hx Hypertension Denies: Hx Heart Murmur Pulmonary Medical History: Reports: Hx Asthma, Hx Bronchitis, Hx COPD, Hx Pneumonia Neurological Medical History: Reports: Hx Cerebrovascular Accident - 2007, Hx Migraine, Hx Seizures Endocrine Medical History: Reports: Hx Diabetes Mellitus Type 1, Hx Diabetes Mellitus Type 2 Renal/ Medical History: Reports: Hx Kidney Stones GI Medical History: Reports: Hx Gastroesophageal Reflux Disease, Hx Irritable Bowel Musculoskeletal Medical History: Reports Hx Arthritis - Back & Legs Psychiatric Medical History: Reports: Hx Bipolar Disorder, Hx Depression, Hx Post Traumatic Stress Disorder, Hx Schizophrenia Past Surgical History: Reports: Hx Appendectomy, Hx Cardiac Catheterization, Hx Cardiac Surgery - 3 stents, Hx Cholecystectomy, Hx Hysterectomy, Hx Orthopedic Surgery - L knee, Hx Tonsillectomy - Immunizations Immunizations up to date: Yes Hx Diphtheria, Pertussis, Tetanus Vaccination: Yes Hx Pneumococcal Vaccination: 11/26/12 Review of Systems - Review of Systems Notes: REVIEW OF SYSTEMS: CONSTITUTIONAL : Denies fever. EENT: Denies eye, ear, nose or mouth or throat pain or other symptoms. CARDIOVASCULAR: Denies chest pain. RESPIRATORY: Denies cough, chest congestion, or shortness of breath. GASTROINTESTINAL: Denies abdominal pain or nausea, vomiting, or diarrhea. GENITOURINARY: Denies difficulty or painful urinating, urinary frequency, blood in urine. MUSCULOSKELETAL: Denies back or neck pain. Except for the anterior aspect of the right knee, denies joint pain or swelling. SKIN: Denies rash or skin lesions. NEUROLOGICAL: Denies LOC or altered mental status. Denies headache. Denies sensory loss or motor deficits. ALL OTHER SYSTEMS REVIEWED AND NEGATIVE. Physical Exam - Vital signs Vitals: Temp Pulse Ox 98.6 F 88 L 08/07/19 12:10 08/07/19 12:10 Interpretation: Hypoxic - Initially, O2 sat in the upper 70s until oxygen applied at 5 L and her O2 sat robin to low 90s. Notes: PHYSICAL EXAMINATION: GENERAL: Well-appearing, in no acute distress. [place]wickian body structure HEAD: Atraumatic, normocephalic. EYES: Pupils equal round and reactive to light, extraocular movements intact. ENT: oropharynx clear without exudates. Moist mucous membranes. NECK: Normal range of motion, supple. LUNGS: Scattered wheezes bilaterally in the back. Good airflow, however. No rales heard. O2 sat drops to the upper 70s whenever patient's oxygen is removed. HEART: Regular rate and rhythm without murmurs. ABDOMEN: Soft, nontender. No guarding or rebound. No masses. BACK: No tenderness throughout entire back. EXTREMITIES: N right knee is painful to touch anteriorly. No deformity noted. Very minimal if any soft tissue swelling present. No knee effusion. However, very painful to move the right knee in any position. Ormal range of motion without pain. NEUROLOGICAL: Normal speech, normal gait. Normal sensory, motor, and reflex exams. Awake, alert, and oriented x3. Cranial nerves normal. PSYCH: Normal mood, normal affect. SKIN: Warm, dry, no rashes. Course - Re-evaluation Re-evalutation: 08/07/19 16:47 Patient's oxygen saturation level would drop into the upper 70s every time she was taken off of oxygen. On a couple of liters, she is maintained in the low 90s. She does have a few wheezes so I ordered a couple of duo nebs treatments on the patient. She was also given 125 mg Solu-Medrol IV. Because of the patient's persistent and significant hypoxia, I contacted the hospitalist for admitting the patient with COPD, hypoxia, fall with bruises. - Vital Signs Vital signs: Temp Pulse Resp BP Pulse Ox 98.5 F 84 18 147/83 H 94 08/07/19 12:29 08/07/19 12:29 08/07/19 16:03 08/07/19 16:03 08/07/19 16:03 - Laboratory Result Diagrams: 08/07/19 13:15 08/07/19 13:15 Laboratory results interpreted by me: 08/07/19 08/07/19 08/07/19 13:15 13:15 14:45 RDW 16.0 H Carbon Dioxide 33 H Est GFR (MDRD) Non-Af 53 L Glucose 68 L POC Glucose 45 L - Diagnostic Test Radiology results interpreted by me: 08/07/19 16:45 Chest x-ray shows cardiomegaly. No acute infiltrates. - EKG Interpretation by Nj EKG shows normal: Sinus rhythm Rate: Normal Rhythm: NSR Additional EKG results interpreted by az: 08/07/19 16:45 EKG has some nonspecific ST changes, but no acute changes and no STEMI. Discharge - Discharge Clinical Impression: Contusion of head, Contusion of right knee, Hypoglycemia, COPD exacerbation, H ypoxia Condition: Stable Disposition: ADMITTED OBSERVATION Admitting Provider: Germania (Hospitalist) Unit Admitted: Telemetry Referrals: SOBIA YANEZ MD [Primary Care Provider] - Follow up as needed
[2019-08-07] MEDS ORDERED: METHYLPREDNISOLONE INJ 125 MG/2 ML SDV IV ONE (15:17)
[2019-08-07] MEDS ORDERED: DEXTROSE 40% GEL 15 GM TUBE PO PRN ×2 (17:14)
[2019-08-07] MEDS ORDERED: DEXTROSE 50%-WATER 25 GM/50 ML DISP.SYRIN IV PRN ×2 (17:14)
[2019-08-07] MEDS ORDERED: GLUCAGON,HUMAN RECOMB 1 MG INJ IM PRN (17:14)
[2019-08-07] MEDS ORDERED: IPRATROPIUM/ALBUTEROL 0.5-2.5 MG/3 ML AMPUL NEB SCH (17:15)
[2019-08-07] MEDS ORDERED: HYDRALAZINE HCL INJ/PF 20 MG/1 ML SDV IV PRN (17:30)
--- NOTE | 2019-08-07 17:32 | PDOC H&P ---
History of Present Illness Admission Date/PCP: SOBIA YANEZ MD Patient complains of: fall History of Present Illness: NAVEEN TABARES is a 58 year old female with a past medical history of CAD, with prior stent x4, chronic systolic heart failure EF of 40%, COPD currently not on home O2, diabetes mellitus type 2, morbid obesity, bipolar disorder, history of schizophrenia and PTSD and migraines who was brought in from [facility] after a fall. [facility]. She says that she has been feeling weaker in the past few days. She says that she tried to transfer from the bed to the chair when her legs gave out and she fell. Trauma work-up in the ER was unremarkable. However she was noted to have low s aturation with the lowest one at 84%. She is currently not on home O2. She was noted to have bilateral wheezing upon examination. Was given breathing treatments and steroids. Upon encounter, she appears comfortable. She is currently saturating at 90 to 91% on 2 L nasal cannula. She still has bilateral wheezing upon auscultation. She denies chest pain or shortness of breath. Past Medical History Cardiac Medical History: Reports: Coronary Artery Disease - 4 stents, Myocardial Infarction - AUG x 2, Hyperlipidema, Hypertension Denies: Heart Murmur Pulmonary Medical History: Reports: Asthma, Bronchitis, Chronic Obstructive Pulmonary Disease (COPD), Pneumonia Denies: Respiratory Failure, Sleep Apnea, Tuberculosis Neurological Medical History: Reports: Migraine, Seizures Endocrine Medical History: Reports: Diabetes Mellitus Type 1, Diabetes Mellitus Type 2 GI Medical History: Reports: Gastroesophageal Reflux Disease Musculoskeltal Medical History: Reports: Arthritis - Back & Legs Psychiatric Medical History: Reports: Bipolar Disorder, Depression, Post Traumatic Stress Disorder Hematology: Denies: Anemia Past Surgical History Past Surgical History: Reports: Appendectomy, Cardiac Catheterization, Cholecystectomy, Hysterectomy, Orthopedic Surgery - L knee, Tonsillectomy Social History Smoking Status: Current Every Day Smoker Frequency of Alcohol Use: None Hx Recreational Drug Use: No Drugs: None Hx Prescription Drug Abuse: No Family History Family History: Reviewed & Not Pertinent, Hypertension Parental Family History Reviewed: Yes - No premature CAD Children Family History Reviewed: No Sibling(s) Family History Reviewed.: No Medication/Allergy Home Medications: Aspirin [Aspirin EC] 81 mg PO DAILY 07/22/18 Levocetirizine Dihydrochloride [Xyzal] 5 mg PO DAILYP PRN 07/22/18 Metformin HCl [Glucophage] 1,000 mg PO Q12 07/22/18 Risperidone [Risperdal 1 mg Tablet] 3 mg PO QHS 07/22/18 Atorvastatin Calcium [Lipitor 10 mg Tablet] 10 mg PO QHS 09/17/18 Benztropine Mesylate [Cogentin 1 mg Tablet] 1 mg PO Q12 09/17/18 Clonazepam [Klonopin] 0.5 mg PO DAILYP PRN 09/17/18 Insulin Degludec [Tresiba Flextouch U-200] 120 unit SQ QHS 09/17/18 Topiramate [Topamax] 150 mg PO Q12 09/17/18 Furosemide [Lasix 20 mg Tablet] 20 mg PO DAILY 02/19/19 Meloxicam [Mobic] 15 mg PO DAILYP PRN 02/19/19 Sertraline HCl [Zoloft 50 mg Tablet] 50 mg PO DAILY 02/19/19 Suvorexant [Belsomra] 15 mg PO DAILY 02/19/19 Valbenazine Tosylate [Ingrezza] 40 mg PO DAILY 02/19/19 Isosorbide Mononitrate [Imdur 30 mg Tablet.er] 30 mg PO DAILY tab.er.24h 02/26/19 Lisinopril [Prinivil 10 mg Tablet] 5 mg PO Q12 tablet 02/26/19 Metoprolol Succinate [Toprol Xl 25 mg Tab.sr] 12.5 mg PO Q12 tab.sr.24h 02/26/19 Nicotine [Nicoderm 21 mg/24 Hr Transderm Patch] 1 each TD DAILY patch.td24 02/26/19 Pregabalin [Lyrica 75 mg Capsule] 75 mg PO Q12 capsule 02/26/19 Risperidone [Risperdal 1 mg Tablet] 2 mg PO QAM tablet 02/26/19 Allergies/Adverse Reactions: dicyclomine HCl [From Bentyl] Allergy (Severe, Verified 09/16/18 22:19) throat swelling ibuprofen [From Motrin] Allergy (Severe, Verified 09/16/18 22:19) "increased headache",swelling Shellfish * [Shellfish] Allergy (Severe, Verified 09/16/18 22:19) rash,migraines Penicillins Allergy (Intermediate, Verified 09/16/18 22:19) Hives,vomit,fever sumatriptan succinate [From Imitrex] Allergy (Verified 09/16/18 22:19) Review of Systems All systems: reviewed and no additional remarkable complaints except as stated - As mentioned in HPI Physical Exam Vital Signs: Temp Pulse Resp BP Pulse Ox 98.5 F 84 18 147/83 H 94 08/07/19 12:29 08/07/19 12:29 08/07/19 16:03 08/07/19 16:03 08/07/19 16:03 Intake & Output 08/06/19 08/07/19 08/08/19 06:59 06:59 06:59 Weight 241 lb 10.026 oz General appearance: PRESENT: no acute distress, morbidly obese Head exam: PRESENT: atraumatic, normocephalic Eye exam: PRESENT: conjunctiva pink, EOMI, PERRLA. ABSENT: scleral icterus Ear exam: PRESENT: normal external ear exam Mouth exam: PRESENT: moist, tongue midline Neck exam: ABSENT: carotid bruit, JVD, lymphadenopathy, thyromegaly Respiratory exam: PRESENT: rhonchi, wheezes. ABSENT: rales Cardiovascular exam: PRESENT: RRR. ABSENT: diastolic murmur, rubs, systolic murmur Pulses: PRESENT: normal dorsalis pedis pul GI/Abdominal exam: PRESENT: normal bowel sounds, soft. ABSENT: distended, guarding, mass, organolmegaly, rebound, tenderness Rectal exam: PRESENT: deferred Neurological exam: PRESENT: alert, awake, oriented to person, oriented to place, oriented to time, oriented to situation, CN II-XII grossly intact. ABSENT: motor sensory deficit Results Laboratory Results: 08/07/19 13:15 08/07/19 13:15 08/07/19 08/07/19 08/07/19 13:15 13:15 13:15 WBC 10.0 RBC 4.43 Hgb 12.7 Hct 39.2 MCV 89 MCH 28.7 MCHC 32.4 RDW 16.0 H Plt Count 197 Seg Neutrophils % 75.9 Sodium 141.3 Potassium 4.1 Chloride 100 Carbon Dioxide 33 H Anion Gap 8 BUN 14 Creatinine 1.07 Est GFR ( Amer) > 60 Glucose 68 L Calcium 9.2 Magnesium 1.6 Total Bilirubin 0.2 AST 16 Alkaline Phosphatase 95 Total Protein 6.5 Albumin 3.7 Urine Color YELLOW Urine Appearance CLEAR Urine pH 6.0 Ur Specific [place] 1.008 Urine Protein NEGATIVE Urine Glucose (UA) NEGATIVE Urine Ketones NEGATIVE Urine Blood NEGATIVE Urine Nitrite NEGATIVE Ur Leukocyte Esterase NEGATIVE Ur Squamous Epith Cells FEW Impressions: Cervical Spine CT 08/07/19 00:00 IMPRESSION: NO ACUTE OR SIGNIFICANT FINDINGS IN THE CERVICAL SPINE. Chest X-Ray 08/07/19 00:00 IMPRESSION: STABLE CARDIOMEGALY WITH MILD VASCULAR PROMINENCE. NO ACUTE RADIO GRAPHIC FINDING IN THE CHEST. Head CT 08/07/19 00:00 IMPRESSION: NORMAL BRAIN CT WITHOUT CONTRAST. EVIDENCE OF ACUTE STROKE: NO. Knee X-Ray 08/07/19 14:02 IMPRESSION: NEGATIVE STUDY OF THE RIGHT KNEE. NO RADIOGRAPHIC EVIDENCE OF ACUTE INJURY. Assessment and Plan - Diagnosis (1) Acute respiratory failure with hypoxia Is this a current diagnosis for this admission?: Yes Plan: Secondary to COPD exacerbation. Will reevaluate for need for home O2 once exacerbation resolves. (2) COPD exacerbation Is this a current diagnosis for this admission?: Yes Plan: Start IV Solu-Medrol and scheduled breathing treatments. No antibiotics for now. (3) Chronic systolic (congestive) heart failure Is this a current diagnosis for this admission?: Yes Plan: Resume oral Lasix. (4) CAD (coronary artery disease) Qualifiers: Coronary Disease-Associated Artery/Lesion type: [place] artery [place] vs. transplanted heart: unspecified whether [place] or transplanted heart Associated angina: with unspecified angina Qualified Code(s): I25.119 - Atherosclerotic heart disease of [place] coronary artery with unspecified angina pectoris Is this a current diagnosis for this admission?: Yes Plan: Stable. Resume aspirin. (5) Diabetes mellitus type 2 in obese Is this a current diagnosis for this admission?: Yes Plan: Hold on long-acting insulin for now due to hypoglycemic episode in the ER. (6) Hypoglycemia Is this a current diagnosis for this admission?: Yes Plan: We will continue to monitor Accu-Cheks. - Time Time Spent with patient: 25-34 minutes
--- NOTE | 2019-08-07 17:36 | ADVANCED CARE ---
- Diagnosis (1) Acute respiratory failure with hypoxia Diagnosis Current: Yes (2) COPD exacerbation Diagnosis Current: Yes (3) Chronic systolic (congestive) heart failure Diagnosis Current: Yes (4) Hypoglycemia Diagnosis Current: Yes Resuscitation Status: Full Code Discussion: Patient says that she prefers to receive chest compressions, defibrillation or mechanical ventilation if the need arises. She will remain a full code at this time. However she does verbalize that she does not want to be on prolonged ventilation. She says that her daughter Jaja Martinez is her surrogate medical decision maker.
[2019-08-07] MEDS: IPRATROPIUM/ALBUTEROL 0.5-2.5 MG/3 ML AMPUL NEB SCH ×2 (19:28→23:50)
[2019-08-07] MEDS: FUROSEMIDE 20 MG TABLET PO SCH (20:10)
[2019-08-07] MEDS ORDERED: ACETAMINOPHEN 325 MG TABLET PO PRN (21:29)
[2019-08-07] MEDS: HEPARIN SOD (PORCINE) 5,000 UNIT/ML 1 ML VIAL SUBCUT SCH (22:06)
[2019-08-07] MEDS: INSULIN LISPRO 100 UNIT/ML 3 ML VIAL SUBCUT SCH (22:07)
[2019-08-07] MEDS: METHYLPREDNISOLONE INJ 40 MG/1 ML SDV IV SCH (22:08)
[2019-08-08] MEDS: IPRATROPIUM/ALBUTEROL 0.5-2.5 MG/3 ML AMPUL NEB SCH ×5 (04:14→20:22)
[2019-08-08] MEDS: INSULIN LISPRO 100 UNIT/ML 3 ML VIAL SUBCUT SCH ×4 (07:36→21:17)
--- NOTE | 2019-08-08 08:45 | EKG REPORT ---
SEVERITY:- BORDERLINE ECG - SINUS RHYTHM PROBABLE LEFT ATRIAL ABNORMALITY BORDERLINE T WAVE ABNORMALITIES : Confirmed by: Eugenia Burgos MD 08-Aug-2019 08:44:37
[2019-08-08] MEDS: HEPARIN SOD (PORCINE) 5,000 UNIT/ML 1 ML VIAL SUBCUT SCH ×2 (09:44→21:17)
[2019-08-08] MEDS: METHYLPREDNISOLONE INJ 40 MG/1 ML SDV IV SCH ×2 (09:47→21:43)
[2019-08-08] MEDS: FUROSEMIDE 20 MG TABLET PO SCH ×2 (09:48→17:16)
[2019-08-08] MEDS: ASPIRIN 81 MG TABLET, CHEWABLE PO SCH (09:48)
[2019-08-08 16:36] LABS: ARTERIAL BLOOD BASE EXCESS 8.1 mmol/L; ARTERIAL BLOOD H2CO3 1.94 mmol/L (1.05-1.35); ARTERIAL BLOOD HCO3 35.9 mmol/L (20-24); ARTERIAL BLOOD O2 SATURATION 94.4 % (94-98); ARTERIAL BLOOD PCO2 64.5 mmHg (35-45); ARTERIAL BLOOD PH 7.36 (7.35-7.45); ARTERIAL BLOOD PO2 76.4 mmHg (80-100); ARTERIAL BLOOD TOTAL CO2 37.8 mmol/L (21-25)
[2019-08-08 16:40] LABS: ARTERIAL BLOOD FIO2 4L
--- NOTE | 2019-08-08 17:18 | PDOC PROGRESS REPORT ---
Subjective Progress Note for:: 08/08/19 Subjective:: NAVEEN TABARES is a 58 year old female with a past medical history of CAD, with prior stent x4, chronic systolic heart failure EF of 40%, COPD currently not on home O2, diabetes mellitus type 2, morbid obesity, bipolar disorder, history of schizophrenia and PTSD and migraines who was brought in from [facility] after a fall. She was noted to be hypoxic and had bilateral wheezing. She was admitted for COPD exacerbation. No acute event overnight. Upon encounter, she appears comfortable. She says she feels much better today. Wheezing has significantly improved bilaterally. Will evaluate for need for home O2. Reason For Visit: ACUTE HYPOXIC RESPIRATORY FAILURE, COPD Physical Exam Vital Signs: Temp Pulse Resp BP Pulse Ox 98.5 F 87 16 154/58 H 95 08/08/19 11:49 08/08/19 16:09 08/08/19 16:09 08/08/19 11:49 08/08/19 16:09 Intake & Output 08/07/19 08/08/19 08/09/19 06:59 06:59 06:59 Intake Total 320 120 Balance 320 120 Weight 240 lb 8.389 oz General appearance: PRESENT: no acute distress, well-developed, well-nourished Head exam: PRESENT: atraumatic, normocephalic Eye exam: PRESENT: conjunctiva pink, EOMI, PERRLA. ABSENT: scleral icterus Ear exam: PRESENT: normal external ear exam Mouth exam: PRESENT: moist, tongue midline Neck exam: ABSENT: carotid bruit, JVD, lymphadenopathy, thyromegaly Respiratory exam: PRESENT: wheezes. ABSENT: rales, rhonchi Cardiovascular exam: PRESENT: RRR. ABSENT: diastolic murmur, rubs, systolic murmur Pulses: PRESENT: normal dorsalis pedis pul GI/Abdominal exam: PRESENT: normal bowel sounds, soft. ABSENT: distended, guarding, mass, organolmegaly, rebound, tenderness Rectal exam: PRESENT: deferred Extremities exam: PRESENT: full ROM. ABSENT: calf tenderness, clubbing, pedal edema Neurological exam: PRESENT: alert, awake, oriented to person, oriented to place, oriented to time, oriented to situation, CN II-XII grossly intact. ABSENT: motor sensory deficit Results Laboratory Results: 08/07/19 13:15 08/07/19 13:15 08/07/19 08/08/19 13:15 16:15 Carbonic Acid 1.94 H HCO3/H2CO3 Ratio 18:1 ABG pH 7.36 ABG pCO2 64.5 H ABG pO2 76.4 L ABG HCO3 35.9 H ABG O2 Saturation 94.4 ABG Base Excess 8.1 FiO2 4L TSH 1.29 Impressions: Cervical Spine CT 08/07/19 00:00 IMPRESSION: NO ACUTE OR SIGNIFICANT FINDINGS IN THE CERVICAL SPINE. Chest X-Ray 08/07/19 00:00 IMPRESSION: STABLE CARDIOMEGALY WITH MILD VASCULAR PROMINENCE. NO ACUTE RADIOGRAPHIC FINDING IN THE CHEST. Head CT 08/07/19 00:00 IMPRESSION: NORMAL BRAIN CT WITHOUT CONTRAST. EVIDENCE OF ACUTE STROKE: NO. Knee X-Ray 08/07/19 14:02 IMPRESSION: NEGATIVE STUDY OF THE RIGHT KNEE. NO RADIOGRAPHIC EVIDENCE OF ACUTE INJURY. Assessment and Plan - Diagnosis (1) Acute respiratory failure with hypoxia Is this a current diagnosis for this admission?: Yes Plan: Secondary to COPD exacerbation. Will evaluate need for home O2. (2) COPD exacerbation Is this a current diagnosis for this admission?: Yes Plan: Continue IV Solu-Medrol. Continue scheduled breathing treatments. (3) Chronic systolic (congestive) heart failure Is this a current diagnosis for this admission?: Yes Plan: Continue oral Lasix. (4) Hypoglycemia Is this a current diagnosis for this admission?: Yes Plan: Resolved. - Time Time Spent with patient: 15-24 minutes
[2019-08-09] MEDS: IPRATROPIUM/ALBUTEROL 0.5-2.5 MG/3 ML AMPUL NEB SCH ×4 (00:15→11:50)
[2019-08-09] MEDS: INSULIN LISPRO 100 UNIT/ML 3 ML VIAL SUBCUT SCH (08:00)
[2019-08-09] MEDS: ASPIRIN 81 MG TABLET, CHEWABLE PO SCH (10:01)
[2019-08-09] MEDS: FUROSEMIDE 20 MG TABLET PO SCH (10:01)
[2019-08-09] MEDS: METHYLPREDNISOLONE INJ 40 MG/1 ML SDV IV SCH (10:01)
[2019-08-09] MEDS: HEPARIN SOD (PORCINE) 5,000 UNIT/ML 1 ML VIAL SUBCUT SCH (10:02)
--- NOTE | 2019-08-09 10:55 | PDOC TRANSFER SUMMARY ---
General - Admit/Disc Date/PCP Admission Date/Primary Care Provider: 08/07/19 17:53 SOBIA YANEZ MD Discharge Date: 08/09/19 - Discharge Diagnosis (1) Acute respiratory failure with hypoxia Is this a current diagnosis for this admission?: Yes (2) COPD exacerbation Is this a current diagnosis for this admission?: Yes (3) Chronic systolic (congestive) heart failure Is this a current diagnosis for this admission?: Yes (4) Hypoglycemia Is this a current diagnosis for this admission?: Yes - Additional Information Resuscitation Status: Full Code Prescriptions: Fluticasone/Salmeterol [Advair 250-50 Diskus 14 Dose/Diskus] 1 inh IH Q12H #1 inhaler Prednisone [Deltasone 20 mg Tablet] 20 mg PO BID 5 Days #10 tablet Home Medications: Aspirin [Aspirin EC] 81 mg PO DAILY 07/22/18 Metformin HCl [Glucophage] 1,000 mg PO Q12 07/22/18 Risperidone [Risperdal 1 mg Tablet] 2 mg PO QHS 07/22/18 Atorvastatin Calcium [Lipitor 10 mg Tablet] 10 mg PO QHS 09/17/18 Benztropine Mesylate [Cogentin 1 mg Tablet] 1 mg PO Q12 09/17/18 Insulin Degludec [Tresiba Flextouch U-200] 110 unit SQ QPM 09/17/18 Topiramate [Topamax] 150 mg PO Q12 09/17/18 Furosemide [Lasix 20 mg Tablet] 20 mg PO DAILY 02/19/19 Sertraline HCl [Zoloft 50 mg Tablet] 75 mg PO DAILY 02/19/19 Valbenazine Tosylate [Ingrezza] 40 mg PO DAILY 02/19/19 Hydrocodone/Acetaminophen [[place] 5-325 mg Tablet] 1 tab PO Q6 08/08/19 Lidocaine [Lidoderm 5% (700 mg) Transdermal Patch] 1 patch TP QAM 08/08/19 Pregabalin [Lyrica 75 mg Capsule] 75 mg PO QAM 08/08/19 Risperidone [Risperdal 1 mg Tablet] 1 mg PO QAM 08/08/19 Fluticasone/Salmeterol [Advair 250-50 Diskus 14 Dose/Diskus] 1 inh IH Q12H #1 inhaler 08/09/19 Prednisone [Deltasone 20 mg Tablet] 20 mg PO BID 5 Days #10 tablet 08/09/19 History of Present Illness Admission Date/PCP: 08/07/19 17:53 SOBIA YANEZ MD History of Present Illness: NAVEEN TABARES is a 58 year old female with a past medical history of CAD, with prior stent x4, chronic systolic heart failure EF of 40%, COPD currently not on home O2, diabetes mellitus type 2, morbid obesity, bipolar disorder, h istory of schizophrenia and PTSD and migraines who was brought in from [facility] after a fall. Patient is mostly dependent on wheelchair at the custodial. She says that she has been feeling weaker in the past few days. She says that she tried to transfer from the bed to the chair when her legs gave out and she fell. Trauma work-up in the ER was unremarkable. However she was noted to have low saturation with the lowest one at 84%. She is currently not on home O2. She was noted to have bilateral wheezing upon examination. Was given breathing treatments and steroids. Upon encounter, she appears comfortable. She is currently saturating at 90 to 91% on 2 L nasal cannula. She still has bilateral wheezing upon auscultation. She denies chest pain or shortness of breath. Hospital Course Hospital Course: NAVEEN TABARES is a 58 year old female with a past medical history of CAD, with prior stent x4, chronic systolic heart failure EF of 40%, COPD currently not on home O2, diabetes mellitus type 2, morbid obesity, bipolar disorder, history of schizophrenia and PTSD and migraines who was brought in from [facility] after a fall. She was noted to be hypoxic and had bilateral wheezing. She was admitted for COPD exacerbation. She was started on IV steroids and scheduled breathing treatments. She did significantly improve. She was for need for home O2 and she qualified. She will be discharged back to to [facility] on home O2. She will also be started on Advair. She will be discharged on 5 more days of oral steroids. Physical Exam Vital Signs: Temp Pulse Resp BP Pulse Ox 97.6 F 97 16 153/71 H 96 08/09/19 03:25 08/09/19 07:56 08/09/19 07:56 08/09/19 03:25 08/09/19 07:56 Intake & Output 08/08/19 08/09/19 08/10/19 06:59 06:59 06:59 Intake Total 320 690 Balance 320 690 Weight 240 lb 8.389 oz 239 lb 10.279 oz Results Laboratory Results: 08/07/19 13:15 08/07/19 13:15 08/08/19 16:15 Carbonic Acid 1.94 H HCO3/H2CO3 Ratio 18:1 ABG pH 7.36 ABG pCO2 64.5 H ABG pO2 76.4 L ABG HCO3 35.9 H ABG O2 Saturation 94.4 ABG Base Excess 8.1 FiO2 4L Impressions: Cervical Spine CT 08/07/19 00:00 IMPRESSION: NO ACUTE OR SIGNIFICANT FINDINGS IN THE CERVICAL SPINE. Chest X-Ray 08/07/19 00:00 IMPRESSION: STABLE CARDIOMEGALY WITH MILD VASCULAR PROMINENCE. NO ACUTE RADIOGRAPHIC FINDING IN THE CHEST. Head CT 08/07/19 00:00 IMPRESSION: NORMAL BRAIN CT WITHOUT CONTRAST. EVIDENCE OF ACUTE STROKE: NO. Knee X-Ray 08/07/19 14:02 IMPRESSION: NEGATIVE STUDY OF THE RIGHT KNEE. NO RADIOGRAPHIC EVIDENCE OF ACUTE INJURY. Qualifiers - * PATIENT BEING DISCHARGED WITH ANY OF THE FOLLOWING DIAGNOSIS: No Acute Heart Failure - Is this a Heart Failure Patient?: No
[2019-08-09 14:46] VITALS: BP 167/87
== END 2019-08-09 12:40 ==
LOC: ER 12:09 → EH 17:53 → 5 20:43
PROVIDERS: ADMIT Internal Medicine; ATTEND Internal Medicine
DX: J96.01 Acute respiratory failure with hypoxia (principal); J44.1 Chronic obstructive pulmonary disease with (acute) exacerbation; I11.0 Hypertensive heart disease with heart failure; I50.22 Chronic systolic (congestive) heart failure; E11.649 Type 2 diabetes mellitus with hypoglycemia without coma; I25.119 Atherosclerotic heart disease of native coronary artery with unspecified angina pectoris; F17.210 Nicotine dependence, cigarettes, uncomplicated; E78.5 Hyperlipidemia, unspecified; Z74.01 Bed confinement status; Z99.3 Dependence on wheelchair; M25.561 Pain in right knee; S80.01XA Contusion of right knee, initial encounter; S00.93XA Contusion of unspecified part of head, initial encounter; W06.XXXA Fall from bed, initial encounter; W22.8XXA Striking against or struck by other objects, initial encounter; Y92.122 Bedroom in nursing home as the place of occurrence of the external cause; E66.01 Morbid (severe) obesity due to excess calories; M13.89 Other specified arthritis, multiple sites; F20.9 Schizophrenia, unspecified; F31.9 Bipolar disorder, unspecified; G43.909 Migraine, unspecified, not intractable, without status migrainosus; F43.10 Post-traumatic stress disorder, unspecified; I25.2 Old myocardial infarction; Z86.73 Personal history of transient ischemic attack (TIA), and cerebral infarction without residual deficits; Z79.82 Long term (current) use of aspirin; Z79.899 Other long term (current) drug therapy; Z79.4 Long term (current) use of insulin; Z95.5 Presence of coronary angioplasty implant and graft
CPT/HCPCS: 93005; 94640 ×5; 99285; 96374; 96375; 36415; 82962 ×3; 80307 ×2; 82803; 83735; 84443; 85025; 80053; 81001; 83036; 71045; 73560; 70450; 72125; 93010; 36600; G0378 ×4; A9270 ×10; J1644; J3490 ×4; J2920 ×3; J2930; J1815; J7620

== ENCOUNTER 2019-09-21 20:01 | Emergency (ER) | payer MEDICARE, MEDICAID ==
--- NOTE | 2019-09-21 20:08 | ER Document Report ---
ED General - General Stated Complaint: FALL,LEFT SHOULDER AND RIGHT WRIST PAIN Time Seen by Provider: 09/21/19 20:07 Primary Care Provider: SOBIA YANEZ MD [Primary Care Provider] - Follow up as needed MOISÉS GOODMAN JR, DO [ACTIVE PROVISIONAL STAFF] - Follow up in 3-5 days Notes: Patient is a 58-year-old female that presents to the emergency department for chief complaint of right wrist pain and left shoulder pain after fall. Patient is a long-term resident of a long-term facility, she states she was in her wheelchair and it got caught on the rug and she fell forward onto her left side and try to catch herself with her right wrist as well and resulted in having pain in both her left shoulder and her right wrist. She currently rates her pain as a 6 out of 10 describes as an aching and throbbing sensation in all areas. She denies head injury or neck injury. Denies any numbness, weakness or tingling in any of her extremities. She states that she chronically has lower extremity pain and weakness, which is why she is chronically in a wheelchair. Denies any other pain at this time, denies nausea, vomiting, abdominal pain or chest pain or shortness of breath. Past Medical History: ULISES, hypertension, hyperlipidemia, COPD Past Surgical History: Denies any recent or pertinent surgical history Social History: Admits to smoking cigarettes daily, denies current alcohol or drug use. Family History: Reviewed and noncontributory for presenting illness Allergies: Reviewed, see documented allergy list. REVIEW OF SYSTEMS: Other than noted above, the 12 point review of systems was reviewed with the patient and were negative, all pertinent findings are included in the HPI. PHYSICAL EXAMINATION: Vital signs reviewed, nursing noted reviewed. GENERAL: Patient appears older than stated age, morbidly obese, but no acute distress but does appear to be in pain HEAD: Atraumatic, normocephalic. EYES: Eyes appear normal, extraocular movements intact, sclera anicteric, conjunctiva are normal. ENT: nares patent, oropharynx clear without exudates. Moist mucous membranes. NECK: Normal range of motion, supple without lymphadenopathy LUNGS: Breath sounds clear to auscultation bilaterally and equal. No wheezes r ales or rhonchi. HEART: Regular rate and rhythm without murmurs ABDOMEN: Soft, obese, nontender, normoactive bowel sounds. No rebound, guarding, or rigidity. No masses appreciated. EXTREMITIES: the patient's right wrist has tenderness to palpation of the distal radius, without gross deformity, or edema. She does have good range of motion but it is uncomfortable. There is no tenderness at the elbow or right shoulder. Good range of motion of both joints there. The patient's left shoulder has pain with range of motion, and is tender to palpate, the elbow is mildly tender as well, as is the left wrist, without gross deformity. There is no tenderness along the clavicles bilaterally. Patient's lower extremities have bilateral peripheral edema, but no tenderness to palpation or any evidence of acute injury or trauma. NEUROLOGICAL: No focal neurological deficits. Moves all extremities spontaneously Motor and sensory grossly intact on exam. PSYCH: Normal mood, normal affect. SKIN: Warm, Dry, normal turgor, no rashes or lesions noted on exposed skin TRAVEL OUTSIDE OF THE [place] IN LAST 30 DAYS: No - Related Data Allergies/Adverse Reactions: dicyclomine HCl [From Bentyl] Allergy (Severe, Verified 09/16/18 22:19) throat swelling ibuprofen [From Motrin] Allergy (Severe, Verified 09/16/18 22:19) "increased headache",swelling Shellfish * [Shellfish] Allergy (Severe, Verified 09/16/18 22:19) rash,migraines Penicillins Allergy (Intermediate, Verified 09/16/18 22:19) Hives,vomit,fever sumatriptan succinate [From Imitrex] Allergy (Verified 09/16/18 22:19) Past Medical History - Social History Smoking Status: Current Every Day Smoker Family History: Reviewed & Not Pertinent, Hypertension - Past Medical History Cardiac Medical History: Reports: Hx Coronary Artery Disease - 4 stents, Hx Heart Attack - AUG x 2, Hx Hypercholesterolemia, Hx Hypertension Denies: Hx Heart Murmur Pulmonary Medical History: Reports: Hx Asthma, Hx Bronchitis, Hx COPD, Hx Pneumonia Denies: Hx Respiratory Failure, Hx Sleep Apnea, Hx Tuberculosis Neurological Medical History: Reports: Hx Cerebrovascular Accident - 2007, Hx Migraine, Hx Seizures Endocrine Medical History: Reports: Hx Diabetes Mellitus Type 1, Hx Diabetes Mellitus Type 2 Renal/ Medical History: Reports: Hx Kidney Stones. Denies: Hx Peritoneal Dialysis GI Medical History: Reports: Hx Gastroesophageal Reflux Disease, Hx Irritable Bowel. Denies: Hx Pancreatitis Musculoskeletal Medical History: Reports Hx Arthritis - Back & Legs, Denies Hx Systemic Lupus Erythematosus Psychiatric Medical History: Reports: Hx Bipolar Disorder, Hx Depression, Hx Post Traumatic Stress Disorder, Hx Schizophrenia Past Surgical History: Reports: Hx Appendectomy, Hx Cardiac Catheterization, Hx Cardiac Surgery - 3 stents, Hx Cholecystectomy, Hx Hysterectomy, Hx Orthopedic Surgery - L knee, Hx Tonsillectomy - Immunizations Immunizations up to date: Yes Hx Diphtheria, Pertussis, Tetanus Vaccination: Yes Hx Pneumococcal Vaccination: 11/26/12 Physical Exam - Vital signs Vitals: Pulse Ox 93 09/21/19 20:14 Course - Re-evaluation Re-evalutation: Patient seen and examined, vital signs reviewed, patient had a mechanical fall today. At this time she was complaining of multiple areas of pain, images were obtained of her right wrist, left shoulder and forearm, which did demonstrate a proximal left humerus fracture, no other bony injuries noted. Patient did not have head injury or neck injury was not complaining of any neuro deficits. Patient be placed in a sling, I will have her follow-up with orthopedics, she was treated with [place] in the ED, will give her a prescription to have at the [facility]. And we will place her in a cock-up splint of her right wrist due to her pain in her wrist. Patient was agreed with this plan of care, pain was controlled to discharge, will plan for discharge back to [facility] and follow-up with orthopedics. Shoulder X-Ray 09/21/19 20:31 IMPRESSION: Acute comminuted fracture of the proximal left humerus. Forearm X-Ray 09/21/19 20:32 IMPRESSION: No acute radiographic abnormality. Wrist X-Ray 09/21/19 20:32 IMPRESSION: No acute radiographic abnormality. - Vital Signs Vital signs: Temp Pulse Resp BP Pulse Ox 98.6 F 86 18 178/77 H 91 L 09/21/19 22:39 09/21/19 22:39 09/21/19 22:39 09/21/19 22:39 09/21/19 22:39 Procedures - Immobilization Left Shoulder Pre-Proc Neuro Vasc Exam: Normal Immobilizer type: Sling Performed by: PCT Post-Proc Neuro Vasc Exam: Normal Alignment checked and good: Yes Discharge - Discharge Clinical Impression: Closed fracture of left proximal humerus Qualifiers: Encounter type: initial encounter Fracture morphology: unspecified fracture mor phology Qualified Code(s): S42.202A - Unspecified fracture of upper end of left humerus, initial encounter for closed fracture Right wrist injury Qualifiers: Encounter type: initial encounter Qualified Code(s): S69.91XA - Unspecified injury of right wrist, hand and finger(s), initial encounter Condition: Stable Disposition: HOME-SNF (ED ONLY) Instructions: Fracture Proximal Humerus Prescriptions: Hydrocodone/Acetaminophen [[place] 5-325 Tablet] 1 each PO Q6H PRN #15 tablet PRN Reason: arm pain Referrals: SOBIA YANEZ MD [Primary Care Provider] - Follow up as needed MOISÉS GOODMAN JR, DO [ACTIVE PROVISIONAL STAFF] - Follow up in 3-5 days
[2019-09-21] MEDS ORDERED: HYDROCODONE/ACETAMINOPHEN 5-325 MG TABLET PO ONE (20:31)
[2019-09-21] MEDS ORDERED: IPRATROPIUM/ALBUTEROL 0.5-2.5 MG/3 ML AMPUL NEB ONE (20:32)
--- NOTE | 2019-09-21 21:16 | RADIOLOGY REPORT (SQ) ---
2 VIEWS OF LEFT SHOULDER EXAM DATE: 09/21/2019 8:31 PM CDT HISTORY: INJURY, LEFT SHOULDER PAIN. COMPARISON: None. FINDINGS: There is an acute mildly displaced and comminuted fracture of the proximal left humerus involving the greater tuberosity and surgical neck. Small glenohumeral joint effusion is seen. No dislocation. IMPRESSION: Acute comminuted fracture of the proximal left humerus.
--- NOTE | 2019-09-21 21:20 | RADIOLOGY REPORT (SQ) ---
EXAM DESCRIPTION: XR FOREARM 2 VIEWS, XR WRIST 3 OR MORE VIEWS BILATERAL CLINICAL INDICATION: 58-year-old female with LEFT forearm injury and pain. TECHNIQUE: Three views LEFT wrist were obtained in AP, lateral and oblique projections. Three views LEFT forearm were obtained in AP, lateral and oblique projections. COMPARISON: None. FINDINGS: LEFT wrist: There is no fracture or dislocation. The joint spaces are preserved. No soft tissue abnormalities are seen. LEFT forearm: There is no fracture or dislocation. The joint spaces are preserved. No soft tissue abnormalities are seen. IMPRESSION: No acute radiographic abnormality.
[2019-09-21 22:41] VITALS: BP 178/77
== END 2019-09-21 22:47 ==
LOC: ER 20:01
DX: S42.202A Unspecified fracture of upper end of left humerus, initial encounter for closed fracture (principal); S69.91XA Unspecified injury of right wrist, hand and finger(s), initial encounter; W05.0XXA Fall from non-moving wheelchair, initial encounter; F17.210 Nicotine dependence, cigarettes, uncomplicated; I10 Essential (primary) hypertension; E78.5 Hyperlipidemia, unspecified; J44.9 Chronic obstructive pulmonary disease, unspecified; Z88.0 Allergy status to penicillin; Z91.013 Allergy to seafood; Z90.49 Acquired absence of other specified parts of digestive tract; Z90.710 Acquired absence of both cervix and uterus
CPT/HCPCS: 73090; 73030; 73110; L3908 ×2; A9270 ×2; 94640; 99283; J7620

== ENCOUNTER 2020-01-26 22:45 | Inpatient (IN) | payer MEDICARE, MEDICAID ==
[2020-01-26 23:12] LABS: HEMATOCRIT 37.7 % (36.0-47.0); HEMOGLOBIN 12.6 g/dL (12.0-15.5); MEAN CORPUSCULAR HGB CONC 33.5 g/dL (32.0-36.0); MEAN CORPUSCULAR VOLUME 90 fl (80-97); PLATELET COUNT 286 10^3/uL (150-450); RED BLOOD COUNT 4.22 10^6/uL (3.72-5.28); RED CELL DISTRIBUTION WIDTH 16.5 % (11.5-14.0); WHITE BLOOD COUNT 14.8 10^3/uL (4.0-10.5)
[2020-01-26 23:29] LABS: ABSOLUTE LYMPHOCYTES# (MANUAL) 3.4 10^3/uL (0.5-4.7); ABSOLUTE MONOCYTES # (MANUAL) 0.9 10^3/uL (0.1-1.4); BAND NEUTROPHILS % (MANUAL) 1 % (3-5); BASOPHILS % (MANUAL) 0 % (0-2); EOSINOPHILS % (MANUAL) 2 % (0-6); LYMPHOCYTES % (MANUAL) 22 % (13-45); MONOCYTES % (MANUAL) 6 % (3-13); SEGMENTED NEUTROPHILS % (MAN) 68 % (42-78); TOTAL CELLS COUNTED 100
[2020-01-26 23:30] LABS: ANISOCYTOSIS 1+; PLATELET COMMENT ADEQUATE
[2020-01-26 23:32] LABS: ALBUMIN 3.5 g/dL (3.5-5.0); ALKALINE PHOSPHATASE 107 U/L (38-126); ANION GAP 7 (5-19); ASPARTATE AMINO TRANSFERASE 14 U/L (14-36); BILIRUBIN,DIRECT 0.4 mg/dL (0.0-0.4); BILIRUBIN,TOTAL 0.4 mg/dL (0.2-1.3); BLOOD UREA NITROGEN 13 mg/dL (7-20); CALCIUM 8.9 mg/dL (8.4-10.2); CARBON DIOXIDE 31 mmol/L (22-30); CHLORIDE 102 mmol/L (98-107); CREATINE KINASE 25 U/L (30-135); GLUCOSE 112 mg/dL (75-110); POTASSIUM 4.5 mmol/L (3.6-5.0); TOTAL PROTEIN 6.6 g/dL (6.3-8.2)
--- NOTE | 2020-01-26 23:39 | RADIOLOGY REPORT (SQ) ---
CLINICAL HISTORY: SOB COMPARISON: 09/16/2019. TECHNIQUE: XR CHEST 1 VIEW 01/26/2020 10:52 PM LAP WINDER FINDINGS: The heart is moderately enlarged. Lungs are clear without consolidation, atelectasis, mass or edema. There is no pleural effusion. There is no pneumothorax. There are multiple old left rib fractures. IMPRESSION: No pneumonia.
[2020-01-26 23:48] LABS: TROPONIN I 0.067 ng/mL
[2020-01-27 00:13] LABS: ARTERIAL BLOOD BASE EXCESS 3.6 mmol/L; ARTERIAL BLOOD H2CO3 2.42 mmol/L (1.05-1.35); ARTERIAL BLOOD HCO3 33.4 mmol/L (20-24); ARTERIAL BLOOD O2 SATURATION 67.9 % (94-98); ARTERIAL BLOOD PH 7.24 (7.35-7.45); ARTERIAL BLOOD PO2 42.9 mmHg (80-100); ARTERIAL BLOOD TOTAL CO2 35.8 mmol/L (21-25)
[2020-01-27 00:14] LABS: ARTERIAL BLOOD FIO2 5L
--- NOTE | 2020-01-27 00:14 | ER Document Report ---
ED General - General Chief Complaint: Shortness Of Breath Stated Complaint: ALTERED MENTAL STATUS Time Seen by Provider: 01/26/20 23:23 Primary Care Provider: SOBIA YANEZ MD [Primary Care Provider] - Follow up as needed TRAVEL OUTSIDE OF THE [place] IN LAST 30 DAYS: No - HPI Notes: Patient is a 59-year-old female with multiple medical issues, including CAD, CHF, diabetes, COPD, who presents to the emergency department for evaluation. She has been short of breath today. She is normally 3 L oxygen dependent. She was increasingly short of breath and increasingly confused, so she was sent into the to the emergency department for evaluation. She denies any pain beyond her chronic pain. No fevers or chills. No nausea or vomiting. She states she is been taking her medications as prescribed. Eating and drinking is normal. - Related Data Allergies/Adverse Reactions: dicyclomine HCl [From Bentyl] Allergy (Severe, Verified 11/09/19 10:07) throat swelling ibuprofen [From Motrin] Allergy (Severe, Verified 11/09/19 10:07) "increased headache",swelling Shellfish * [Shellfish] Allergy (Severe, Verified 11/09/19 10:07) rash,migraines Penicillins Allergy (Intermediate, Verified 11/09/19 10:07) Hives,vomit,fever dicyclomine [From Bentyl] Allergy (Unknown, Verified 11/09/19 10:07) shellfish derived Allergy (Unknown, Verified 11/09/19 10:07) sumatriptan Allergy (Unknown, Verified 11/09/19 10:07) sumatriptan succinate [From Imitrex] Allergy (Verified 11/09/19 10:07) Home Medications: List reviewed please see notes Past Medical History - General Information source: Patient - Social History Smoking Status: Current Every Day Smoker Family History: Hypertension, None, Reviewed & Not Pertinent Patient has suicidal ideation: No Patient has homicidal ideation: No - Past Medical History Cardiac Medical History: Reports: Hx Congestive Heart Failure, Hx Coronary Artery Disease - 4 stents, Hx Heart Attack - AUG x 2, Hx Hypercholesterolemia, Hx Hypertension Denies: Hx Heart Murmur Pulmonary Medical History: Reports: Hx Asthma, Hx Bronchitis, Hx COPD, Hx Pneumonia Denies: Hx Respiratory Failure, Hx Sleep Apnea, Hx Tuberculosis Neurological Medical History: Reports: Hx Cerebrovascular Accident - 2008, Hx Migraine, Hx Seizures Endocrine Medical History: Reports: Hx Diabetes Mellitus Type 1, Hx Diabetes Mellitus Type 2 Renal/ Medical History: Reports: Hx Kidney Stones. Denies: Hx Peritoneal Dialysis GI Medical History: Reports: Hx Gastroesophageal Reflux Disease, Hx Irritable Bowel. Denies: Hx Pancreatitis Musculoskeletal Medical History: Reports Hx Arthritis, Denies Hx Systemic Lupus Erythematosus Psychiatric Medical History: Reports: Hx Bipolar Disorder, Hx Depression, Hx Post Traumatic Stress Disorder, Hx Schizophrenia Past Surgical History: Reports: Hx Appendectomy, Hx Cardiac Catheterization, Hx Cardiac Surgery - 3 stents, Hx Cholecystectomy, Hx Hysterectomy, Hx Orthopedic Surgery - L knee, Hx Tonsillectomy - Immunizations Immunizations up to date: Yes Hx Diphtheria, Pertussis, Tetanus Vaccination: Yes Hx Pneumococcal Vaccination: 11/26/12 Review of Systems - Review of Systems Respiratory: See HPI Neurological/Psychological: See HPI -: Yes All other systems reviewed and negative Physical Exam - Vital signs Vitals: BP 147/110 H 01/26/20 22:48 - Notes Notes: This is an obese 59-year-old female who appears much older than her stated age, no acute distress. Normal respiratory effort. Vital signs reviewed, please refer to chart. Head is normocephalic, atraumatic. Pupils equal round, reactive to light. Neck is supple without meningismus. Heart is regular rate and rhythm. Lungs reveal moderate expiratory wheezes and prolonged expiratory phase throughout. Abdomen is soft, nontender, normoactive bowel sounds throughout. Extremities without cyanosis, clubbing. Posterior calves are nontender. Peripheral pulses are equal. Skin is warm and dry. Patient is drowsy but has a GCS of 15. No gross facial asymmetry. Moves all 4 extremity spontaneously. She is disoriented to time, but oriented to person and place. Course - Re-evaluation Re-evalutation: 01/27/20 01:03 Patient presents to the emergency department for evaluation. She was given Solu-Medrol, duo nebs in route. Laboratory investigations were ordered as per protocol. Chest x-ray failed to reveal anything acute. ABG was ordered given her altered mental status. ABG did show some CO2 retention. She was placed on BiPAP, she seems to be tolerating this well. Reexamination fails to reveal any new neurological deficits, she remains slightly slow to answer questions but is oriented x3. I spoke with Dr. Weeks, he will admit the patient for further care. - Vital Signs Vital signs: Temp Pulse Resp BP Pulse Ox 99 F 81 20 120/53 L 97 01/26/20 22:52 01/26/20 22:52 01/27/20 00:34 01/26/20 23:03 01/27/20 00:34 - Laboratory Result Diagrams: 01/26/20 23:02 01/26/20 23:02 Laboratory results interpreted by me: 01/26/20 01/26/20 01/26/20 23:02 23:02 23:02 WBC 14.8 H RDW 16.5 H Band Neutrophils % 1 L Abs Neuts (Manual) 10.2 H Carbonic Acid ABG pH ABG pCO2 ABG pO2 ABG HCO3 ABG Total CO2 ABG O2 Saturation Carbon Dioxide 31 H Glucose 112 H Creatine Kinase 25 L NT-Pro-B Natriuret Pep 1870 H 01/27/20 00:00 WBC RDW Band Neutrophils % Abs Neuts (Manual) Carbonic Acid 2.42 H ABG pH 7.24 L ABG pCO2 80.4 H* ABG pO2 42.9 L ABG HCO3 33.4 H ABG Total CO2 35.8 H ABG O2 Saturation 67.9 L Carbon Dioxide Glucose Creatine Kinase NT-Pro-B Natriuret Pep - Diagnostic Test Radiology reviewed: Reports reviewed Radiology results interpreted by me: 01/27/20 01:04 Chest X-Ray 01/26/20 22:52 IMPRESSION: No pneumonia. - EKG Interpretation by Me Additional EKG results interpreted by me: 01/27/20 01:04 Sinus mechanism with a rate of 81 bpm. Normal axis and intervals. Near global T wave flattening and nonspecific T wave changes, no acute changes concerning for ischemia. No significant change compared to prior study. Discharge - Discharge Clinical Impression: Respiratory acidosis, Hypercapnia Altered mental status Qualifiers: Coma depth: Sloane coma 13-15 Condition: Stable Disposition: ADMITTED OBSERVATION Admitting Provider: Micky (Hospitalist) Unit Admitted: Telemetry Referrals: SOBIA YANEZ MD [Primary Care Provider] - Follow up as needed
[2020-01-27 00:15] LABS: ARTERIAL BLOOD PCO2 80.4 mmHg (35-45)
[2020-01-27] MEDS ORDERED: IPRATROPIUM/ALBUTEROL 0.5-2.5 MG/3 ML AMPUL NEB PRN (01:03)
[2020-01-27] MEDS ORDERED: MAG HYDROX/AL HYDROX/SIMETH SUSP 30 ML UDCUP PO PRN (01:03)
[2020-01-27] MEDS ORDERED: DEXTROSE 40% GEL 15 GM TUBE PO PRN ×2 (01:05)
[2020-01-27] MEDS ORDERED: GLUCAGON,HUMAN RECOMB 1 MG INJ IM PRN (01:05)
[2020-01-27] MEDS ORDERED: DEXTROSE 50%-WATER 25 GM/50 ML DISP.SYRIN IV PRN ×2 (01:05)
[2020-01-27] MEDS ORDERED: LACTULOSE SYRUP 20 GM/30 ML UDCUP PO ONE ×2 (02:22→04:45)
--- NOTE | 2020-01-27 02:30 | PDOC H&P ---
History of Present Illness Admission Date/PCP: 01/27/20 01:10 SOBIA YANEZ MD Patient complains of: Shortness of breath and altered mental status History of Present Illness: NAVEEN TABARES is a 59 year old female half-way resident with a past medical history of schizophrenia, bipolar, coronary artery disease with stent x4, systolic heart failure with an ejection fraction of 40%, COPD, type 2 diabetes, morbid obesity and obstructive sleep apnea. She is noted by half-way staff to have confusion and lethargy prompting evaluation in the emergency department where she is found to be disheveled, poorly arousable with hypoxia and hypercapnia. She started on BiPAP and referred to the hospitalist for admission. Mental status improves she is awake and able to answer basic questions. Denies chest pain nausea vomiting, admits to constipation. She is unaware of any new medications but this is her baseline Past Medical History Cardiac Medical History: Reports: Congestive Heart Failure, Coronary Artery Dis ease - 4 stents, Myocardial Infarction - Jun x 2, Hyperlipidema, Hypertension Denies: Heart Murmur Pulmonary Medical History: Reports: Asthma, Bronchitis, Chronic Obstructive Pulmonary Disease (COPD), Pneumonia Denies: Respiratory Failure, Sleep Apnea, Tuberculosis Neurological Medical History: Reports: Migraine, Seizures Endocrine Medical History: Reports: Diabetes Mellitus Type 1, Diabetes Mellitus Type 2 GI Medical History: Reports: Gastroesophageal Reflux Disease Musculoskeltal Medical History: Reports: Arthritis Psychiatric Medical History: Reports: Bipolar Disorder, Depression, Post Traumatic Stress Disorder Hematology: Denies: Anemia Past Surgical History Past Surgical History: Reports: Appendectomy, Cardiac Catheterization, Cholecystectomy, Hysterectomy, Orthopedic Surgery - L knee, Tonsillectomy Social History Information Source: Emergency Med Personnel, [facility] Records Lives with: [facility] Smoking Status: Current Every Day Smoker Frequency of Alcohol Use: None Hx Recreational Drug Use: No Drugs: None Hx Prescription Drug Abuse: No - Advance Directive Resuscitation Status: Full Code Family History Family History: Hypertension Parental Family History Reviewed: Yes Children Family History Reviewed: Yes Sibling(s) Family History Reviewed.: Yes Medication/Allergy Home Medications: Aspirin [Aspirin EC] 81 mg PO DAILY 07/22/18 Metformin HCl [Glucophage] 1,000 mg PO Q12 07/22/18 Risperidone [Risperdal 1 mg Tablet] 2 mg PO QHS 07/22/18 Atorvastatin Calcium [Lipitor 10 mg Tablet] 10 mg PO QHS 10/23/18 Benztropine Mesylate [Cogentin 1 mg Tablet] 1 mg PO Q12 09/17/18 Insulin Degludec [Tresiba Flextouch U-200] 110 unit SQ QPM 09/17/18 Topiramate [Topamax] 150 mg PO Q12 09/17/18 Furosemide [Lasix 20 mg Tablet] 20 mg PO DAILY 02/19/19 Sertraline HCl [Zoloft 50 mg Tablet] 75 mg PO DAILY 02/19/19 Valbenazine Tosylate [Ingrezza] 40 mg PO DAILY 02/19/19 Hydrocodone/Acetaminophen [[place] 5-325 mg Tablet] 1 tab PO Q6 08/08/19 Lidocaine [Lidoderm 5% (700 mg) Transdermal Patch] 1 patch TP QAM 08/08/19 Pregabalin [Lyrica 75 mg Capsule] 75 mg PO QAM 08/08/19 Risperidone [Risperdal 1 mg Tablet] 1 mg PO QAM 08/08/19 Fluticasone/Salmeterol [Advair 250-50 Diskus 14 Dose/Diskus] 1 inh IH Q12H #1 inhaler 08/09/19 Prednisone [Deltasone 20 mg Tablet] 20 mg PO BID 5 Days #10 tablet 08/09/19 Hydrocodone/Acetaminophen [[place] 5-325 Tablet] 1 each PO Q6H PRN #15 tablet 09/21/19 Allergies/Adverse Reactions: dicyclomine HCl [From Bentyl] Allergy (Severe, Verified 11/09/19 10:07) throat swelling ibuprofen [From Motrin] Allergy (Severe, Verified 11/09/19 10:07) "increased headache",swelling Shellfish * [Shellfish] Allergy (Severe, Verified 11/09/19 10:07) rash,migraines Penicillins Allergy (Intermediate, Verified 11/09/19 10:07) Hives,vomit,fever dicyclomine [From Bentyl] Allergy (Unknown, Verified 11/09/19 10:07) shellfish derived Allergy (Unknown, Verified 11/09/19 10:07) sumatriptan Allergy (Unknown, Verified 11/09/19 10:07) sumatriptan succinate [From Imitrex] Allergy (Verified 11/09/19 10:07) Review of Systems ROS unobtainable: Due to mental status Physical Exam Vital Signs: Temp Pulse Resp BP Pulse Ox 99 F 81 55 H 109/78 100 01/26/20 22:52 01/26/20 22:52 01/27/20 01:49 01/27/20 01:49 01/27/20 01:49 Intake & Output 01/25/20 01/26/20 01/27/20 11:59 11:59 11:59 Weight 90.718 kg General appearance: PRESENT: cooperative, disheveled, mild distress, morbidly obese, well-developed Head exam: PRESENT: atraumatic, normocephalic Eye exam: PRESENT: conjunctiva pink, EOMI, PERRLA. ABSENT: scleral icterus Ear exam: PRESENT: normal external ear exam Mouth exam: PRESENT: moist, tongue midline Neck exam: ABSENT: carotid bruit, JVD, lymphadenopathy, thyromegaly Respiratory exam: PRESENT: accessory muscle use, crackles, prolonged expiratory phas, symmetrical, unlabored Cardiovascular exam: PRESENT: RRR. ABSENT: diastolic murmur, rubs, systolic murmur Pulses: PRESENT: normal dorsalis pedis pul Vascular exam: PRESENT: normal capillary refill GI/Abdominal exam: PRESENT: normal bowel sounds, soft. ABSENT: distended, guarding, mass, organolmegaly, rebound, tenderness Rectal exam: PRESENT: deferred Extremities exam: PRESENT: full ROM. ABSENT: calf tenderness, clubbing, pedal edema Neurological exam: PRESENT: altered, awake, oriented to person, oriented to place, oriented to time, oriented to situation, CN II-XII grossly intact. ABSENT: motor sensory deficit Psychiatric exam: PRESENT: flat affect, unusual affect. ABSENT: homicidal ideation, normal mood, suicidal ideation Skin exam: PRESENT: dry, intact, warm. ABSENT: cyanosis, rash Results Laboratory Results: 01/26/20 23:02 01/26/20 23:02 01/26/20 01/26/20 01/27/20 23:02 23:02 00:00 WBC 14.8 H RBC 4.22 Hgb 12.6 Hct 37.7 MCV 90 MCH 30.0 MCHC 33.5 RDW 16.5 H Plt Count 286 Seg Neutrophils % Not Reportable Carbonic Acid 2.42 H HCO3/H2CO3 Ratio 13:1 ABG pH 7.24 L ABG pCO2 80.4 H* ABG pO2 42.9 L ABG HCO3 33.4 H ABG O2 Saturation 67.9 L ABG Base Excess 3.6 FiO2 5L Sodium 139.6 Potassium 4.5 Chloride 102 Carbon Dioxide 31 H Anion Gap 7 BUN 13 Creatinine 0.94 Est GFR ( Amer) > 60 Glucose 112 H Calcium 8.9 Total Bilirubin 0.4 AST 14 Alkaline Phosphatase 107 Total Protein 6.6 Albumin 3.5 01/26/20 01/26/20 23:02 23:02 Creatine Kinase 25 L CK-MB (CK-2) 1.00 Troponin I 0.067 NT-Pro-B Natriuret Pep 1870 H Impressions: Chest X-Ray 01/26/20 22:52 IMPRESSION: No pneumonia. Assessment and Plan - Diagnosis (1) Metabolic encephalopathy Is this a current diagnosis for this admission?: Yes Plan: Multifactorial secondary to hypercapnic respiratory failure and multiple sed ating medications. BiPAP support, medications held (2) Acute on chronic respiratory failure with hypoxia and hypercapnia Is this a current diagnosis for this admission?: Yes Plan: Complicated by schizophrenia and multiple sedating medications, BiPAP support, hold medications reducing respiratory drive (3) Schizophrenia Is this a current diagnosis for this admission?: Yes Plan: Complicated by polypharmacy, limit sedating antipsychotics and follow-up medication reconciliation (4) Diabetes mellitus type 2 in obese Is this a current diagnosis for this admission?: Yes Plan: Outpatient insulin with Humalog sliding scale ordered - Time Time Spent with patient: 25-34 minutes - Inpatient Certification Medical Necessity: Need Close Monitoring Due to Risk of Patient Decompensation
[2020-01-27] MEDS: HEPARIN SOD (PORCINE) 5,000 UNIT/ML 1 ML VIAL SUBCUT SCH ×3 (06:18→21:26)
--- NOTE | 2020-01-27 06:44 | EKG REPORT ---
SEVERITY:- ABNORMAL ECG - SINUS RHYTHM PROBABLE LEFT ATRIAL ABNORMALITY PROBABLE ANTEROSEPTAL INFARCT, AGE INDETERM LOW VOLTAGE PRECORDIAL LEADS : Confirmed by: Patrice Johnson MD 27-Jan-2020 06:44:28
[2020-01-27] MEDS: IPRATROPIUM/ALBUTEROL 0.5-2.5 MG/3 ML AMPUL NEB SCH ×3 (07:53→23:32)
[2020-01-27] MEDS: INSULIN LISPRO 100 UNIT/ML 3 ML VIAL SUBCUT SCH ×3 (08:31→16:16)
[2020-01-27] MEDS ORDERED: (PENDING PHARMACY ID) (Clonazepam [Klonopin] 0.5 MG) PO PRN (09:54)
[2020-01-27] MEDS ORDERED: (PENDING PHARMACY ID) (Menthol [Biofreeze] 1 APPLIC) TOP PRN (09:54)
[2020-01-27] MEDS ORDERED: (PENDING PHARMACY ID) (Fluticasone/Salmeterol 1 INH) IH SCH (10:00)
[2020-01-27] MEDS ORDERED: (PENDING PHARMACY ID) (Oxycodone Hcl/Acetaminophen [Percocet 7.5-325 Mg Tablet] 1 EACH) PO SCH (10:00)
[2020-01-27] MEDS ORDERED: FUROSEMIDE 20 MG TABLET PO SCH (10:00)
[2020-01-27] MEDS ORDERED: (PENDING PHARMACY ID) (Topiramate [Topamax] 150 MG) PO SCH (10:00)
[2020-01-27] MEDS ORDERED: CLONAZEPAM 1 MG TABLET PO PRN (11:20)
[2020-01-27] MEDS: ASPIRIN 81 MG TABLET, ENT COATED PO SCH (11:45)
[2020-01-27] MEDS: GUAIFENESIN 600 MG TABLET.SA PO SCH ×2 (11:45→21:25)
[2020-01-27] MEDS: LISINOPRIL 5 MG TABLET PO SCH (11:45)
[2020-01-27] MEDS: BENZTROPINE MESYLATE 1 MG TABLET PO SCH ×2 (11:45→21:23)
[2020-01-27] MEDS: SERTRALINE HCL 50 MG TABLET PO SCH (11:46)
[2020-01-27] MEDS: FUROSEMIDE 40 MG TABLET PO SCH (11:46)
[2020-01-27] MEDS: FLUTICASONE NASAL SPRAY 50 MCG/SPRY 120 SPRAY/16 GM NASL SCH (11:50)
[2020-01-27] MEDS: PREGABALIN 75 MG CAPSULE PO SCH (12:02)
[2020-01-27] MEDS: RISPERIDONE 1 MG TABLET PO SCH (14:55)
[2020-01-27] MEDS: OXYCODONE-ACETAMINOPHEN 5-325 MG TABLET PO SCH ×2 (14:55→21:23)
[2020-01-27] MEDS: OXYCODONE HCL IR 5 MG TABLET PO SCH ×2 (14:56→21:24)
[2020-01-27] MEDS: METFORMIN HCL 500 MG TABLET PO SCH (16:22)
[2020-01-27] MEDS: ATORVASTATIN CALCIUM 10 MG TABLET PO SCH (21:23)
[2020-01-27] MEDS: TOPIRAMATE 100 MG TABLET PO SCH (21:25)
[2020-01-27] MEDS ORDERED: (PENDING PHARMACY ID) (Suvorexant [Belsomra] 20 MG) PO SCH (22:00)
[2020-01-28 03:55] LABS: URINE AMPHETAMINES SCREEN NEGATIVE; URINE BARBITURATES SCREEN NEGATIVE; URINE BENZODIAZEPINES SCREEN NEGATIVE; URINE COCAINE SCREEN NEGATIVE; URINE MARIJUANA (THC) SCREEN NEGATIVE; URINE METHADONE SCREEN NEGATIVE; URINE PHENCYCLIDINE SCREEN NEGATIVE
[2020-01-28 04:21] LABS: HEMATOCRIT 35.7 % (36.0-47.0); HEMOGLOBIN 11.9 g/dL (12.0-15.5); MEAN CORPUSCULAR HEMOGLOBIN 29.3 pg (27.0-33.4); MEAN CORPUSCULAR HGB CONC 33.2 g/dL (32.0-36.0); MEAN CORPUSCULAR VOLUME 88 fl (80-97); PLATELET COUNT 264 10^3/uL (150-450); RED BLOOD COUNT 4.05 10^6/uL (3.72-5.28); RED CELL DISTRIBUTION WIDTH 16.4 % (11.5-14.0); WHITE BLOOD COUNT 12.7 10^3/uL (4.0-10.5)
[2020-01-28 04:38] LABS: BLOOD UREA NITROGEN 13 mg/dL (7-20); CALCIUM 8.7 mg/dL (8.4-10.2); GLUCOSE 85 mg/dL (75-110); POTASSIUM 4.2 mmol/L (3.6-5.0)
[2020-01-28 04:52] LABS: ANION GAP 4 (5-19); CARBON DIOXIDE 35 mmol/L (22-30); CHLORIDE 101 mmol/L (98-107)
[2020-01-28 06:11] LABS: ARTERIAL BLOOD BASE EXCESS 5.6 mmol/L; ARTERIAL BLOOD HCO3 33.6 mmol/L (20-24); ARTERIAL BLOOD O2 SATURATION 85.1 % (94-98); ARTERIAL BLOOD PCO2 66.6 mmHg (35-45); ARTERIAL BLOOD PH 7.32 (7.35-7.45); ARTERIAL BLOOD TOTAL CO2 35.7 mmol/L (21-25)
[2020-01-28] MEDS: OXYCODONE-ACETAMINOPHEN 5-325 MG TABLET PO SCH ×3 (06:11→22:14)
[2020-01-28] MEDS: OXYCODONE HCL IR 5 MG TABLET PO SCH ×3 (06:11→22:12)
[2020-01-28] MEDS: HEPARIN SOD (PORCINE) 5,000 UNIT/ML 1 ML VIAL SUBCUT SCH ×3 (06:11→22:16)
[2020-01-28 06:13] LABS: ARTERIAL BLOOD FIO2 60%
[2020-01-28] MEDS: IPRATROPIUM/ALBUTEROL 0.5-2.5 MG/3 ML AMPUL NEB SCH ×3 (07:56→20:08)
[2020-01-28] MEDS: PREGABALIN 75 MG CAPSULE PO SCH (08:15)
[2020-01-28] MEDS: RISPERIDONE 1 MG TABLET PO SCH (08:15)
[2020-01-28] MEDS: METFORMIN HCL 500 MG TABLET PO SCH ×2 (08:15→17:06)
[2020-01-28] MEDS: LIDOCAINE 5% (700 MG) TRANSDERMAL ADH..PATCH TP SCH (08:18)
[2020-01-28] MEDS: INSULIN LISPRO 100 UNIT/ML 3 ML VIAL SUBCUT SCH ×3 (08:29→17:12)
[2020-01-28] MEDS: FLUTICASONE/VILANTEROL 200-25 MCG/DOSE IH SCH (10:52)
[2020-01-28] MEDS: FUROSEMIDE 40 MG TABLET PO SCH (10:53)
[2020-01-28] MEDS: GUAIFENESIN 600 MG TABLET.SA PO SCH ×2 (10:53→22:14)
[2020-01-28] MEDS: FLUTICASONE NASAL SPRAY 50 MCG/SPRY 120 SPRAY/16 GM NASL SCH (10:53)
[2020-01-28] MEDS: ASPIRIN 81 MG TABLET, ENT COATED PO SCH (10:54)
[2020-01-28] MEDS: TOPIRAMATE 100 MG TABLET PO SCH ×2 (10:54→22:15)
[2020-01-28] MEDS: AZITHROMYCIN 250 MG TABLET PO SCH (10:55)
[2020-01-28] MEDS: BENZTROPINE MESYLATE 1 MG TABLET PO SCH ×2 (10:55→22:14)
[2020-01-28] MEDS: LISINOPRIL 5 MG TABLET PO SCH (10:56)
[2020-01-28] MEDS: SERTRALINE HCL 50 MG TABLET PO SCH (10:56)
[2020-01-28] MEDS: METHYLPREDNISOLONE INJ 40 MG/1 ML SDV IV SCH ×2 (13:39→22:16)
[2020-01-28] MEDS ORDERED: METHYLPREDNISOLONE INJ 125 MG/2 ML SDV IV SCH (14:00)
--- NOTE | 2020-01-28 15:31 | PDOC PROGRESS REPORT ---
Subjective Progress Note for:: 01/28/20 Subjective:: NAVEEN TABARES is a 59 year old female [facility] resident with a past medical history of schizophrenia, bipolar, coronary artery disease with stent x4, systolic heart failure with an ejection fraction of 40%, COPD, type 2 diabetes, morbid obesity and obstructive sleep apnea. She is noted by [facility] staff to have confusion and lethargy prompting evaluation in the emergency department where she is found to be disheveled, poorly arousable with hypoxia and hypercapnia. She started on BiPAP and referred to the hospitalist for admission. Mental status improves she is awake and able to answer basic questions. Denies chest pain nausea vomiting, admits to constipation. She is unaware of any new medications but this is her baseline 01/28/2020. Reporting significant improvement of respiratory symptoms compared to admission, denies any fever, chills, nausea, vomiting, diarrhea, constipation or any urinary symptoms. Patient is still SPO2 dependent and has significant wheezing on physical examination. Reason For Visit: COPD EXACERBATION Physical Exam Vital Signs: Temp Pulse Resp BP Pulse Ox 99.3 F 92 18 131/73 H 95 01/28/20 11:44 01/28/20 14:34 01/28/20 14:34 01/28/20 11:44 01/28/20 14:34 Intake & Output 01/27/20 01/28/20 01/29/20 06:59 06:59 06:59 Intake Total 360 1801 360 Output Total 500 450 Balance -140 1801 -90 Weight 102.2 kg 99.3 kg General appearance: PRESENT: no acute distress, well-developed, well-nourished Head exam: PRESENT: atraumatic, normocephalic Respiratory exam: PRESENT: prolonged expiratory phas, wheezes. ABSENT: rales, rhonchi Cardiovascular exam: PRESENT: RRR. ABSENT: diastolic murmur, rubs, systolic murmur GI/Abdominal exam: PRESENT: normal bowel sounds, soft. ABSENT: distended, guarding, mass, organolmegaly, rebound, tenderness Neurological exam: PRESENT: alert, awake, oriented to person, oriented to place, oriented to time, CN II-XII grossly intact. ABSENT: motor sensory deficit Skin exam: PRESENT: dry, intact, warm. ABSENT: cyanosis, rash Results Laboratory Results: 01/28/20 04:01 01/28/20 04:01 01/28/20 01/28/20 01/28/20 04:01 04:01 05:46 WBC 12.7 H RBC 4.05 Hgb 11.9 L Hct 35.7 L MCV 88 MCH 29.3 MCHC 33.2 RDW 16.4 H Plt Count 264 Carbonic Acid 2.00 H HCO3/H2CO3 Ratio 16:1 ABG pH 7.32 L ABG pCO2 66.6 H ABG pO2 55.0 L ABG HCO3 33.6 H ABG O2 Saturation 85.1 L ABG Base Excess 5.6 FiO2 60% Sodium 140.2 Potassium 4.2 Chloride 101 Carbon Dioxide 35 H Anion Gap 4 L BUN 13 Creatinine 0.95 Est GFR ( Amer) > 60 Glucose 85 Calcium 8.7 Magnesium 1.8 01/26/20 01/26/20 01/27/20 23:02 23:02 01:51 Creatine Kinase 25 L CK-MB (CK-2) 1.00 Troponin I 0.067 0.049 NT-Pro-B Natriuret Pep 1870 H Impressions: Chest X-Ray 01/26/20 22:52 IMPRESSION: No pneumonia. Assessment and Plan - Diagnosis (1) Acute on chronic respiratory failure with hypoxia and hypercapnia Is this a current diagnosis for this admission?: Yes Plan: Moderate improvement however still dependent on supplemental PO2 with moderate wheezing on physical examination. Continue supplemental oxygen, BiPAP, duo nebs, incentive spirometry, empiric IV antibiotics, IV steroids. Nocturnal CPAP. ABG tomorrow. (2) Diabetes mellitus type 2 in obese Is this a current diagnosis for this admission?: Yes Plan: Outpatient insulin with Humalog sliding scale ordered (3) Metabolic encephalopathy Is this a current diagnosis for this admission?: Yes Plan: Resolved. Back to baseline. Alert and oriented x3. Multifactorial secondary to hypercapnic respiratory failure and multiple sedating medications. Continue BiPAP support, medications held (4) Schizophrenia Is this a current diagnosis for this admission?: Yes Plan: Complicated by polypharmacy, limit sedating antipsychotics and follow-up medication reconciliation
[2020-01-28] MEDS: ATORVASTATIN CALCIUM 10 MG TABLET PO SCH (22:16)
[2020-01-29] MEDS: IPRATROPIUM/ALBUTEROL 0.5-2.5 MG/3 ML AMPUL NEB SCH ×4 (02:12→19:32)
[2020-01-29] MEDS: OXYCODONE HCL IR 5 MG TABLET PO SCH ×3 (06:26→21:04)
[2020-01-29] MEDS: OXYCODONE-ACETAMINOPHEN 5-325 MG TABLET PO SCH ×3 (06:26→21:03)
[2020-01-29] MEDS: HEPARIN SOD (PORCINE) 5,000 UNIT/ML 1 ML VIAL SUBCUT SCH ×3 (06:26→21:02)
[2020-01-29] MEDS: METHYLPREDNISOLONE INJ 40 MG/1 ML SDV IV SCH ×3 (06:27→21:02)
[2020-01-29 06:38] LABS: ABSOLUTE LYMPHOCYTES (AUTO) 1.3 10^3/uL (0.5-4.7); ABSOLUTE MONOCYTES (AUTO) 0.4 10^3/uL (0.1-1.4); BASOPHILS % (AUTO) 0.3 % (0-2); HEMATOCRIT 38.4 % (36.0-47.0); HEMOGLOBIN 12.5 g/dL (12.0-15.5); LYMPHOCYTES % (AUTO) 9.1 % (13-45); MEAN CORPUSCULAR HEMOGLOBIN 28.6 pg (27.0-33.4); MEAN CORPUSCULAR HGB CONC 32.4 g/dL (32.0-36.0); MEAN CORPUSCULAR VOLUME 88 fl (80-97); MONOCYTES % (AUTO) 2.5 % (3-13); PLATELET COUNT 280 10^3/uL (150-450); RED BLOOD COUNT 4.35 10^6/uL (3.72-5.28); RED CELL DISTRIBUTION WIDTH 16.6 % (11.5-14.0); SEGMENTED NEUTROPHILS % (AUTO) 88.1 % (42-78); TOTAL CELLS COUNTED % (AUTO) 100 %; WHITE BLOOD COUNT 14.7 10^3/uL (4.0-10.5)
[2020-01-29 06:57] LABS: ANION GAP 9 (5-19); BLOOD UREA NITROGEN 18 mg/dL (7-20); CALCIUM 9.2 mg/dL (8.4-10.2); CARBON DIOXIDE 30 mmol/L (22-30); CHLORIDE 100 mmol/L (98-107); GLUCOSE 174 mg/dL (75-110); POTASSIUM 4.5 mmol/L (3.6-5.0)
[2020-01-29 07:06] LABS: ARTERIAL BLOOD BASE EXCESS 2.9 mmol/L; ARTERIAL BLOOD FIO2 21%; ARTERIAL BLOOD H2CO3 1.74 mmol/L (1.05-1.35); ARTERIAL BLOOD HCO3 30.1 mmol/L (20-24); ARTERIAL BLOOD O2 SATURATION 95.4 % (94-98); ARTERIAL BLOOD PCO2 57.8 mmHg (35-45); ARTERIAL BLOOD PH 7.33 (7.35-7.45); ARTERIAL BLOOD PO2 83.6 mmHg (80-100); ARTERIAL BLOOD TOTAL CO2 31.8 mmol/L (21-25)
[2020-01-29] MEDS: LIDOCAINE 5% (700 MG) TRANSDERMAL ADH..PATCH TP SCH (08:07)
[2020-01-29] MEDS: METFORMIN HCL 500 MG TABLET PO SCH ×2 (08:07→17:33)
[2020-01-29] MEDS: RISPERIDONE 1 MG TABLET PO SCH (08:07)
[2020-01-29] MEDS: PREGABALIN 75 MG CAPSULE PO SCH (08:07)
[2020-01-29] MEDS: INSULIN LISPRO 100 UNIT/ML 3 ML VIAL SUBCUT SCH ×3 (08:33→17:33)
[2020-01-29] MEDS: FUROSEMIDE 40 MG TABLET PO SCH (11:42)
[2020-01-29] MEDS: TOPIRAMATE 100 MG TABLET PO SCH ×2 (11:42→21:05)
[2020-01-29] MEDS: AZITHROMYCIN 250 MG TABLET PO SCH (11:42)
[2020-01-29] MEDS: LISINOPRIL 5 MG TABLET PO SCH (11:43)
[2020-01-29] MEDS: SERTRALINE HCL 50 MG TABLET PO SCH (11:43)
[2020-01-29] MEDS: ASPIRIN 81 MG TABLET, ENT COATED PO SCH (11:43)
[2020-01-29] MEDS: FLUTICASONE NASAL SPRAY 50 MCG/SPRY 120 SPRAY/16 GM NASL SCH (11:44)
[2020-01-29] MEDS: FLUTICASONE/VILANTEROL 200-25 MCG/DOSE IH SCH (11:44)
[2020-01-29] MEDS: GUAIFENESIN 600 MG TABLET.SA PO SCH ×2 (11:44→21:03)
[2020-01-29] MEDS: BENZTROPINE MESYLATE 1 MG TABLET PO SCH ×2 (11:48→21:03)
--- NOTE | 2020-01-29 12:46 | PDOC PROGRESS REPORT ---
Subjective Progress Note for:: 01/29/20 Subjective:: NAVEEN TABARES is a 59 year old female assisted resident with a past medical history of schizophrenia, bipolar, coronary artery disease with stent x4, systolic heart failure with an ejection fraction of 40%, COPD, type 2 diabetes, morbid obesity and obstructive sleep apnea. She is noted by assisted staff to have confusion and lethargy prompting evaluation in the emergency department where she is found to be disheveled, poorly arousable with hypoxia and hypercapnia. She started on BiPAP and referred to the hospitalist for admission. Mental status improves she is awake and able to answer basic questions. Denies chest pain nausea vomiting, admits to constipation. She is unaware of any new medications but this is her baseline 01/28/2020. Reporting significant improvement of respiratory symptoms compared to admission, denies any fever, chills, nausea, vomiting, diarrhea, constipation or any urinary symptoms. Patient is still SPO2 dependent and has significant wheezing on physical examination. 01/29/2020. No acute events overnight. Patient still on 4 to 5 L to keep SPO2 WNL, wheezing has improved on physical examination, denies any fever, chills, nausea, vomiting, diarrhea, constipation or any urinary symptoms. Possible discharge tomorrow. Reason For Visit: COPD EXACERBATION Physical Exam Vital Signs: Temp Pulse Resp BP Pulse Ox 98.9 F 87 18 123/56 L 98 01/29/20 10:55 01/29/20 10:55 01/29/20 10:55 01/29/20 10:55 01/29/20 10:55 Intake & Output 01/28/20 01/29/20 01/30/20 06:59 06:59 06:59 Intake Total 1801 1590 Output Total 750 Balance 1801 840 Weight 99.3 kg 99.3 kg General appearance: PRESENT: no acute distress, well-developed, well-nourished Head exam: PRESENT: atraumatic, normocephalic Respiratory exam: PRESENT: clear to auscultation luz elena, prolonged expiratory phas, wheezes. ABSENT: rales, rhonchi GI/Abdominal exam: PRESENT: normal bowel sounds, soft. ABSENT: distended, guarding, mass, organolmegaly, rebound, tenderness Neurological exam: PRESENT: alert, awake, oriented to person, oriented to place, oriented to time, oriented to situation, CN II-XII grossly intact. ABSENT: motor sensory deficit Results Laboratory Results: 01/29/20 05:53 01/29/20 05:53 01/29/20 01/29/20 01/29/20 05:53 05:53 06:26 WBC 14.7 H RBC 4.35 Hgb 12.5 Hct 38.4 MCV 88 MCH 28.6 MCHC 32.4 RDW 16.6 H Plt Count 280 Seg Neutrophils % 88.1 H Carbonic Acid 1.74 H HCO3/H2CO3 Ratio 17:1 ABG pH 7.33 L ABG pCO2 57.8 H ABG pO2 83.6 ABG HCO3 30.1 H ABG O2 Saturation 95.4 ABG Base Excess 2.9 FiO2 21% Sodium 139.0 Potassium 4.5 Chloride 100 Carbon Dioxide 30 Anion Gap 9 BUN 18 Creatinine 0.89 Est GFR ( Amer) > 60 Glucose 174 H Calcium 9.2 01/26/20 01/26/20 01/27/20 23:02 23:02 01:51 Creatine Kinase 25 L CK-MB (CK-2) 1.00 Troponin I 0.067 0.049 NT-Pro-B Natriuret Pep 1870 H Impressions: Chest X-Ray 01/26/20 22:52 IMPRESSION: No pneumonia. Assessment and Plan - Diagnosis (1) Acute on chronic respiratory failure with hypoxia and hypercapnia Is this a current diagnosis for this admission?: Yes Plan: Moderate improvement however still dependent on supplemental PO2 with moderate wheezing on physical examination. Continue supplemental oxygen, BiPAP, duo nebs, incentive spirometry, empiric IV antibiotics, IV steroids. Nocturnal CPAP. ABG tomorrow. (2) Diabetes mellitus type 2 in obese Is this a current diagnosis for this admission?: Yes Plan: Outpatient insulin with Humalog sliding scale ordered (3) Metabolic encephalopathy Is this a current diagnosis for this admission?: Yes Plan: Resolved. Back to baseline. Alert and oriented x3. Multifactorial secondary to hypercapnic respiratory failure and multiple sedating medications. Continue BiPAP support, medications held (4) Schizophrenia Is this a current diagnosis for this admission?: Yes Plan: Restart home meds. Monitor for fall.
[2020-01-29] MEDS ORDERED: ACETAMINOPHEN 325 MG TABLET PO PRN (18:50)
[2020-01-29] MEDS: ATORVASTATIN CALCIUM 10 MG TABLET PO SCH (21:03)
[2020-01-30] MEDS: IPRATROPIUM/ALBUTEROL 0.5-2.5 MG/3 ML AMPUL NEB SCH ×3 (01:41→14:07)
[2020-01-30] MEDS: OXYCODONE HCL IR 5 MG TABLET PO SCH ×2 (06:14→13:48)
[2020-01-30] MEDS: OXYCODONE-ACETAMINOPHEN 5-325 MG TABLET PO SCH ×2 (06:16→13:48)
[2020-01-30] MEDS: METHYLPREDNISOLONE INJ 40 MG/1 ML SDV IV SCH ×2 (06:16→13:48)
[2020-01-30] MEDS: HEPARIN SOD (PORCINE) 5,000 UNIT/ML 1 ML VIAL SUBCUT SCH ×2 (06:17→13:49)
[2020-01-30 06:22] LABS: ABSOLUTE LYMPHOCYTES (AUTO) 1.6 10^3/uL (0.5-4.7); ABSOLUTE MONOCYTES (AUTO) 0.6 10^3/uL (0.1-1.4); ABSOLUTE NEUT (AUTO) 12.7 10^3/uL (1.7-8.2); BASOPHILS % (AUTO) 0.3 % (0-2); HEMATOCRIT 35.8 % (36.0-47.0); HEMOGLOBIN 11.9 g/dL (12.0-15.5); LYMPHOCYTES % (AUTO) 10.9 % (13-45); MEAN CORPUSCULAR HEMOGLOBIN 29.2 pg (27.0-33.4); MEAN CORPUSCULAR HGB CONC 33.2 g/dL (32.0-36.0); MEAN CORPUSCULAR VOLUME 88 fl (80-97); MONOCYTES % (AUTO) 3.9 % (3-13); PLATELET COUNT 278 10^3/uL (150-450); RED BLOOD COUNT 4.06 10^6/uL (3.72-5.28); RED CELL DISTRIBUTION WIDTH 16.3 % (11.5-14.0); SEGMENTED NEUTROPHILS % (AUTO) 84.9 % (42-78); TOTAL CELLS COUNTED % (AUTO) 100 %
[2020-01-30 06:39] LABS: ANION GAP 5 (5-19); BLOOD UREA NITROGEN 23 mg/dL (7-20); CALCIUM 9.2 mg/dL (8.4-10.2); CARBON DIOXIDE 30 mmol/L (22-30); CHLORIDE 101 mmol/L (98-107); GLUCOSE 147 mg/dL (75-110); POTASSIUM 4.4 mmol/L (3.6-5.0)
[2020-01-30] MEDS: METFORMIN HCL 500 MG TABLET PO SCH ×2 (07:50→16:00)
[2020-01-30] MEDS: RISPERIDONE 1 MG TABLET PO SCH (07:50)
[2020-01-30] MEDS: PREGABALIN 75 MG CAPSULE PO SCH (07:50)
[2020-01-30] MEDS: LIDOCAINE 5% (700 MG) TRANSDERMAL ADH..PATCH TP SCH (07:59)
[2020-01-30] MEDS: INSULIN LISPRO 100 UNIT/ML 3 ML VIAL SUBCUT SCH ×3 (08:08→17:14)
[2020-01-30] MEDS: FLUTICASONE NASAL SPRAY 50 MCG/SPRY 120 SPRAY/16 GM NASL SCH (09:36)
[2020-01-30] MEDS: TOPIRAMATE 100 MG TABLET PO SCH (09:38)
[2020-01-30] MEDS: AZITHROMYCIN 250 MG TABLET PO SCH (09:41)
[2020-01-30] MEDS: BENZTROPINE MESYLATE 1 MG TABLET PO SCH (09:43)
[2020-01-30] MEDS: GUAIFENESIN 600 MG TABLET.SA PO SCH (09:43)
[2020-01-30] MEDS: ASPIRIN 81 MG TABLET, ENT COATED PO SCH (09:44)
[2020-01-30] MEDS: LISINOPRIL 5 MG TABLET PO SCH (09:44)
[2020-01-30] MEDS: FUROSEMIDE 40 MG TABLET PO SCH (09:44)
[2020-01-30] MEDS: SERTRALINE HCL 50 MG TABLET PO SCH (09:47)
[2020-01-30] MEDS: FLUTICASONE/VILANTEROL 200-25 MCG/DOSE IH SCH (10:05)
[2020-01-30 12:55] LABS: ARTERIAL BLOOD BASE EXCESS 2.4 mmol/L; ARTERIAL BLOOD FIO2 28%; ARTERIAL BLOOD H2CO3 1.68 mmol/L (1.05-1.35); ARTERIAL BLOOD HCO3 29.3 mmol/L (20-24); ARTERIAL BLOOD O2 SATURATION 88.7 % (94-98); ARTERIAL BLOOD PCO2 55.7 mmHg (35-45); ARTERIAL BLOOD PH 7.34 (7.35-7.45); ARTERIAL BLOOD PO2 59.4 mmHg (80-100)
--- NOTE | 2020-01-30 16:25 | PDOC TRANSFER SUMMARY ---
Impression - Admit/DC Date/PCP Admission Date/Primary Care Provider: 01/27/20 01:10 SOBIA YANEZ MD Discharge Date: 01/30/20 - Discharge Diagnosis (1) Acute on chronic respiratory failure with hypoxia and hypercapnia Is this a current diagnosis for this admission?: Yes (2) Diabetes mellitus type 2 in obese Is this a current diagnosis for this admission?: Yes (3) Metabolic encephalopathy Is this a current diagnosis for this admission?: Yes (4) Schizophrenia Is this a current diagnosis for this admission?: Yes - Additional Information Resuscitation Status: Full Code Referrals: [facility] [Outside] Prescriptions: Azithromycin 250 mg PO DAILY 2 Days #2 tablet Prednisone [Deltasone 20 mg Tablet] 40 mg PO DAILY 3 Days #6 tablet Home Medications: Aspirin [Aspirin EC] 81 mg PO DAILY 07/22/18 Metformin HCl [Glucophage] 1,000 mg PO Q12 07/22/18 Risperidone [Risperdal 1 mg Tablet] 2 mg PO QHS 07/22/18 Atorvastatin Calcium [Lipitor 10 mg Tablet] 10 mg PO QHS 09/17/18 Benztropine Mesylate [Cogentin 1 mg Tablet] 1 mg PO Q12 09/17/18 Insulin Degludec [Tresiba Flextouch U-200] 40 unit SQ QPM 09/17/18 Topiramate [Topamax] 150 mg PO Q12 09/17/18 Furosemide [Lasix 20 mg Tablet] 40 mg PO DAILY 02/19/19 Sertraline HCl [Zoloft 50 mg Tablet] 75 mg PO DAILY 02/19/19 Lidocaine [Lidoderm 5% (700 mg) Transdermal Patch] 1 patch TP QAM 08/08/19 Pregabalin [Lyrica 75 mg Capsule] 75 mg PO QAM 08/08/19 Risperidone [Risperdal 1 mg Tablet] 1 mg PO QAM 08/08/19 Fluticasone/Salmeterol [Advair 250-50 Diskus 14 Dose/Diskus] 1 inh IH Q12H #1 in haler 08/09/19 Clonazepam [Klonopin] 0.5 mg PO Q12HP PRN 01/27/20 Fluticasone Propionate [Flonase Nasal [place] 50 Mcg/[place] 16 gm] 1 spray NASL DAILY 01/27/20 Guaifenesin [Mucus ER] 600 mg PO Q12 01/27/20 Ipratropium/Albuterol Sulfate [Duoneb 3 ml Ampul] 3 ml NEB RTQ4HP PRN 01/27/20 Lisinopril [Prinivil 5 mg Tablet] 5 mg PO DAILY 01/27/20 Menthol [Biofreeze] 1 applic TP Q6HP PRN 01/27/20 Oxycodone HCl/Acetaminophen [Percocet 7.5-325 mg Tablet] 1 each PO TID 01/27/20 Suvorexant [Belsomra] 20 mg PO QHS 01/27/20 Azithromycin 250 mg PO DAILY 2 Days #2 tablet 01/30/20 Prednisone [Deltasone 20 mg Tablet] 40 mg PO DAILY 3 Days #6 tablet 01/30/20 History of Present Illiness History of Present Illness: NAVEEN TABARES is a 59 year old female shelter resident with a past medical history of schizophrenia, bipolar, coronary artery disease with stent x4, systolic heart failure with an ejection fraction of 40%, COPD, type 2 diabetes, morbid obesity and obstructive sleep apnea. She is noted by shelter staff to have confusion and lethargy prompting evaluation in the emergency department where she is found to be disheveled, poorly arousable with hypoxia and hypercapnia. She started on BiPAP and referred to the hospitalist for admission. Mental status improves she is awake and able to answer basic questions. Denies chest pain nausea vomiting, admits to constipation. She is unaware of any new medications but this is her baseline. Hospital Course Hospital Course: (1) Acute on chronic respiratory failure with hypoxia and hypercapnia Moderate improvement. SPO2 WNL on 2 L. ABG improving. History of oxygen dependent COPD 2 L nasal cannula. Was a started on supplemental oxygen, BiPAP, duo nebs, incentive spirometry, empiric IV antibiotics, IV steroids. Nocturnal CPAP. Daily ABG. Unfortunately not compliant on CPAP. Patient may have underlying obstructive sleep apnea and is to follow-up with PCP and pulmonology for possible outpatient nocturnal polysomnography. Discharged on p.o. steroids for another 3 days, p.o. azithromycin for another 3 days, restart RUANO, LABA and ICS. Continue supplemental oxygen as needed. Patient is stating that she has enough oxygen supplies at the shelter. (2) Diabetes mellitus type 2 in obese Controlled. Was a started on diabetic diet, basal, sliding and correctional insulin. Restart home regimen upon discharge. Outpatient PCP follow-up. (3) Metabolic encephalopathy Resolved. Back to baseline. Alert and oriented x3. Multifactorial. Likely secondary to hypercapnic respiratory failure and polypharmacy including multiple antipsychotics and multiple sedating medications. Patient is to follow-up with PCP and psychiatry for reconciliation and possibly reduction of her antipsychotic and sedating medications. (4) Schizophrenia Denies any auditory or visual hallucination. Restarted home meds. Physical Exam Vital Signs: Temp Pulse Resp BP Pulse Ox 99.2 F 83 18 123/60 91 L 01/30/20 11:16 01/30/20 14:15 01/30/20 14:15 01/30/20 11:16 01/30/20 14:15 Intake & Output 01/29/20 01/30/20 01/31/20 06:59 06:59 06:59 Intake Total 1590 1176 240 Output Total 750 Balance 840 1176 240 Weight 99.3 kg 98.6 kg General appearance: PRESENT: obese Head exam: PRESENT: atraumatic, normocephalic Respiratory exam: PRESENT: clear to auscultation luz elena. ABSENT: rales, rhonchi, wheezes Cardiovascular exam: PRESENT: RRR. ABSENT: diastolic murmur, rubs, systolic murmur Pulses: PRESENT: normal dorsalis pedis pul GI/Abdominal exam: PRESENT: normal bowel sounds, soft. ABSENT: distended, guarding, mass, organolmegaly, rebound, tenderness Neurological exam: PRESENT: alert, awake, oriented to person, oriented to place, oriented to time, oriented to situation, CN II-XII grossly intact. ABSENT: motor sensory deficit Results Laboratory Results: WBC 15.0 10^3/uL (4.0-10.5) H 01/30/20 05:56 RBC 4.06 10^6/uL (3.72-5.28) 01/30/20 05:56 Hgb 11.9 g/dL (12.0-15.5) L 01/30/20 05:56 Hct 35.8 % (36.0-47.0) L 01/30/20 05:56 MCV 88 fl (80-97) 01/30/20 05:56 MCH 29.2 pg (27.0-33.4) 01/30/20 05:56 MCHC 33.2 g/dL (32.0-36.0) 01/30/20 05:56 RDW 16.3 % (11.5-14.0) H 01/30/20 05:56 Plt Count 278 10^3/uL (150-450) 01/30/20 05:56 Lymph % (Auto) 10.9 % (13-45) L 01/30/20 05:56 Kane % (Auto) 3.9 % (3-13) 01/30/20 05:56 Eos % (Auto) 0.0 % (0-6) 01/30/20 05:56 Baso % (Auto) 0.3 % (0-2) 01/30/20 05:56 Absolute Neuts (auto) 12.7 10^3/uL (1.7-8.2) H 01/30/20 05:56 Absolute Lymphs (auto) 1.6 10^3/uL (0.5-4.7) 01/30/20 05:56 Absolute Monos (auto) 0.6 10^3/uL (0.1-1.4) 01/30/20 05:56 Absolute Eos (auto) 0.0 10^3/uL (0.0-0.6) 01/30/20 05:56 Absolute Basos (auto) 0.0 10^3/uL (0.0-0.2) 01/30/20 05:56 Total Counted 100 01/26/20 23:02 Seg Neutrophils % 84.9 % (42-78) H 01/30/20 05:56 Seg Neuts % (Manual) 68 % (42-78) 01/26/20 23:02 Band Neutrophils % 1 % (3-5) L 01/26/20 23:02 Lymphocytes % (Manual) 22 % (13-45) 01/26/20 23:02 Atypical Lymphs % 1 % (0) 01/26/20 23:02 Monocytes % (Manual) 6 % (3-13) 01/26/20 23:02 Eosinophils % (Manual) 2 % (0-6) 01/26/20 23:02 Basophils % (Manual) 0 % (0-2) 01/26/20 23:02 Abs Neuts (Manual) 10.2 10^3/uL (1.7-8.2) H 01/26/20 23:02 Abs Lymphs (Manual) 3.4 10^3/uL (0.5-4.7) 01/26/20 23:02 Abs Monocytes (Manual) 0.9 10^3/uL (0.1-1.4) 01/26/20 23:02 Absolute Eos (Manual) 0.3 10^3/uL (0.0-0.6) 01/26/20 23:02 Abs Basophils (Manual) 0.0 10^3/uL (0.0-0.2) 01/26/20 23:02 Platelet Comment ADEQUATE 01/26/20 23:02 Anisocytosis 1+ 01/26/20 23:02 Carbonic Acid 1.68 mmol/L (1.05-1.35) H 01/30/20 12:10 HCO3/H2CO3 Ratio 17:1 01/30/20 12:10 ABG pH 7.34 (7.35-7.45) L 01/30/20 12:10 ABG pCO2 55.7 mmHg (35-45) H 01/30/20 12:10 ABG pO2 59.4 mmHg (80-100) L 01/30/20 12:10 ABG HCO3 29.3 mmol/L (20-24) H 01/30/20 12:10 ABG Total CO2 31.0 mmol/L (21-25) H 01/30/20 12:10 ABG O2 Saturation 88.7 % (94-98) L 01/30/20 12:10 ABG Base Excess 2.4 mmol/L 01/30/20 12:10 FiO2 28% 01/30/20 12:10 Sodium 136.2 mmol/L (137-145) L 01/30/20 05:56 Potassium 4.4 mmol/L (3.6-5.0) 01/30/20 05:56 Chloride 101 mmol/L (98-107) 01/30/20 05:56 Carbon Dioxide 30 mmol/L (22-30) 01/30/20 05:56 Anion Gap 5 (5-19) 01/30/20 05:56 BUN 23 mg/dL (7-20) H 01/30/20 05:56 Creatinine 0.85 mg/dL (0.52-1.25) 01/30/20 05:56 Est GFR ( Amer) > 60 (>60) 01/30/20 05:56 Est GFR (MDRD) Non-Af > 60 (>60) 01/30/20 05:56 Glucose 147 mg/dL (75-110) H 01/30/20 05:56 POC Glucose 183 mg/dL (70-110) H 01/30/20 15:46 Calcium 9.2 mg/dL (8.4-10.2) 01/30/20 05:56 Magnesium 1.8 mg/dL (1.6-2.3) 01/28/20 04:01 Total Bilirubin 0.4 mg/dL (0.2-1.3) 01/26/20 23:02 Direct Bilirubin 0.4 mg/dL (0.0-0.4) 01/26/20 23:02 Neonat Total Bilirubin Not Reportable 01/26/20 23:02 Neonat Direct Bilirubin Not Reportable 01/26/20 23:02 Neonat Indirect Bili Not Reportable 01/26/20 23:02 AST 14 U/L (14-36) 01/26/20 23:02 ALT 9 U/L (<35) 01/26/20 23:02 Alkaline Phosphatase 107 U/L (38-126) 01/26/20 23:02 Creatine Kinase 25 U/L (30-135) L 01/26/20 23:02 CK-MB (CK-2) 1.00 ng/mL (<4.55) 01/26/20 23:02 Troponin I 0.049 ng/mL 01/27/20 01:51 NT-Pro-B Natriuret Pep 1870 pg/mL (<125) H 01/26/20 23:02 Total Protein 6.6 g/dL (6.3-8.2) 01/26/20 23:02 Albumin 3.5 g/dL (3.5-5.0) 01/26/20 23:02 Urine Opiates Screen NEGATIVE 01/28/20 03:00 Urine Methadone Screen NEGATIVE 01/28/20 03:00 Ur Barbiturates Screen NEGATIVE 01/28/20 03:00 Ur Phencyclidine Scrn NEGATIVE 01/28/20 03:00 Ur Amphetamines Screen NEGATIVE 01/28/20 03:00 U Benzodiazepines Scrn NEGATIVE 01/28/20 03:00 Urine Cocaine Screen NEGATIVE 01/28/20 03:00 U Marijuana (THC) Screen NEGATIVE 01/28/20 03:00 01/26/20 01/27/20 23:02 01:51 CK-MB (CK-2) 1.00 Troponin I 0.067 0.049 NT-Pro-B Natriuret Pep 1870 H Impressions: Chest X-Ray 01/26/20 22:52 IMPRESSION: No pneumonia. Plan Time Spent: Greater than 30 Minutes Stroke Is this a Stroke Patient?: No Acute Heart Failure - Is this a Heart Failure Patient?: No
[2020-01-30 18:27] VITALS: BP 146/51
== END 2020-01-30 18:35 | DRG 189 ==
LOC: ER 22:45 → EH 01-27 01:10 → 5 01-27 03:36
PROVIDERS: ADMIT Internal Medicine; ATTEND Internal Medicine
DX: J96.22 Acute and chronic respiratory failure with hypercapnia (principal); G93.41 Metabolic encephalopathy; E87.2 Acidosis; J96.21 Acute and chronic respiratory failure with hypoxia; I25.10 Atherosclerotic heart disease of native coronary artery without angina pectoris; I50.9 Heart failure, unspecified; E11.8 Type 2 diabetes mellitus with unspecified complications; E78.00 Pure hypercholesterolemia, unspecified; I11.0 Hypertensive heart disease with heart failure; K21.9 Gastro-esophageal reflux disease without esophagitis; F32.9 Major depressive disorder, single episode, unspecified; F20.9 Schizophrenia, unspecified; F17.210 Nicotine dependence, cigarettes, uncomplicated; Z86.73 Personal history of transient ischemic attack (TIA), and cerebral infarction without residual deficits; Z79.84 Long term (current) use of oral hypoglycemic drugs; Z79.82 Long term (current) use of aspirin; Z79.4 Long term (current) use of insulin; Z79.52 Long term (current) use of systemic steroids; Z79.899 Other long term (current) drug therapy
CPT/HCPCS: 36415; 36600; 71045; 80048; 80053; 80307; 82550; 82553; 82803; 82962; 83735; 83880; 84484; 85025; 85027; 93005; 93010; 94660; 94667; 94668; 94799; 99285; J1644; J1815; J2920; J3490; J7620

== ENCOUNTER 2020-02-19 14:55 | Emergency (ER) | payer MEDICARE, MEDICAID ==
--- NOTE | 2020-02-19 15:15 | ER Document Report ---
ED Medical Screen (RME) - General Stated Complaint: ALTERED MENTAL STATUS Primary Care Provider: SOBIA YANEZ MD [Primary Care Provider] - Follow up as needed TRAVEL OUTSIDE OF THE [place] IN LAST 30 DAYS: No - HPI Notes: 02/19/20 15:11 59-year-old female with a history of COPD, type 2 diabetes, bipolar disorder, schizoaffective disorder presents the ED from [facility] via EMS for intermittent altered mental status x1 day ago. Patient is currently being treated at [facility] for a left lower lobe pneumonia and started on Levaquin and she received 1 dose. Patient states that she was told she was having altered mental status, orientated to everything for president. Blood sugar was 143 via EMS. Patient's states as to why she came to ER because "I guess I needed to get checked out". Denies any numbness or tingling down her arms or legs. Patient is on 2 L of oxygen for COPD. Denies any chest pain shortness of breath nausea vomiting diarrhea. Denies any abdominal pain. Denies any trauma or recent injuries. I have greeted and performed a rapid initial assessment of this patient. A comprehensive ED assessment and evaluation of the patient, analysis of test results and completion of the medical decision making process will be conducted by additional ED providers. PHYSICAL EXAMINATION: GENERAL: Chronically ill-appearing well-nourished and in no acute distress. HEAD: Atraumatic, normocephalic. CV: s1, s2 regular LUNGS: No respiratory distress Musculoskeletal: Normal range of motion NEUROLOGICAL: Normal speech, unsteady gait SKIN: Warm, Dry, normal turgor, no rashes or lesions noted. - Related Data Allergies/Adverse Reactions: dicyclomine HCl [From Bentyl] Allergy (Severe, Verified 11/09/19 10:07) throat swelling ibuprofen [From Motrin] Allergy (Severe, Verified 11/09/19 10:07) "increased headache",swelling shellfish derived Allergy (Severe, Verified 01/29/20 08:31) RASH, MIGRAINES Penicillins Allergy (Intermediate, Verified 11/09/19 10:07) Hives,vomit,fever dicyclomine [From Bentyl] Allergy (Unknown, Verified 11/09/19 10:07) sumatriptan Allergy (Unknown, Verified 11/09/19 10:07) Past Medical History - Social History Family history: Reviewed & Not Pertinent - Past Medical History Cardiac Medical History: Reports: Hx Congestive Heart Failure, Hx Coronary Artery Disease - 4 stents, Hx Heart Attack - AUG x 2, Hx Hypercholesterolemia, Hx Hypertension Denies: Hx Heart Murmur Pulmonary Medical History: Reports: Hx Asthma, Hx Bronchitis, Hx COPD, Hx Pneumonia Denies: Hx Respiratory Failure, Hx Sleep Apnea, Hx Tuberculosis Neurological Medical History: Reports: Hx Cerebrovascular Accident - 2007, Hx Migraine, Hx Seizures Endocrine Medical History: Reports: Hx Diabetes Mellitus Type 1, Hx Diabetes Mellitus Type 2 Renal/ Medical History: Reports: Hx Kidney Stones. Denies: Hx Peritoneal Dialysis GI Medical History: Reports: Hx Gastroesophageal Reflux Disease, Hx Irritable Bowel. Denies: Hx Pancreatitis Musculoskeltal Medical History: Reports Hx Arthritis, Denies Hx Systemic Lupus Erythematosus Psychiatric Medical History: Reports: Hx Bipolar Disorder, Hx Depression, Hx Post Traumatic Stress Disorder, Hx Schizophrenia Past Surgical History: Reports: Hx Appendectomy, Hx Cardiac Catheterization, Hx Cardiac Surgery - 3 stents, Hx Cholecystectomy, Hx Hysterectomy, Hx Orthopedic Surgery - L knee, Hx Tonsillectomy - Immunizations Immunizations up to date: Yes Hx Diphtheria, Pertussis, Tetanus Vaccination: Yes Doctor's Discharge - Discharge Referrals: SOBIA YANEZ MD [Primary Care Provider] - Follow up as needed
--- NOTE | 2020-02-19 15:35 | ER Document Report ---
ED General - General Chief Complaint: Altered Mental Status Stated Complaint: ALTERED MENTAL STATUS Time Seen by Provider: 02/19/20 15:14 Primary Care Provider: SOBIA YANEZ MD [Primary Care Provider] - Follow up as needed TRAVEL OUTSIDE OF THE [place] IN LAST 30 DAYS: No - HPI Notes: Patient is a 59-year-old female who presents from [facility] for evaluation of altered mental status. The patient herself is not a good historian. She really cannot tell me why she is here. According to the residential notes she is usually alert and oriented x4, but she has been increasingly confused. The patient states she has had some chest pain, but really cannot tell me anything about it, other than she was told "it is from my pneumonia." She admits to feeling short of breath intermittently, although she cannot tell me what brings it about. In regards to her chest pain, she states to me "it just hurts." - Related Data Allergies/Adverse Reactions: dicyclomine HCl [From Bentyl] Allergy (Severe, Verified 11/09/19 10:07) throat swelling ibuprofen [From Motrin] Allergy (Severe, Verified 11/09/19 10:07) "increased headache",swelling shellfish derived Allergy (Severe, Verified 01/29/20 08:31) RASH, MIGRAINES Penicillins Allergy (Intermediate, Verified 11/09/19 10:07) Hives,vomit,fever dicyclomine [From Bentyl] Allergy (Unknown, Verified 11/09/19 10:07) sumatriptan Allergy (Unknown, Verified 11/09/19 10:07) Past Medical History - General Information source: Patient, H Records, Outside Facility Records - Social History Smoking Status: Former Smoker Frequency of alcohol use: None Drug Abuse: None Family History: Hypertension Patient has suicidal ideation: No Patient has homicidal ideation: No - Past Medical History Cardiac Medical History: Reports: Hx Congestive Heart Failure, Hx Coronary Artery Disease - 4 stents, Hx Heart Attack - Jun x 2, Hx Hypercholesterolemia, Hx Hypertension Denies: Hx Heart Murmur Pulmonary Medical History: Reports: Hx Asthma, Hx Bronchitis, Hx COPD, Hx Pneumonia Denies: Hx Respiratory Failure, Hx Sleep Apnea, Hx Tuberculosis Neurological Medical History: Reports: Hx Cerebrovascular Accident - 2007, Hx Migraine, Hx Seizures Endocrine Medical History: Reports: Hx Diabetes Mellitus Type 1, Hx Diabetes Mellitus Type 2 Renal/ Medical History: Reports: Hx Kidney Stones. Denies: Hx Peritoneal Di alysis GI Medical History: Reports: Hx Gastroesophageal Reflux Disease, Hx Irritable Bowel. Denies: Hx Pancreatitis Musculoskeletal Medical History: Reports Hx Arthritis, Denies Hx Systemic Lupus Erythematosus Psychiatric Medical History: Reports: Hx Bipolar Disorder, Hx Depression, Hx Post Traumatic Stress Disorder, Hx Schizophrenia Past Surgical History: Reports: Hx Appendectomy, Hx Cardiac Catheterization, Hx Cardiac Surgery - 3 stents, Hx Cholecystectomy, Hx Hysterectomy, Hx Orthopedic Surgery - L knee, Hx Tonsillectomy - Immunizations Immunizations up to date: Yes Hx Diphtheria, Pertussis, Tetanus Vaccination: Yes Hx Pneumococcal Vaccination: 11/26/12 Review of Systems - Review of Systems Cardiovascular: See HPI Respiratory: See HPI Neurological/Psychological: See HPI -: Yes All other systems reviewed and negative Physical Exam - Vital signs Vitals: Pulse Ox 94 02/19/20 15:41 - Notes Notes: This is a 59-year-old female who appears much older than her stated age in no acute distress. Vital signs reviewed, please refer to chart. Head is normocephalic, atraumatic. Pupils equal round, reactive to light. Neck is supple without meningismus. Heart is regular rate and rhythm. Lungs are clear to auscultation bilaterally. Abdomen is soft, nontender, normoactive bowel sounds throughout. Extremities without cyanosis, clubbing. 1+ pitting pretibial edema noted. Posterior calves are nontender. Peripheral pulses are equal. Skin is warm and dry. Patient is awake, alert oriented to place, disoriented to time. I asked her repeatedly to tell me the year, she continues "I am in the hospital." She has some difficulty following instructions. She moves all 4 extremities spontaneously with no focal weakness identified on extremity exam. No gross facial asymmetry. Sensation appears to be intact. Course - Re-evaluation Re-evalutation: 02/19/20 15:37 Patient presents emergency department for evaluation of altered mental status. This is a 59-year-old female multiple medical issues. Laboratory investigations, EKG, imaging ordered. Awaiting documentation of vital signs. We will continue to monitor. 02/19/20 17:45 I went back and reexamined the patient. She is now awake and alert. She is oriented to person, place, time. She is able to follow directions and has no issues. She states she feels comfortable with the idea of going home. At this point I do not know why she was intermittently confused, but she seems back to baseline now. Her chest x-ray, CT, blood work are largely unremarkable. She has no signs of urinary infection. I did order blood cultures which will of course be pending. Patient will be transferred back to the residential, is to follow-up with primary care this week, return to the ED with worsening or new concerning symptoms of any sort. - Vital Signs Vital signs: Temp Pulse Resp BP Pulse Ox 98.1 F 16 134/62 H 97 02/19/20 16:23 02/19/20 17:01 02/19/20 17:01 02/19/20 17:01 - Laboratory Result Diagrams: 02/19/20 15:21 02/19/20 15:21 Laboratory results interpreted by me: 02/19/20 02/19/20 15:21 15:21 WBC 10.7 H Hct 35.7 L RDW 16.7 H Est GFR ( Amer) 59 L Est GFR (MDRD) Non-Af 49 L - Diagnostic Test Radiology reviewed: Reports reviewed Radiology results interpreted by me: 02/19/20 17:46 Chest X-Ray 02/19/20 15:10 IMPRESSION: NO ACUTE RADIOGRAPHIC FINDING IN THE CHEST. Head CT 02/19/20 15:10 IMPRESSION: NORMAL BRAIN CT WITHOUT CONTRAST. EVIDENCE OF ACUTE STROKE: NO. - EKG Interpretation by Me Additional EKG results interpreted by me: 02/19/20 17:46 Sinus mechanism with a rate of 72 bpm. Normal axis intervals. Nonspecific ST changes, but no acute changes concerning for ischemia infarction. No change compared to prior study of January 26, 2020 Discharge - Discharge Clinical Impression: Altered mental status Qualifiers: Altered mental status type: disorientation Qualified Code(s): R41.0 - Disorientation, unspecified Condition: Stable Disposition: HOME-SNF (ED ONLY) Instructions: Altered Mental Status ([facility]) Additional Instructions: No clear cause was found for your intermittent confusion today. Continue your regular medications as prescribed. Follow-up with primary care next week. Return to the emergency department with worsening or new concerning symptoms of any sort. Referrals: SOBIA YANEZ MD [Primary Care Provider] - Follow up as needed
[2020-02-19 15:39] LABS: ABSOLUTE BASOPHILS # (AUTO) 0.1 10^3/uL (0.0-0.2); ABSOLUTE EOSINOPHILS # (AUTO) 0.2 10^3/uL (0.0-0.6); ABSOLUTE LYMPHOCYTES (AUTO) 2.3 10^3/uL (0.5-4.7); ABSOLUTE MONOCYTES (AUTO) 0.6 10^3/uL (0.1-1.4); ABSOLUTE NEUT (AUTO) 7.4 10^3/uL (1.7-8.2); BASOPHILS % (AUTO) 1.2 % (0-2); EOSINOPHILS % (AUTO) 1.7 % (0-6); HEMATOCRIT 35.7 % (36.0-47.0); MEAN CORPUSCULAR HEMOGLOBIN 30.4 pg (27.0-33.4); MEAN CORPUSCULAR HGB CONC 33.7 g/dL (32.0-36.0); MEAN CORPUSCULAR VOLUME 90 fl (80-97); MONOCYTES % (AUTO) 5.4 % (3-13); PLATELET COUNT 243 10^3/uL (150-450); RED BLOOD COUNT 3.95 10^6/uL (3.72-5.28); RED CELL DISTRIBUTION WIDTH 16.7 % (11.5-14.0); SEGMENTED NEUTROPHILS % (AUTO) 69.7 % (42-78); TOTAL CELLS COUNTED % (AUTO) 100 %; WHITE BLOOD COUNT 10.7 10^3/uL (4.0-10.5)
--- NOTE | 2020-02-19 15:48 | RADIOLOGY REPORT (SQ) ---
EXAM DESCRIPTION: CHEST SINGLE VIEW COMPLETED DATE/TIME: 02/19/2020 3:37 pm REASON FOR STUDY: AMS COMPARISON: 01/26/2020 EXAM PARAMETERS: NUMBER OF VIEWS: One view. TECHNIQUE: Single frontal radiographic view of the chest acquired. RADIATION DOSE: NA LIMITATIONS: None. FINDINGS: LUNGS AND PLEURA: No opacities, masses or pneumothorax. No pleural effusion. MEDIASTINUM AND HILAR STRUCTURES: No masses. Contour normal. HEART AND VASCULAR STRUCTURES: Heart normal in size. Normal vasculature. BONES: No acute findings. HARDWARE: None in the chest. OTHER: No other significant finding. IMPRESSION: NO ACUTE RADIOGRAPHIC FINDING IN THE CHEST. TECHNICAL DOCUMENTATION: JOB ID: [id number] 2010 [employer]- All Rights Reserved Reading location - IP/workstation name: [email or web address]
[2020-02-19 15:49] LABS: APPEARANCE,URINE CLEAR; BILIRUBIN,URINE NEGATIVE (NEGATIVE); COLOR,URINE YELLOW; GLUCOSE, URINE NEGATIVE (NEGATIVE); KETONES,URINE NEGATIVE (NEGATIVE); LEUKOCYTE ESTERASE,URINE NEGATIVE (NEGATIVE); NITRITE,URINE NEGATIVE (NEGATIVE); PROTEIN,URINE NEGATIVE (NEGATIVE); UROBILINOGEN,URINE NEGATIVE mg/dL (<2.0)
--- NOTE | 2020-02-19 15:54 | RADIOLOGY REPORT (SQ) ---
EXAM DESCRIPTION: CT HEAD WITHOUT COMPLETED DATE/TIME: 02/19/2020 3:42 pm REASON FOR STUDY: AMS COMPARISON: 11/04/2019 TECHNIQUE: Axial images acquired through the brain without intravenous contrast. Images reviewed wi th bone, brain and subdural windows. Additional sagittal and coronal reconstructions were generated. Images stored on PACS. All CT scanners at this facility use dose modulation, iterative reconstruction, and/or weight based d osing when appropriate to reduce radiation dose to as low as reasonably achievable (ALARA). [facility]: Dose Right [facility]: CareDose [facility]: Dose Right [facility]: Teradose 4D [facility]: [employer] RADIATION DOSE: CT Rad equipment meets quality standard of care and radiation dose reduction techniq ues were employed. CTDIvol: 53.2 mGy. DLP: 1017 mGy-cm. mGy. LIMITATIONS: None. FINDINGS: VENTRICLES: Normal size and contour. CEREBRUM: No masses. No hemorrhage. No midline shift. No evidence for acute infarction. Normal gra y/white matter differentiation. No areas of low density in the white matter. CEREBELLUM: No masses. No hemorrhage. No alteration of density. No evidence for acute infarction. EXTRAAXIAL SPACES: No fluid collections. No masses. ORBITS AND GLOBE: No intra- or extraconal masses. Normal contour of globe without masses. CALVARIUM: No fracture. PARANASAL SINUSES: No fluid or mucosal thickening. SOFT TISSUES: No mass or hematoma. OTHER: No other significant finding. IMPRESSION: NORMAL BRAIN CT WITHOUT CONTRAST. EVIDENCE OF ACUTE STROKE: NO. COMMENT: Quality ID # [id number]: Final reports with documentation of one or more dose reduction techniques (e.g., Automated exposure control, adjustment of the mA and/or kV according to patient size, use of iterative reconstruction technique) TECHNICAL DOCUMENTATION: JOB ID: [id number] 2010 [employer]- All Rights Reserved Reading location - IP/workstation name: [email or web address]
[2020-02-19 16:43] LABS: BLOOD UREA NITROGEN 20 mg/dL (7-20); CALCIUM 9.4 mg/dL (8.4-10.2); CHLORIDE 102 mmol/L (98-107); GLUCOSE 99 mg/dL (75-110); POTASSIUM 4.7 mmol/L (3.6-5.0)
[2020-02-19 16:44] LABS: ALKALINE PHOSPHATASE 102 U/L (38-126); ANION GAP 10 (5-19); ASPARTATE AMINO TRANSFERASE 20 U/L (14-36); BILIRUBIN,DIRECT 0.4 mg/dL (0.0-0.4); BILIRUBIN,TOTAL 0.4 mg/dL (0.2-1.3); CARBON DIOXIDE 28 mmol/L (22-30); TOTAL PROTEIN 7.5 g/dL (6.3-8.2)
[2020-02-19 18:33] VITALS: BP 128/55
--- NOTE | 2020-02-19 19:44 | EKG REPORT ---
SEVERITY:- ABNORMAL ECG - SINUS RHYTHM PROBABLE LEFT ATRIAL ABNORMALITY CONSIDER ANTEROSEPTAL INFARCT BORDERLINE T WAVE ABNORMALITIES ANTEROLATERAL LEADS. : Confirmed by: Patrice Johnson MD 19-Feb-2020 19:43:51
== END 2020-02-19 19:41 ==
LOC: ER 14:55
DX: R41.0 Disorientation, unspecified (principal); R07.9 Chest pain, unspecified; J44.9 Chronic obstructive pulmonary disease, unspecified; R06.02 Shortness of breath; R60.0 Localized edema; I25.10 Atherosclerotic heart disease of native coronary artery without angina pectoris; I10 Essential (primary) hypertension; E11.9 Type 2 diabetes mellitus without complications; Z87.891 Personal history of nicotine dependence; Z88.8 Allergy status to other drugs, medicaments and biological substances; Z91.013 Allergy to seafood; Z88.0 Allergy status to penicillin; Z88.6 Allergy status to analgesic agent
CPT/HCPCS: 36415; 70450; 71045; 80053; 81001; 82962; 84484; 85025; 87040; 93005; 93010; 99285

== ENCOUNTER 2020-02-27 15:05 | Inpatient (IN) | payer MEDICARE, MEDICAID ==
[2020-02-27] MEDS ORDERED: NORMAL SALINE 500 ML IV ONE (16:17)
[2020-02-27 16:48] LABS: A TYPE INFLUENZA AG NEGATIVE (NEGATIVE); B INFLUENZA AG NEGATIVE (NEGATIVE)
--- NOTE | 2020-02-27 17:04 | RADIOLOGY REPORT (SQ) ---
EXAM DESCRIPTION: CHEST SINGLE VIEW IMAGES COMPLETED DATE/TIME: 02/27/2020 4:56 pm REASON FOR STUDY: cough COMPARISON: 02/19/2020. EXAM PARAMETERS: NUMBER OF VIEWS: One view. TECHNIQUE: Single frontal radiographic view of the chest acquired. RADIATION DOSE: NA LIMITATIONS: None. FINDINGS: LUNGS AND PLEURA: No opacities, masses or pneumothorax. No pleural effusion. MEDIASTINUM AND HILAR STRUCTURES: No masses. Contour normal. HEART AND VASCULAR STRUCTURES: Enlarged cardiac silhouette with central vascular congestion. BONES: Chronic left humeral fracture. HARDWARE: None in the chest. OTHER: No other significant finding. IMPRESSION: Enlarged cardiac silhouette with central vascular congestion. TECHNICAL DOCUMENTATION: JOB ID: [id number] 2010 [employer]- All Rights Reserved Reading location - IP/workstation name: [email or web address]
--- NOTE | 2020-02-27 17:28 | RADIOLOGY REPORT (SQ) ---
EXAM DESCRIPTION: CT HEAD WITHOUT IMAGES COMPLETED DATE/TIME: 02/27/2020 5:08 pm REASON FOR STUDY: ams COMPARISON: 02/19/2020 TECHNIQUE: Axial images acquired through the brain without intravenous contrast. Images reviewed wi th bone, brain and subdural windows. Additional sagittal and coronal reconstructions were generated. Images stored on PACS. All CT scanners at this facility use dose modulation, iterative reconstruction, and/or weight based d osing when appropriate to reduce radiation dose to as low as reasonably achievable (ALARA). [facility]: Dose Right [facility]: CareDose [facility]: Dose Right [facility]: Teradose 4D [facility]: [employer] RADIATION DOSE: CT Rad equipment meets quality standard of care and radiation dose reduction techniq ues were employed. CTDIvol: 53.2 mGy. DLP: 1017 mGy-cm. LIMITATIONS: None. FINDINGS: VENTRICLES: Normal size and contour. The cisterns are patent. CEREBRUM: No masses. No hemorrhage. No midline shift. No evidence for acute infarction. Normal gra y/white matter differentiation. No areas of low density in the white matter. CEREBELLUM: No masses. No hemorrhage. No alteration of density. No evidence for acute infarction. EXTRAAXIAL SPACES: No fluid collections. No masses. ORBITS AND GLOBE: No intra- or extraconal masses. Normal contour of globe without masses. CALVARIUM: No fracture. PARANASAL SINUSES: Small mucous retention cyst or polyp in the left maxillary sinus. No fluid. SOFT TISSUES: No mass or hematoma. OTHER: No other significant finding. IMPRESSION: 1. No significant interval changes since the prior examination dated 02/19/2020. No acu te findings. EVIDENCE OF ACUTE STROKE: NO. COMMENT: Quality ID # [id number]: Final reports with documentation of one or more dose reduction techniques (e.g., Automated exposure control, adjustment of the mA and/or kV according to patient size, use of iterative reconstruction technique) TECHNICAL DOCUMENTATION: JOB ID: [id number] 2010 [employer] (by [email or web address])- All Rights Reserved Reading location - IP/workstation name: [email or web address]
[2020-02-27 18:23] LABS: ABSOLUTE EOSINOPHILS # (AUTO) 0.3 10^3/uL (0.0-0.6); ABSOLUTE LYMPHOCYTES (AUTO) 1.2 10^3/uL (0.5-4.7); ABSOLUTE MONOCYTES (AUTO) 0.6 10^3/uL (0.1-1.4); BASOPHILS % (AUTO) 0.4 % (0-2); EOSINOPHILS % (AUTO) 2.4 % (0-6); HEMATOCRIT 33.2 % (36.0-47.0); LYMPHOCYTES % (AUTO) 11.1 % (13-45); MEAN CORPUSCULAR HEMOGLOBIN 30.1 pg (27.0-33.4); MEAN CORPUSCULAR HGB CONC 33.1 g/dL (32.0-36.0); MEAN CORPUSCULAR VOLUME 91 fl (80-97); MONOCYTES % (AUTO) 5.3 % (3-13); PLATELET COUNT 197 10^3/uL (150-450); RED BLOOD COUNT 3.65 10^6/uL (3.72-5.28); RED CELL DISTRIBUTION WIDTH 16.8 % (11.5-14.0); SEGMENTED NEUTROPHILS % (AUTO) 80.8 % (42-78); TOTAL CELLS COUNTED % (AUTO) 100 %; WHITE BLOOD COUNT 11.2 10^3/uL (4.0-10.5)
[2020-02-27 18:32] LABS: INTERNATIONAL RATION (INR) 1.02; PROTHROMBIN TIME 13.4 SEC (11.4-15.4)
[2020-02-27 18:33] LABS: PARTIAL THROMBOPLASTIN TIME 33.9 SEC (23.5-35.8)
[2020-02-27 18:35] LABS: D-DIMER 1.38 ug/mL (0.00-0.50)
[2020-02-27 18:38] LABS: ALBUMIN 3.5 g/dL (3.5-5.0); ALKALINE PHOSPHATASE 84 U/L (38-126); ANION GAP 7 (5-19); ASPARTATE AMINO TRANSFERASE 16 U/L (14-36); BILIRUBIN,DIRECT 0.2 mg/dL (0.0-0.4); BILIRUBIN,TOTAL 0.2 mg/dL (0.2-1.3); BLOOD UREA NITROGEN 23 mg/dL (7-20); CALCIUM 9.2 mg/dL (8.4-10.2); CARBON DIOXIDE 23 mmol/L (22-30); CHLORIDE 107 mmol/L (98-107); GLUCOSE 124 mg/dL (75-110); POTASSIUM 5.2 mmol/L (3.6-5.0); TOTAL PROTEIN 6.3 g/dL (6.3-8.2)
[2020-02-27 18:39] LABS: ALCOHOL < 10 mg/dL (NONE DETECTED)
[2020-02-27 18:51] LABS: NT PRO BNP 931 pg/mL (<125)
[2020-02-27 18:52] LABS: TROPONIN I < 0.012 ng/mL
[2020-02-27] MEDS ORDERED: NORMAL SALINE 1000 ML 1,000 ML IV ONE (19:25)
--- NOTE | 2020-02-27 21:27 | ER Document Report ---
Entered by SUSANNAH MALONE SCRIBE 02/27/20 [id number] Acting as scribe for:BABAR HOLCOMB MD ED General - General Information source: Patient Cannot obtain history due to: Altered mental status TRAVEL OUTSIDE OF THE [place] IN LAST 30 DAYS: No <BABAR HOLCOMB - Last Filed: 02/27/20 21:19> <KARENBRODY WHITTAKER VINNIE - Last Filed: 02/28/20 02:14> - General Stated Complaint: SHORTNESS OF BREATH Primary Care Provider: SOBIA YANEZ MD [Primary Care Provider] - Follow up as needed Notes: This 59-year-old female with many medical issues that presents to the emergency department with an altered mental status. Patient is only saying the word "speaking" repeatedly. Patient's HPI is unobtainable due to her altered mental status. (BABAR HOLCOMB) - Related Data Allergies/Adverse Reactions: dicyclomine HCl [From Bentyl] Allergy (Severe, Verified 11/09/19 10:07) throat swelling ibuprofen [From Motrin] Allergy (Severe, Verified 11/09/19 10:07) "increased headache",swelling shellfish derived Allergy (Severe, Verified 01/29/20 08:31) RASH, MIGRAINES Penicillins Allergy (Intermediate, Verified 11/09/19 10:07) Hives,vomit,fever dicyclomine [From Bentyl] Allergy (Unknown, Verified 11/09/19 10:07) sumatriptan Allergy (Unknown, Verified 11/09/19 10:07) Past Medical History - General Information source: Patient Cannot obtain history due to: Altered mental status - Social History Smoking Status: Former Smoker Cigarette use (# per day): No Chew tobacco use (# tins/day): No Lives with: Long-Term Family History: Hypertension - Past Medical History Cardiac Medical History: Reports: Hx Congestive Heart Failure, Hx Coronary Artery Disease - 4 stents, Hx Heart Attack - Jun x 2, Hx Hypercholesterolemia, Hx Hypertension Pulmonary Medical History: Reports: Hx Asthma, Hx Bronchitis, Hx COPD, Hx Pneumonia Neurological Medical History: Reports: Hx Cerebrovascular Accident - 2007, Hx Migraine, Hx Seizures Endocrine Medical History: Reports: Hx Diabetes Mellitus Type 1, Hx Diabetes Mellitus Type 2 Renal/ Medical History: Reports: Hx Kidney Stones GI Medical History: Reports: Hx Gastroesophageal Reflux Disease, Hx Irritable Bowel Musculoskeletal Medical History: Reports Hx Arthritis Psychiatric Medical History: Reports: Hx Bipolar Disorder, Hx Depression, Hx Post Traumatic Stress Disorder, Hx Schizophrenia Past Surgical History: Reports: Hx Appendectomy, Hx Cardiac Catheterization, Hx Cardiac Surgery - 3 stents, Hx Cholecystectomy, Hx Hysterectomy, Hx Orthopedic S urgery - L knee, Hx Tonsillectomy - Immunizations Immunizations up to date: Yes Hx Diphtheria, Pertussis, Tetanus Vaccination: Yes Hx Pneumococcal Vaccination: 11/26/12 <BABAR HOLCOMB - Last Filed: 02/27/20 21:19> Review of Systems - Review of Systems -: Yes ROS unobtainable due to patient's medical condition <BABAR HOLCOMB - Last Filed: 02/27/20 21:19> Physical Exam <BABAR HOLCOMB - Last Filed: 02/27/20 21:19> - Vital signs Vitals: Pulse Ox 100 02/27/20 15:10 - Notes Notes: Physical Exam: General: Patient is not responding to questions. Patient is only saying "speaking, speaking, speaking" repeatedly. HEENT: Normocephalic. Atraumatic. PERRL. Extraocular movements intact. Oropharynx clear. Neck: Supple. Non-tender. Respiratory: No respiratory distress. Clear and equal breath sounds bilaterally. Cardiovascular: Regular rate and rhythm. Abdominal: Normal Inspection. Non-tender. No distension. Normal Bowel Sounds. Back: No gross abnormalities. Extremities: Moves all four extremities. Upper extremities: Normal inspection. Normal ROM. Lower extremities: Normal inspection. No edema. Normal ROM. Neurological: Confused. Disoriented. Psychological: Confused. Skin: Warm. Dry. Normal color. (BABAR HOLCOMB) Course - Laboratory Result Diagrams: 02/27/20 15:34 02/27/20 15:34 - Diagnostic Test Radiology reviewed: Image reviewed, Reports reviewed - Transfer of Care Care transferred to following provider: Dr Jones <BABAR HOLCOMB - Last Filed: 02/27/20 21:19> - Laboratory Result Diagrams: 02/27/20 15:34 02/27/20 15:34 - Consults dr. maria de jesus douglass Time consulted: 02:09 - dr douglass agreed to admit pt Consulted provider: will see as inpatient <BRODY JONES IV - Last Filed: 02/28/20 02:14> - Re-evaluation Re-evalutation: 02/27/20 21:00 Patient resting comfortably in exam room. Patient is on facemask O2 with a sat of 99 to 100%. Discontinue the facemask O2 patient desatted to 91%. Therefore patient was placed back on 2 L nasal O2 and maintain a sat of 97%. Patient does have an elevated d-dimer noted and therefore a work-up to exclude deep vein thrombosis and pulmonary embolus is ordered. Patient also is noted to be dehydrated with an elevated BUN/creatinine of 24 1.4. This is an increase over last week. Patient's mental status is still somewhat confusing and that she was perseverating when she first came in and now patient is more quiet and also without much conversation at this time. Patient moves all of her extremities well. Nonfocal exam except for patient having perseveration and more over somnolent somnolent state on arrival. 02/27/20 21:11 Patient has a history of hypoxic syndrome where she has respiratory distress and hypoxia. Patient also has schizoaffective schizophrenia bipolar disease and seem to have a manipulative behavior at times. Patient does have a chronic systolic congestive heart failure syndrome as well. Chest x-ray shows cardiomegaly and vascular congestive markings certainly worsened in the past week compared to previous chest x-ray. Patient is hypoxic requiring nasal O2 at this time. Patient has an elevated d-dimer which requires a work-up to to determine if there is a pulmonary embolus. 02/27/20 21:17 Currently at this time patient condition requires and laboratory values require further attention and work-up including a VQ scan, patient is allergic to contrast. Also venous Doppler studies of both lower extremities. And management of her hypoxia low saturation O2 with nasal cannula O2 at this time. Determinations of pulmonary embolus or DVT required and pending at this time. Signout to Dr. Brody Jones at this time for further evaluation and determination disposition the patient. (BABAR HOLCOMB) - Vital Signs Vital signs: Temp Pulse Resp BP Pulse Ox 99.0 F 109 H 23 H 152/77 H 96 02/28/20 01:25 02/27/20 15:15 02/28/20 02:01 02/28/20 02:00 02/28/20 02:01 - Laboratory Laboratory results interpreted by me: 02/27/20 02/27/20 02/27/20 15:34 15:34 15:34 WBC 11.2 H RBC 3.65 L Hgb 11.0 L Hct 33.2 L RDW 16.8 H Lymph % (Auto) 11.1 L Absolute Neuts (auto) 9.0 H Seg Neutrophils % 80.8 H D-Dimer 1.38 H ABG pH ABG HCO3 ABG Total CO2 Potassium 5.2 H BUN 23 H Creatinine 1.46 H Est GFR ( Amer) 45 L Est GFR (MDRD) Non-Af 37 L Glucose 124 H Lactic Acid Ammonia NT-Pro-B Natriuret Pep Urine Ketones Urine Ascorbic Acid 02/27/20 02/27/20 02/27/20 15:34 19:06 19:06 WBC RBC Hgb Hct RDW Lymph % (Auto) Absolute Neuts (auto) Seg Neutrophils % D-Dimer ABG pH ABG HCO3 ABG Total CO2 Potassium BUN Creatinine Est GFR ( Amer) Est GFR (MDRD) Non-Af Glucose Lactic Acid 2.7 H Ammonia < 8.7 L NT-Pro-B Natriuret Pep 931 H Urine Ketones Urine Ascorbic Acid 02/27/20 02/28/20 22:20 01:15 WBC RBC Hgb Hct RDW Lymph % (Auto) Absolute Neuts (auto) Seg Neutrophils % D-Dimer ABG pH 7.25 L ABG HCO3 19.1 L ABG Total CO2 20.4 L Potassium BUN Creatinine Est GFR ( Amer) Est GFR (MDRD) Non-Af Glucose Lactic Acid Ammonia NT-Pro-B Natriuret Pep Urine Ketones TRACE H Urine Ascorbic Acid 20 H - Diagnostic Test Radiology results interpreted by me: 02/27/20 21:12 CT scan of head did not disclose any acute stroke or any change from CT scan from 1 week ago. Chest x-ray cardiomegaly and congestive heart failure markings. (BABAR HOLCOMB) - EKG Interpretation by Me Additional EKG results interpreted by me: 02/27/20 21:12 12-lead EKG shows sinus tachycardia rate of 113 left atrial abnormality and borderline T wave abnormalities diffuse. (BABAR HOLCOMB) - Consults dr. maria de jesus douglass Reason for consultation: 02/28/20 02:12 ams, metabolic acidosis, setfany, dehydration (BRODY JONES IV) Discharge <ABBAR HOLCOMB - Last Filed: 02/27/20 21:19> - Discharge Admitting Provider: Gabrielle (Hospitalist) Unit Admitted: [facility] <BRODY JONES IV - Last Filed: 02/28/20 02:14> - Discharge Clinical Impression: Altered mental status, CHF (congestive heart failure), Acute kidney injury, Dehydration, Low O2 saturation, Elevated lactic acid level, Schizophrenia, Metabolic acidosis Condition: Good Disposition: ADMITTED INPATIENT Referrals: SOBIA YANEZ MD [Primary Care Provider] - Follow up as needed I personally performed the services described in the documentation, reviewed and edited the documentation which was dictated to the scribe in my presence, and it accurately records my words and actions.
--- NOTE | 2020-02-27 22:21 | RADIOLOGY REPORT (SQ) ---
EXAM DESCRIPTION: US EXTREMITY VEINS BILATERAL COMPLETED DATE/TME: 02/27/2020 20:58 CLINICAL HISTORY: 59 years, Female, elevated d dimer/sob. COMPARISON: None. FINDINGS: Duplex imaging of the deep venous system of both lower extremities was performed with visualization from the common femoral veins into the calves. There is normal compression, augmentation and color flow without visualized thrombus. Patent great and small saphenous veins as imaged bilaterally. IMPRESSION: No evidence of deep or superficial venous thrombosis of either lower extremity.
[2020-02-27 22:34] LABS: APPEARANCE,URINE CLEAR; BILIRUBIN,URINE NEGATIVE (NEGATIVE); COLOR,URINE YELLOW; GLUCOSE, URINE NEGATIVE (NEGATIVE); KETONES,URINE TRACE mg/dL (NEGATIVE); LEUKOCYTE ESTERASE,URINE NEGATIVE (NEGATIVE); NITRITE,URINE NEGATIVE (NEGATIVE); PROTEIN,URINE NEGATIVE (NEGATIVE); URINE SPECIFIC GRAVITY 1.013; UROBILINOGEN,URINE NEGATIVE mg/dL (<2.0)
--- NOTE | 2020-02-27 23:47 | RADIOLOGY REPORT (SQ) ---
EXAM DESCRIPTION: NM LUNG VENTILATION PERFUSION COMPLETED DATE/TME: 02/27/2020 20:56 CLINICAL HISTORY: 59 years, Female, sob/elevated d dimer. COMPARISON: Chest x-ray 02/27/2020 Technique: No ventilation imaging was acquired. Patient was then administered 5.6 mCi technetium 99m MAA and multiplanar perfusion imaging was acquired. FINDINGS: Patient was unable to move their arms which limits evaluation. Nonsegmental defects are noted. No large or moderate defects are identified. IMPRESSION: Low probability for pulmonary embolus
[2020-02-28 01:35] LABS: ARTERIAL BLOOD BASE EXCESS -7.8 mmol/L; ARTERIAL BLOOD H2CO3 1.33 mmol/L (1.05-1.35); ARTERIAL BLOOD HCO3 19.1 mmol/L (20-24); ARTERIAL BLOOD O2 SATURATION 95.2 % (94-98); ARTERIAL BLOOD PCO2 44.3 mmHg (35-45); ARTERIAL BLOOD PH 7.25 (7.35-7.45); ARTERIAL BLOOD TOTAL CO2 20.4 mmol/L (21-25)
[2020-02-28 01:39] LABS: ARTERIAL BLOOD FIO2 2L
[2020-02-28] MEDS ORDERED: LEVALBUTEROL HCL NEB 0.63 MG/3 ML AMPUL NEB PRN (02:34)
[2020-02-28] MEDS ORDERED: MAG HYDROX/AL HYDROX/SIMETH SUSP 30 ML UDCUP PO PRN (02:34)
[2020-02-28] MEDS ORDERED: ONDANSETRON HCL INJ/PF 4 MG/2 ML SDV IV PRN (02:34)
[2020-02-28] MEDS ORDERED: DEXTROSE 50%-WATER 25 GM/50 ML DISP.SYRIN IV PRN ×2 (02:42)
[2020-02-28] MEDS ORDERED: ACETAMINOPHEN 650 MG SUPP.RECT PR PRN (02:42)
[2020-02-28] MEDS ORDERED: GLUCAGON,HUMAN RECOMB 1 MG INJ IM PRN (02:42)
[2020-02-28] MEDS ORDERED: LORAZEPAM INJ 2 MG/1 ML VIAL IV PRN (02:42)
[2020-02-28] MEDS ORDERED: DEXTROSE 40% GEL 15 GM TUBE PO PRN ×2 (02:42)
[2020-02-28 04:08] LABS: ANION GAP 8 (5-19); BLOOD UREA NITROGEN 22 mg/dL (7-20); CALCIUM 8.8 mg/dL (8.4-10.2); CARBON DIOXIDE 22 mmol/L (22-30); CHLORIDE 110 mmol/L (98-107); GLUCOSE 203 mg/dL (75-110); POTASSIUM 5.1 mmol/L (3.6-5.0)
--- NOTE | 2020-02-28 05:01 | PDOC H&P ---
<ROHINI MEADOWS Chanel - Last Filed: 02/28/20 05:10> History of Present Illness Admission Date/PCP: 02/28/2020 02:10 SOBIA YANEZ MD Patient complains of: Altered mental status History of Present Illness: NAVEEN MARTINEZ is a 59 year old female who presented to the emergency room from a local nursing facility with acute altered mental status. Patient was noted to be repeatedly speaking the word "speaking" in echolalia-like fashion. She is unable to provide any input into her history or exam due to her altered mental status. In the ER patient was found to have a mild metabolic acidosis and a minimally elevated white blood cell count with mildly elevated lactic acid. She was noted to have evidence of acute kidney injury and was subsequently admitted to the hospital for further evaluation and treatment. Past Medical History Past Medical History: Due to patient's altered mental status all historical data is obtained from the best available reliable source. Cardiac Medical History: Reports: Congestive Heart Failure, Coronary Artery Disease - 4 stents, Myocardial Infarction - AUG x 2, Hyperlipidema, Hypertension Denies: Heart Murmur Pulmonary Medical History: Reports: Asthma, Bronchitis, Chronic Obstructive Pulmonary Disease (COPD), Pneumonia Denies: Respiratory Failure, Sleep Apnea, Tuberculosis EENT Medical History: Denies: Cataracts, Ears - Hearing aids Neurological Medical History: Reports: Migraine, Seizures Denies: Hemorrhagic CVA, Ischemic CVA Endocrine Medical History: Reports: Diabetes Mellitus Type 2 Denies: Diabetes Mellitus Type 1, Hyperthyroidism, Hypothyroidism Renal/ Medical History: Denies: Chronic Kidney Disease, Nephrolithiasis Malignancy Medical History: Reports: None GI Medical History: Reports: Gastroesophageal Reflux Disease Denies: Cirrhosis, Hepatitis Musculoskeltal Medical History: Reports: Arthritis Denies: Fibromyalgia, Gout Skin Medical History: Denies: Eczema, Psoriasis Psychiatric Medical History: Reports: Bipolar Disorder, Depression, Post Traumatic Stress Disorder Traumatic Medical History: Reports: None Hematology: Denies: Anemia, Bleeding Tendencies Infectious Medical History: Reports: None Past Surgical History Past Surgical History: Due to patient's altered mental status all historical data is obtained from the best available reliable source. Past Surgical History: Reports: Appendectomy, Cardiac Catheterization, Cholecystectomy, Hysterectomy, Orthopedic Surgery - L knee, Tonsillectomy Social History Information Source: Emergency Med Personnel, [facility] Records Lives with: [facility] Smoking Status: Former Smoker Electronic Cigarette use?: No Frequency of Alcohol Use: None Hx Recreational Drug Use: No Drugs: None Hx Prescription Drug Abuse: No Past Social History Note: Due to patient's altered mental status all historical data is obtained from the best available reliable source. - Advance Directive Resuscitation Status: Full Code Surrogate healthcare decision maker:: Jaja Martinez Family History Family History: Hypertension Family History: Due to patient's altered mental status all historical data is obtained from the best available reliable source. Parental Family History Reviewed: Yes Children Family History Reviewed: No Sibling(s) Family History Reviewed.: No Medication/Allergy Home Medications: Aspirin [Aspirin EC] 81 mg PO DAILY 07/22/18 Metformin HCl [Glucophage] 1,000 mg PO Q12 07/22/18 Risperidone [Risperdal 1 mg Tablet] 2 mg PO QHS 07/22/18 Atorvastatin Calcium [Lipitor 10 mg Tablet] 10 mg PO QHS 09/17/18 Benztropine Mesylate [Cogentin 1 mg Tablet] 1 mg PO Q12 09/17/18 Insulin Degludec [Tresiba Flextouch U-200] 20 unit SQ QPM 09/17/18 Topiramate [Topamax] 150 mg PO Q12 09/17/18 Furosemide [Lasix 20 mg Tablet] 40 mg PO DAILY 02/19/19 Sertraline HCl [Zoloft 50 mg Tablet] 75 mg PO DAILY 02/19/19 Pregabalin [Lyrica 75 mg Capsule] 75 mg PO QAM 08/08/19 Risperidone [Risperdal 1 mg Tablet] 1 mg PO QAM 08/08/19 Fluticasone/Salmeterol [Advair 250-50 Diskus 14 Dose/Diskus] 1 inh IH Q12H #1 inhaler 08/09/19 Clonazepam [Klonopin] 0.5 mg PO Q12HP PRN 01/27/20 Fluticasone Propionate [Flonase Nasal [place] 50 Mcg/[place] 16 gm] 1 spray NASL DAILY 01/27/20 Ipratropium/Albuterol Sulfate [Duoneb 3 ml Ampul] 3 ml NEB RTQ4HP PRN 01/27/20 Menthol [Biofreeze] 1 applic TP Q6HP PRN 01/27/20 Oxycodone HCl/Acetaminophen [Percocet 7.5-325 mg Tablet] 1 each PO TID 01/27/20 Suvorexant [Belsomra] 20 mg PO QHS 01/27/20 Allergies/Adverse Reactions: dicyclomine HCl [From Bentyl] Allergy (Severe, Verified 11/09/19 10:07) throat swelling ibuprofen [From Motrin] Allergy (Severe, Verified 11/09/19 10:07) "increased headache",swelling shellfish derived Allergy (Severe, Verified 01/29/20 08:31) RASH, MIGRAINES Penicillins Allergy (Intermediate, Verified 11/09/19 10:07) Hives,vomit,fever dicyclomine [From Bentyl] Allergy (Unknown, Verified 11/09/19 10:07) sumatriptan Allergy (Unknown, Verified 11/09/19 10:07) Review of Systems ROS unobtainable: Due to mental status Physical Exam Vital Signs: Temp Pulse Resp BP Pulse Ox 99.0 F 109 H 20 158/83 H 96 02/28/20 01:25 02/27/20 15:15 02/28/20 01:05 02/28/20 01:05 02/28/20 01:05 Intake & Output 02/26/20 02/27/20 02/28/20 23:59 23:59 23:59 Intake Total 500 1000 Balance 500 1000 Weight 100 kg General appearance: PRESENT: no acute distress, obese, other - Distracted from her surroundings Head exam: PRESENT: atraumatic, normocephalic Eye exam: ABSENT: conjunctival injection, scleral icterus Ear exam: PRESENT: normal external ear exam. ABSENT: bleeding, drainage Mouth exam: PRESENT: dry mucosa, neck supple Neck exam: ABSENT: thyromegaly, tracheal deviation Respiratory exam: PRESENT: clear to auscultation luz elena, symmetrical, unlabored Cardiovascular exam: PRESENT: RRR. ABSENT: clicks, gallop, rubs Pulses: PRESENT: normal radial pulses, normal dorsalis pedis pul Vascular exam: PRESENT: normal capillary refill. ABSENT: pallor GI/Abdominal exam: PRESENT: normal bowel sounds, soft Rectal exam: PRESENT: deferred Extremities exam: ABSENT: joint swelling, pedal edema Musculoskeletal exam: PRESENT: tenderness - Right upper extremity shows marked apparent tenderness (patient grimaces and cries out with pain) with motion of the humerus at the shoulder joint or elbow joint.. ABSENT: deformity, disl ocation Neurological exam: PRESENT: awake, CN II-XII grossly intact. ABSENT: oriented to person, oriented to place, oriented to time, oriented to situation Psychiatric exam: PRESENT: flat affect. ABSENT: other - Severely distracted from her immediate environment Skin exam: PRESENT: dry, intact, warm. ABSENT: jaundice, rash, urticaria Results Laboratory Results: 02/27/20 15:34 02/27/20 15:34 02/27/20 02/27/20 02/27/20 15:34 15:34 19:06 WBC 11.2 H RBC 3.65 L Hgb 11.0 L Hct 33.2 L MCV 91 MCH 30.1 MCHC 33.1 RDW 16.8 H Plt Count 197 Seg Neutrophils % 80.8 H Carbonic Acid HCO3/H2CO3 Ratio ABG pH ABG pCO2 ABG pO2 ABG HCO3 ABG O2 Saturation ABG Base Excess FiO2 Sodium 137.4 Potassium 5.2 H Chloride 107 Carbon Dioxide 23 Anion Gap 7 BUN 23 H Creatinine 1.46 H Est GFR ( Amer) 45 L Glucose 124 H Lactic Acid 2.7 H Calcium 9.2 Total Bilirubin 0.2 AST 16 Alkaline Phosphatase 84 Ammonia Total Protein 6.3 Albumin 3.5 Lipase 37.6 Urine Color Urine Appearance Urine pH Ur Specific [place] Urine Protein Urine Glucose (UA) Urine Ketones Urine Blood Urine Nitrite Ur Leukocyte Esterase Urine WBC (Auto) Urine RBC (Auto) 02/27/20 02/27/20 02/28/20 19:06 22:20 01:15 WBC RBC Hgb Hct MCV MCH MCHC RDW Plt Count Seg Neutrophils % Carbonic Acid 1.33 HCO3/H2CO3 Ratio 14:1 ABG pH 7.25 L ABG pCO2 44.3 ABG pO2 87.0 ABG HCO3 19.1 L ABG O2 Saturation 95.2 ABG Base Excess -7.8 FiO2 2L Sodium Potassium Chloride Carbon Dioxide Anion Gap BUN Creatinine Est GFR ( Amer) Glucose Lactic Acid Calcium Total Bilirubin AST Alkaline Phosphatase Ammonia < 8.7 L Total Protein Albumin Lipase Urine Color YELLOW Urine Appearance CLEAR Urine pH 5.0 Ur Specific [place] 1.013 Urine Protein NEGATIVE Urine Glucose (UA) NEGATIVE Urine Ketones TRACE H Urine Blood NEGATIVE Urine Nitrite NEGATIVE Ur Leukocyte Esterase NEGATIVE Urine WBC (Auto) 1 Urine RBC (Auto) 0 04/03/20 15:34 Troponin I < 0.012 NT-Pro-B Natriuret Pep 931 H Impressions: Chest X-Ray 02/27/20 16:12 IMPRESSION: Enlarged cardiac silhouette with central vascular congestion. Head CT 02/27/20 16:16 IMPRESSION: 1. No significant interval changes since the prior examination dated 02/19/2020. No acute findings. EVIDENCE OF ACUTE STROKE: NO. Lung Scan-VQ NM 02/27/20 20:56 IMPRESSION: Low probability for pulmonary embolus Venous Doppler Study 02/27/20 20:58 IMPRESSION: No evidence of deep or superficial venous thrombosis of either lower extremity. Assessment and Plan - Diagnosis (1) Acute metabolic encephalopathy Is this a current diagnosis for this admission?: Yes (2) Metabolic acidosis Is this a current diagnosis for this admission?: Yes (3) Acute respiratory failure with hypoxia Is this a current diagnosis for this admission?: Yes (4) Acute kidney injury Is this a current diagnosis for this admission?: Yes (5) Diabetes mellitus type 2 in obese Is this a current diagnosis for this admission?: Yes (6) CAD (coronary artery disease) Qualifiers: Coronary Disease-Associated Artery/Lesion type: [place] artery [place] vs. transplanted heart: [place] heart Associated angina: without angina Qualified Code(s): I25.10 - Atherosclerotic heart disease of [place] coronary artery without angina pectoris Is this a current diagnosis for this admission?: Yes (7) Hyperlipidemia associated with type 2 diabetes mellitus Is this a current diagnosis for this admission?: Yes (8) Hypertension Qualifiers: Hypertension type: essential hypertension Qualified Code(s): I10 - Essential (primary) hypertension Is this a current diagnosis for this admission?: Yes (9) Right upper limb pain Is this a current diagnosis for this admission?: Yes - Plan Summary Summary: Patient will be treated with IMCU admission patient will receive routine supportive and symptomatic cares. She will be treated with IV fluid in an effort to correct her metabolic acidosis and her acute kidney injury, then reassess her status. Laboratory assessments of her CBC, metabolic profile, magnesium level and arterial and/or venous blood gases will be obtained as needed. She will continue receive supplemental oxygen via nasal cannula to support an adequate oxygen saturation and noninvasive airway pressure support devices may be employed if needed. Serial cardiac enzymes and serial lactic acids will be obtained. Antibiotic therapy will not be initiated at this point as there is no clear source of infection or evidence of infection being a poss ible cause of her current status. A lumbar puncture will be obtained per invasive radiology as soon as possible. Ativan 1 mg IV every 4 hours will be used as needed for anxiety or restlessness. - Time Time Spent with patient: Less than 15 minutes Medications reviewed and adjusted accordingly: Yes Anticipated discharge: SNF - Inpatient Certification Based on my medical assessment, after consideration of the patient's comorbidities, presenting symptoms, or acuity I expect that the services needed warrant INPATIENT care.: Yes I certify that my determination is in accordance with my understanding of Medicare's requirements for reasonable and necessary INPATIENT services [42 CFR 412.3e].: Yes Medical Necessity: Significant Comorbidiites Make Outpatient Treatment Too Risky, Need Close Monitoring Due to Risk of Patient Decompensation, Need For IV Fluids, Risk of Complication if Not Cared For in Hospital <BABAR HOLCOMB - Last Filed: 02/28/20 10:20> History of Present Illness Admission Date/PCP: 02/28/20 02:28 SOBIA YANEZ MD History of Present Illness: NAVEEN MARTINEZ is a 59 year old female Physical Exam Vital Signs: Temp Pulse Resp BP Pulse Ox 98.4 F 106 H 24 H 127/110 H 92 02/28/20 04:46 02/28/20 08:12 02/28/20 08:12 02/28/20 04:46 02/28/20 08:12 Intake & Output 02/27/20 02/28/20 02/29/20 06:59 06:59 06:59 Intake Total 1500 Balance 1500 Weight 100.6 kg Results Laboratory Results: 02/27/20 15:34 02/28/20 03:45 02/27/20 02/27/20 02/27/20 15:34 15:34 19:06 WBC 11.2 H RBC 3.65 L Hgb 11.0 L Hct 33.2 L MCV 91 MCH 30.1 MCHC 33.1 RDW 16.8 H Plt Count 197 Seg Neutrophils % 80.8 H Carbonic Acid HCO3/H2CO3 Ratio ABG pH ABG pCO2 ABG pO2 ABG HCO3 ABG O2 Saturation ABG Base Excess FiO2 Sodium 137.4 Potassium 5.2 H Chloride 107 Carbon Dioxide 23 Anion Gap 7 BUN 23 H Creatinine 1.46 H Est GFR ( Amer) 45 L Glucose 124 H Lactic Acid 2.7 H Calcium 9.2 Total Bilirubin 0.2 AST 16 Alkaline Phosphatase 84 Ammonia Total Protein 6.3 Albumin 3.5 Lipase 37.6 Urine Color Urine Appearance Urine pH Ur Specific [place] Urine Protein Urine Glucose (UA) Urine Ketones Urine Blood Urine Nitrite Ur Leukocyte Esterase Urine WBC (Auto) Urine RBC (Auto) 02/27/20 02/27/20 02/28/20 19:06 22:20 01:15 WBC RBC Hgb Hct MCV MCH MCHC RDW Plt Count Seg Neutrophils % Carbonic Acid 1.33 HCO3/H2CO3 Ratio 14:1 ABG pH 7.25 L ABG pCO2 44.3 ABG pO2 87.0 ABG HCO3 19.1 L ABG O2 Saturation 95.2 ABG Base Excess -7.8 FiO2 2L Sodium Potassium Chloride Carbon Dioxide Anion Gap BUN Creatinine Est GFR ( Amer) Glucose Lactic Acid Calcium Total Bilirubin AST Alkaline Phosphatase Ammonia < 8.7 L Total Protein Albumin Lipase Urine Color YELLOW Urine Appearance CLEAR Urine pH 5.0 Ur Specific [place] 1.013 Urine Protein NEGATIVE Urine Glucose (UA) NEGATIVE Urine Ketones TRACE H Urine Blood NEGATIVE Urine Nitrite NEGATIVE Ur Leukocyte Esterase NEGATIVE Urine WBC (Auto) 1 Urine RBC (Auto) 0 02/28/20 02/28/20 02/28/20 01:48 03:45 05:41 WBC RBC Hgb Hct MCV MCH MCHC RDW Plt Count Seg Neutrophils % Carbonic Acid HCO3/H2CO3 Ratio ABG pH ABG pCO2 ABG pO2 ABG HCO3 ABG O2 Saturation ABG Base Excess FiO2 Sodium 140.0 Potassium 5.1 H Chloride 110 H Carbon Dioxide 22 Anion Gap 8 BUN 22 H Creatinine 1.08 Est GFR ( Amer) > 60 Glucose 203 H Lactic Acid 0.9 0.7 Calcium 8.8 Total Bilirubin AST Alkaline Phosphatase Ammonia Total Protein Albumin Lipase Urine Color Urine Appearance Urine pH Ur Specific [place] Urine Protein Urine Glucose (UA) Urine Ketones Urine Blood Urine Nitrite Ur Leukocyte Esterase Urine WBC (Auto) Urine RBC (Auto) 02/28/20 09:10 WBC RBC Hgb Hct MCV MCH MCHC RDW Plt Count Seg Neutrophils % Carbonic Acid HCO3/H2CO3 Ratio ABG pH ABG pCO2 ABG pO2 ABG HCO3 ABG O2 Saturation ABG Base Excess FiO2 Sodium Potassium Chloride Carbon Dioxide Anion Gap BUN Creatinine Est GFR ( Amer) Glucose Lactic Acid 0.9 Calcium Total Bilirubin AST Alkaline Phosphatase Ammonia Total Protein Albumin Lipase Urine Color Urine Appearance Urine pH Ur Specific [place] Urine Protein Urine Glucose (UA) Urine Ketones Urine Blood Urine Nitrite Ur Leukocyte Esterase Urine WBC (Auto) Urine RBC (Auto) 02/27/20 02/28/20 02/28/20 15:34 03:45 09:10 Troponin I < 0.012 0.041 0.031 NT-Pro-B Natriuret Pep 931 H Impressions: Chest X-Ray 02/27/20 16:12 IMPRESSION: Enlarged cardiac silhouette with central vascular congestion. Head CT 02/27/20 16:16 IMPRESSION: 1. No significant interval changes since the prior examination dated 02/19/2020. No acute findings. EVIDENCE OF ACUTE STROKE: NO. Lung Scan-VQ NM 02/27/20 20:56 IMPRESSION: Low probability for pulmonary embolus Venous Doppler Study 02/27/20 20:58 IMPRESSION: No evidence of deep or superficial venous thrombosis of either lower extremity. Humerus X-Ray 02/28/20 00:00 IMPRESSION: Acute spiral fracture proximal right humeral diaphysis. Difficult to discern if the fracture extends into the humeral head/ greater tuberosity
[2020-02-28] MEDS: RINGERS SOLUTION,LACTATED 1,000 ML IV PRN ×3 (05:45→20:50)
[2020-02-28] MEDS ORDERED: HEPARIN SOD (PORCINE) 5,000 UNIT/ML 1 ML VIAL SUBCUT SCH (06:00)
[2020-02-28] MEDS: LEVALBUTEROL HCL NEB 1.25 MG/3 ML AMPUL NEB SCH ×2 (08:12→15:10)
[2020-02-28] MEDS: IPRATROPIUM BROMIDE 0.02% NEB 0.5 MG/2.5 ML AMPUL NEB SCH ×2 (08:12→15:10)
--- NOTE | 2020-02-28 08:27 | RADIOLOGY REPORT (SQ) ---
EXAM DESCRIPTION: HUMERUS RIGHT IMAGES COMPLETED DATE/TIME: 02/28/2020 7:56 am REASON FOR STUDY: Right upper arm pain with movement COMPARISON: None. NUMBER OF VIEWS: Two views. TECHNIQUE: Two radiographic images were acquired of the right humerus to include elbow and shoulder in at least one projection. LIMITATIONS: Nonstandard radiographic positioning FINDINGS: MINERALIZATION: Normal. BONES: Acute spiral fracture proximal diaphysis right humerus. SOFT TISSUES: No obvious swelling or foreign body. OTHER: No other significant finding. IMPRESSION: Acute spiral fracture proximal right humeral diaphysis. Difficult to discern if the fra cture extends into the humeral head/ greater tuberosity TECHNICAL DOCUMENTATION: JOB ID: [id number] 2010 [employer]- All Rights Reserved Reading location - IP/workstation name: [email or web address]
[2020-02-28] MEDS: DOCUSATE SODIUM 100 MG CAPSULE PO SCH ×2 (11:34→17:46)
[2020-02-28] MEDS: PANTOPRAZOLE SODIUM 40 MG VIAL IV SCH ×2 (11:43→22:25)
[2020-02-28] MEDS: INSULIN REG, HUMAN 100 UNIT/ML 3 ML VIAL (PYX) SUBCUT SCH ×4 (11:43→23:05)
[2020-02-28] MEDS: MORPHINE SULFATE 10 MG/ML INJ IV PRN (22:26)
[2020-02-29] MEDS: LEVALBUTEROL HCL NEB 1.25 MG/3 ML AMPUL NEB SCH ×3 (00:57→15:41)
[2020-02-29] MEDS: IPRATROPIUM BROMIDE 0.02% NEB 0.5 MG/2.5 ML AMPUL NEB SCH ×3 (00:57→15:41)
[2020-02-29] MEDS: METOPROLOL TARTRATE PF/INJ 5 MG/5 ML SDV IV PRN ×2 (02:08→20:17)
[2020-02-29] MEDS: MORPHINE SULFATE 10 MG/ML INJ IV PRN ×2 (03:34→20:51)
[2020-02-29] MEDS: RINGERS SOLUTION,LACTATED 1,000 ML IV PRN ×2 (04:51→22:10)
[2020-02-29 05:10] LABS: HEMATOCRIT 29.5 % (36.0-47.0); MEAN CORPUSCULAR HEMOGLOBIN 30.5 pg (27.0-33.4); MEAN CORPUSCULAR HGB CONC 33.9 g/dL (32.0-36.0); MEAN CORPUSCULAR VOLUME 90 fl (80-97); PLATELET COUNT 242 10^3/uL (150-450); RED BLOOD COUNT 3.28 10^6/uL (3.72-5.28); RED CELL DISTRIBUTION WIDTH 16.6 % (11.5-14.0); WHITE BLOOD COUNT 16.7 10^3/uL (4.0-10.5)
--- NOTE | 2020-02-29 09:12 | PDOC CONSULTATION ---
Consultation Consult Date: 02/29/20 Provider Consulted: MOISÉS GOODMAN JR History of Present Illness Admission Date/PCP: 02/28/20 02:28 SOBIA YANEZ MD History of Present Illness: NAVEEN TABARES is a 59 year old female who presents to the emergency department after acute altered mental status. She is admitted and being worked up for causation of altered mental status. At the time of exam the patient is nonresponsive. She will follow you with appropriate gaze but is not verbal at this time. In the emergency department she reportedly fell landing on her right side and sustaining a right humeral fracture. The patient does not appear uncomfortable, she does not respond with nonverbal cues in regards to her pain and further history cannot be obtained at this time. She does have a history of multiple visits to [facility] and nursing staff who are familiar with her to do explained this is very altered from her baseline. Past Medical History Cardiac Medical History: Reports: Congestive Heart Failure, Coronary Artery Disease - 4 stents, Myocardial Infarction - Jun x 2, Hyperlipidema, Hypertension Denies: Heart Murmur Pulmonary Medical History: Reports: Asthma, Bronchitis, Chronic Obstructive Pulmonary Disease (COPD), Pneumonia Denies: Respiratory Failure, Sleep Apnea, Tuberculosis EENT Medical History: Denies: Cataracts, Ears - Hearing aids Neurological Medical History: Reports: Migraine, Seizures Denies: Hemorrhagic CVA, Ischemic CVA Endocrine Medical History: Reports: Diabetes Mellitus Type 2 Denies: Diabetes Mellitus Type 1, Hyperthyroidism, Hypothyroidism Renal/ Medical History: Denies: Chronic Kidney Disease, Nephrolithiasis Malignancy Medical History: Reports: None GI Medical History: Reports: Gastroesophageal Reflux Disease Denies: Cirrhosis, Hepatitis Musculoskeltal Medical History: Reports: Arthritis Denies: Fibromyalgia, Gout Skin Medical History: Denies: Eczema, Psoriasis Psychiatric Medical History: Reports: Bipolar Disorder, Depression, Post Traumatic Stress Disorder Traumatic Medical History: Reports: None Hematology: Denies: Anemia, Bleeding Tendencies Infectious Medical History: Reports: None Past Surgical History Past Surgical History: Reports: Appendectomy, Cardiac Catheterization, Cholecystectomy, Hysterectomy, Orthopedic Surgery - L knee, Tonsillectomy Social History Lives with: Residential Smoking Status: Former Smoker Electronic Cigarette use?: No Frequency of Alcohol Use: None Hx Recreational Drug Use: No Drugs: None Hx Prescription Drug Abuse: No - Advance Directive Resuscitation Status: Full Code Family History Family History: Hypertension Parental Family History Reviewed: No Children Family History Reviewed: NA Sibling(s) Family History Reviewed.: NA Medication/Allergy Home Medications: Aspirin [Aspirin EC] 81 mg PO DAILY 07/22/18 Metformin HCl [Glucophage] 1,000 mg PO Q12 07/22/18 Risperidone [Risperdal 1 mg Tablet] 2 mg PO QHS 07/22/18 Atorvastatin Calcium [Lipitor 10 mg Tablet] 10 mg PO QHS 09/17/18 Benztropine Mesylate [Cogentin 1 mg Tablet] 1 mg PO Q12 09/17/18 Insulin Degludec [Tresiba Flextouch U-200] 20 unit SQ QPM 09/17/18 Topiramate [Topamax] 150 mg PO Q12 09/17/18 Furosemide [Lasix 20 mg Tablet] 40 mg PO DAILY 02/19/19 Sertraline HCl [Zoloft 50 mg Tablet] 75 mg PO DAILY 02/19/19 Pregabalin [Lyrica 75 mg Capsule] 75 mg PO QAM 08/08/19 Risperidone [Risperdal 1 mg Tablet] 1 mg PO QAM 08/08/19 Fluticasone/Salmeterol [Advair 250-50 Diskus 14 Dose/Diskus] 1 inh IH Q12H #1 inhaler 08/09/19 Clonazepam [Klonopin] 0.5 mg PO Q12HP PRN 01/27/20 Fluticasone Propionate [Flonase Nasal [place] 50 Mcg/[place] 16 gm] 1 spray NASL DAILY 01/27/20 Ipratropium/Albuterol Sulfate [Duoneb 3 ml Ampul] 3 ml NEB RTQ4HP PRN 01/27/20 Menthol [Biofreeze] 1 applic TP Q6HP PRN 01/27/20 Oxycodone HCl/Acetaminophen [Percocet 7.5-325 mg Tablet] 1 each PO TID 01/27/20 Suvorexant [Belsomra] 20 mg PO QHS 01/27/20 Allergies/Adverse Reactions: dicyclomine HCl [From Bentyl] Allergy (Severe, Verified 11/09/19 10:07) throat swelling ibuprofen [From Motrin] Allergy (Severe, Verified 11/09/19 10:07) "increased headache",swelling shellfish derived Allergy (Severe, Verified 01/29/20 08:31) RASH, MIGRAINES Penicillins Allergy (Intermediate, Verified 11/09/19 10:07) Hives,vomit,fever dicyclomine [From Bentyl] Allergy (Unknown, Verified 11/09/19 10:07) sumatriptan Allergy (Unknown, Verified 11/09/19 10:07) Review of Systems ROS unobtainable: Due to mental status Physical Exam Vital Signs: Temp Pulse Resp BP Pulse Ox 98.5 F 118 H 22 H 133/70 H 95 02/29/20 04:22 02/29/20 08:37 02/29/20 08:37 02/29/20 04:22 02/29/20 08:37 Intake & Output 02/28/20 02/29/20 03/01/20 06:59 06:59 06:59 Intake Total 1500 2000 Output Total 400 Balance 1500 1600 Weight 100.6 kg 104 kg Physical Exam: General appearance: PRESENT: no acute distress, awake, not appropriately responsive. well-nourished, obese Head exam: PRESENT: atraumatic, normocephalic Eye exam: PRESENT: EOMI Ear exam: PRESENT: normal external ear exam Mouth exam: PRESENT: neck supple Neck exam: ABSENT: tracheal deviation Respiratory exam: PRESENT: symmetrical, unlabored. ABSENT: accessory muscle use, wheezes Pulses: PRESENT: normal radial pulses, normal dorsalis pedis pulse Vascular exam: PRESENT: normal capillary refill GI/Abdominal exam: ABSENT: distended, firm Extremities exam: PRESENT: full ROM of elbows wrists, knees, hips and ankles without pain Musculoskeletal exam: PRESENT: full ROM, normal inspection of all 4 extremities aside from that noted below. Neurological exam: PRESENT: awake, not oriented, not verbally responsive. Psychiatric exam: PRESENT: Aphasic ABSENT: agitated Focused psych exam: ABSENT: catatonic Skin exam: PRESENT: intact. ABSENT: dry All as above aside from that noted in the HPI and the following: Right upper extremity is mildly swollen, there is no overt ecchymosis at this time. She is not wearing a sling. She does appear to move all digits. Pulses are 2+. Skin is intact, she does wince with any attempted range of motion of the right shoulder Results Laboratory Results: 02/29/20 04:35 02/28/20 03:45 02/28/20 02/28/20 02/29/20 09:10 14:05 04:35 WBC 16.7 H RBC 3.28 L Hgb 10.0 L Hct 29.5 L MCV 90 MCH 30.5 MCHC 33.9 RDW 16.6 H Plt Count 242 Lactic Acid 0.9 0.9 Magnesium 02/29/20 04:35 WBC RBC Hgb Hct MCV MCH MCHC RDW Plt Count Lactic Acid Magnesium 1.7 02/27/20 02/28/20 02/28/20 15:34 03:45 09:10 Troponin I < 0.012 0.041 0.031 NT-Pro-B Natriuret Pep 931 H 02/28/20 14:05 Troponin I 0.024 NT-Pro-B Natriuret Pep Impressions: Chest X-Ray 02/27/20 16:12 IMPRESSION: Enlarged cardiac silhouette with central vascular congestion. Head CT 02/27/20 16:16 IMPRESSION: 1. No significant interval changes since the prior examination dated 02/19/2020. No acute findings. EVIDENCE OF ACUTE STROKE: NO. Lung Scan-VQ NM 02/27/20 20:56 IMPRESSION: Low probability for pulmonary embolus Venous Doppler Study 02/27/20 20:58 IMPRESSION: No evidence of deep or superficial venous thrombosis of either lower extremity. Humerus X-Ray 02/28/20 00:00 IMPRESSION: Acute spiral fracture proximal right humeral diaphysis. Difficult to discern if the fracture extends into the humeral head/ greater tuberosity Assessment & Plan - Diagnosis (1) Closed fracture of right proximal humerus Plan: Given her current mental status she is not a good candidate for surgery. Additionally given the pattern of the fracture this will likely heal very well with nonoperative management. She may not have the appropriate mental capacity at this point to tolerate a shoulder immobilizer, but this would be ideal for her to obtain in the next week or so depending on her further mental status work-up. Nonweightbearing right upper extremity PRN pain control, currently she appears comfortable She should follow-up with me in 10 days for further x-rays and decision making. I will follow the patient, hopefully there is some progress in her mental status and I will be able to discuss this in more detail with her in the near future.
[2020-02-29] MEDS: PANTOPRAZOLE SODIUM 40 MG VIAL IV SCH ×2 (09:29→21:29)
[2020-02-29] MEDS: DOCUSATE SODIUM 100 MG CAPSULE PO SCH ×2 (09:34→17:28)
[2020-02-29] MEDS: INSULIN REG, HUMAN 100 UNIT/ML 3 ML VIAL (PYX) SUBCUT SCH ×3 (09:35→17:26)
[2020-02-29 09:46] LABS: INTERNATIONAL RATION (INR) 1.41; PARTIAL THROMBOPLASTIN TIME 30.3 SEC (23.5-35.8); PROTHROMBIN TIME 17.4 SEC (11.4-15.4)
[2020-02-29] MEDS ORDERED: (PENDING PHARMACY ID) (Clonazepam [Klonopin] 0.5 MG) PO PRN (10:12)
--- NOTE | 2020-02-29 10:44 | EKG REPORT ---
SEVERITY:- BORDERLINE ECG - SINUS TACHYCARDIA PROBABLE LEFT ATRIAL ABNORMALITY BORDERLINE T ABNORMALITIES, DIFFUSE LEADS : Confirmed by: Wilson Card 29-Feb-2020 10:43:43
[2020-02-29] MEDS ORDERED: CLONAZEPAM 1 MG TABLET PO PRN (13:11)
--- NOTE | 2020-02-29 15:42 | RADIOLOGY REPORT (SQ) ---
EXAM DESCRIPTION: CT RT UPPER EXTREMITY WITHOUT IMAGES COMPLETED DATE/TIME: 02/29/2020 3:29 pm REASON FOR STUDY: humerus fracture, shoulder CT to end of fracture COMPARISON: None. TECHNIQUE: Axial imaging performed through the rightshoulder with reformatted oblique coronal and ob lique sagittal imaging windowed for bone and soft tissues. All CT scanners at this facility use dose modulation, iterative reconstruction, and/or weight based d osing when appropriate to reduce radiation dose to as low as reasonably achievable (ALARA). [facility]: Dose Right [facility]: CareDose [facility]: Dose Right [facility]: Teradose 4D [facility]: [employer] RADIATION DOSE: CT Rad equipment meets quality standard of care and radiation dose reduction techniq ues were employed. CTDIvol: 40.9 mGy. DLP: 997 mGy-cm. mGy. LIMITATIONS: None. FINDINGS: Spiral fracture, proximal right humerus diaphysis without extension into the humeral head or greater tuberosity. There is normal alignment at the right glenohumeral joint and acromioclavicular joint Diffuse soft tissue swelling throughout the right upper arm is present. Scapula, right upper ribs, clavicle, visualized thoracic spine intact Right upper lobe in the field of view demonstrates thickened interlobular septa and patchy ground-gla ss opacity from fluid overload or congestive failure. IMPRESSION: Spiral fracture right proximal humerus diaphysis without definite extension into the hum eral head Lung findings in the field of view worrisome for fluid overload or congestive failure. TECHNICAL DOCUMENTATION: JOB ID: [id number] Quality ID # [id number]: Final reports with documentation of one or more dose reduction techniques (e.g., Au tomated exposure control, adjustment of the mA and/or kV according to patient size, use of iterative reconstruction technique) 2010 [employer]- All Rights Reserved Reading location - IP/workstation name: [email or web address]
[2020-02-29] MEDS: CEFTRIAXONE 1 GM/D5W RTU 1 GM/50 ML RTUPB IV SCH (16:05)
--- NOTE | 2020-02-29 16:24 | PDOC PROGRESS REPORT ---
Subjective Progress Note for:: 02/29/20 Subjective:: No adverse events overnight. Vital signs have been stable. She continues to show no substantial external signs of infection. Mental status is about the same. She was seen by orthopedics regarding her right upper extremity and ther recommendations are noted. Reason For Visit: ACUTE METABOLIC ENCEPHALOPATHY, ACUTE METABOLIC Physical Exam Vital Signs: Temp Pulse Resp BP Pulse Ox 98.3 F 106 H 20 145/62 H 94 02/29/20 11:29 02/29/20 15:44 02/29/20 15:44 02/29/20 11:29 02/29/20 15:44 Intake & Output 02/28/20 02/29/20 03/01/20 06:59 06:59 06:59 Intake Total 1500 2000 0 Output Total 400 75 Balance 1500 1600 -75 Weight 100.6 kg 104 kg General appearance: PRESENT: no acute distress, cooperative, disheveled, morbidly obese Respiratory exam: PRESENT: decreased breath sounds, symmetrical, unlabored, other - Congested cough. ABSENT: accessory muscle use, chest wall tenderness, prolonged expiratory phas, retraction, rhonchi, tachypnea, wheezes Cardiovascular exam: PRESENT: tachycardia Pulses: PRESENT: normal carotid pulses Vascular exam: PRESENT: normal capillary refill GI/Abdominal exam: PRESENT: normal bowel sounds, soft. ABSENT: distended, guarding, rebound, tenderness Extremities exam: ABSENT: clubbing, pedal edema Musculoskeletal exam: PRESENT: deformity - Bruised and swollen right upper extremity distal to the shoulder, tenderness - Distal to the shoulder right upper extremity Neurological exam: PRESENT: awake, oriented to person, other - She attempts to answer questions but her responses are not always appropriate or pertinent Psychiatric exam: PRESENT: flat affect Skin exam: PRESENT: dry, warm Results Laboratory Results: 02/29/20 04:35 02/28/20 03:45 02/29/20 02/29/20 04:35 04:35 WBC 16.7 H RBC 3.28 L Hgb 10.0 L Hct 29.5 L MCV 90 MCH 30.5 MCHC 33.9 RDW 16.6 H Plt Count 242 Magnesium 1.7 02/27/20 15:34 Throat Throat Culture - Final NORMAL KARISSA 02/27/20 02/28/20 02/28/20 15:34 03:45 09:10 Troponin I < 0.012 0.041 0.031 NT-Pro-B Natriuret Pep 931 H 02/28/20 14:05 Troponin I 0.024 NT-Pro-B Natriuret Pep Impressions: Chest X-Ray 02/27/20 16:12 IMPRESSION: Enlarged cardiac silhouette with central vascular congestion. Head CT 02/27/20 16:16 IMPRESSION: 1. No significant interval changes since the prior examination dated 02/19/2020. No acute findings. EVIDENCE OF ACUTE STROKE: NO. Lung Scan-VQ NM 02/27/20 20:56 IMPRESSION: Low probability for pulmonary embolus Venous Doppler Study 02/27/20 20:58 IMPRESSION: No evidence of deep or superficial venous thrombosis of either lower extremity. Humerus X-Ray 02/28/20 00:00 IMPRESSION: Acute spiral fracture proximal right humeral diaphysis. Difficult to discern if the fracture extends into the humeral head/ greater tuberosity Upper Extremity CT 02/29/20 00:00 IMPRESSION: Spiral fracture right proximal humerus diaphysis without definite extension into the humeral head Lung findings in the field of view worrisome for fluid overload or congestive failure. Assessment and Plan - Diagnosis (1) Acute kidney injury Is this a current diagnosis for this admission?: Yes Plan: Resolved (2) Acute metabolic encephalopathy Is this a current diagnosis for this admission?: Yes Plan: Still not sure of the cause of this. LP has been performed and fluid studies are pending. She had a congested cough so I empirically started her on some antibiotics. She has not had any of her psychiatric medications a couple of days but I do not know how much of a role this is playing because she has been like this since admission. (3) Closed fracture of right proximal humerus Qualifiers: Encounter type: initial encounter Fracture morphology: other fracture Fracture alignment: nondisplaced Qualified Code(s): S42.294A - Other nondisplaced fracture of upper end of right humerus, initial encounter for luiz sed fracture Is this a current diagnosis for this admission?: Yes Plan: Nonweightbearing right upper extremity per orthopedics. We will try to get her fitted for a sling. No signs of compartment syndrome at this time. - Plan Summary Summary: Patient will be treated with IMCU admission patient will receive routine supportive and symptomatic cares. She will be treated with IV fluid in an effort to correct her metabolic acidosis and her acute kidney injury, then reassess her status. Laboratory assessments of her CBC, metabolic profile, magnesium level and arterial and/or venous blood gases will be obtained as needed. She will continue receive supplemental oxygen via nasal cannula to support an adequate oxygen saturation and noninvasive airway pressure support devices may be employed if needed. Serial cardiac enzymes and serial lactic acids will be obtained. Antibiotic therapy will not be initiated at this point as there is no clear source of infection or evidence of infection being a possible cause of her current status. A lumbar puncture will be obtained per invasive radiology as soon as possible. Ativan 1 mg IV every 4 hours will be used as needed for anxiety or restlessness. - Time Time Spent with patient: 25-34 minutes
[2020-02-29 16:47] LABS: GLUCOSE,CSF 148 mg/dL (40-70); PROTEIN,CSF 48 mg/dL (12-60)
[2020-02-29] MEDS: AZITHROMYCIN 500 MG in DEXTROSE 5%-WATER 250 ML IV SCH (16:51)
[2020-02-29 17:06] LABS: APPEARANCE ALL TUBES CLEAR; COLOR ALL TUBES COLORLESS; CSF TOTAL VOLUME 4.5 CC; CSF TUBE NUMBER 3; RED BLOOD CELL,CSF 0 /uL (0-10); VOLUME TUBE 1 1.5 CC
[2020-02-29 17:07] LABS: WHITE BLOOD CELL,CSF 2 /uL (0-5)
[2020-03-01] MEDS: LEVALBUTEROL HCL NEB 1.25 MG/3 ML AMPUL NEB SCH ×4 (00:53→23:29)
[2020-03-01] MEDS: IPRATROPIUM BROMIDE 0.02% NEB 0.5 MG/2.5 ML AMPUL NEB SCH ×4 (00:54→23:29)
[2020-03-01] MEDS: MORPHINE SULFATE 10 MG/ML INJ IV PRN ×4 (00:55→16:45)
[2020-03-01] MEDS: METOPROLOL TARTRATE PF/INJ 5 MG/5 ML SDV IV PRN (00:56)
[2020-03-01] MEDS: INSULIN REG, HUMAN 100 UNIT/ML 3 ML VIAL (PYX) SUBCUT SCH ×5 (00:58→22:00)
[2020-03-01] MEDS: RINGERS SOLUTION,LACTATED 1,000 ML IV PRN (06:22)
[2020-03-01 06:43] LABS: HEMATOCRIT 24.9 % (36.0-47.0); HEMOGLOBIN 8.3 g/dL (12.0-15.5); MEAN CORPUSCULAR HEMOGLOBIN 29.1 pg (27.0-33.4); MEAN CORPUSCULAR HGB CONC 33.2 g/dL (32.0-36.0); MEAN CORPUSCULAR VOLUME 88 fl (80-97); PLATELET COUNT 233 10^3/uL (150-450); RED BLOOD COUNT 2.84 10^6/uL (3.72-5.28); RED CELL DISTRIBUTION WIDTH 16.4 % (11.5-14.0); WHITE BLOOD COUNT 15.8 10^3/uL (4.0-10.5)
--- NOTE | 2020-03-01 07:25 | RADIOLOGY REPORT (SQ) ---
EXAM DESCRIPTION: LUMBAR PUNCTURE; FLUORO/NEEDLE PLACEMENT/SPINE IMAGES COMPLETED DATE/TIME: 02/29/2020 4:07 pm REASON FOR STUDY: acute encephalopathy; ACUTE ENCEP COMPARISON: CT of the brain dated 02/27/2020. FLUOROSCOPY TIME: 1 second 2 Images saved to PACS. TECHNIQUE: Fluoroscopic guided lumbar puncture with opening and closing pressures. LIMITATIONS: None. PROCEDURE: After written consent and assessment were obtained, the patient was brought into the fluo roscopy room and placed prone on the table. The patient's lower back was prepped in a sterile fashion and an entry site was selected under live fluoroscopic guidance. The entry site was anesthetized wit h 1% lidocaine. A 20 gauge needle was advanced through the skin and into the thecal sac at the level of L 3 -L 4 . An opening pressure of 25 units was obtained. After approximately 4 ml of CSF was drai raj, a closing pressure of 17 units was obtained. The needle was removed and a sterile bandage was pl aced of the site. Specimens were sent to the lab for testing. A fluoroscopic spot image was saved to PACS confirming level access. FINDINGS: Clear CSF IMPRESSION: Lumbar puncture under fluoroscopy. No immediate complication. COMMENT: Patient medication list reviewed: Yes- Quality ID# [id number]:Eligible professional attests to doc umenting in the medical record they obtained, updated, or reviewed the patient's current medications. Quality ID 145: Final reports for procedures using fluoroscopy that document radiation exposure indic es, or exposure time and number of fluorographic images (if radiation exposure indices are not availa ble) TECHNICAL DOCUMENTATION: Job ID: [id number] 2010 [employer]- All Rights Reserved Reading location - IP/workstation name: [email or web address]
[2020-03-01] MEDS: DOCUSATE SODIUM 100 MG CAPSULE PO SCH ×2 (09:27→17:49)
[2020-03-01] MEDS: PANTOPRAZOLE SODIUM 40 MG TABLET.DR PO SCH ×2 (09:28→22:00)
[2020-03-01] MEDS: CEFTRIAXONE 1 GM/D5W RTU 1 GM/50 ML RTUPB IV SCH (09:38)
[2020-03-01] MEDS: AZITHROMYCIN 500 MG in DEXTROSE 5%-WATER 250 ML IV SCH (14:47)
--- NOTE | 2020-03-01 15:07 | PDOC PROGRESS REPORT ---
Subjective Progress Note for:: 03/01/20 Subjective:: No adverse events overnight. No fevers. She woke up to verbal command and looked at me when I asked her how she felt she said "rough." When I asked her what she ate for breakfast this morning she could not answer me. Reason For Visit: ACUTE METABOLIC ENCEPHALOPATHY, ACUTE METABOLIC Physical Exam Vital Signs: Temp Pulse Resp BP Pulse Ox 97.5 F 109 H 20 144/75 H 96 03/01/20 08:04 03/01/20 08:16 03/01/20 08:16 03/01/20 08:04 03/01/20 08:16 Intake & Output 02/29/20 03/01/20 03/02/20 06:59 06:59 06:59 Intake Total 1999 2300 237 Output Total 400 2075 100 Balance 1600 225 137 Weight 104 kg 101.8 kg General appearance: PRESENT: no acute distress, cooperative, disheveled, morbidly obese Respiratory exam: PRESENT: decreased breath sounds, symmetrical, unlabored, other - Congested cough. ABSENT: accessory muscle use, chest wall tenderness, prolonged expiratory phas, retraction, rhonchi, tachypnea, wheezes Cardiovascular exam: PRESENT: tachycardia Pulses: PRESENT: normal carotid pulses Vascular exam: PRESENT: normal capillary refill GI/Abdominal exam: PRESENT: normal bowel sounds, soft. ABSENT: distended, guarding, rebound, tenderness Extremities exam: ABSENT: clubbing, pedal edema Musculoskeletal exam: PRESENT: deformity - Bruised and swollen right upper extremity distal to the shoulder, tenderness - Distal to the shoulder right upper extremity Neurological exam: PRESENT: awake, oriented to person, other - She attempts to answer questions but her responses are not always appropriate or pertinent Psychiatric exam: PRESENT: flat affect Skin exam: PRESENT: dry, warm Results Laboratory Results: 03/01/20 06:20 02/28/20 03:45 02/29/20 02/29/20 03/01/20 15:12 15:12 06:20 WBC 15.8 H RBC 2.84 L Hgb 8.3 L Hct 24.9 L MCV 88 MCH 29.1 MCHC 33.2 RDW 16.4 H Plt Count 233 Magnesium Fluid Tube Number 3 CSF Volume 4.5 CSF Appearance CLEAR CSF Color COLORLESS CSF WBC 2 CSF RBC 0 CSF Glucose 148 H CSF Total Protein 48 03/01/20 06:20 WBC RBC Hgb Hct MCV MCH MCHC RDW Plt Count Magnesium 1.5 L Fluid Tube Number CSF Volume CSF Appearance CSF Color CSF WBC CSF RBC CSF Glucose CSF Total Protein 02/27/20 22:10 Blood Blood Culture - Final Peptostreptococcus Species No Aerobic Organisms 02/27/20 02/28/20 02/28/20 15:34 03:45 09:10 Troponin I < 0.012 0.041 0.031 NT-Pro-B Natriuret Pep 931 H 02/28/20 14:05 Troponin I 0.024 NT-Pro-B Natriuret Pep Impressions: Chest X-Ray 02/27/20 16:12 IMPRESSION: Enlarged cardiac silhouette with central vascular congestion. Head CT 02/27/20 16:16 IMPRESSION: 1. No significant interval changes since the prior examination dated 02/19/2020. No acute findings. EVIDENCE OF ACUTE STROKE: NO. Lung Scan-VQ NM 02/27/20 20:56 IMPRESSION: Low probability for pulmonary embolus Venous Doppler Study 02/27/20 20:58 IMPRESSION: No evidence of deep or superficial venous thrombosis of either lower extremity. Humerus X-Ray 02/28/20 00:00 IMPRESSION: Acute spiral fracture proximal right humeral diaphysis. Difficult to discern if the fracture extends into the humeral head/ greater tuberosity Guidance Fluoroscopy 02/29/20 00:00 IMPRESSION: Lumbar puncture under fluoroscopy. No immediate complication. Lumbar Puncture 02/29/20 00:00 IMPRESSION: Lumbar puncture under fluoroscopy. No immediate complication. Upper Extremity CT 02/29/20 00:00 IMPRESSION: Spiral fracture right proximal humerus diaphysis without definite extension into the humeral head Lung findings in the field of view worrisome for fluid overload or congestive failure. Assessment and Plan - Diagnosis (1) Acute kidney injury Is this a current diagnosis for this admission?: Yes Plan: Resolved (2) Acute metabolic encephalopathy Is this a current diagnosis for this admission?: Yes Plan: Still not sure of the cause of this. LP has been performed and fluid studies are negative. She had a congested cough so I empirically started her on some antibiotics. She has not had any of her psychiatric medications a couple of days but I do not know how much of a role this is playing because she has been like this since admission. (3) Closed fracture of right proximal humerus Qualifiers: Encounter type: initial encounter Fracture morphology: other fracture Fracture alignment: nondisplaced Qualified Code(s): S42.294A - Other nondisplaced fracture of upper end of right humerus, initial encounter for closed fracture Is this a current diagnosis for this admission?: Yes Plan: Nonweightbearing right upper extremity per orthopedics. We will try to get her fitted for a sling. No signs of compartment syndrome at this time. (4) Anaerobic bacteremia Is this a current diagnosis for this admission?: Yes Plan: She grew out Peptostreptococcus out of a blood culture. She did have a bit of a congested sounding cough the other day, so this is possible that she aspirated and then got bacteremic from that. She is currently on Rocephin which should cover it. - Plan Summary Summary: Patient will be treated with IMCU admission patient will receive routine supportive and symptomatic cares. She will be treated with IV fluid in an effort to correct her metabolic acidosis and her acute kidney injury, then reassess her status. Laboratory assessments of her CBC, metabolic profile, magnesium level and arterial and/or venous blood gases will be obtained as needed. She will continue receive supplemental oxygen via nasal cannula to support an adequate oxygen saturation and noninvasive airway pressure support devices may be employed if needed. Serial cardiac enzymes and serial lactic acids will be obtained. Antibiotic therapy will not be initiated at this point as there is no clear source of infection or evidence of infection being a possible cause of her current status. A lumbar puncture will be obtained per invasive radiology as soon as possible. Ativan 1 mg IV every 4 hours will be used as needed for anxiety or restlessness. - Time Time Spent with patient: 15-24 minutes
[2020-03-01] MEDS: MAGNESIUM SULFATE/D5W 1 GM/100 ML RTUPB IV SCH ×2 (16:43→17:48)
--- NOTE | 2020-03-01 21:59 | PDOC PROGRESS REPORT ---
Subjective Progress Note for:: 03/01/20 Subjective:: No acute changes. Patient is responsive today, occassionally appropriate. Does not report symptoms in the right shoulder while at rest. Not aware of her injury. Reason For Visit: ACUTE METABOLIC ENCEPHALOPATHY, ACUTE METABOLIC Physical Exam Vital Signs: Temp Pulse Resp BP Pulse Ox 99.5 F 114 H 20 132/61 H 98 03/01/20 16:05 03/01/20 16:24 03/01/20 16:24 03/01/20 16:05 03/01/20 16:24 Intake & Output 02/29/20 03/01/20 03/02/20 06:59 06:59 06:59 Intake Total 1999 2300 877 Output Total 400 2075 350 Balance 1600 225 527 Weight 104 kg 101.8 kg Physical Exam: General appearance: PRESENT: no acute distress, awake, not appropriately responsive. well-nourished, obese Head exam: PRESENT: atraumatic, normocephalic Eye exam: PRESENT: EOMI Ear exam: PRESENT: normal external ear exam Mouth exam: PRESENT: neck supple Neck exam: ABSENT: tracheal deviation Respiratory exam: PRESENT: symmetrical, unlabored. ABSENT: accessory muscle use, wheezes Pulses: PRESENT: normal radial pulses, normal dorsalis pedis pulse Vascular exam: PRESENT: normal capillary refill GI/Abdominal exam: ABSENT: distended, firm Extremities exam: PRESENT: full ROM of elbows wrists, knees, hips and ankles without pain Musculoskeletal exam: PRESENT: full ROM, normal inspection of all 4 extremities aside from that noted below. Neurological exam: PRESENT: awake, not oriented, not verbally responsive. Psychiatric exam: PRESENT: Aphasic ABSENT: agitated Focused psych exam: ABSENT: catatonic Skin exam: PRESENT: intact. ABSENT: dry All as above aside from that noted in the HPI and the following: Right upper extremity is mildly swollen, there is no overt ecchymosis at this time. She is not wearing a sling. She does appear to move all digits. Pulses are 2+. Skin is intact, she does wince with any attempted range of motion of the right shoulder Results Laboratory Results: 03/01/20 06:20 02/28/20 03:45 03/01/20 03/01/20 06:20 06:20 WBC 15.8 H RBC 2.84 L Hgb 8.3 L Hct 24.9 L MCV 88 MCH 29.1 MCHC 33.2 RDW 16.4 H Plt Count 233 Magnesium 1.5 L 02/27/20 22:10 Blood Blood Culture - Final Peptostreptococcus Species No Aerobic Organisms 02/27/20 02/28/20 02/28/20 15:34 03:45 09:10 Troponin I < 0.012 0.041 0.031 NT-Pro-B Natriuret Pep 931 H 02/28/20 14:05 Troponin I 0.024 NT-Pro-B Natriuret Pep Impressions: Chest X-Ray 02/27/20 16:12 IMPRESSION: Enlarged cardiac silhouette with central vascular congestion. Head CT 02/27/20 16:16 IMPRESSION: 1. No significant interval changes since the prior examination dated 02/19/2020. No acute findings. EVIDENCE OF ACUTE STROKE: NO. Lung Scan-VQ NM 02/27/20 20:56 IMPRESSION: Low probability for pulmonary embolus Venous Doppler Study 02/27/20 20:58 IMPRESSION: No evidence of deep or superficial venous thrombosis of either lower extremity. Humerus X-Ray 02/28/20 00:00 IMPRESSION: Acute spiral fracture proximal right humeral diaphysis. Difficult to discern if the fracture extends into the humeral head/ greater tuberosity Guidance Fluoroscopy 02/29/20 00:00 IMPRESSION: Lumbar puncture under fluoroscopy. No immediate complication. Lumbar Puncture 02/29/20 00:00 IMPRESSION: Lumbar puncture under fluoroscopy. No immediate complication. Upper Extremity CT 02/29/20 00:00 IMPRESSION: Spiral fracture right proximal humerus diaphysis without definite extension into the humeral head Lung findings in the field of view worrisome for fluid overload or congestive failure. Assessment & Plan - Diagnosis (1) Closed fracture of right proximal humerus Qualifiers: Encounter type: initial encounter Fracture morphology: other fracture Fracture alignment: nondisplaced Qualified Code(s): S42.294A - Other nondisplaced fracture of upper end of right humerus, initial encounter for closed fracture Is this a current diagnosis for this admission?: Yes Plan: - CT Shows fracture spares the humeral head - May be treated non-operatively - SLing and immobilizer ordered today - Will use until seen in the office, will potentially benefit from a clam shell type custom brace if her mental status allows - See in the office in 10-14 days for further decision making. - Time Time Spent with patient: Less than 15 minutes
[2020-03-02] MEDS: MORPHINE SULFATE 10 MG/ML INJ IV PRN ×4 (01:43→14:38)
[2020-03-02] MEDS: RINGERS SOLUTION,LACTATED 1,000 ML IV PRN (06:28)
[2020-03-02 06:48] LABS: HEMATOCRIT 23.7 % (36.0-47.0); MEAN CORPUSCULAR HEMOGLOBIN 29.9 pg (27.0-33.4); MEAN CORPUSCULAR HGB CONC 33.4 g/dL (32.0-36.0); MEAN CORPUSCULAR VOLUME 89 fl (80-97); PLATELET COUNT 241 10^3/uL (150-450); RED BLOOD COUNT 2.65 10^6/uL (3.72-5.28); RED CELL DISTRIBUTION WIDTH 16.8 % (11.5-14.0); WHITE BLOOD COUNT 11.5 10^3/uL (4.0-10.5)
[2020-03-02 06:51] LABS: HEMOGLOBIN 7.9 g/dL (12.0-15.5)
[2020-03-02] MEDS: INSULIN REG, HUMAN 100 UNIT/ML 3 ML VIAL (PYX) SUBCUT SCH ×4 (08:08→22:29)
[2020-03-02] MEDS: LEVALBUTEROL HCL NEB 1.25 MG/3 ML AMPUL NEB SCH ×2 (08:11→16:22)
[2020-03-02] MEDS: IPRATROPIUM BROMIDE 0.02% NEB 0.5 MG/2.5 ML AMPUL NEB SCH ×2 (08:11→16:22)
[2020-03-02] MEDS: CEFTRIAXONE 1 GM/D5W RTU 1 GM/50 ML RTUPB IV SCH (09:26)
[2020-03-02] MEDS: PANTOPRAZOLE SODIUM 40 MG TABLET.DR PO SCH ×2 (09:28→22:31)
[2020-03-02] MEDS: DOCUSATE SODIUM 100 MG CAPSULE PO SCH ×2 (09:28→17:17)
[2020-03-02] MEDS ORDERED: NORMAL SALINE 250 ML IV PRN ×2 (10:25)
--- NOTE | 2020-03-02 10:26 | PDOC PROGRESS REPORT ---
Subjective Progress Note for:: 03/02/20 Subjective:: Patient is alert awake oriented able to give her name, date of . location. c/o severe pain in the right arm requesting IV pain medication. Reason For Visit: ACUTE METABOLIC ENCEPHALOPATHY, ACUTE METABOLIC Physical Exam Vital Signs: Temp Pulse Resp BP Pulse Ox 98.4 F 74 15 124/61 98 03/02/20 07:39 03/02/20 08:12 03/02/20 08:12 03/02/20 07:39 03/02/20 08:12 Intake & Output 03/01/20 03/02/20 03/03/20 06:59 06:59 06:59 Intake Total 3300 1797 50 Output Total 2075 725 Balance 1225 1072 50 Weight 101.8 kg 103.6 kg General appearance: PRESENT: mild distress, morbidly obese Head exam: PRESENT: atraumatic Eye exam: PRESENT: PERRLA Ear exam: PRESENT: normal external ear exam Mouth exam: PRESENT: moist, tongue midline Teeth exam: PRESENT: poor dentation Neck exam: ABSENT: carotid bruit, JVD, lymphadenopathy, thyromegaly Respiratory exam: PRESENT: decreased breath sounds Cardiovascular exam: PRESENT: RRR. ABSENT: diastolic murmur, rubs, systolic murmur Vascular exam: PRESENT: normal capillary refill GI/Abdominal exam: PRESENT: normal bowel sounds, soft. ABSENT: distended, guarding, mass, organolmegaly, rebound, tenderness Rectal exam: PRESENT: deferred Extremities exam: PRESENT: other - Right arm is in a sling. Neurological exam: PRESENT: alert, oriented to person, oriented to time Psychiatric exam: PRESENT: appropriate affect, normal mood. ABSENT: homicidal ideation, suicidal ideation Results Laboratory Results: 03/02/20 05:48 02/28/20 03:45 03/02/20 03/02/20 05:48 05:48 WBC 11.5 H RBC 2.65 L Hgb 7.9 L Hct 23.7 L MCV 89 MCH 29.9 MCHC 33.4 RDW 16.8 H Plt Count 241 Magnesium 2.0 02/29/20 15:12 Cerebral Spinal Fluid - Csf Gram Stain - Final 02/27/20 22:10 Blood Blood Culture - Final Peptostreptococcus Species No Aerobic Organisms 02/27/20 02/28/20 02/28/20 15:34 03:45 09:10 Troponin I < 0.012 0.041 0.031 NT-Pro-B Natriuret Pep 931 H 02/28/20 14:05 Troponin I 0.024 NT-Pro-B Natriuret Pep Impressions: Chest X-Ray 02/27/20 16:12 IMPRESSION: Enlarged cardiac silhouette with central vascular congestion. Head CT 02/27/20 16:16 IMPRESSION: 1. No significant interval changes since the prior examination dated 02/19/2020. No acute findings. EVIDENCE OF ACUTE STROKE: NO. Lung Scan-VQ NM 02/27/20 20:56 IMPRESSION: Low probability for pulmonary embolus Venous Doppler Study 02/27/20 20:58 IMPRESSION: No evidence of deep or superficial venous thrombosis of either lower extremity. Humerus X-Ray 02/28/20 00:00 IMPRESSION: Acute spiral fracture proximal right humeral diaphysis. Difficult to discern if the fracture extends into the humeral head/ greater tuberosity Guidance Fluoroscopy 02/29/20 00:00 IMPRESSION: Lumbar puncture under fluoroscopy. No immediate complication. Lumbar Puncture 02/29/20 00:00 IMPRESSION: Lumbar puncture under fluoroscopy. No immediate complication. Upper Extremity CT 02/29/20 00:00 IMPRESSION: Spiral fracture right proximal humerus diaphysis without definite extension into the humeral head Lung findings in the field of view worrisome for fluid overload or congestive failure. Assessment and Plan - Diagnosis (1) Acute kidney injury Is this a current diagnosis for this admission?: Yes Plan: Resolved 03/02/2020-serum creatinine today is 0.63. Patient serum creatinine is 1.6 for acute kidney injury is resolved. (2) Acute metabolic encephalopathy Is this a current diagnosis for this admission?: Yes Plan: Still not sure of the cause of this. LP has been performed and fluid studies are negative. She had a congested cough so I empirically started her on some antibiotics. She has not had any of her psychiatric medications a couple of da ys but I do not know how much of a role this is playing because she has been like this since admission. 03/02/20-extensive work-up was done for acute metabolic encephalopathy which was resolving. This morning alert and awake communicating well not in distress. Able to give her name, date of and place of stay. (3) Closed fracture of right proximal humerus Qualifiers: Encounter type: initial encounter Fracture morphology: other fracture Fracture alignment: nondisplaced Qualified Code(s): S42.294A - Other nondisplaced fracture of upper end of right humerus, initial encounter for closed fracture Is this a current diagnosis for this admission?: Yes Plan: Nonweightbearing right upper extremity per orthopedics. We will try to get her fitted for a sling. No signs of compartment syndrome at this time. 03/02/2020-Ortho consult was called for a right proximal humerus fracture the recommendation is conservative management with a sling. Patient is on IV morphine for pain. (4) Anaerobic bacteremia Is this a current diagnosis for this admission?: Yes Plan: She grew out Peptostreptococcus out of a blood culture. She did have a bit of a congested sounding cough the other day, so this is possible that she aspirated and then got bacteremic from that. She is currently on Rocephin which should cover it. 03/02/2020-cultures growing Peptostreptococcus. Patient is presently on azithromycin and Rocephin. CSF cultures are negative for bacterial growth. And is to continue IV antibiotic therapy at this time. Pressures are stable 126/61 and T-max is 98.4. Pulse ox is 98% on 3 L. (5) Obesity (BMI 30-39.9) Is this a current diagnosis for this admission?: No Plan: 03/02/20-patient BMI is 39 diet exercise weight loss lifestyle modifications discussed with the patient. (6) Anemia Is this a current diagnosis for this admission?: No Plan: 03/02/2020-admission hemoglobin is 11 today 87.9. Gradually trending downwards. Plan is to give 1 unit of PRBC during the hospital stay. Because of drop in hemoglobin is unknown at this time. To hold DVT prophylaxis. Patient is receiving IV fluids drop in hemoglobin may be secondary to hemodilution. - Plan Summary Summary: Patient will be treated with IMCU admission patient will receive routine supportive and symptomatic cares. She will be treated with IV fluid in an effort to correct her metabolic acidosis and her acute kidney injury, then reassess her status. Laboratory assessments of her CBC, metabolic profile, magnesium level and arterial and/or venous blood gases will be obtained as needed. She will continue receive supplemental oxygen via nasal cannula to support an adequate oxygen saturation and noninvasive airway pressure support devices may be employed if needed. Serial cardiac enzymes and serial lactic acids will be obtained. Antibiotic therapy will not be initiated at this point as there is no clear source of infection or evidence of infection being a possible cause of her current status. A lumbar puncture will be obtained per invasive radiology as soon as possible. Ativan 1 mg IV every 4 hours will be used as needed for anxiety or restlessness.
[2020-03-02] MEDS: AZITHROMYCIN 500 MG in DEXTROSE 5%-WATER 250 ML IV SCH (11:00)
[2020-03-02 15:36] LABS: ALPHA-1-GLOBULIN 1 5.2 % (1.1-6.6); ALPHA-2-GLOBULIN 5.8 % (3.0-12.6); TOTAL PROTEIN CSF PE 35.9 mg/dL (0.0-44.0)
[2020-03-02 21:55] LABS: HEMATOCRIT 31.7 % (36.0-47.0); MEAN CORPUSCULAR HEMOGLOBIN 30.4 pg (27.0-33.4); MEAN CORPUSCULAR VOLUME 92 fl (80-97); PLATELET COUNT 283 10^3/uL (150-450); RED BLOOD COUNT 3.44 10^6/uL (3.72-5.28); RED CELL DISTRIBUTION WIDTH 16.2 % (11.5-14.0); WHITE BLOOD COUNT 17.4 10^3/uL (4.0-10.5)
[2020-03-02 22:00] LABS: HEMOGLOBIN 10.5 g/dL (12.0-15.5)
[2020-03-02 22:12] LABS: ABSOLUTE LYMPHOCYTES# (MANUAL) 4.4 10^3/uL (0.5-4.7); ABSOLUTE MONOCYTES # (MANUAL) 0.2 10^3/uL (0.1-1.4); BASOPHILS % (MANUAL) 0 % (0-2); EOSINOPHILS % (MANUAL) 1 % (0-6); LYMPHOCYTES % (MANUAL) 25 % (13-45); MONOCYTES % (MANUAL) 1 % (3-13); SEGMENTED NEUTROPHILS % (MAN) 73 % (42-78); TOTAL CELLS COUNTED 100
[2020-03-02 22:14] LABS: ANISOCYTOSIS 1+
[2020-03-02 22:15] LABS: PLATELET COMMENT ADEQUATE; PLATELET LARGE PRESENT
[2020-03-02] MEDS: ACETAMINOPHEN 325 MG TABLET PO PRN (22:31)
[2020-03-03] MEDS: IPRATROPIUM BROMIDE 0.02% NEB 0.5 MG/2.5 ML AMPUL NEB SCH ×3 (00:10→16:40)
[2020-03-03] MEDS: LEVALBUTEROL HCL NEB 1.25 MG/3 ML AMPUL NEB SCH ×3 (00:10→16:40)
[2020-03-03] MEDS: MORPHINE SULFATE 10 MG/ML INJ IV PRN (03:35)
[2020-03-03] MEDS ORDERED: MORPHINE SULFATE 10 MG/ML INJ IV ONE (06:00)
[2020-03-03 06:18] LABS: HEMATOCRIT 28.8 % (36.0-47.0); HEMOGLOBIN 9.9 g/dL (12.0-15.5); MEAN CORPUSCULAR HEMOGLOBIN 29.9 pg (27.0-33.4); MEAN CORPUSCULAR HGB CONC 34.2 g/dL (32.0-36.0); PLATELET COUNT 302 10^3/uL (150-450); RED CELL DISTRIBUTION WIDTH 15.8 % (11.5-14.0); WHITE BLOOD COUNT 12.8 10^3/uL (4.0-10.5)
[2020-03-03 06:33] LABS: MEAN CORPUSCULAR VOLUME 87 fl (80-97)
[2020-03-03 06:40] LABS: ABSOLUTE LYMPHOCYTES# (MANUAL) 2.7 10^3/uL (0.5-4.7); ABSOLUTE MONOCYTES # (MANUAL) 0.4 10^3/uL (0.1-1.4); BAND NEUTROPHILS % (MANUAL) 1 % (3-5); BASOPHILS % (MANUAL) 0 % (0-2); EOSINOPHILS % (MANUAL) 6 % (0-6); LYMPHOCYTES % (MANUAL) 21 % (13-45); MONOCYTES % (MANUAL) 3 % (3-13); SEGMENTED NEUTROPHILS % (MAN) 69 % (42-78); TOTAL CELLS COUNTED 100
[2020-03-03 06:41] LABS: ANISOCYTOSIS 1+; PLATELET COMMENT ADEQUATE
[2020-03-03 06:42] LABS: ALBUMIN 3.3 g/dL (3.5-5.0); ALKALINE PHOSPHATASE 92 U/L (38-126); ANION GAP 6 (5-19); ASPARTATE AMINO TRANSFERASE 23 U/L (14-36); BILIRUBIN,DIRECT 0.2 mg/dL (0.0-0.4); BILIRUBIN,TOTAL 0.5 mg/dL (0.2-1.3); BLOOD UREA NITROGEN 15 mg/dL (7-20); CALCIUM 8.6 mg/dL (8.4-10.2); CARBON DIOXIDE 29 mmol/L (22-30); CHLORIDE 106 mmol/L (98-107); GLUCOSE 152 mg/dL (75-110); POTASSIUM 3.7 mmol/L (3.6-5.0)
[2020-03-03] MEDS: CLONAZEPAM 1 MG TABLET PO PRN (06:51)
[2020-03-03 06:58] LABS: PROT ELEC MSPIKE Not Observed % (Not Observ)
[2020-03-03] MEDS: INSULIN REG, HUMAN 100 UNIT/ML 3 ML VIAL (PYX) SUBCUT SCH ×4 (08:13→22:32)
[2020-03-03] MEDS: DOCUSATE SODIUM 100 MG CAPSULE PO SCH ×2 (09:12→17:02)
[2020-03-03] MEDS: PANTOPRAZOLE SODIUM 40 MG TABLET.DR PO SCH ×2 (09:12→22:32)
--- NOTE | 2020-03-03 11:04 | PDOC PROGRESS REPORT ---
Subjective Progress Note for:: 03/03/20 Subjective:: Patient is alert awake oriented able to give her name, date of . location. c/o severe pain in the right arm requesting IV pain medication. 03/[id number]/[id number]-[id number]-old female admitted with acute metabolic encephalopathy resolving. No acute events in the last 24 hours. Right arm with a sling. Patient may be able to go back to long-term care tomorrow. Reason For Visit: ACUTE METABOLIC ENCEPHALOPATHY, ACUTE METABOLIC Physical Exam Vital Signs: Temp Pulse Resp BP Pulse Ox 98.1 F 86 16 145/72 H 97 03/03/20 07:48 03/03/20 08:43 03/03/20 08:43 03/03/20 07:48 03/03/20 08:43 Intake & Output 03/02/20 03/03/20 03/04/20 06:59 06:59 06:59 Intake Total 1797 2424 Output Total 725 550 Balance 1072 1874 Weight 103.6 kg 105.6 kg General appearance: PRESENT: no acute distress, obese Head exam: PRESENT: atraumatic Eye exam: PRESENT: PERRLA Mouth exam: PRESENT: moist, tongue midline Teeth exam: PRESENT: poor dentation Neck exam: ABSENT: carotid bruit, JVD, lymphadenopathy, thyromegaly Respiratory exam: PRESENT: decreased breath sounds Cardiovascular exam: PRESENT: RRR. ABSENT: diastolic murmur, rubs, systolic murmur Pulses: PRESENT: normal dorsalis pedis pul GI/Abdominal exam: PRESENT: normal bowel sounds, soft. ABSENT: distended, guarding, mass, organolmegaly, rebound, tenderness Rectal exam: PRESENT: deferred Extremities exam: PRESENT: full ROM. ABSENT: calf tenderness, clubbing, pedal edema Neurological exam: PRESENT: alert, awake, oriented to person, oriented to place, oriented to time, oriented to situation, CN II-XII grossly intact. ABSENT: motor sensory deficit Psychiatric exam: PRESENT: appropriate affect, normal mood. ABSENT: homicidal ideation, suicidal ideation Results Laboratory Results: 03/03/20 05:29 03/03/20 05:29 02/29/20 03/02/20 03/02/20 15:12 10:50 21:03 WBC 17.4 H RBC 3.44 L Hgb 10.5 L D Hct 31.7 L MCV 92 MCH 30.4 MCHC 33.0 RDW 16.2 H Plt Count 283 Seg Neutrophils % Not Reportable Sodium Potassium Chloride Carbon Dioxide Anion Gap BUN Creatinine Est GFR ( Amer) Glucose Calcium Magnesium Total Bilirubin AST Alkaline Phosphatase Total Protein Albumin CSF Total Protein PEP 35.9 CSF Prealbumin 5.0 CSF Albumin 58.0 CSF Atzee-3-Nchrdceh 5.2 CSF Skudy-5-Uqjodudt 5.8 CSF Beta Globulin 18.9 H CSF Gamma Globulin 7.0 CSF PEP M-Olman Not Observed Blood Type O POSITIVE Antibody Screen NEGATIVE 03/03/20 03/03/20 05:29 05:29 WBC 12.8 H RBC 3.30 L Hgb 9.9 L Hct 28.8 L MCV 87 D MCH 29.9 MCHC 34.2 RDW 15.8 H Plt Count 302 Seg Neutrophils % Not Reportable Sodium 140.9 Potassium 3.7 Chloride 106 Carbon Dioxide 29 Anion Gap 6 BUN 15 Creatinine 0.75 Est GFR ( Amer) > 60 Glucose 152 H Calcium 8.6 Magnesium 1.6 Total Bilirubin 0.5 AST 23 Alkaline Phosphatase 92 Total Protein 6.0 L Albumin 3.3 L CSF Total Protein PEP CSF Prealbumin CSF Albumin CSF Xlcrl-4-Euyjqxwr CSF Nmqgq-4-Kgomorjy CSF Beta Globulin CSF Gamma Globulin CSF PEP M-Olman Blood Type Antibody Screen 02/29/20 15:12 Cerebral Spinal Fluid - Csf Gram Stain - Final 02/29/20 15:12 Cerebral Spinal Fluid - Csf CSF Culture - Final NO GROWTH 3 DAYS 02/27/20 02/28/20 02/28/20 15:34 03:45 09:10 Troponin I < 0.012 0.041 0.031 NT-Pro-B Natriuret Pep 931 H 02/28/20 03/03/20 14:05 07:58 Troponin I 0.024 0.458 NT-Pro-B Natriuret Pep Impressions: Chest X-Ray 02/27/20 16:12 IMPRESSION: Enlarged cardiac silhouette with central vascular congestion. Head CT 02/27/20 16:16 IMPRESSION: 1. No significant interval changes since the prior examination dated 02/19/2020. No acute findings. EVIDENCE OF ACUTE STROKE: NO. Lung Scan-VQ NM 02/27/20 20:56 IMPRESSION: Low probability for pulmonary embolus Venous Doppler Study 02/27/20 20:58 IMPRESSION: No evidence of deep or superficial venous thrombosis of either lower extremity. Humerus X-Ray 02/28/20 00:00 IMPRESSION: Acute spiral fracture proximal right humeral diaphysis. Difficult to discern if the fracture extends into the humeral head/ greater tuberosity Guidance Fluoroscopy 02/29/20 00:00 IMPRESSION: Lumbar puncture under fluoroscopy. No immediate complication. Lumbar Puncture 02/29/20 00:00 IMPRESSION: Lumbar puncture under fluoroscopy. No immediate complication. Upper Extremity CT 02/29/20 00:00 IMPRESSION: Spiral fracture right proximal humerus diaphysis without definite extension into the humeral head Lung findings in the field of view worrisome for fluid overload or congestive failure. Assessment and Plan - Diagnosis (1) Acute kidney injury Is this a current diagnosis for this admission?: Yes Plan: Resolved 03/02/2020-serum creatinine today is 0.63. Patient serum creatinine is 1.6 for acute kidney injury is resolved. 820-patient admitted with acute kidney injury latest serum creatinine 0.75 HARDEEP is resolved. (2) Acute metabolic encephalopathy Is this a current diagnosis for this admission?: Yes Plan: Still not sure of the cause of this. LP has been performed and fluid studies are negative. She had a congested cough so I empirically started her on some antibiotics. She has not had any of her psychiatric medications a couple of days but I do not know how much of a role this is playing because she has been like this since admission. 03/02/20-extensive work-up was done for acute metabolic encephalopathy which was resolving. This morning alert and awake communicating well not in distress. Able to give her name, date of and place of stay. 03/03/2020-acute metabolic encephalopathy resolved. (3) Closed fracture of right proximal humerus Qualifiers: Encounter type: initial encounter Fracture morphology: other fracture Fracture alignment: nondisplaced Qualified Code(s): S42.294A - Other nondisplaced fracture of upper end of right humerus, initial encounter for closed fracture Is this a current diagnosis for this admission?: Yes Plan: Nonweightbearing right upper extremity per orthopedics. We will try to get her fitted for a sling. No signs of compartment syndrome at this time. 03/02/2020-Ortho consult was called for a right proximal humerus fracture the recommendation is conservative management with a sling. Patient is on IV morphine for pain. 03/03/2020-on conservative management for a right proximal humerus fracture with a sling. Ortho consult was done during this hospital stay. (4) Anaerobic bacteremia Is this a current diagnosis for this admission?: Yes Plan: She grew out Peptostreptococcus out of a blood culture. She did have a bit of a congested sounding cough the other day, so this is possible that she aspirated and then got bacteremic from that. She is currently on Rocephin which should cover it. 03/02/2020-cultures growing Peptostreptococcus. Patient is presently on azithromycin and Rocephin. CSF cultures are negative for bacterial growth. And is to continue IV antibiotic therapy at this time. Pressures are stable 126/61 and T-max is 98.4. Pulse ox is 98% on 3 L. 03/03/2020-blood cultures growing Peptostreptococcus and presently on IV Rocephin and Zithromax plan is to discontinue antibiotics from today because patient is afebrile and WBC count is improving. Plan is to repeat the labs tomorrow. Lumbar puncture was done during the hospital stay negative for CSF infection. (5) Obesity (BMI 30-39.9) Is this a current diagnosis for this admission?: No (6) Anemia Is this a current diagnosis for this admission?: No Plan: 03/02/2020-admission hemoglobin is 11 today 7.9. Gradually trending downwards. Plan is to give 1 unit of PRBC during the hospital stay. Because of drop in hemoglobin is unknown at this time. To hold DVT prophylaxis. Patient is receiv ing IV fluids drop in hemoglobin may be secondary to hemodilution. 03/03/2020-hemoglobin came up to 9.9 after transfusion of 1 unit of PRBC yesterday. Patient has history of anemia of chronic disease. IV fluids are discontinued yesterday. - Plan Summary Summary: Patient will be treated with IMCU admission patient will receive routine supportive and symptomatic cares. She will be treated with IV fluid in an effort to correct her metabolic acidosis and her acute kidney injury, then reassess her status. Laboratory assessments of her CBC, metabolic profile, magnesium level and arterial and/or venous blood gases will be obtained as needed. She will continue receive supplemental oxygen via nasal cannula to support an adequate oxygen saturation and noninvasive airway pressure support devices may be employed if needed. Serial cardiac enzymes and serial lactic acids will be obtained. Antibiotic therapy will not be initiated at this point as there is no clear source of infection or evidence of infection being a possible cause of her current status. A lumbar puncture will be obtained per invasive radiology as soon as possible. Ativan 1 mg IV every 4 hours will be used as needed for anxiety or restlessness.
[2020-03-03] MEDS: TRAMADOL HCL 50 MG TABLET PO PRN (23:17)
[2020-03-04] MEDS: IPRATROPIUM BROMIDE 0.02% NEB 0.5 MG/2.5 ML AMPUL NEB SCH ×3 (00:55→16:47)
[2020-03-04] MEDS: LEVALBUTEROL HCL NEB 1.25 MG/3 ML AMPUL NEB SCH ×3 (00:55→16:47)
--- NOTE | 2020-03-04 07:43 | PDOC PROGRESS REPORT ---
Subjective Progress Note for:: 03/04/20 Subjective:: Patient is alert awake oriented able to give her name, date of . location. c/o severe pain in the right arm requesting IV pain medication. 03/03/[id number]-old female admitted with acute metabolic encephalopathy resolving. No acute events in the last 24 hours. Right arm with a sling. Patient may be able to go back to long-term care tomorrow. 03/04/2020-no acute events in the last 24 hours. Afebrile. Communicating well. Acute metabolic encephalopathy is resolved. The plan is to discharge her back to [facility] today but unfortunately the covid testing has to be done and it has to be negative prior to discharge. Reason For Visit: ACUTE METABOLIC ENCEPHALOPATHY, ACUTE METABOLIC Physical Exam Vital Signs: Temp Pulse Resp BP Pulse Ox 98.1 F 88 20 146/73 H 99 03/04/20 03:21 03/04/20 06:41 03/04/20 03:21 03/04/20 03:21 03/04/20 06:20 Intake & Output 03/03/20 03/04/20 03/05/20 06:59 06:59 06:59 Intake Total 2424 1100 Output Total 550 1275 Balance 1874 -175 Weight 105.6 kg 102.7 kg General appearance: PRESENT: no acute distress, obese Head exam: PRESENT: atraumatic Eye exam: PRESENT: PERRLA Mouth exam: PRESENT: moist, tongue midline Teeth exam: PRESENT: poor dentation Neck exam: ABSENT: carotid bruit, JVD, lymphadenopathy, thyromegaly Respiratory exam: PRESENT: clear to auscultation luz elena. ABSENT: rales, rhonchi, wheezes GI/Abdominal exam: PRESENT: normal bowel sounds, soft. ABSENT: distended, guarding, mass, organolmegaly, rebound, tenderness Extremities exam: PRESENT: other - Right arm with a sling. Neurological exam: PRESENT: alert, awake, oriented to person, oriented to place, oriented to time, oriented to situation, CN II-XII grossly intact. ABSENT: motor sensory deficit Psychiatric exam: PRESENT: appropriate affect, normal mood. ABSENT: homicidal ideation, suicidal ideation Skin exam: PRESENT: dry, intact, warm. ABSENT: cyanosis, rash Results Laboratory Results: 03/03/20 05:29 03/03/20 05:29 02/27/20 19:06 Blood Blood Culture - Final NO GROWTH IN 5 DAYS 02/29/20 15:12 Cerebral Spinal Fluid - Csf Gram Stain - Final 02/29/20 15:12 Cerebral Spinal Fluid - Csf CSF Culture - Final NO GROWTH 3 DAYS 02/27/20 02/28/20 02/28/20 15:34 03:45 09:10 Creatine Kinase CK-MB (CK-2) Troponin I < 0.012 0.041 0.031 NT-Pro-B Natriuret Pep 931 H 02/28/20 03/03/20 03/03/20 14:05 07:58 14:35 Creatine Kinase CK-MB (CK-2) 1.53 Troponin I 0.024 0.458 NT-Pro-B Natriuret Pep 03/03/20 14:35 Creatine Kinase 71 CK-MB (CK-2) Troponin I NT-Pro-B Natriuret Pep Impressions: Chest X-Ray 02/27/20 16:12 IMPRESSION: Enlarged cardiac silhouette with central vascular congestion. Head CT 02/27/20 16:16 IMPRESSION: 1. No significant interval changes since the prior examination dated 02/19/2020. No acute findings. EVIDENCE OF ACUTE STROKE: NO. Lung Scan-VQ NM 02/27/20 20:56 IMPRESSION: Low probability for pulmonary embolus Venous Doppler Study 02/27/20 20:58 IMPRESSION: No evidence of deep or superficial venous thrombosis of either lower extremity. Humerus X-Ray 02/28/20 00:00 IMPRESSION: Acute spiral fracture proximal right humeral diaphysis. Difficult to discern if the fracture extends into the humeral head/ greater tuberosity Guidance Fluoroscopy 02/29/20 00:00 IMPRESSION: Lumbar puncture under fluoroscopy. No immediate complication. Lumbar Puncture 02/29/20 00:00 IMPRESSION: Lumbar puncture under fluoroscopy. No immediate complication. Upper Extremity CT 02/29/20 00:00 IMPRESSION: Spiral fracture right proximal humerus diaphysis without definite extension into the humeral head Lung findings in the field of view worrisome for fluid overload or congestive failure. Assessment and Plan - Diagnosis (1) Acute kidney injury Is this a current diagnosis for this admission?: Yes Plan: Resolved 03/02/2020-serum creatinine today is 0.63. Patient serum creatinine is 1.6 for acute kidney injury is resolved. 03/03/20-patient admitted with acute kidney injury latest serum creatinine 0.75 HARDEEP is resolved. 03/04/2020-patient admitted with acute kidney injury at the time of admission creatinine is 1.6 latest creatinine 0.75. Acute kidney injury resolved. (2) Acute metabolic encephalopathy Is this a current diagnosis for this admission?: Yes Plan: Still not sure of the cause of this. LP has been performed and fluid studies are negative. She had a congested cough so I empirically started her on some antibiotics. She has not had any of her psychiatric medications a couple of days but I do not know how much of a role this is playing because she has been like this since admission. 03/02/20-extensive work-up was done for acute metabolic encephalopathy which was resolving. This morning alert and awake communicating well not in distress. Able to give her name, date of and place of stay. 03/03/2020-acute metabolic encephalopathy resolved. 03/04/20-extensive work-up was done for acute metabolic encephalopathy and test came back negative. Negative for meningitis. Patient is alert and awake oriented communicating well and no behavioral issues also for the last 3 days. (3) Closed fracture of right proximal humerus Qualifiers: Encounter type: initial encounter Fracture morphology: other fracture Fracture alignment: nondisplaced Qualified Code(s): S42.294A - Other nondisplaced fracture of upper end of right humerus, initial encounter for closed fracture Is this a current diagnosis for this admission?: Yes Plan: Nonweightbearing right upper extremity per orthopedics. We will try to get her fitted for a sling. No signs of compartment syndrome at this time. 03/02/2020-Ortho consult was called for a right proximal humerus fracture the recommendation is conservative management with a sling. Patient is on IV morphine for pain. 03/03/2020-on conservative management for a right proximal humerus fracture with a sling. Ortho consult was done during this hospital stay. (4) Anaerobic bacteremia Is this a current diagnosis for this admission?: Yes Plan: She grew out Peptostreptococcus out of a blood culture. She did have a bit of a congested sounding cough the other day, so this is possible that she aspirated and then got bacteremic from that. She is currently on Rocephin which should cover it. 03/02/2020-cultures growing Peptostreptococcus. Patient is presently on azithr omycin and Rocephin. CSF cultures are negative for bacterial growth. And is to continue IV antibiotic therapy at this time. Pressures are stable 126/61 and T- max is 98.4. Pulse ox is 98% on 3 L. 03/03/2020-blood cultures growing Peptostreptococcus and presently on IV Rocephin and Zithromax plan is to discontinue antibiotics from today because patient is afebrile and WBC count is improving. Plan is to repeat the labs tomorrow. Lumbar puncture was done during the hospital stay negative for CSF infection. 03/04/2020-patient is presently off the antibiotics afebrile temperature is 98.1 blood pressure is stable. (5) Obesity (BMI 30-39.9) Is this a current diagnosis for this admission?: No Plan: 03/02/20-patient BMI is 39 diet exercise weight loss lifestyle modifications discussed with the patient. (6) Anemia Is this a current diagnosis for this admission?: No Plan: 03/02/2020-admission hemoglobin is 11 today 7.9. Gradually trending downwards. Plan is to give 1 unit of PRBC during the hospital stay. Because of drop in hemoglobin is unknown at this time. To hold DVT prophylaxis. Patient is receiving IV fluids drop in hemoglobin may be secondary to hemodilution. 03/03/2020-hemoglobin came up to 9.9 after transfusion of 1 unit of PRBC yesterday. Patient has history of anemia of chronic disease. IV fluids are discontinued yesterday. - Plan Summary Summary: Patient will be treated with IMCU admission patient will receive routine supportive and symptomatic cares. She will be treated with IV fluid in an effort to correct her metabolic acidosis and her acute kidney injury, then reassess her status. Laboratory assessments of her CBC, metabolic profile, magnesium level and arterial and/or venous blood gases will be obtained as needed. She will continue receive supplemental oxygen via nasal cannula to support an adequate oxygen saturation and noninvasive airway pressure support devices may be employed if needed. Serial cardiac enzymes and serial lactic acids will be obtained. Antibiotic therapy will not be initiated at this point as there is no clear source of infection or evidence of infection being a possible cause of her current status. A lumbar puncture will be obtained per invasive radiology as soon as possible. Ativan 1 mg IV every 4 hours will be used as needed for anxiety or restlessness.
[2020-03-04] MEDS: INSULIN REG, HUMAN 100 UNIT/ML 3 ML VIAL (PYX) SUBCUT SCH ×4 (07:51→21:21)
[2020-03-04] MEDS: DOCUSATE SODIUM 100 MG CAPSULE PO SCH ×2 (09:03→17:08)
[2020-03-04] MEDS: PANTOPRAZOLE SODIUM 40 MG TABLET.DR PO SCH ×2 (09:03→22:07)
[2020-03-04] MEDS ORDERED: OXYCODONE HCL IR 5 MG TABLET PO PRN (16:35)
[2020-03-04] MEDS ORDERED: OXYCODONE-ACETAMINOPHEN 5-325 MG TABLET PO PRN (16:35)
[2020-03-04] MEDS: OXYCODONE-ACETAMINOPHEN 5-325 MG TABLET PO PRN (19:54)
[2020-03-04] MEDS: CLONAZEPAM 1 MG TABLET PO PRN (22:23)
[2020-03-05] MEDS: LEVALBUTEROL HCL NEB 1.25 MG/3 ML AMPUL NEB SCH ×3 (00:18→16:23)
[2020-03-05] MEDS: IPRATROPIUM BROMIDE 0.02% NEB 0.5 MG/2.5 ML AMPUL NEB SCH ×3 (00:18→16:23)
[2020-03-05] MEDS: OXYCODONE-ACETAMINOPHEN 5-325 MG TABLET PO PRN (07:45)
[2020-03-05] MEDS: INSULIN REG, HUMAN 100 UNIT/ML 3 ML VIAL (PYX) SUBCUT SCH ×4 (07:49→21:28)
[2020-03-05 08:09] LABS: HEMATOCRIT 27.6 % (36.0-47.0); HEMOGLOBIN 9.4 g/dL (12.0-15.5); MEAN CORPUSCULAR HGB CONC 34.2 g/dL (32.0-36.0); MEAN CORPUSCULAR VOLUME 88 fl (80-97); PLATELET COUNT 306 10^3/uL (150-450); RED BLOOD COUNT 3.15 10^6/uL (3.72-5.28); RED CELL DISTRIBUTION WIDTH 15.9 % (11.5-14.0); WHITE BLOOD COUNT 13.9 10^3/uL (4.0-10.5)
--- NOTE | 2020-03-05 08:10 | PDOC PROGRESS REPORT ---
Subjective Progress Note for:: 03/05/20 Subjective:: Patient is alert awake oriented able to give her name, date of . location. c/o severe pain in the right arm requesting IV pain medication. 03/03/[id number]-old female admitted with acute metabolic encephalopathy resolving. No acute events in the last 24 hours. Right arm with a sling. Patient may be able to go back to long-term care tomorrow. 03/04/2020-no acute events in the last 24 hours. Afebrile. Communicating well. Acute metabolic encephalopathy is resolved. The plan is to discharge her back to [facility] today but unfortunately the covid testing has to be done and it has to be negative prior to discharge. 03/05/2020-no acute events in the last 24 hours. Afebrile. Waiting for the coronavirus testing come back negative for the shelter to accept the patient. Comfortably in the bed communicating well. Reason For Visit: ACUTE METABOLIC ENCEPHALOPATHY, ACUTE METABOLIC Physical Exam Vital Signs: Temp Pulse Resp BP Pulse Ox 98.8 F 77 16 147/66 H 97 03/04/20 16:24 03/05/20 07:00 03/05/20 00:19 03/04/20 16:24 03/05/20 00:19 Intake & Output 03/04/20 03/05/20 03/06/20 06:59 06:59 06:59 Intake Total 1100 1330 Output Total 1275 2375 Balance -175 -1045 Weight 102.7 kg 102.6 kg General appearance: PRESENT: no acute distress, obese Eye exam: PRESENT: PERRLA Mouth exam: PRESENT: moist, tongue midline Teeth exam: PRESENT: poor dentation Neck exam: ABSENT: carotid bruit, JVD, lymphadenopathy, thyromegaly Respiratory exam: PRESENT: clear to auscultation luz elena. ABSENT: rales, rhonchi, wheezes Cardiovascular exam: PRESENT: RRR. ABSENT: diastolic murmur, rubs, systolic murmur GI/Abdominal exam: PRESENT: normal bowel sounds, soft. ABSENT: distended, guarding, mass, organolmegaly, rebound, tenderness Rectal exam: PRESENT: deferred Extremities exam: PRESENT: full ROM. ABSENT: calf tenderness, clubbing, pedal edema Neurological exam: PRESENT: alert, awake, oriented to person, oriented to place, oriented to time, oriented to situation, CN II-XII grossly intact. ABSENT: motor sensory deficit Psychiatric exam: PRESENT: appropriate affect, normal mood. ABSENT: homicidal ideation, suicidal ideation Results Laboratory Results: 02/27/20 02/28/20 02/28/20 15:34 03:45 09:10 Creatine Kinase CK-MB (CK-2) Troponin I < 0.012 0.041 0.031 NT-Pro-B Natriuret Pep 931 H 02/28/20 03/03/20 03/03/20 14:05 07:58 14:35 Creatine Kinase CK-MB (CK-2) 1.53 Troponin I 0.024 0.458 NT-Pro-B Natriuret Pep 03/03/20 14:35 Creatine Kinase 71 CK-MB (CK-2) Troponin I NT-Pro-B Natriuret Pep Impressions: Chest X-Ray 02/27/20 16:12 IMPRESSION: Enlarged cardiac silhouette with central vascular congestion. Head CT 02/27/20 16:16 IMPRESSION: 1. No significant interval changes since the prior examination dated 02/19/2020. No acute findings. EVIDENCE OF ACUTE STROKE: NO. Lung Scan-VQ NM 02/27/20 20:56 IMPRESSION: Low probability for pulmonary embolus Venous Doppler Study 02/27/20 20:58 IMPRESSION: No evidence of deep or superficial venous thrombosis of either lower extremity. Humerus X-Ray 02/28/20 00:00 IMPRESSION: Acute spiral fracture proximal right humeral diaphysis. Difficult to discern if the fracture extends into the humeral head/ greater tuberosity Guidance Fluoroscopy 02/29/20 00:00 IMPRESSION: Lumbar puncture under fluoroscopy. No immediate complication. Lumbar Puncture 02/29/20 00:00 IMPRESSION: Lumbar puncture under fluoroscopy. No immediate complication. Upper Extremity CT 02/29/20 00:00 IMPRESSION: Spiral fracture right proximal humerus diaphysis without definite extension into the humeral head Lung findings in the field of view worrisome for fluid overload or congestive failure. Assessment and Plan - Diagnosis (1) Acute kidney injury Is this a current diagnosis for this admission?: Yes Plan: Resolved 03/02/2020-serum creatinine today is 0.63. Patient serum creatinine is 1.6 for acute kidney injury is resolved. 03/03/20-patient admitted with acute kidney injury latest serum creatinine 0.75 HARDEEP is resolved. 03/04/2020-patient admitted with acute kidney injury at the time of admission creatinine is 1.6 latest creatinine 0.75. Acute kidney injury resolved. 03/05/20-patient admitted with acute kidney injury at the time of admission creatinine is 1.6, acute kidney injury is resolved. (2) Acute metabolic encephalopathy Is this a current diagnosis for this admission?: Yes Plan: Still not sure of the cause of this. LP has been performed and fluid studies are negative. She had a congested cough so I empirically started her on some antibiotics. She has not had any of her psychiatric medications a couple of days but I do not know how much of a role this is playing because she has been like this since admission. 03/02/20-extensive work-up was done for acute metabolic encephalopathy which was resolving. This morning alert and awake communicating well not in distress. Able to give her name, date of and place of stay. 03/03/2020-acute metabolic encephalopathy resolved. 03/04/20-extensive work-up was done for acute metabolic encephalopathy and test came back negative. Negative for meningitis. Patient is alert and awake oriented communicating well and no behavioral issues also for the last 3 days. 03/05/2020-alert and awake oriented communicating well. Not in distress. (3) Closed fracture of right proximal humerus Qualifiers: Encounter type: initial encounter Fracture morphology: other fracture Fracture alignment: nondisplaced Qualified Code(s): S42.294A - Other nondisplaced fracture of upper end of right humerus, initial encounter for closed fracture Is this a current diagnosis for this admission?: Yes Plan: Nonweightbearing right upper extremity per orthopedics. We will try to get her fitted for a sling. No signs of compartment syndrome at this time. 03/02/2020-Ortho consult was called for a right proximal humerus fracture the recommendation is conservative management with a sling. Patient is on IV morphine for pain. 03/03/2020-on conservative management for a right proximal humerus fracture with a sling. Ortho consult was done during this hospital stay. (4) Anaerobic bacteremia Is this a current diagnosis for this admission?: Yes Plan: She grew out Peptostreptococcus out of a blood culture. She did have a bit of a congested sounding cough the other day, so this is possible that she aspirated and then got bacteremic from that. She is currently on Rocephin which should co fazal it. 03/02/2020-cultures growing Peptostreptococcus. Patient is presently on azithromycin and Rocephin. CSF cultures are negative for bacterial growth. And is to continue IV antibiotic therapy at this time. Pressures are stable 126/61 and T-max is 98.4. Pulse ox is 98% on 3 L. 03/03/2020-blood cultures growing Peptostreptococcus and presently on IV Rocephin and Zithromax plan is to discontinue antibiotics from today because patient is afebrile and WBC count is improving. Plan is to repeat the labs tomorrow. Lumbar puncture was done during the hospital stay negative for CSF infection. 03/04/2020-patient is presently off the antibiotics afebrile temperature is 98.1 blood pressure is stable. 03/05/2020-T-max is 98.8, afebrile. Presently off the antibiotics. (5) Obesity (BMI 30-39.9) Is this a current diagnosis for this admission?: No (6) Anemia Is this a current diagnosis for this admission?: No Plan: 03/02/2020-admission hemoglobin is 11 today 7.9. Gradually trending downwards. Plan is to give 1 unit of PRBC during the hospital stay. Because of drop in hemoglobin is unknown at this time. To hold DVT prophylaxis. Patient is receiving IV fluids drop in hemoglobin may be secondary to hemodilution. 03/03/2020-hemoglobin came up to 9.9 after transfusion of 1 unit of PRBC yesterday. Patient has history of anemia of chronic disease. IV fluids are discontinued yesterday. - Plan Summary Summary: Patient will be treated with IMCU admission patient will receive routine supportive and symptomatic cares. She will be treated with IV fluid in an effort to correct her metabolic acidosis and her acute kidney injury, then reas sess her status. Laboratory assessments of her CBC, metabolic profile, magnesium level and arterial and/or venous blood gases will be obtained as needed. She will continue receive supplemental oxygen via nasal cannula to support an adequate oxygen saturation and noninvasive airway pressure support devices may be employed if needed. Serial cardiac enzymes and serial lactic acids will be obtained. Antibiotic therapy will not be initiated at this point as there is no clear source of infection or evidence of infection being a possible cause of her current status. A lumbar puncture will be obtained per invasive radiology as soon as possible. Ativan 1 mg IV every 4 hours will be used as needed for anxiety or restlessness.
[2020-03-05 08:27] LABS: ABSOLUTE LYMPHOCYTES# (MANUAL) 1.8 10^3/uL (0.5-4.7); ABSOLUTE MONOCYTES # (MANUAL) 0.7 10^3/uL (0.1-1.4); BASOPHILS % (MANUAL) 1 % (0-2); EOSINOPHILS % (MANUAL) 2 % (0-6); LYMPHOCYTES % (MANUAL) 9 % (13-45); METAMYELOCYTES % (MANUAL) 1 % (0-1); MONOCYTES % (MANUAL) 5 % (3-13); NUCLEATED RED BLOOD CELLS 1 /100 WBC (0); SEGMENTED NEUTROPHILS % (MAN) 78 % (42-78); TOTAL CELLS COUNTED 100
[2020-03-05 08:28] LABS: ANISOCYTOSIS SLIGHT; PLATELET COMMENT ADEQUATE; POLYCHROMASIA 1+
[2020-03-05 08:30] LABS: ALKALINE PHOSPHATASE 83 U/L (38-126); ANION GAP 7 (5-19); ASPARTATE AMINO TRANSFERASE 14 U/L (14-36); BILIRUBIN,DIRECT 0.3 mg/dL (0.0-0.4); BILIRUBIN,TOTAL 0.6 mg/dL (0.2-1.3); BLOOD UREA NITROGEN 10 mg/dL (7-20); CALCIUM 7.8 mg/dL (8.4-10.2); CARBON DIOXIDE 27 mmol/L (22-30); CHLORIDE 104 mmol/L (98-107); GLUCOSE 98 mg/dL (75-110); POTASSIUM 3.7 mmol/L (3.6-5.0)
[2020-03-05] MEDS: PANTOPRAZOLE SODIUM 40 MG TABLET.DR PO SCH ×2 (10:04→21:27)
[2020-03-05] MEDS: DOCUSATE SODIUM 100 MG CAPSULE PO SCH ×2 (10:04→17:35)
[2020-03-05] MEDS ORDERED: ONDANSETRON 4 MG TAB.RAPDIS PO PRN (12:22)
[2020-03-05] MEDS: MAGNESIUM HYDROXIDE SUSP 30 ML UDCUP PO PRN (18:42)
[2020-03-05] MEDS: MORPHINE SULFATE 10 MG/ML INJ IV PRN (19:58)
[2020-03-05] MEDS: CLONAZEPAM 1 MG TABLET PO PRN (21:27)
[2020-03-05] MEDS: ACETAMINOPHEN 325 MG TABLET PO PRN (21:27)
[2020-03-06] MEDS: LEVALBUTEROL HCL NEB 1.25 MG/3 ML AMPUL NEB SCH ×4 (00:25→23:37)
[2020-03-06] MEDS: IPRATROPIUM BROMIDE 0.02% NEB 0.5 MG/2.5 ML AMPUL NEB SCH ×4 (00:25→23:37)
[2020-03-06] MEDS: OXYCODONE-ACETAMINOPHEN 5-325 MG TABLET PO PRN ×4 (01:52→21:42)
[2020-03-06] MEDS ORDERED: MAGNESIUM SULFATE/D5W 1 GM/100 ML RTUPB IV SCH (07:30)
--- NOTE | 2020-03-06 08:38 | PDOC PROGRESS REPORT ---
Subjective Progress Note for:: 03/06/20 Subjective:: Patient is alert awake oriented able to give her name, date of . location. c/o severe pain in the right arm requesting IV pain medication. 03/03/[id number]-capy-old female admitted with acute metabolic encephalopathy resolving. No acute events in the last 24 hours. Right arm with a sling. Patient may be able to go back to long-term care tomorrow. 03/04/2020-no acute events in the last 24 hours. Afebrile. Communicating well. Acute metabolic encephalopathy is resolved. The plan is to discharge her back to [facility] today but unfortunately the covid testing has to be done and it has to be negative prior to discharge. 03/05/2020-no acute events in the last 24 hours. Afebrile. Waiting for the coronavirus testing come back negative for the [facility] to [facility] the patient. Comfortably in the bed communicating well. 03/06/20-no acute events in the last 24 hours. Afebrile. Coronavirus test is still pending. Once the test is negative [facility] is going to [facility] the patient [facility]. Reason For Visit: ACUTE METABOLIC ENCEPHALOPATHY, ACUTE METABOLIC Physical Exam Vital Signs: Temp Pulse Resp BP Pulse Ox 97.8 F 78 16 130/67 H 96 03/06/20 07:33 03/06/20 07:59 03/06/20 07:59 03/06/20 07:33 03/06/20 07:59 Intake & Output 03/05/20 03/06/20 03/07/20 06:59 06:59 06:59 Intake Total 1330 1464 Output Total 0279 1925 Balance -1045 -461 Weight 102.6 kg 102.2 kg General appearance: PRESENT: no acute distress, obese Head exam: PRESENT: atraumatic Eye exam: PRESENT: PERRLA Mouth exam: PRESENT: moist, tongue midline Teeth exam: PRESENT: poor dentation Neck exam: ABSENT: carotid bruit, JVD, lymphadenopathy, thyromegaly Respiratory exam: PRESENT: decreased breath sounds Cardiovascular exam: PRESENT: RRR. ABSENT: diastolic murmur, rubs, systolic murmur GI/Abdominal exam: PRESENT: normal bowel sounds, soft. ABSENT: distended, guarding, mass, organolmegaly, rebound, tenderness Rectal exam: PRESENT: deferred Extremities exam: PRESENT: full ROM. ABSENT: calf tenderness, clubbing, pedal edema Neurological exam: PRESENT: alert, awake, oriented to person, oriented to place, oriented to time, oriented to situation, CN II-XII grossly intact. ABSENT: motor sensory deficit Psychiatric exam: PRESENT: appropriate affect, normal mood. ABSENT: homicidal ideation, suicidal ideation Results Laboratory Results: 03/05/20 07:39 03/05/20 07:39 03/05/20 07:39 Sodium 137.8 Potassium 3.7 Chloride 104 Carbon Dioxide 27 Anion Gap 7 BUN 10 Creatinine 0.55 Est GFR ( Amer) > 60 Glucose 98 Calcium 7.8 L Magnesium 1.4 L Total Bilirubin 0.6 AST 14 Alkaline Phosphatase 83 Total Protein 5.0 L Albumin 3.0 L 02/27/20 02/28/20 02/28/20 15:34 03:45 09:10 Creatine Kinase CK-MB (CK-2) Troponin I < 0.012 0.041 0.031 NT-Pro-B Natriuret Pep 931 H 02/28/20 03/03/20 03/03/20 14:05 07:58 14:35 Creatine Kinase CK-MB (CK-2) 1.53 Troponin I 0.024 0.458 NT-Pro-B Natriuret Pep 03/03/20 14:35 Creatine Kinase 71 CK-MB (CK-2) Troponin I NT-Pro-B Natriuret Pep Impressions: Chest X-Ray 02/27/20 16:12 IMPRESSION: Enlarged cardiac silhouette with central vascular congestion. Head CT 02/27/20 16:16 IMPRESSION: 1. No significant interval changes since the prior examination dated 02/19/2020. No acute findings. EVIDENCE OF ACUTE STROKE: NO. Lung Scan-VQ NM 02/27/20 20:56 IMPRESSION: Low probability for pulmonary embolus Venous Doppler Study 02/27/20 20:58 IMPRESSION: No evidence of deep or superficial venous thrombosis of either lower extremity. Humerus X-Ray 02/28/20 00:00 IMPRESSION: Acute spiral fracture proximal right humeral diaphysis. Difficult to discern if the fracture extends into the humeral head/ greater tuberosity Guidance Fluoroscopy 02/29/20 00:00 IMPRESSION: Lumbar puncture under fluoroscopy. No immediate complication. Lumbar Puncture 02/29/20 00:00 IMPRESSION: Lumbar puncture under fluoroscopy. No immediate complication. Upper Extremity CT 02/29/20 00:00 IMPRESSION: Spiral fracture right proximal humerus diaphysis without definite extension into the humeral head Lung findings in the field of view worrisome for fluid overload or congestive failure. Assessment and Plan - Diagnosis (1) Acute kidney injury Is this a current diagnosis for this admission?: Yes Plan: Resolved 03/02/2020-serum creatinine today is 0.63. Patient serum creatinine is 1.6 for acute kidney injury is resolved. 03/03/20-patient admitted with acute kidney injury latest serum creatinine 0.75 HARDEEP is resolved. 03/04/2020-patient admitted with acute kidney injury at the time of admission creatinine is 1.6 latest creatinine 0.75. Acute kidney injury resolved. 03/05/20-patient admitted with acute kidney injury at the time of admission creatinine is 1.6, acute kidney injury is resolved. 03/06/2020-acute kidney injury is resolved latest serum creatinine 0.55. (2) Acute metabolic encephalopathy Is this a current diagnosis for this admission?: Yes Plan: Still not sure of the cause of this. LP has been performed and fluid studies are negative. She had a congested cough so I empirically started her on some antibiotics. She has not had any of her psychiatric medications a couple of days but I do not know how much of a role this is playing because she has been like this since admission. 03/02/20-extensive work-up was done for acute metabolic encephalopathy which was resolving. This morning alert and awake communicating well not in distress. Able to give her name, date of and place of stay. 03/03/2020-acute metabolic encephalopathy resolved. 03/04/20-extensive work-up was done for acute metabolic encephalopathy and test ca me back negative. Negative for meningitis. Patient is alert and awake oriented communicating well and no behavioral issues also for the last 3 days. 03/05/2020-alert and awake oriented communicating well. Not in distress. 03/06/20-patient is alert awake oriented communicating well expressing [facility]. (3) Closed fracture of right proximal humerus Qualifiers: Encounter type: initial encounter Fracture morphology: other fracture Fracture alignment: nondisplaced Qualified Code(s): S42.294A - Other nondisplaced fracture of upper end of right humerus, initial encounter for closed fracture Is this a current diagnosis for this admission?: Yes Plan: Nonweightbearing right upper extremity per orthopedics. We will try to get her fitted for a sling. No signs of compartment syndrome at this time. 03/02/2020-Ortho consult was called for a right proximal humerus fracture the recommendation is conservative management with a sling. Patient is on IV morphine for pain. 03/03/2020-on conservative management for a right proximal humerus fracture with a sling. Ortho consult was done during this hospital stay. 03/06/2020-right arm still with a sling and she has a right proximal humerus fracture. (4) Anaerobic bacteremia Is this a current diagnosis for this admission?: Yes Plan: She grew out Peptostreptococcus out of a blood culture. She did have a bit of a congested sounding cough the other day, so this is possible that she aspirated and then got bacteremic from that. She is currently on Rocephin which should cover it. 03/02/2020-cultures growing Peptostreptococcus. Patient is presently on azithromycin and Rocephin. CSF cultures are negative for bacterial growth. And is to continue IV antibiotic therapy at this time. Pressures are stable 126/61 and T-max is 98.4. Pulse ox is 98% on 3 L. 03/03/2020-blood cultures growing Peptostreptococcus and presently on IV Rocephin and Zithromax plan is to discontinue antibiotics from today because patient is afebrile and WBC count is improving. Plan is to repeat the labs tomorrow. Lumbar puncture was done during the hospital stay negative for CSF infection. 03/04/2020-patient is presently off the antibiotics afebrile temperature is 98.1 blood pressure is stable. 03/05/2020-T-max is 98.8, afebrile. Presently off the antibiotics. 03/06/2020-T-max is 98 afebrile. WBC count is 13,900. Continue not on antibiotics. (5) Obesity (BMI 30-39.9) Is this a current diagnosis for this admission?: No (6) Anemia Is this a current diagnosis for this admission?: No Plan: 03/02/2020-admission hemoglobin is 11 today 7.9. Gradually trending downwards. Plan is to give 1 unit of PRBC during the hospital stay. Because of drop in hemoglobin is unknown at this time. To hold DVT prophylaxis. Patient is receiving IV fluids drop in hemoglobin may be secondary to hemodilution. 03/03/2020-hemoglobin came up to 9.9 after transfusion of 1 unit of PRBC ye sterday. Patient has history of anemia of chronic disease. IV fluids are discontinued yesterday. 03/06/20-patient has history of anemia of chronic disease latest hemoglobin is 9.4. Stable. - Plan Summary Summary: Patient will be treated with IMCU admission patient will receive routine supportive and symptomatic cares. She will be treated with IV fluid in an effort to correct her metabolic acidosis and her acute kidney injury, then reassess her status. Laboratory assessments of her CBC, metabolic profile, magnesium level and arterial and/or venous blood gases will be obtained as needed. She will continue receive supplemental oxygen via nasal cannula to support an adequate oxygen saturation and noninvasive airway pressure support devices may be employed if needed. Serial cardiac enzymes and serial lactic acids will be obtained. Antibiotic therapy will not be initiated at this point as there is no clear source of infection or evidence of infection being a possible cause of her current status. A lumbar puncture will be obtained per invasive radiology as soon as possible. Ativan 1 mg IV every 4 hours will be used as needed for anxiety or restlessness.
[2020-03-06] MEDS: INSULIN REG, HUMAN 100 UNIT/ML 3 ML VIAL (PYX) SUBCUT SCH ×4 (09:06→22:16)
[2020-03-06] MEDS: PANTOPRAZOLE SODIUM 40 MG TABLET.DR PO SCH ×2 (09:08→21:40)
[2020-03-06] MEDS: MAGNESIUM OXIDE 400 MG TABLET PO SCH ×3 (09:08→17:31)
[2020-03-06] MEDS: DOCUSATE SODIUM 100 MG CAPSULE PO SCH ×2 (09:08→17:31)
[2020-03-06] MEDS: MAGNESIUM HYDROXIDE SUSP 30 ML UDCUP PO PRN (17:31)
[2020-03-07] MEDS: INSULIN REG, HUMAN 100 UNIT/ML 3 ML VIAL (PYX) SUBCUT SCH ×4 (08:01→21:18)
[2020-03-07] MEDS ORDERED: MAGNESIUM CITRATE 296 ML BOTTLE PO ONE (08:15)
[2020-03-07] MEDS: OXYCODONE-ACETAMINOPHEN 5-325 MG TABLET PO PRN ×2 (08:25→15:43)
[2020-03-07] MEDS: IPRATROPIUM BROMIDE 0.02% NEB 0.5 MG/2.5 ML AMPUL NEB SCH ×2 (08:26→16:14)
[2020-03-07] MEDS: LEVALBUTEROL HCL NEB 1.25 MG/3 ML AMPUL NEB SCH ×2 (08:26→16:14)
--- NOTE | 2020-03-07 09:12 | PDOC PROGRESS REPORT ---
Subjective Progress Note for:: 03/07/20 Subjective:: Patient is alert awake oriented able to give her name, date of . location. c/o severe pain in the right arm requesting IV pain medication. 03/03/[id number]-iyrv-old female admitted with acute metabolic encephalopathy resolving. No acute events in the last 24 hours. Right arm with a sling. Patient may be able to go back to long-term care tomorrow. 03/04/2020-no acute events in the last 24 hours. Afebrile. Communicating well. Acute metabolic encephalopathy is resolved. The plan is to discharge her back to [facility] today but unfortunately the covid testing has to be done and it has to be negative prior to discharge. 03/05/2020-no acute events in the last 24 hours. Afebrile. Waiting for the coronavirus testing come back negative for the [facility] to accept the patient. Comfortably in the bed communicating well. 03/06/20-no acute events in the last 24 hours. Afebrile. Coronavirus test is still pending. Once the test is negative [facility] is going to take the patient back. 03/15/2020-patient is stable to go to long-term care facility but waiting for coronavirus testing results. He is complaining of severe constipation started on mag citrate. No other complaints. Reason For Visit: ACUTE METABOLIC ENCEPHALOPATHY, ACUTE METABOLIC Physical Exam Vital Signs: Temp Pulse Resp BP Pulse Ox 98.3 F 83 16 135/66 H 96 03/07/20 07:16 03/07/20 08:27 03/07/20 08:27 03/07/20 07:16 03/07/20 08:27 Intake & Output 03/06/20 03/07/20 03/08/20 06:59 06:59 06:59 Intake Total 1464 1907 Output Total 0805 2150 Balance -461 -243 Weight 102.2 kg 101.1 kg General appearance: PRESENT: no acute distress, obese Head exam: PRESENT: atraumatic Eye exam: PRESENT: PERRLA Mouth exam: PRESENT: moist, tongue midline Teeth exam: PRESENT: poor dentation Neck exam: ABSENT: carotid bruit, JVD, lymphadenopathy, thyromegaly Respiratory exam: PRESENT: decreased breath sounds Cardiovascular exam: PRESENT: RRR. ABSENT: diastolic murmur, rubs, systolic murmur Vascular exam: PRESENT: normal capillary refill GI/Abdominal exam: PRESENT: normal bowel sounds, soft. ABSENT: distended, guarding, mass, organolmegaly, rebound, tenderness Rectal exam: PRESENT: deferred Extremities exam: PRESENT: full ROM. ABSENT: calf tenderness, clubbing, pedal edema Neurological exam: PRESENT: alert, awake, oriented to person, oriented to place, oriented to time, oriented to situation, CN II-XII grossly intact. ABSENT: motor sensory deficit Results Laboratory Results: 03/05/20 07:39 03/05/20 07:39 02/27/20 02/28/20 02/28/20 15:34 03:45 09:10 Creatine Kinase CK-MB (CK-2) Troponin I < 0.012 0.041 0.031 NT-Pro-B Natriuret Pep 931 H 02/28/20 03/03/20 03/03/20 14:05 07:58 14:35 Creatine Kinase CK-MB (CK-2) 1.53 Troponin I 0.024 0.458 NT-Pro-B Natriuret Pep 03/03/20 14:35 Creatine Kinase 71 CK-MB (CK-2) Troponin I NT-Pro-B Natriuret Pep Impressions: Chest X-Ray 02/27/20 16:12 IMPRESSION: Enlarged cardiac silhouette with central vascular congestion. Head CT 02/27/20 16:16 IMPRESSION: 1. No significant interval changes since the prior examination dated 02/19/2020. No acute findings. EVIDENCE OF ACUTE STROKE: NO. Lung Scan-VQ NM 02/27/20 20:56 IMPRESSION: Low probability for pulmonary embolus Venous Doppler Study 02/27/20 20:58 IMPRESSION: No evidence of deep or superficial venous thrombosis of either lower extremity. Humerus X-Ray 02/28/20 00:00 IMPRESSION: Acute spiral fracture proximal right humeral diaphysis. Difficult to discern if the fracture extends into the humeral head/ greater tuberosity Guidance Fluoroscopy 02/29/20 00:00 IMPRESSION: Lumbar puncture under fluoroscopy. No immediate complication. Lumbar Puncture 02/29/20 00:00 IMPRESSION: Lumbar puncture under fluoroscopy. No immediate complication. Upper Extremity CT 02/29/20 00:00 IMPRESSION: Spiral fracture right proximal humerus diaphysis without definite extension into the humeral head Lung findings in the field of view worrisome for fluid overload or congestive failure. Assessment and Plan - Diagnosis (1) Acute kidney injury Is this a current diagnosis for this admission?: Yes Plan: Resolved 03/02/2020-serum creatinine today is 0.63. Patient serum creatinine is 1.6 for acute kidney injury is resolved. 03/03/20-patient admitted with acute kidney injury latest serum creatinine 0.75 HARDEEP is resolved. 03/04/2020-patient admitted with acute kidney injury at the time of admission creatinine is 1.6 latest creatinine 0.75. Acute kidney injury resolved. 03/05/20-patient admitted with acute kidney injury at the time of admission creatinine is 1.6, acute kidney injury is resolved. 03/06/2020-acute kidney injury is resolved latest serum creatinine 0.55. 03/07/2020-patient admitted with acute kidney injury which was resolved. (2) Acute metabolic encephalopathy Is this a current diagnosis for this admission?: Yes Plan: Still not sure of the cause of this. LP has been performed and fluid studies are negative. She had a congested cough so I empirically started her on some antibiotics. She has not had any of her psychiatric medications a couple of days but I do not know how much of a role this is playing because she has been like this since admission. 03/02/20-extensive work-up was done for acute metabolic encephalopathy which was resolving. This morning alert and awake communicating well not in distress. Able to give her name, date of and place of stay. 03/03/2020-acute metabolic encephalopathy resolved. 03/04/20-extensive work-up was done for acute metabolic encephalopathy and test came back negative. Negative for meningitis. Patient is alert and awake oriented communicating well and no behavioral issues also for the last 3 days. 03/05/2020-alert and awake oriented communicating well. Not in distress. 03/06/20-patient is alert awake oriented communicating well expressing desire to go [facility] to [facility]. 03/07/20-on examination this morning alert and awake oriented communicating well. (3) Closed fracture of right proximal humerus Qualifiers: Encounter type: initial encounter Fracture morphology: other fracture Fracture alignment: nondisplaced Qualified Code(s): S42.294A - Other nondisplaced fracture of upper end of right humerus, initial encounter for closed fracture Is this a current diagnosis for this admission?: Yes Plan: Nonweightbearing right upper extremity per orthopedics. We will try to get her fitted for a sling. No signs of compartment syndrome at this time. 03/02/2020-Ortho consult was called for a right proximal humerus fracture the recommendation is conservative management with a sling. Patient is on IV morphine for pain. 03/03/2020-on conservative management for a right proximal humerus fracture with a sling. Ortho consult was done during this hospital stay. 03/06/2020-right arm still with a sling and she has a right proximal humerus fracture. (4) Anaerobic bacteremia Is this a current diagnosis for this admission?: Yes Plan: She grew out Peptostreptococcus out of a blood culture. She did have a bit of a congested sounding cough the other day, so this is possible that she aspirated and then got bacteremic from that. She is currently on Rocephin which should cover it. 03/02/2020-cultures growing Peptostreptococcus. Patient is presently on azithromycin and Rocephin. CSF cultures are negative for bacterial growth. And is to continue IV antibiotic therapy at this time. Pressures are stable 126/61 and T-max is 98.4. Pulse ox is 98% on 3 L. 03/03/2020-blood cultures growing Peptostreptococcus and presently on IV Rocephin and Zithromax plan is to discontinue antibiotics from today because patient is afebrile and WBC count is improving. Plan is to repeat the labs tomorrow. Lumbar puncture was done during the hospital stay negative for CSF infection. 03/04/2020-patient is presently off the antibiotics afebrile temperature is 98.1 blood pressure is stable. 03/05/2020-T-max is 98.8, afebrile. Presently off the antibiotics. 03/06/2020-T-max is 98 afebrile. WBC count is 13,900. Continue not on anti biotics. (5) Obesity (BMI 30-39.9) Is this a current diagnosis for this admission?: No Plan: 03/02/20-patient BMI is 39 diet exercise weight loss lifestyle modifications discussed with the patient. (6) Anemia Is this a current diagnosis for this admission?: No Plan: 03/02/2020-admission hemoglobin is 11 today 7.9. Gradually trending downwards. Plan is to give 1 unit of PRBC during the hospital stay. Because of drop in hemoglobin is unknown at this time. To hold DVT prophylaxis. Patient is receiving IV fluids drop in hemoglobin may be secondary to hemodilution. 03/03/2020-hemoglobin came up to 9.9 after transfusion of 1 unit of PRBC yesterday. Patient has history of anemia of chronic disease. IV fluids are discontinued yesterday. 03/06/20-patient has history of anemia of chronic disease latest hemoglobin is 9.4. Stable. - Plan Summary Summary: Patient will be treated with IMCU admission patient will receive routine supportive and symptomatic cares. She will be treated with IV fluid in an effort to correct her metabolic acidosis and her acute kidney injury, then reassess her status. Laboratory assessments of her CBC, metabolic profile, magnesium level and arterial and/or venous blood gases will be obtained as needed. She will continue receive supplemental oxygen via nasal cannula to support an adequate oxygen saturation and noninvasive airway pressure support devices may be employed if needed. Serial cardiac enzymes and serial lactic acids will be obtained. Antibiotic therapy will not be initiated at this point as there is no clear source of infection or evidence of infection being a poss ible cause of her current status. A lumbar puncture will be obtained per invasive radiology as soon as possible. Ativan 1 mg IV every 4 hours will be used as needed for anxiety or restlessness.
[2020-03-07] MEDS: DOCUSATE SODIUM 100 MG CAPSULE PO SCH ×2 (10:02→17:11)
[2020-03-07] MEDS: MAGNESIUM OXIDE 400 MG TABLET PO SCH ×3 (10:02→17:11)
[2020-03-07] MEDS: PANTOPRAZOLE SODIUM 40 MG TABLET.DR PO SCH ×2 (10:02→21:01)
[2020-03-07] MEDS: TRAMADOL HCL 50 MG TABLET PO PRN (20:36)
[2020-03-07] MEDS: CLONAZEPAM 1 MG TABLET PO PRN (20:37)
[2020-03-08] MEDS: IPRATROPIUM BROMIDE 0.02% NEB 0.5 MG/2.5 ML AMPUL NEB SCH ×3 (00:13→15:46)
[2020-03-08] MEDS: LEVALBUTEROL HCL NEB 1.25 MG/3 ML AMPUL NEB SCH ×3 (00:13→15:46)
[2020-03-08] MEDS: INSULIN REG, HUMAN 100 UNIT/ML 3 ML VIAL (PYX) SUBCUT SCH ×4 (07:59→21:23)
--- NOTE | 2020-03-08 08:38 | PDOC PROGRESS REPORT ---
Subjective Progress Note for:: 03/08/20 Subjective:: Patient is alert awake oriented able to give her name, date of . location. c/o severe pain in the right arm requesting IV pain medication. 03/03/[id number]-old female admitted with acute metabolic encephalopathy resolving. No acute events in the last 24 hours. Right arm with a sling. Patient may be able to go back to long-term care tomorrow. 03/04/2020-no acute events in the last 24 hours. Afebrile. Communicating well. Acute metabolic encephalopathy is resolved. The plan is to discharge her back to [facility] today but unfortunately the covid testing has to be done and it has to be negative prior to discharge. 03/05/2020-no acute events in the last 24 hours. Afebrile. Waiting for the coronavirus testing come back negative for the [facility] to accept the patient. Comfortably in the bed communicating well. 03/06/20-no acute events in the last 24 hours. Afebrile. Coronavirus test is still pending. Once the test is negative [facility] is going to take the patient back. 03/07/2020-patient is stable to go to long-term care facility but waiting for coronavirus testing results. He is complaining of severe constipation started on mag citrate. No other complaints. 03/08/2020-coronavirus testing came back negative. No acute events in the last 24 hours. Afebrile. Probably patient may able to go to [facility] today if not definitely by tomorrow. pt is comfortably in the bed communicating well. Not in distress. Reason For Visit: ACUTE METABOLIC ENCEPHALOPATHY, ACUTE METABOLIC Physical Exam Vital Signs: Temp Pulse Resp BP Pulse Ox 98.1 F 86 16 126/52 H 96 03/08/20 07:12 03/08/20 08:10 03/08/20 08:10 03/08/20 07:12 03/08/20 08:10 Intake & Output 03/07/20 03/08/20 03/09/20 06:59 06:59 06:59 Intake Total 1906 2027 Output Total 2149 1650 Balance -243 378 Weight 101.1 kg 100.1 kg General appearance: PRESENT: no acute distress, obese Head exam: PRESENT: normocephalic Eye exam: PRESENT: PERRLA Ear exam: PRESENT: normal external ear exam Mouth exam: PRESENT: neck supple Teeth exam: PRESENT: poor dentation Neck exam: ABSENT: carotid bruit, JVD, lymphadenopathy, thyromegaly Respiratory exam: PRESENT: decreased breath sounds Cardiovascular exam: PRESENT: RRR. ABSENT: diastolic murmur, rubs, systolic murmur GI/Abdominal exam: PRESENT: normal bowel sounds, soft. ABSENT: distended, guarding, mass, organolmegaly, rebound, tenderness Rectal exam: PRESENT: deferred Extremities exam: PRESENT: full ROM. ABSENT: calf tenderness, clubbing, pedal edema Neurological exam: PRESENT: alert, awake, oriented to person, oriented to place, oriented to time, oriented to situation, CN II-XII grossly intact. ABSENT: motor sensory deficit Psychiatric exam: PRESENT: appropriate affect, normal mood. ABSENT: homicidal i deation, suicidal ideation Results Laboratory Results: 03/05/20 07:39 03/05/20 07:39 02/27/20 02/28/20 02/28/20 15:34 03:45 09:10 Creatine Kinase CK-MB (CK-2) Troponin I < 0.012 0.041 0.031 NT-Pro-B Natriuret Pep 931 H 02/28/20 03/03/20 03/03/20 14:05 07:58 14:35 Creatine Kinase CK-MB (CK-2) 1.53 Troponin I 0.024 0.458 NT-Pro-B Natriuret Pep 03/03/20 14:35 Creatine Kinase 71 CK-MB (CK-2) Troponin I NT-Pro-B Natriuret Pep Impressions: Chest X-Ray 02/27/20 16:12 IMPRESSION: Enlarged cardiac silhouette with central vascular congestion. Head CT 02/27/20 16:16 IMPRESSION: 1. No significant interval changes since the prior examination dated 02/19/2020. No acute findings. EVIDENCE OF ACUTE STROKE: NO. Lung Scan-VQ NM 02/27/20 20:56 IMPRESSION: Low probability for pulmonary embolus Venous Doppler Study 02/27/20 20:58 IMPRESSION: No evidence of deep or superficial venous thrombosis of either lower extremity. Humerus X-Ray 02/28/20 00:00 IMPRESSION: Acute spiral fracture proximal right humeral diaphysis. Difficult to discern if the fracture extends into the humeral head/ greater tuberosity Guidance Fluoroscopy 02/29/20 00:00 IMPRESSION: Lumbar puncture under fluoroscopy. No immediate complication. Lumbar Puncture 02/29/20 00:00 IMPRESSION: Lumbar puncture under fluoroscopy. No immediate complication. Upper Extremity CT 02/29/20 00:00 IMPRESSION: Spiral fracture right proximal humerus diaphysis without definite extension into the humeral head Lung findings in the field of view worrisome for fluid overload or congestive failure. Assessment and Plan - Diagnosis (1) Acute kidney injury Is this a current diagnosis for this admission?: Yes Plan: Resolved 03/02/2020-serum creatinine today is 0.63. Patient serum creatinine is 1.6 for acute kidney injury is resolved. 03/03/20-patient admitted with acute kidney injury latest serum creatinine 0.75 HARDEEP is resolved. 03/04/2020-patient admitted with acute kidney injury at the time of admission creatinine is 1.6 latest creatinine 0.75. Acute kidney injury resolved. 03/05/20-patient admitted with acute kidney injury at the time of admission creatinine is 1.6, acute kidney injury is resolved. 03/06/2020-acute kidney injury is resolved latest serum creatinine 0.55. 03/07/2020-patient admitted with acute kidney injury which was resolved. 03/08/2020-kidney function is normalized acute kidney injury is resolved. (2) Acute metabolic encephalopathy Is this a current diagnosis for this admission?: Yes Plan: Still not sure of the cause of this. LP has been performed and fluid studies are negative. She had a congested cough so I empirically started her on some antibiotics. She has not had any of her psychiatric medications a couple of days but I do not know how much of a role this is playing because she has been like this since admission. 03/02/20-extensive work-up was done for acute metabolic encephalopathy which was resolving. This morning alert and awake communicating well not in distress. Able to give her name, date of and place of stay. 03/03/2020-acute metabolic encephalopathy resolved. 03/04/20-extensive work-up was done for acute metabolic encephalopathy and test came back negative. Negative for meningitis. Patient is alert and awake oriented communicating well and no behavioral issues also for the last 3 days. 03/05/2020-alert and awake oriented communicating well. Not in distress. 03/06/20-patient is alert awake oriented communicating well expressing desire to go back to [facility] today. 03/07/20-on examination this morning alert and awake oriented communicating well. 03/08/2020-on examination alert awake communicating well not in distress. (3) Closed fracture of right proximal humerus Qualifiers: Encounter type: initial encounter Fracture morphology: other fracture Fracture alignment: nondisplaced Qualified Code(s): S42.294A - Other nondisplaced fracture of upper end of right humerus, initial encounter for closed fracture Is this a current diagnosis for this admission?: Yes Plan: Nonweightbearing right upper extremity per orthopedics. We will try to get her fitted for a sling. No signs of compartment syndrome at this time. 03/02/2020-Ortho consult was called for a right proximal humerus fracture the recommendation is conservative management with a sling. Patient is on IV morphine for pain. 03/03/2020-on conservative management for a right proximal humerus fracture with a sling. Ortho consult was done during this hospital stay. 03/06/2020-right arm still with a sling and she has a right proximal humerus fracture. 03/08/2020-patient had a right proximal humerus fracture with a sling. (4) Anaerobic bacteremia Is this a current diagnosis for this admission?: Yes Plan: She grew out Peptostreptococcus out of a blood culture. She did have a bit of a congested sounding cough the other day, so this is possible that she aspirated and then got bacteremic from that. She is currently on Rocephin which should cover it. 03/02/2020-cultures growing Peptostreptococcus. Patient is presently on azithromycin and Rocephin. CSF cultures are negative for bacterial growth. And is to continue IV antibiotic therapy at this time. Pressures are stable 126/61 and T-max is 98.4. Pulse ox is 98% on 3 L. 03/03/2020-blood cultures growing Peptostreptococcus and presently on IV Rocephin and Zithromax plan is to discontinue antibiotics from today because patient is afebrile and WBC count is improving. Plan is to repeat the labs tomorrow. Lumbar puncture was done during the hospital stay negative for CSF infection. 03/04/2020-patient is presently off the antibiotics afebrile temperature is 98.1 blood pressure is stable. 03/05/2020-T-max is 98.8, afebrile. Presently off the antibiotics. 03/06/2020-T-max is 98 afebrile. WBC count is 13,900. Continue not on antibiotics. (5) Obesity (BMI 30-39.9) Is this a current diagnosis for this admission?: No Plan: 03/02/20-patient BMI is 39 diet exercise weight loss lifestyle modifications discussed with the patient. (6) Anemia Is this a current diagnosis for this admission?: No Plan: 03/02/2020-admission hemoglobin is 11 today 7.9. Gradually trending downwards. Plan is to give 1 unit of PRBC during the hospital stay. Because of drop in hemoglobin is unknown at this time. To hold DVT prophylaxis. Patient is receiving IV fluids drop in hemoglobin may be secondary to hemodilution. 03/03/2020-hemoglobin came up to 9.9 after transfusion of 1 unit of PRBC yesterday. Patient has history of anemia of chronic disease. IV fluids are discontinued yesterday. 03/06/20-patient has history of anemia of chronic disease latest hemoglobin is 9.4. Stable. - Plan Summary Summary: Patient will be treated with IMCU admission patient will receive routine supportive and symptomatic cares. She will be treated with IV fluid in an effort to correct her metabolic acidosis and her acute kidney injury, then reassess her status. Laboratory assessments of her CBC, metabolic profile, magnesium level and arterial and/or venous blood gases will be obtained as needed. She will continue receive supplemental oxygen via nasal cannula to support an adequate oxygen saturation and noninvasive airway pressure support devices may be employed if needed. Serial cardiac enzymes and serial lactic acids will be obtained. Antibiotic therapy will not be initiated at this point as there is no clear source of infection or evidence of infection being a possible cause of her current status. A lumbar puncture will be obtained per invasive radiology as soon as possible. Ativan 1 mg IV every 4 hours will be used as needed for anxiety or restlessness.
[2020-03-08] MEDS: PANTOPRAZOLE SODIUM 40 MG TABLET.DR PO SCH ×2 (10:40→21:23)
[2020-03-08] MEDS: MAGNESIUM OXIDE 400 MG TABLET PO SCH ×3 (10:40→17:07)
[2020-03-08] MEDS: DOCUSATE SODIUM 100 MG CAPSULE PO SCH ×2 (10:40→17:01)
[2020-03-08] MEDS: OXYCODONE-ACETAMINOPHEN 5-325 MG TABLET PO PRN (21:22)
[2020-03-08] MEDS: CLONAZEPAM 1 MG TABLET PO PRN (21:22)
[2020-03-09] MEDS: IPRATROPIUM BROMIDE 0.02% NEB 0.5 MG/2.5 ML AMPUL NEB SCH ×3 (00:29→15:33)
[2020-03-09] MEDS: LEVALBUTEROL HCL NEB 1.25 MG/3 ML AMPUL NEB SCH ×3 (00:29→15:33)
[2020-03-09] MEDS: INSULIN REG, HUMAN 100 UNIT/ML 3 ML VIAL (PYX) SUBCUT SCH ×4 (09:18→21:46)
[2020-03-09] MEDS: DOCUSATE SODIUM 100 MG CAPSULE PO SCH ×2 (09:19→18:27)
[2020-03-09] MEDS: PANTOPRAZOLE SODIUM 40 MG TABLET.DR PO SCH ×2 (09:19→21:46)
[2020-03-09] MEDS: MAGNESIUM OXIDE 400 MG TABLET PO SCH ×3 (09:19→18:27)
[2020-03-09] MEDS: OXYCODONE-ACETAMINOPHEN 5-325 MG TABLET PO PRN ×2 (09:21→18:27)
--- NOTE | 2020-03-09 15:08 | PDOC TRANSFER SUMMARY ---
Impression - Admit/DC Date/PCP Admission Date/Primary Care Provider: 02/28/20 02:28 SOBIA YANEZ MD Discharge Date: 03/09/20 - Assessment Summary: Patient will be treated with IMCU admission patient will receive routine wilhelm pportive and symptomatic cares. She will be treated with IV fluid in an effort to correct her metabolic acidosis and her acute kidney injury, then reassess her status. Laboratory assessments of her CBC, metabolic profile, magnesium level and arterial and/or venous blood gases will be obtained as needed. She will continue receive supplemental oxygen via nasal cannula to support an adequate oxygen saturation and noninvasive airway pressure support devices may be employed if needed. Serial cardiac enzymes and serial lactic acids will be obtained. Antibiotic therapy will not be initiated at this point as there is no clear source of infection or evidence of infection being a possible cause of her current status. A lumbar puncture will be obtained per invasive radiology as soon as possible. Ativan 1 mg IV every 4 hours will be used as needed for anxiety or restlessness. 03/09/2020 Patient is being discharged to [facility]. She was admitted on 02/28/2020 with altered mental status from the snf. In the emergency room the patient was found to have a mild metabolic acidosis and minimally elevated white count with mildly elevated lactic acid. Also acute kidney inju ry. Above patient was admitted for further diagnostic studies as well as IV fluids. Patient did have a lumbar puncture performed on 28 February, which showed clear colorless fluid with 2 white cells 0 red cells and glucose of 148 with protein 48. CSF culture showed no growth in 3 days. Same day patient was seen by orthopedics as of a fall while in the emergency room. Patient landed on her right side and has what appears to be a closed fracture of the right proximal humerus. Patient was not a good candidate for surgery, and the fracture should heal with nonoperative management. Will need to be seen as an outpatient and orthopedics when her mental status clears within about 10 days. It was recommended that the patient remain in sling and immobilizer until seen by orthopedics within a week of discharge from the hospital. Patient's COVID 19 testing is negative. Patient states that she was in a wheelchair prior to coming to the hospital. Hi catheter will be discontinued. The time of discharge most recent lab work 4 days ago showed a white count of 13.9 hemoglobin 9.4. This appears to be stable Recent electrolytes 4 days ago showed a sodium 137 potassium 3.7 BUN of 10 and creatinine 0.55 Recent fingerstick blood sugar this morning was 129 and at noon today was 151. Throat culture was normal. 1 blood culture showed possible contaminant however the patient was placed on Rocephin and Zithromax. the other blood culture showed no growth in 5 days \ Acute metabolic encephalopathy resolved within 4 or 5 days. She has remained afebrile. He is awake and alert. Arm is in a sling and immobilizer. Diagnosis metabolic encephalopathy, resolved, closed fracture of the right distal humerus, anaerobic bacteremia, anemia of chronic disease, dementia, depression. She is only prescription is magnesium oxide 800 mg twice daily. Recent magnesium level on 03/05/2021 was still low at 1.4. She came in with a low level of 1.7 - Additional Information Resuscitation Status: Full Code Discharge Diet: Diabetic Discharge Activity: Activity As Tolerated, No Lifting Over 10 Pounds, No Liftin g/Push/Pulling Referrals: MOISÉS GOODMAN JR, DO [ACTIVE PROVISIONAL STAFF] - 03/19/20 10:45 am (follow up within 10-14 days ) Prescriptions: Magnesium Oxide [Mag-Ox 400 mg Tablet] 800 mg PO BID 15 Days #30 tablet Home Medications: Aspirin [Aspirin EC] 81 mg PO DAILY 07/22/18 Metformin HCl [Glucophage] 1,000 mg PO Q12 07/22/18 Risperidone [Risperdal 1 mg Tablet] 2 mg PO QHS 07/22/18 Atorvastatin Calcium [Lipitor 10 mg Tablet] 10 mg PO QHS 09/17/18 Benztropine Mesylate [Cogentin 1 mg Tablet] 1 mg PO Q12 09/17/18 Insulin Degludec [Tresiba Flextouch U-200] 20 unit SQ QPM 09/17/18 Topiramate [Topamax] 150 mg PO Q12 09/17/18 Furosemide [Lasix 20 mg Tablet] 40 mg PO DAILY 02/19/19 Sertraline HCl [Zoloft 50 mg Tablet] 75 mg PO DAILY 02/19/19 Pregabalin [Lyrica 75 mg Capsule] 75 mg PO QAM 08/08/19 Risperidone [Risperdal 1 mg Tablet] 1 mg PO QAM 08/08/19 Fluticasone/Salmeterol [Advair 250-50 Diskus 14 Dose/Diskus] 1 inh IH Q12H #1 inhaler 08/09/19 Clonazepam [Klonopin] 0.5 mg PO Q12HP PRN 01/27/20 Fluticasone Propionate [Flonase Nasal [place] 50 Mcg/[place] 16 gm] 1 spray NASL DAILY 01/27/20 Ipratropium/Albuterol Sulfate [Duoneb 3 ml Ampul] 3 ml NEB RTQ4HP PRN 01/27/20 Menthol [Biofreeze] 1 applic TP Q6HP PRN 01/27/20 Oxycodone HCl/Acetaminophen [Percocet 7.5-325 mg Tablet] 1 each PO TID 01/27/20 Suvorexant [Belsomra] 20 mg PO QHS 01/27/20 Acetaminophen [Tylenol 325 mg Tablet] 650 mg PO Q4HP PRN tablet 03/09/20 Acetaminophen [Tylenol 650 mg Supp] 650 mg [place] Q4HP PRN supp.rect 03/09/20 Docusate Sodium [Colace 100 mg Capsule] 100 mg PO BID capsule 03/09/20 Magnesium Oxide [Mag-Ox 400 mg Tablet] 800 mg PO BID 15 Days #30 tablet 03/09/20 History of Present Illiness History of Present Illness: NAVEEN TABARES is a 59 year old female Hospital Course Hospital Course: 50 year old female, 50-year-old female in present at this time was brought to the emergency room with complaints of dizziness since yesterday. As per the patient symptoms started all of a sudden when she turned her head to the left side. [place] dizzy, lightheaded and felt like room is spinning. Also complained of nausea denies any falls denies any headaches denies any vomitings. She has this history of similar episodes before few years ago at that time she passed out. Work-up in the emergency room is negative medical consult was called for her dizziness and to rule out stroke. MRI of the brain without contrast is pending for today. Also given the history of diabetes mellitus, seizure disorder and asthma. 03/03/2003-68-fwhm-old female admitted with dizziness, benign positional vertigo, CT head is negative for acute pathology MRI of the brain is negative for acute pathology. Carotid Doppler is negative for hemodynamically significant stenosis. Plan is to discharge her home today. Physical Exam Vital Signs: Temp Pulse Resp BP Pulse Ox 98.3 F 79 18 132/65 H 99 03/09/20 11:32 03/09/20 11:32 03/09/20 11:32 03/09/20 11:32 03/09/20 11:32 Intake & Output 03/08/20 03/09/20 03/10/20 06:59 06:59 06:59 Intake Total 2027 1205 Output Total 1658 1875 Balance 378 -670 Weight 100.1 kg 100.1 kg Results Laboratory Results: WBC 13.9 10^3/uL (4.0-10.5) H 03/05/20 07:39 RBC 3.15 10^6/uL (3.72-5.28) L 03/05/20 07:39 Hgb 9.4 g/dL (12.0-15.5) L 03/05/20 07:39 Hct 27.6 % (36.0-47.0) L 03/05/20 07:39 MCV 88 fl (80-97) 03/05/20 07:39 MCH 30.0 pg (27.0-33.4) 03/05/20 07:39 MCHC 34.2 g/dL (32.0-36.0) 03/05/20 07:39 RDW 15.9 % (11.5-14.0) H 03/05/20 07:39 Plt Count 306 10^3/uL (150-450) 03/05/20 07:39 Lymph % (Auto) Not Reportable 03/05/20 07:39 [place] % (Auto) Not Reportable 03/05/20 07:39 Eos % (Auto) Not Reportable 03/05/20 07:39 Baso % (Auto) Not Reportable 03/05/20 07:39 Absolute Neuts (auto) Not Reportable 03/05/20 07:39 Absolute Lymphs (auto) Not Reportable 03/05/20 07:39 Absolute Monos (auto) Not Reportable 03/05/20 07:39 Absolute Eos (auto) Not Reportable 03/05/20 07:39 Absolute Basos (auto) Not Reportable 03/05/20 07:39 Total Counted 100 03/05/20 07:39 Seg Neutrophils % Not Reportable 03/05/20 07:39 Seg Neuts % (Manual) 78 % (42-78) 03/05/20 07:39 Band Neutrophils % 1 % (3-5) L 03/03/20 05:29 Lymphocytes % (Manual) 9 % (13-45) L 03/05/20 07:39 Atypical Lymphs % 4 % (0) 03/05/20 07:39 Monocytes % (Manual) 5 % (3-13) 03/05/20 07:39 Eosinophils % (Manual) 2 % (0-6) 03/05/20 07:39 Basophils % (Manual) 1 % (0-2) 03/05/20 07:39 Metamyelocytes % 1 % (0-1) 03/05/20 07:39 Abs Neuts (Manual) 11.0 10^3/uL (1.7-8.2) H 03/05/20 07:39 Abs Lymphs (Manual) 1.8 10^3/uL (0.5-4.7) 03/05/20 07:39 Abs Monocytes (Manual) 0.7 10^3/uL (0.1-1.4) 03/05/20 07:39 Absolute Eos (Manual) 0.3 10^3/uL (0.0-0.6) 03/05/20 07:39 Abs Basophils (Manual) 0.1 10^3/uL (0.0-0.2) 03/05/20 07:39 Nucleated RBCs 1 /100 WBC (0) 03/05/20 07:39 Large Platelets PRESENT 03/02/20 21:03 Platelet Comment ADEQUATE 03/05/20 07:39 Polychromasia 1+ 03/05/20 07:39 Anisocytosis SLIGHT 03/05/20 07:39 PT 17.4 SEC (11.4-15.4) H 02/29/20 09:21 INR 1.41 02/29/20 09:21 APTT 30.3 SEC (23.5-35.8) 02/29/20 09:21 D-Dimer 1.38 ug/mL (0.00-0.50) H 02/27/20 15:34 Carbonic Acid 1.33 mmol/L (1.05-1.35) 02/28/20 01:15 HCO3/H2CO3 Ratio 14:1 02/28/20 01:15 ABG pH 7.25 (7.35-7.45) L 02/28/20 01:15 ABG pCO2 44.3 mmHg (35-45) 02/28/20 01:15 ABG pO2 87.0 mmHg (80-100) 02/28/20 01:15 ABG HCO3 19.1 mmol/L (20-24) L 02/28/20 01:15 ABG Total CO2 20.4 mmol/L (21-25) L 02/28/20 01:15 ABG O2 Saturation 95.2 % (94-98) 02/28/20 01:15 ABG Base Excess -7.8 mmol/L 02/28/20 01:15 FiO2 2L 02/28/20 01:15 Sodium 137.8 mmol/L (137-145) 03/05/20 07:39 Potassium 3.7 mmol/L (3.6-5.0) 03/05/20 07:39 Chloride 104 mmol/L (98-107) 03/05/20 07:39 Carbon Dioxide 27 mmol/L (22-30) 03/05/20 07:39 Anion Gap 7 (5-19) 03/05/20 07:39 BUN 10 mg/dL (7-20) 03/05/20 07:39 Creatinine 0.55 mg/dL (0.52-1.25) 03/05/20 07:39 Est GFR ( Amer) > 60 (>60) 03/05/20 07:39 Est GFR (MDRD) Non-Af > 60 (>60) 03/05/20 07:39 Glucose 98 mg/dL (75-110) 03/05/20 07:39 POC Glucose 151 mg/dL (70-110) H 03/09/20 11:32 Lactic Acid 0.9 mmol/L (0.7-2.1) 02/28/20 14:05 Calcium 7.8 mg/dL (8.4-10.2) L 03/05/20 07:39 Magnesium 1.4 mg/dL (1.6-2.3) L 03/05/20 07:39 Total Bilirubin 0.6 mg/dL (0.2-1.3) 03/05/20 07:39 Direct Bilirubin 0.3 mg/dL (0.0-0.4) 03/05/20 07:39 Neonat Total Bilirubin Not Reportable 03/05/20 07:39 Neonat Direct Bilirubin Not Reportable 03/05/20 07:39 Neonat Indirect Bili Not Reportable 03/05/20 07:39 AST 14 U/L (14-36) 03/05/20 07:39 ALT 7 U/L (<35) 03/05/20 07:39 Alkaline Phosphatase 83 U/L (38-126) 03/05/20 07:39 Ammonia < 8.7 umol/L (9-33) L 02/27/20 19:06 Creatine Kinase 71 U/L (30-135) 03/03/20 14:35 CK-MB (CK-2) 1.53 ng/mL (<4.55) 03/03/20 14:35 Troponin I 0.458 ng/mL 03/03/20 07:58 NT-Pro-B Natriuret Pep 931 pg/mL (<125) H 02/27/20 15:34 Total Protein 5.0 g/dL (6.3-8.2) L 03/05/20 07:39 Albumin 3.0 g/dL (3.5-5.0) L 03/05/20 07:39 Lipase 37.6 U/L (23-300) 02/27/20 15:34 Urine Color YELLOW 02/27/20 22:20 Urine Appearance CLEAR 02/27/20 22:20 Urine pH 5.0 (5.0-9.0) 02/27/20 22:20 Ur Specific [place] 1.013 02/27/20 22:20 Urine Protein NEGATIVE mg/dL (NEGATIVE) 02/27/20 22:20 Urine Glucose (UA) NEGATIVE mg/dL (NEGATIVE) 02/27/20 22:20 Urine Ketones TRACE mg/dL (NEGATIVE) H 02/27/20 22:20 Urine Blood NEGATIVE (NEGATIVE) 02/27/20 22:20 Urine Nitrite NEGATIVE (NEGATIVE) 02/27/20 22:20 Urine Bilirubin NEGATIVE (NEGATIVE) 02/27/20 22:20 Urine Urobilinogen NEGATIVE mg/dL (<2.0) 02/27/20 22:20 Ur Leukocyte Esterase NEGATIVE (NEGATIVE) 02/27/20 22:20 Urine WBC (Auto) 1 /HPF 02/27/20 22:20 Urine RBC (Auto) 0 /HPF 02/27/20 22:20 U Hyaline Cast (Auto) 31 /LPF 02/27/20 22:20 Squamous Epi Cells Auto 1 /HPF 02/27/20 22:20 Urine Mucus (Auto) RARE /LPF 02/27/20 22:20 Urine Ascorbic Acid 20 (NEGATIVE) H 02/27/20 22:20 Fluid Tube Number 3 02/29/20 15:12 CSF Volume 4.5 CC 02/29/20 15:12 CSF Appearance CLEAR 02/29/20 15:12 CSF Color COLORLESS 02/29/20 15:12 CSF WBC 2 /uL (0-5) 02/29/20 15:12 CSF RBC 0 /uL (0-10) 02/29/20 15:12 CSF Glucose 148 mg/dL (40-70) H 02/29/20 15:12 CSF Total Protein PEP 35.9 mg/dL (0.0-44.0) 02/29/20 15:12 CSF Total Protein 48 mg/dL (12-60) 02/29/20 15:12 CSF Prealbumin 5.0 % (2.2-7.1) 02/29/20 15:12 CSF Albumin 58.0 % (56.8-76.4) 02/29/20 15:12 CSF Mqcax-4-Mtapbghk 5.2 % (1.1-6.6) 02/29/20 15:12 CSF Heqsp-8-Dvacgwoe 5.8 % (3.0-12.6) 02/29/20 15:12 CSF Beta Globulin 18.9 % (7.3-17.9) H 02/29/20 15:12 CSF Gamma Globulin 7.0 % (3.0-13.0) 02/29/20 15:12 CSF PEP M-Olman Not Observed % (Not Observ) 02/29/20 15:12 Serum Alcohol < 10 mg/dL (NONE DETECTED) 02/27/20 15:34 COVID-19 Source NASOPHARYNGEAL 03/04/20 13:55 COVID-19 (ZEFERINO) NOT DETECTED 03/04/20 13:55 Influenza A (Rapid) NEGATIVE (NEGATIVE) 02/27/20 15:34 Influenza B (Rapid) NEGATIVE (NEGATIVE) 02/27/20 15:34 Group A Strep Rapid NEGATIVE (NEGATIVE) 02/27/20 15:34 Blood Type O POSITIVE 03/02/20 10:50 Antibody Screen NEGATIVE 03/02/20 10:50 Crossmatch See Detail 03/02/20 10:50 02/27/20 02/28/20 02/28/20 15:34 03:45 09:10 CK-MB (CK-2) Troponin I < 0.012 0.041 0.031 NT-Pro-B Natriuret Pep 931 H 02/28/20 03/03/20 03/03/20 14:05 07:58 14:35 CK-MB (CK-2) 1.53 Troponin I 0.024 0.458 NT-Pro-B Natriuret Pep Impressions: Chest X-Ray 02/27/20 16:12 IMPRESSION: Enlarged cardiac silhouette with central vascular congestion. Head CT 02/27/20 16:16 IMPRESSION: 1. No significant interval changes since the prior examination dated 02/19/2020. No acute findings. EVIDENCE OF ACUTE STROKE: NO. Lung Scan-VQ NM 02/27/20 20:56 IMPRESSION: Low probability for pulmonary embolus Venous Doppler Study 02/27/20 20:58 IMPRESSION: No evidence of deep or superficial venous thrombosis of either lower extremity. Humerus X-Ray 02/28/20 00:00 IMPRESSION: Acute spiral fracture proximal right humeral diaphysis. Difficult to discern if the fracture extends into the humeral head/ greater tuberosity Guidance Fluoroscopy 02/29/20 00:00 IMPRESSION: Lumbar puncture under fluoroscopy. No immediate complication. Lumbar Puncture 02/29/20 00:00 IMPRESSION: Lumbar puncture under fluoroscopy. No immediate complication. Upper Extremity CT 02/29/20 00:00 IMPRESSION: Spiral fracture right proximal humerus diaphysis without definite extension into the humeral head Lung findings in the field of view worrisome for fluid overload or congestive failure. Stroke Is this a Stroke Patient?: No Acute Heart Failure - Is this a Heart Failure Patient?: No
[2020-03-09] MEDS: CLONAZEPAM 1 MG TABLET PO PRN (21:50)
[2020-03-09] MEDS: TRAMADOL HCL 50 MG TABLET PO PRN (21:55)
[2020-03-10] MEDS: IPRATROPIUM BROMIDE 0.02% NEB 0.5 MG/2.5 ML AMPUL NEB SCH ×2 (00:15→07:51)
[2020-03-10] MEDS: LEVALBUTEROL HCL NEB 1.25 MG/3 ML AMPUL NEB SCH ×2 (00:15→07:51)
[2020-03-10] MEDS: OXYCODONE-ACETAMINOPHEN 5-325 MG TABLET PO PRN ×2 (02:59→09:57)
[2020-03-10] MEDS: TRAMADOL HCL 50 MG TABLET PO PRN (05:43)
[2020-03-10] MEDS: MAGNESIUM OXIDE 400 MG TABLET PO SCH ×2 (09:57→13:21)
[2020-03-10] MEDS: PANTOPRAZOLE SODIUM 40 MG TABLET.DR PO SCH (09:57)
[2020-03-10] MEDS: DOCUSATE SODIUM 100 MG CAPSULE PO SCH (10:00)
[2020-03-10 11:01] VITALS: BP 135/65
[2020-03-10] MEDS: INSULIN REG, HUMAN 100 UNIT/ML 3 ML VIAL (PYX) SUBCUT SCH ×2 (11:38)
== END 2020-03-10 15:02 | DRG 682 ==
LOC: ER 15:05 → EH 02-28 02:28 → 3S 02-28 04:26
PROVIDERS: ADMIT Emergency Medicine; ATTEND Physician Assistant
PROC: 009U3ZX Drainage of Spinal Canal, Percutaneous Approach, Diagnostic (ICD-10-PCS; principal; 2020-02-29)
PROC: 30233N1 Transfusion of Nonautologous Red Blood Cells into Peripheral Vein, Percutaneous Approach (ICD-10-PCS; 2020-03-02)
DX: N17.9 Acute kidney failure, unspecified (principal); G93.41 Metabolic encephalopathy; J96.01 Acute respiratory failure with hypoxia; R78.81 Bacteremia; E87.2 Acidosis; S42.294A Other nondisplaced fracture of upper end of right humerus, initial encounter for closed fracture; I50.22 Chronic systolic (congestive) heart failure; D63.8 Anemia in other chronic diseases classified elsewhere; F25.0 Schizoaffective disorder, bipolar type; F03.90 Unspecified dementia, unspecified severity, without behavioral disturbance, psychotic disturbance, mood disturbance, and anxiety; I11.0 Hypertensive heart disease with heart failure; W19.XXXA Unspecified fall, initial encounter; F32.9 Major depressive disorder, single episode, unspecified; E11.9 Type 2 diabetes mellitus without complications; G40.909 Epilepsy, unspecified, not intractable, without status epilepticus; Y92.238 Other place in hospital as the place of occurrence of the external cause; I25.10 Atherosclerotic heart disease of native coronary artery without angina pectoris; E78.5 Hyperlipidemia, unspecified; J44.9 Chronic obstructive pulmonary disease, unspecified; G43.909 Migraine, unspecified, not intractable, without status migrainosus; K21.9 Gastro-esophageal reflux disease without esophagitis; M19.90 Unspecified osteoarthritis, unspecified site; F43.10 Post-traumatic stress disorder, unspecified; E66.01 Morbid (severe) obesity due to excess calories; R00.0 Tachycardia, unspecified; B95.5 Unspecified streptococcus as the cause of diseases classified elsewhere; R79.1 Abnormal coagulation profile; Z79.4 Long term (current) use of insulin; Z79.82 Long term (current) use of aspirin; Z79.899 Other long term (current) drug therapy; Y93.9 Activity, unspecified; Z95.5 Presence of coronary angioplasty implant and graft; I25.2 Old myocardial infarction; Z87.891 Personal history of nicotine dependence; Z82.49 Family history of ischemic heart disease and other diseases of the circulatory system; Z88.8 Allergy status to other drugs, medicaments and biological substances; Z88.0 Allergy status to penicillin; Z91.013 Allergy to seafood; Z68.39 Body mass index [BMI] 39.0-39.9, adult; Z03.818 Encounter for observation for suspected exposure to other biological agents ruled out
CPT/HCPCS: 36415; 36430; 62328; 70450; 71045; 77003; 78582; 80048; 80053; 80307; 81001; 82140; 82550; 82553; 82803; 82945; 82962; 83605; 83690; 83735; 83880; 84157; 84166; 84484; 85025; 85027; 85379; 85610; 85730; 86850; 86900; 86901; 86920; 87040; 87070; 87077; 87205; 87635; 87804; 87880; 89050; 93005; 93010; 93970; 94640; 96360; 96361; 99285; A9540; A9567; C1758; C9113; J0456; J0696; J1644; J1815; J2270; J3475; J3490; J7030; J7040; J7060; J7120; L3650; P9016; Q9969; S0119

== ENCOUNTER 2020-03-26 05:04 | Inpatient (IN) | payer MEDICARE, MEDICAID ==
[2020-03-26 06:12] LABS: ABSOLUTE BASOPHILS # (AUTO) 0.1 10^3/uL (0.0-0.2); ABSOLUTE MONOCYTES (AUTO) 0.5 10^3/uL (0.1-1.4); ABSOLUTE NEUT (AUTO) 8.3 10^3/uL (1.7-8.2); EOSINOPHILS % (AUTO) 0.1 % (0-6); HEMATOCRIT 33.9 % (36.0-47.0); HEMOGLOBIN 11.6 g/dL (12.0-15.5); LYMPHOCYTES % (AUTO) 17.9 % (13-45); MEAN CORPUSCULAR HEMOGLOBIN 29.6 pg (27.0-33.4); MEAN CORPUSCULAR HGB CONC 34.2 g/dL (32.0-36.0); MEAN CORPUSCULAR VOLUME 87 fl (80-97); MONOCYTES % (AUTO) 4.7 % (3-13); PLATELET COUNT 282 10^3/uL (150-450); RED BLOOD COUNT 3.91 10^6/uL (3.72-5.28); RED CELL DISTRIBUTION WIDTH 15.2 % (11.5-14.0); SEGMENTED NEUTROPHILS % (AUTO) 76.3 % (42-78); TOTAL CELLS COUNTED % (AUTO) 100 %; WHITE BLOOD COUNT 10.9 10^3/uL (4.0-10.5)
[2020-03-26 06:14] LABS: VENOUS BLOOD BASE EXCESS 0.5 mmol/L; VENOUS BLOOD HCO3 24.8 mmol/L (20-32); VENOUS BLOOD PCO2 38.9 mmHg (35-63); VENOUS BLOOD PH 7.42 (7.30-7.42)
[2020-03-26 06:21] LABS: PROTHROMBIN TIME 16.3 SEC (11.4-15.4)
[2020-03-26 06:32] LABS: ALBUMIN 3.8 g/dL (3.5-5.0); ALKALINE PHOSPHATASE 146 U/L (38-126); ANION GAP 11 (5-19); ASPARTATE AMINO TRANSFERASE 22 U/L (14-36); BILIRUBIN,DIRECT 0.1 mg/dL (0.0-0.4); BILIRUBIN,TOTAL 0.5 mg/dL (0.2-1.3); BLOOD UREA NITROGEN 15 mg/dL (7-20); CALCIUM 8.8 mg/dL (8.4-10.2); CARBON DIOXIDE 24 mmol/L (22-30); CHLORIDE 97 mmol/L (98-107); GLUCOSE 151 mg/dL (75-110); POTASSIUM 4.2 mmol/L (3.6-5.0); TOTAL PROTEIN 6.8 g/dL (6.3-8.2)
--- NOTE | 2020-03-26 06:58 | ER Document Report ---
Entered by SUSANNAH MALONE SCRIBE 03/26/20 0628 Acting as scribe for:VIELKA ANTHONY MD ED General - General Chief Complaint: Fever Stated Complaint: FEVER Time Seen by Provider: 03/26/20 06:15 Primary Care Provider: SOBIA YANEZ MD [Primary Care Provider] - Follow up as needed Information source: Patient Notes: This 59-year-old female presents to the emergency department from [facility] via EMS with a fever. Patient is a poor historian due to her condition. Patient initially said "hey" when greeted but did not answer any further questions. She did not answer if she was hurting anywhere. [facility] reports that patient was given a Tylenol for fever at 1 AM. Upon recheck at 3:30 AM, patient was found to have a fever of 104.4. They report that patient was not at her baseline when taken by EMS. EMS gave the patient 975 mg Tylenol en route to the ED. On arrival, patient was 103.2. Now at 7 AM at the emergency department, Patient has a fever of 103.4. TRAVEL OUTSIDE OF THE [place] IN LAST 30 DAYS: No - Related Data Allergies/Adverse Reactions: dicyclomine HCl [From Bentyl] Allergy (Severe, Verified 11/09/19 10:07) throat swelling ibuprofen [From Motrin] Allergy (Severe, Verified 11/09/19 10:07) "increased headache",swelling shellfish derived Allergy (Severe, Verified 01/29/20 08:31) RASH, MIGRAINES Penicillins Allergy (Intermediate, Verified 11/09/19 10:07) Hives,vomit,fever dicyclomine [From Bentyl] Allergy (Unknown, Verified 11/09/19 10:07) sumatriptan Allergy (Unknown, Verified 11/09/19 10:07) Past Medical History - General Information source: Patient - Social History Smoking Status: Former Smoker Cigarette use (# per day): No Chew tobacco use (# tins/day): No Lives with: [facility] Family History: Hypertension Patient has homicidal ideation: No - Past Medical History Cardiac Medical History: Reports: Hx Congestive Heart Failure, Hx Coronary Artery Disease - 4 stents, Hx Heart Attack - AUG x 2, Hx Hypercholesterolemia, Hx Hypertension Pulmonary Medical History: Reports: Hx Asthma, Hx Bronchitis, Hx COPD, Hx Pneumonia Neurological Medical History: Reports: Hx Cerebrovascular Accident - 2008, Hx Migraine, Hx Seizures Endocrine Medical History: Reports: Hx Diabetes Mellitus Type 2 Renal/ Medical History: Reports: Hx Kidney Stones GI Medical History: Reports: Hx Gastroesophageal Reflux Disease, Hx Irritable Bowel Musculoskeletal Medical History: Reports Hx Arthritis Psychiatric Medical History: Reports: Hx Bipolar Disorder, Hx Depression, Hx Post Traumatic Stress Disorder, Hx Schizophrenia Past Surgical History: Reports: Hx Appendectomy, Hx Cardiac Catheterization, Hx Cardiac Surgery - 3 stents, Hx Cholecystectomy, Hx Hysterectomy, Hx Orthopedic Surgery - L knee, Hx Tonsillectomy - Immunizations Immunizations up to date: Yes Hx Diphtheria, Pertussis, Tetanus Vaccination: Yes Hx Pneumococcal Vaccination: 11/26/12 Review of Systems - Review of Systems Constitutional: See HPI, Fever EENT: No symptoms reported Cardiovascular: No symptoms reported Respiratory: No symptoms reported Gastrointestinal: No symptoms reported Genitourinary: No symptoms reported Female Genitourinary: No symptoms reported Musculoskeletal: No symptoms reported Skin: No symptoms reported Hematologic/Lymphatic: No symptoms reported Neurological/Psychological: No symptoms reported -: Yes All other systems reviewed and negative Physical Exam - Vital signs Vitals: Temp 103.2 F H 03/26/20 05:32 - Notes Notes: Physical Exam: General: Alert, appears well. HEENT: Normocephalic. Atraumatic. PERRL. Extraocular movements intact. Oropharynx clear. Neck: Supple. Non-tender. Respiratory: Respiratory Rate: 36. 99% O2Sat on 4 L. Clear and equal breath sounds bilaterally. Cardiovascular: Tachycardic rate and normal rhythm. Abdominal: Obese. Non-tender. No distension. Normal Bowel Sounds. Back: No gross abnormalities. Extremities: Moves all four extremities. Upper extremities: Normal inspection. Normal ROM. Lower extremities: Normal inspection. Trace edema. Normal ROM. Neurological: Normal cognition. AAOx4. Patient said "hey" on arrival but then was not answering any questions after. Psychological: Normal affect. Normal Mood. Skin: Warm. Dry. Normal color. Course - Vital Signs Vital signs: Temp Pulse Resp BP Pulse Ox 103.7 F H 108 H 33 H 149/70 H 97 03/26/20 06:59 03/26/20 05:48 03/26/20 06:02 03/26/20 06:01 03/26/20 06:02 - Laboratory Result Diagrams: 03/26/20 05:35 03/26/20 05:35 Laboratory results interpreted by me: 03/26/20 03/26/20 03/26/20 05:35 05:35 05:35 WBC 10.9 H Hgb 11.6 L Hct 33.9 L RDW 15.2 H Absolute Neuts (auto) 8.3 H PT 16.3 H D-Dimer Sodium 132.4 L Chloride 97 L Est GFR (MDRD) Non-Af 58 L Glucose 151 H POC Glucose Alkaline Phosphatase 146 H NT-Pro-B Natriuret Pep Urine Protein Urine Ketones Urine Blood Leukocyte Esterase Rfl Urine Ascorbic Acid 03/26/20 03/26/20 03/26/20 05:35 05:35 05:51 WBC Hgb Hct RDW Absolute Neuts (auto) PT D-Dimer 3.07 H Sodium Chloride Est GFR (MDRD) Non-Af Glucose POC Glucose 163 H Alkaline Phosphatase NT-Pro-B Natriuret Pep 3430 H Urine Protein Urine Ketones Urine Blood Leukocyte Esterase Rfl Urine Ascorbic Acid 03/26/20 06:55 WBC Hgb Hct RDW Absolute Neuts (auto) PT D-Dimer Sodium Chloride Est GFR (MDRD) Non-Af Glucose POC Glucose Alkaline Phosphatase NT-Pro-B Natriuret Pep Urine Protein >=500 H Urine Ketones 20 H Urine Blood SMALL H Leukocyte Esterase Rfl MODERATE H Urine Ascorbic Acid 20 H - Diagnostic Test Radiology reviewed: Image reviewed, Reports reviewed - Chest x-ray shows mildly enlarged heart with no other acute findings. - EKG Interpretation by Me EKG shows normal: Sinus rhythm, [place], QRS Complexes. abnormal: Intervals - Prolonged QT interval, ST-T Waves - Lateral T abnormalities Rate: Tachycardia - 105 Rhythm: PVC's When compared to previous EKG there are: Changes noted - Consults Dr. Frazier Time consulted: 07:22 Consulted provider: will come to ER - He requests I get the patient a general medical floor bed, and he will assign one of the hospitalists to come see the patient. Critical Care Note - Critical Care Note Total time excluding time spent on procedures (mins): 35 Discharge - Discharge Clinical Impression: Tachycardia, Diabetes mellitus type 2 in obese, D-dimer, elevated Urinary tract infection Qualifiers: Urinary tract infection type: site unspecified Hematuria presence: with hematu rod Qualified Code(s): N39.0 - Urinary tract infection, site not specified Fever Qualifiers: Fever type: unspecified Qualified Code(s): R50.9 - Fever, unspecified Schizophrenia Qualifiers: Schizophrenia type: unspecified Qualified Code(s): F20.9 - Schizophrenia, unspecified Condition: Good Disposition: ADMITTED INPATIENT Admitting Provider: Freddie (Hospitalist) Unit Admitted: Medical Floor Referrals: SOBIA YANEZ MD [Primary Care Provider] - Follow up as needed I personally performed the services described in the documentation, reviewed and edited the documentation which was dictated to the scribe in my presence, and it accurately records my words and actions.
--- NOTE | 2020-03-26 07:11 | RADIOLOGY REPORT (SQ) ---
CLINICAL HISTORY: cough COMPARISON: 02/27/2020. TECHNIQUE: XR CHEST 1 VIEW 03/26/2020 6:12 AM CDT FINDINGS: The heart is mildly enlarged. Lungs are clear without consolidation, atelectasis, mass or edema. There is no pleural effusion. There is no pneumothorax. There are no acute osseous findings. IMPRESSION: Clear lungs.
[2020-03-26 07:12] LABS: APPEARANCE,URINE TURBID; BILIRUBIN,URINE NEGATIVE (NEGATIVE); COLOR,URINE YELLOW; GLUCOSE, URINE NEGATIVE (NEGATIVE); KETONES,URINE 20 mg/dL (NEGATIVE); PROTEIN,URINE >=500 mg/dL (NEGATIVE); URINE SPECIFIC GRAVITY 1.016; UROBILINOGEN,URINE NEGATIVE mg/dL (<2.0)
[2020-03-26] MEDS ORDERED: LEVOFLOXACIN 750 MG/D5W RTU 750 MG/150 ML RTUPB IV ONE (07:19)
[2020-03-26] MEDS ORDERED: ACETAMINOPHEN 325 MG TABLET PO ONE (10:23)
[2020-03-26] MEDS ORDERED: ACETAMINOPHEN 325 MG TABLET ONE (10:30)
[2020-03-26] MEDS ORDERED: ONDANSETRON HCL INJ/PF 4 MG/2 ML SDV IV PRN (11:02)
[2020-03-26] MEDS ORDERED: NORMAL SALINE 1000 ML 1,000 ML IV PRN (11:02)
[2020-03-26] MEDS ORDERED: MAGNESIUM HYDROXIDE SUSP 30 ML UDCUP PO PRN (11:02)
[2020-03-26] MEDS ORDERED: ONDANSETRON 4 MG TAB.RAPDIS PO PRN (11:02)
[2020-03-26] MEDS ORDERED: MAG HYDROX/AL HYDROX/SIMETH SUSP 30 ML UDCUP PO PRN (11:02)
[2020-03-26] MEDS ORDERED: DEXTROSE 50%-WATER 25 GM/50 ML DISP.SYRIN IV PRN ×2 (11:21)
[2020-03-26] MEDS ORDERED: DEXTROSE 40% GEL 15 GM TUBE PO PRN ×2 (11:21)
[2020-03-26] MEDS ORDERED: GLUCAGON,HUMAN RECOMB 1 MG INJ IM PRN (11:21)
[2020-03-26] MEDS ORDERED: PROMETHAZINE HCL INJ 25 MG/1 ML VIAL IV PRN (11:23)
--- NOTE | 2020-03-26 12:32 | PDOC H&P ---
History of Present Illness Admission Date/PCP: 03/26/20 08:10 SOBIA YANEZ MD History of Present Illness: NAVEEN TABARES is a 59 year old female comes in from [facility] with fever. Patient unfortunately is a poor historian and does not answer questions appropriately. Patient has chronic dementia. In the emergency room patient is found to have a urinalysis that appears to be infected. Except for her fever her other vital signs appear stable. Patient will be admitted for IV fluids, medicines for her fever, and IV antibiotics. Lactic acid 0.7 First troponin is elevated 0.045 but patient has a history of having elevated troponins Past Medical History Cardiac Medical History: Reports: Congestive Heart Failure, Coronary Artery Disease - 4 stents, Myocardial Infarction - Jun x 2, Hyperlipidema, Hypertension Denies: Heart Murmur Pulmonary Medical History: Reports: Asthma, Bronchitis, Chronic Obstructive Pulmonary Disease (COPD), Pneumonia Denies: Respiratory Failure, Sleep Apnea, Tuberculosis Neurological Medical History: Reports: Migraine, Seizures Endocrine Medical History: Reports: Diabetes Mellitus Type 2 Denies: Diabetes Mellitus Type 1, Hyperthyroidism, Hypothyroidism GI Medical History: Reports: Gastroesophageal Reflux Disease Denies: Cirrhosis, Hepatitis Musculoskeltal Medical History: Reports: Arthritis Denies: Fibromyalgia, Gout Skin Medical History: Denies: Eczema, Psoriasis Psychiatric Medical History: Reports: Bipolar Disorder, Depression, Post Traumatic Stress Disorder Hematology: Denies: Anemia, Bleeding Tendencies Past Surgical History Past Surgical History: Reports: Appendectomy, Cardiac Catheterization, Cholecystectomy, Hysterectomy, Orthopedic Surgery - L knee, Tonsillectomy Social History Lives with: Assisted Smoking Status: Former Smoker Frequency of Alcohol Use: None Hx Recreational Drug Use: No Drugs: None Hx Prescription Drug Abuse: No - Advance Directive Resuscitation Status: Full Code Family History Family History: Hypertension Parental Family History Reviewed: No Children Family History Reviewed: No Sibling(s) Family History Reviewed.: No Medication/Allergy Home Medications: Aspirin [Aspirin EC] 81 mg PO DAILY 07/22/18 Metformin HCl [Glucophage] 1,000 mg PO Q12 07/22/18 Risperidone [Risperdal 1 mg Tablet] 2 mg PO QHS 07/22/18 Atorvastatin Calcium [Lipitor 10 mg Tablet] 10 mg PO QHS 09/17/18 Benztropine Mesylate [Cogentin 1 mg Tablet] 1 mg PO Q12 09/17/18 Insulin Degludec [Tresiba Flextouch U-200] 20 unit SQ QPM 09/17/18 Topiramate [Topamax] 150 mg PO Q12 09/17/18 Furosemide [Lasix 20 mg Tablet] 40 mg PO DAILY 02/19/19 Sertraline HCl [Zoloft 50 mg Tablet] 75 mg PO DAILY 02/19/19 Pregabalin [Lyrica 75 mg Capsule] 75 mg PO QAM 08/08/19 Risperidone [Risperdal 1 mg Tablet] 1 mg PO QAM 08/08/19 Fluticasone/Salmeterol [Advair 250-50 Diskus 14 Dose/Diskus] 1 inh IH Q12H #1 inhaler 08/09/19 Clonazepam [Klonopin] 0.5 mg PO Q12HP PRN 01/27/20 Fluticasone Propionate [Flonase Nasal Helix 50 Mcg/Helix 16 gm] 1 spray NASL DAILY 01/27/20 Ipratropium/Albuterol Sulfate [Duoneb 3 ml Ampul] 3 ml NEB RTQ4HP PRN 01/27/20 Menthol [Biofreeze] 1 applic TP Q6HP PRN 01/27/20 Oxycodone HCl/Acetaminophen [Percocet 7.5-325 mg Tablet] 1 each PO TID 01/27/20 Suvorexant [Belsomra] 20 mg PO QHS 01/27/20 Acetaminophen [Tylenol 325 mg Tablet] 650 mg PO Q4HP PRN tablet 03/09/20 Acetaminophen [Tylenol 650 mg Supp] 650 mg UT Q4HP PRN supp.rect 03/09/20 Docusate Sodium [Colace 100 mg Capsule] 100 mg PO BID capsule 03/09/20 Magnesium Oxide [Mag-Ox 400 mg Tablet] 800 mg PO BID 15 Days #30 tablet 03/09/20 Allergies/Adverse Reactions: dicyclomine HCl [From Bentyl] Allergy (Severe, Verified 11/09/19 10:07) throat swelling ibuprofen [From Motrin] Allergy (Severe, Verified 11/09/19 10:07) "increased headache",swelling shellfish derived Allergy (Severe, Verified 01/29/20 08:31) RASH, MIGRAINES Penicillins Allergy (Intermediate, Verified 11/09/19 10:07) Hives,vomit,fever dicyclomine [From Bentyl] Allergy (Unknown, Verified 11/09/19 10:07) sumatriptan Allergy (Unknown, Verified 11/09/19 10:07) Review of Systems ROS unobtainable: Due to mental status Physical Exam Vital Signs: Temp Pulse Resp BP Pulse Ox 103.1 F H 99 20 152/72 H 94 03/26/20 11:56 03/26/20 11:56 03/26/20 11:56 03/26/20 11:56 03/26/20 11:56 Intake & Output 03/25/20 03/26/20 03/27/20 06:59 06:59 06:59 Weight 113.398 kg 113.398 kg General appearance: PRESENT: no acute distress, well-developed, well-nourished Respiratory exam: PRESENT: clear to auscultation luz elena. ABSENT: rales, rhonchi, wheezes Cardiovascular exam: PRESENT: RRR. ABSENT: diastolic murmur, rubs, systolic murmur Neurological exam: PRESENT: alert, awake, other - Patient has dementia and/or chronic brain injury and does not answer questions. She is awake and alert however and stares. Occasionally say "yes" Psychiatric exam: PRESENT: flat affect Results Laboratory Results: 03/26/20 05:35 03/26/20 05:35 03/26/20 03/26/20 03/26/20 05:33 05:33 05:35 WBC 10.9 H RBC 3.91 Hgb 11.6 L Hct 33.9 L MCV 87 MCH 29.6 MCHC 34.2 RDW 15.2 H Plt Count 282 Seg Neutrophils % 76.3 VBG pH VBG pCO2 VBG HCO3 VBG Base Excess Sodium Potassium Chloride Carbon Dioxide Anion Gap BUN Creatinine Est GFR ( Amer) Glucose Lactic Acid Calcium Magnesium Ferritin 196.00 Total Bilirubin AST Alkaline Phosphatase C-Reactive Protein 20.3 H Total Protein Albumin Urine Color Urine Appearance Urine pH Ur Specific [place] Urine Protein Urine Glucose (UA) Urine Ketones Urine Blood Urine RBC (Auto) 03/26/20 03/26/20 03/26/20 05:35 05:35 05:35 WBC RBC Hgb Hct MCV MCH MCHC RDW Plt Count Seg Neutrophils % VBG pH 7.42 VBG pCO2 38.9 VBG HCO3 24.8 VBG Base Excess 0.5 Sodium 132.4 L Potassium 4.2 Chloride 97 L Carbon Dioxide 24 Anion Gap 11 BUN 15 Creatinine 0.98 Est GFR ( Amer) > 60 Glucose 151 H Lactic Acid 0.9 Calcium 8.8 Magnesium Ferritin Total Bilirubin 0.5 AST 22 Alkaline Phosphatase 146 H C-Reactive Protein Total Protein 6.8 Albumin 3.8 Urine Color Urine Appearance Urine pH Ur Specific [place] Urine Protein Urine Glucose (UA) Urine Ketones Urine Blood Urine RBC (Auto) 03/26/20 03/26/20 03/26/20 05:35 06:55 09:10 WBC RBC Hgb Hct MCV MCH MCHC RDW Plt Count Seg Neutrophils % VBG pH VBG pCO2 VBG HCO3 VBG Base Excess Sodium Potassium Chloride Carbon Dioxide Anion Gap BUN Creatinine Est GFR ( Amer) Glucose Lactic Acid 0.7 Calcium Magnesium 2.1 Ferritin Total Bilirubin AST Alkaline Phosphatase C-Reactive Protein Total Protein Albumin Urine Color YELLOW Urine Appearance TURBID Urine pH 7.0 Ur Specific [place] 1.016 Urine Protein >=500 H Urine Glucose (UA) NEGATIVE Urine Ketones 20 H Urine Blood SMALL H Urine RBC (Auto) 23 03/26/20 03/26/20 03/26/20 05:35 05:35 05:53 Creatine Kinase 33 Troponin I 0.045 NT-Pro-B Natriuret Pep 3430 H Impressions: Chest X-Ray 03/26/20 06:12 IMPRESSION: Clear lungs. Assessment and Plan - Diagnosis (1) D-dimer, elevated Is this a current diagnosis for this admission?: Yes (2) Fever Qualifiers: Fever type: unspecified Qualified Code(s): R50.9 - Fever, unspecified Is this a current diagnosis for this admission?: Yes (3) Urinary tract infection Qualifiers: Urinary tract infection type: site unspecified Hematuria presence: with hematuria Qualified Code(s): N39.0 - Urinary tract infection, site not specified; R31.9 - Hematuria, unspecified Is this a current diagnosis for this admission?: Yes (4) Diabetes mellitus type 2 in obese Is this a current diagnosis for this admission?: Yes - Plan Summary Summary: Patient will be admitted for gentle IV hydration, IV antibiotics, antipyretics although patient is allergic to ibuprofen. The emergency room provider knows the patient thoroughly and states that her neurologic status is baseline - Time Time Spent with patient: 35 or more minutes
[2020-03-26 12:58] LABS: CREATINE KINASE MB < 0.22 ng/mL (<4.55)
[2020-03-26] MEDS: ENOXAPARIN SODIUM INJ 40 MG/0.4 ML DISP.SYRIN SUBCUT SCH (13:42)
--- NOTE | 2020-03-26 14:26 | EKG REPORT ---
SEVERITY:- ABNORMAL ECG - SINUS TACHYCARDIA VENTRICULAR PREMATURE COMPLEX ABNORMAL T, CONSIDER ISCHEMIA, LATERAL LEADS PROLONGED QT INTERVAL : Confirmed by: Eugenia Burgos MD 26-Mar-2020 14:26:16
[2020-03-26] MEDS: ACETAMINOPHEN 325 MG TABLET PO PRN ×2 (14:39→20:10)
[2020-03-26] MEDS: METFORMIN HCL 500 MG TABLET PO SCH (17:09)
[2020-03-26] MEDS: INSULIN LISPRO 100 UNIT/ML 3 ML VIAL SUBCUT SCH ×2 (17:09→21:58)
[2020-03-26] MEDS ORDERED: IPRATROPIUM/ALBUTEROL 0.5-2.5 MG/3 ML AMPUL NEB PRN (18:34)
[2020-03-26] MEDS ORDERED: (PENDING PHARMACY ID) (Clonazepam [Klonopin] 0.5 MG) PO PRN (18:34)
[2020-03-26] MEDS ORDERED: (PENDING PHARMACY ID) (Oxycodone Hcl/Acetaminophen [Percocet 7.5-325 Mg Tablet] 1 EACH) PO PRN (18:34)
[2020-03-26] MEDS ORDERED: (PENDING PHARMACY ID) (Menthol [Biofreeze] 1 APPLIC) TOP PRN (18:34)
[2020-03-26 19:27] LABS: CREATINE KINASE MB 0.25 ng/mL (<4.55); TROPONIN I 0.04 ng/mL
[2020-03-26] MEDS ORDERED: CLONAZEPAM 1 MG TABLET PO PRN (19:49)
[2020-03-26] MEDS: TOPIRAMATE 100 MG TABLET PO SCH (21:57)
[2020-03-26] MEDS: FAMOTIDINE 20 MG TABLET PO SCH (21:58)
[2020-03-26] MEDS: RISPERIDONE 1 MG TABLET PO SCH (21:58)
[2020-03-26] MEDS: BENZTROPINE MESYLATE 1 MG TABLET PO SCH (21:59)
[2020-03-26] MEDS: ATORVASTATIN CALCIUM 10 MG TABLET PO SCH (21:59)
[2020-03-26] MEDS ORDERED: (PENDING PHARMACY ID) (Topiramate [Topamax] 150 MG) PO SCH (22:00)
[2020-03-26] MEDS ORDERED: (PENDING PHARMACY ID) (Suvorexant [Belsomra] 20 MG) PO SCH (22:00)
[2020-03-26] MEDS ORDERED: METFORMIN HCL 500 MG TABLET PO SCH (22:00)
[2020-03-26] MEDS ORDERED: (PENDING PHARMACY ID) (Fluticasone/Salmeterol 1 INH) IH SCH (22:00)
--- NOTE | 2020-03-27 00:03 | RADIOLOGY REPORT (SQ) ---
Right humerus radiographs: 03/26/2020 11:00 PM CDT TECHNIQUE: AP and lateral images of the right humerus were obtained. COMPARISON: Humerus radiographs from 02/28/2020 HISTORY: 59-year-old patient with history of right humerus pain . FINDINGS: There is a fracture deformity of the proximal right humeral diaphysis. This demonstrates some callus formation and irregular calcification. This is consistent with a subacute. There is diffuse overlying soft tissue swelling. The fracture fragments appear to be minimally displaced. IMPRESSION: There is a subacute fracture deformity of the proximal right humeral diaphysis. This demonstrates some interval callus formation with similar alignment to prior imaging.
[2020-03-27 00:56] LABS: CREATINE KINASE MB 0.22 ng/mL (<4.55); TROPONIN I 0.044 ng/mL
[2020-03-27] MEDS: ACETAMINOPHEN 325 MG TABLET PO PRN ×2 (02:55→08:51)
[2020-03-27 05:17] LABS: ANION GAP 16 (5-19); BLOOD UREA NITROGEN 18 mg/dL (7-20); CALCIUM 9.3 mg/dL (8.4-10.2); CARBON DIOXIDE 20 mmol/L (22-30); CHLORIDE 96 mmol/L (98-107); GLUCOSE 186 mg/dL (75-110); POTASSIUM 3.9 mmol/L (3.6-5.0)
[2020-03-27 05:19] LABS: ABSOLUTE BASOPHILS # (AUTO) 0.1 10^3/uL (0.0-0.2); ABSOLUTE LYMPHOCYTES (AUTO) 1.9 10^3/uL (0.5-4.7); ABSOLUTE MONOCYTES (AUTO) 0.9 10^3/uL (0.1-1.4); ABSOLUTE NEUT (AUTO) 9.8 10^3/uL (1.7-8.2); HEMATOCRIT 35.6 % (36.0-47.0); MEAN CORPUSCULAR HEMOGLOBIN 28.6 pg (27.0-33.4); MEAN CORPUSCULAR HGB CONC 33.8 g/dL (32.0-36.0); MEAN CORPUSCULAR VOLUME 85 fl (80-97); MONOCYTES % (AUTO) 7.3 % (3-13); RED BLOOD COUNT 4.21 10^6/uL (3.72-5.28); RED CELL DISTRIBUTION WIDTH 15.6 % (11.5-14.0); SEGMENTED NEUTROPHILS % (AUTO) 76.7 % (42-78); TOTAL CELLS COUNTED % (AUTO) 100 %; WHITE BLOOD COUNT 12.8 10^3/uL (4.0-10.5)
[2020-03-27 05:35] LABS: PLATELET COUNT 284 10^3/uL (150-450)
[2020-03-27] MEDS: INSULIN LISPRO 100 UNIT/ML 3 ML VIAL SUBCUT SCH ×4 (08:49→21:49)
[2020-03-27] MEDS: METFORMIN HCL 500 MG TABLET PO SCH ×2 (08:51→15:11)
[2020-03-27] MEDS: RISPERIDONE 1 MG TABLET PO SCH ×2 (08:51→21:49)
[2020-03-27] MEDS: FUROSEMIDE 20 MG TABLET PO SCH (09:34)
[2020-03-27] MEDS: FAMOTIDINE 20 MG TABLET PO SCH ×2 (09:34→21:47)
[2020-03-27] MEDS: DOCUSATE SODIUM 100 MG CAPSULE PO SCH ×2 (09:34→17:00)
[2020-03-27] MEDS: LEVOFLOXACIN 500 MG TABLET PO SCH (09:34)
[2020-03-27] MEDS: SERTRALINE HCL 50 MG TABLET PO SCH (09:34)
[2020-03-27] MEDS: MAGNESIUM OXIDE 400 MG TABLET PO SCH ×2 (09:34→16:59)
[2020-03-27] MEDS: ASPIRIN 81 MG TABLET, ENT COATED PO SCH (09:34)
[2020-03-27] MEDS: BENZTROPINE MESYLATE 1 MG TABLET PO SCH ×2 (09:34→21:47)
[2020-03-27] MEDS: PREGABALIN 75 MG CAPSULE PO SCH (09:35)
[2020-03-27] MEDS: FLUTICASONE/VILANTEROL 200-25 MCG/DOSE IH SCH (09:36)
[2020-03-27] MEDS: FLUTICASONE NASAL SPRAY 50 MCG/SPRY 120 SPRAY/16 GM NAREB SCH (09:36)
[2020-03-27] MEDS: TOPIRAMATE 100 MG TABLET PO SCH ×2 (09:38→21:48)
[2020-03-27] MEDS ORDERED: LEVOFLOXACIN 750 MG/D5W RTU 750 MG/150 ML RTUPB IV SCH (10:00)
[2020-03-27] MEDS ORDERED: DOCUSATE SODIUM 100 MG CAPSULE PO SCH (10:00)
[2020-03-27] MEDS: ENOXAPARIN SODIUM INJ 40 MG/0.4 ML DISP.SYRIN SUBCUT SCH (10:41)
--- NOTE | 2020-03-27 11:15 | PDOC PROGRESS REPORT ---
Subjective Progress Note for:: 03/27/20 Reason For Visit: UROSEPSIS, ANEMIA OF CHRONIC DISEASE, DEMENTIA, 03/27/2020 Chronic dementia, diabetes, UTI, fever, elevated d-dimer, expressive aphasia Physical Exam Vital Signs: Temp Pulse Resp BP Pulse Ox 103.1 F H 118 H 20 155/84 H 96 03/27/20 07:49 03/27/20 07:49 03/27/20 07:49 03/27/20 07:49 03/27/20 07:49 Intake & Output 03/26/20 03/27/20 03/28/20 06:59 06:59 06:59 Intake Total 120 Output Total 1 Balance 119 Weight 113.398 kg 113 kg General appearance: PRESENT: no acute distress Respiratory exam: PRESENT: clear to auscultation luz elena. ABSENT: rales, rhonchi, wheezes Cardiovascular exam: PRESENT: RRR. 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 ABSENT: motor sensory deficit Psychiatric exam: PRESENT: appropriate affect, normal mood. ABSENT: homicidal ideation, suicidal ideation Results Laboratory Results: 03/27/20 04:23 03/27/20 04:23 03/26/20 03/27/20 03/27/20 11:59 04:23 04:23 WBC 12.8 H RBC 4.21 Hgb 12.0 Hct 35.6 L MCV 85 MCH 28.6 MCHC 33.8 RDW 15.6 H Plt Count 284 Seg Neutrophils % 76.7 Sodium 132.1 L Potassium 3.9 Chloride 96 L Carbon Dioxide 20 L Anion Gap 16 BUN 18 Creatinine 0.92 Est GFR ( Amer) > 60 Glucose 186 H Lactic Acid 0.8 Calcium 9.3 03/26/20 03/26/20 03/26/20 00:10 05:35 05:35 Creatine Kinase 33 CK-MB (CK-2) 0.22 Troponin I 0.044 NT-Pro-B Natriuret Pep 3430 H 03/26/20 03/26/20 03/26/20 05:53 11:59 18:35 Creatine Kinase CK-MB (CK-2) < 0.22 0.25 Troponin I 0.045 0.050 0.040 NT-Pro-B Natriuret Pep 03/26/20 23:27 Creatine Kinase CK-MB (CK-2) Cancelled Troponin I Cancelled NT-Pro-B Natriuret Pep Impressions: Humerus X-Ray 03/26/20 00:00 IMPRESSION: There is a subacute fracture deformity of the proximal right humeral diaphysis. This demonstrates some interval callus formation with similar alignment to prior imaging. Chest X-Ray 03/26/20 06:12 IMPRESSION: Clear lungs. Assessment and Plan - Diagnosis (1) D-dimer, elevated Is this a current diagnosis for this admission?: Yes (2) Fever Qualifiers: Fever type: unspecified Qualified Code(s): R50.9 - Fever, unspecified Is this a current diagnosis for this admission?: Yes (3) Urinary tract infection Qualifiers: Urinary tract infection type: site unspecified Hematuria presence: with hematuria Qualified Code(s): N39.0 - Urinary tract infection, site not specified; R31.9 - Hematuria, unspecified Is this a current diagnosis for this admission?: Yes (4) Diabetes mellitus type 2 in obese Is this a current diagnosis for this admission?: Yes (6) Schizophrenia Qualifiers: Schizophrenia type: unspecified Qualified Code(s): F20.9 - Schizophrenia, unspecified Is this a current diagnosis for this admission?: Yes - Plan Summary Summary: Patient will be admitted for gentle IV hydration, IV antibiotics, antipyretics although patient is allergic to ibuprofen. The emergency room provider knows the patient thoroughly and states that her neurologic status is baseline 03/27/2020 Patient is continuing to run a fever of approximately 103.1 Fahrenheit. Patient is getting acetaminophen [id number]. Unfortunately patient is allergic to ibuprofen. I have ordered a cooling blanket today Patient's pulse is anywhere from 100-118 due to her fever Patient's blood pressure is stable at 155/84 Patient's oxygen saturation is 96% on 2.5 L White count on admission was 10.9 today it is 12.8, chemistry panel is normal, hemoglobin A1c is 5.4 Troponins have been elevated but this is not unusual for her X-ray of her old humerus fracture from 4 weeks ago shows healing with good alignment Urine culture is pending. She is currently on Levaquin p.o. and taking p.o.'s well We will hold off trying to put a central line in unless necessary. Clinically patient appears comfortable in no distress. I have discussed patient's care in detail with nursing - Time Time Spent with patient: 35 or more minutes
[2020-03-27] MEDS: ONDANSETRON 4 MG TAB.RAPDIS PO PRN ×2 (15:34→21:47)
[2020-03-27] MEDS ORDERED: INSULIN DEGLUDEC 20 UNIT SUBCUT SCH (18:00)
[2020-03-27] MEDS: ATORVASTATIN CALCIUM 10 MG TABLET PO SCH (21:47)
[2020-03-28] MEDS: ACETAMINOPHEN 650 MG SUPP.RECT PR PRN ×2 (00:39→05:17)
[2020-03-28] MEDS: ONDANSETRON 4 MG TAB.RAPDIS PO PRN ×2 (05:18→11:53)
[2020-03-28] MEDS: METFORMIN HCL 500 MG TABLET PO SCH ×2 (07:36→16:16)
[2020-03-28] MEDS: INSULIN LISPRO 100 UNIT/ML 3 ML VIAL SUBCUT SCH ×4 (07:36→21:32)
[2020-03-28] MEDS: ASPIRIN 81 MG TABLET, ENT COATED PO SCH (09:14)
[2020-03-28] MEDS: FUROSEMIDE 20 MG TABLET PO SCH (09:14)
[2020-03-28] MEDS: MAGNESIUM OXIDE 400 MG TABLET PO SCH ×2 (09:14→17:11)
[2020-03-28] MEDS: LEVOFLOXACIN 500 MG TABLET PO SCH (09:14)
[2020-03-28] MEDS: SERTRALINE HCL 50 MG TABLET PO SCH (09:14)
[2020-03-28] MEDS: FAMOTIDINE 20 MG TABLET PO SCH ×2 (09:14→21:32)
[2020-03-28] MEDS: PREGABALIN 75 MG CAPSULE PO SCH (09:15)
[2020-03-28] MEDS: FLUTICASONE/VILANTEROL 200-25 MCG/DOSE IH SCH (09:15)
[2020-03-28] MEDS: TOPIRAMATE 100 MG TABLET PO SCH ×2 (09:15→21:39)
[2020-03-28] MEDS: BENZTROPINE MESYLATE 1 MG TABLET PO SCH ×2 (09:15→21:32)
[2020-03-28] MEDS: RISPERIDONE 1 MG TABLET PO SCH ×2 (09:15→21:39)
[2020-03-28] MEDS: ENOXAPARIN SODIUM INJ 40 MG/0.4 ML DISP.SYRIN SUBCUT SCH (09:16)
[2020-03-28] MEDS: FLUTICASONE NASAL SPRAY 50 MCG/SPRY 120 SPRAY/16 GM NAREB SCH (09:18)
[2020-03-28] MEDS: DOCUSATE SODIUM 100 MG CAPSULE PO SCH ×2 (09:24→17:03)
[2020-03-28] MEDS: NITROFURANTOIN MONOHYD/M-CRYST 100 MG CAPSULE PO SCH ×2 (13:01→17:11)
--- NOTE | 2020-03-28 13:07 | PDOC PROGRESS REPORT ---
Subjective Progress Note for:: 03/28/20 Reason For Visit: UROSEPSIS, ANEMIA OF CHRONIC DISEASE, DEMENTIA, 03/28/2020 Admitted from [facility] with a UTI and possible sepsis. Physical Exam Vital Signs: Temp Pulse Resp BP Pulse Ox 100.8 F H 103 H 20 157/82 H 93 03/28/20 12:39 03/28/20 08:00 03/28/20 08:00 03/28/20 08:00 03/28/20 08:00 Intake & Output 03/27/20 03/28/20 03/29/20 06:59 06:59 06:59 Intake Total 120 680 Output Total 1 Balance 119 680 Weight 113 kg 93.8 kg General appearance: PRESENT: no acute distress, other - Patient is talking today for the first time answering questions appropriately and actually speaking in full sentences. Previously patient had just answered and one simple word or not at all It is a dramatic change from what I thought was to be her baseline Respiratory exam: PRESENT: clear to auscultation luz elena. ABSENT: rales, rhonchi, wheezes Cardiovascular exam: PRESENT: RRR. ABSENT: diastolic murmur, rubs, systolic murmur Neurological exam: PRESENT: alert, awake Psychiatric exam: PRESENT: flat affect Results Laboratory Results: 03/27/20 04:23 03/27/20 04:23 03/26/20 03/26/20 03/26/20 00:10 05:35 05:35 Creatine Kinase 33 CK-MB (CK-2) 0.22 Troponin I 0.044 NT-Pro-B Natriuret Pep 3430 H 03/26/20 03/26/20 03/26/20 05:53 11:59 18:35 Creatine Kinase CK-MB (CK-2) < 0.22 0.25 Troponin I 0.045 0.050 0.040 NT-Pro-B Natriuret Pep 03/26/20 23:27 Creatine Kinase CK-MB (CK-2) Cancelled Troponin I Cancelled NT-Pro-B Natriuret Pep Impressions: Humerus X-Ray 03/26/20 00:00 IMPRESSION: There is a subacute fracture deformity of the proximal right humeral diaphysis. This demonstrates some interval callus formation with similar alignment to prior imaging. Chest X-Ray 03/26/20 06:12 IMPRESSION: Clear lungs. Assessment and Plan - Diagnosis (1) D-dimer, elevated Is this a current diagnosis for this admission?: Yes (2) Fever Qualifiers: Fever type: unspecified Qualified Code(s): R50.9 - Fever, unspecified Is this a current diagnosis for this admission?: Yes (3) Urinary tract infection Qualifiers: Urinary tract infection type: site unspecified Hematuria presence: with hematuria Qualified Code(s): N39.0 - Urinary tract infection, site not specified; R31.9 - Hematuria, unspecified Is this a current diagnosis for this admission?: Yes (4) Diabetes mellitus type 2 in obese Is this a current diagnosis for this admission?: Yes (6) Schizophrenia Qualifiers: Schizophrenia type: unspecified Qualified Code(s): F20.9 - Schizophrenia, unspecified Is this a current diagnosis for this admission?: Yes - Plan Summary Summary: Patient will be admitted for gentle IV hydration, IV antibiotics, antipyretics although patient is allergic to ibuprofen. The emergency room provider knows the patient thoroughly and states that her neurologic status is baseline 03/27/2020 Patient is continuing to run a fever of approximately 103.1 Fahrenheit. Patient is getting acetaminophen [id number]. Unfortunately patient is allergic to ibuprofen. I have ordered a cooling blanket today Patient's pulse is anywhere from 100-118 due to her fever Patient's blood pressure is stable at 155/84 Patient's oxygen saturation is 96% on 2.5 L White count on admission was 10.9 today it is 12.8, chemistry panel is normal, hemoglobin A1c is 5.4 Troponins have been elevated but this is not unusual for her X-ray of her old humerus fracture from 4 weeks ago shows healing with good alignment Urine culture is pending. She is currently on Levaquin p.o. and taking p.o.'s well We will hold off trying to put a central line in unless necessary. Clinically patient appears comfortable in no distress. I have discussed patient's care in detail with nursing 03/28/2020 patient is very difficult to locate a vein for IV fluids or IV medications. Trying to avoid pic and central lines since she is [facility] patient Patient has continued to run a low-grade fever this morning earlier is 101.0 it is down slightly to 100.8 Patient's blood cultures are negative x48 hours but urine Crout culture is growing out some sort of enterococcus. Final culture results will be out this afternoon as well as sensitivities. Lab did call me and over the phone told me several drugs that it was probably going to be sensitive to, and it was not sensitive to Levaquin. I have started her on nitrofurantoin twice daily. Continue the cooling blanket. Patient is maintaining good oxygen saturations on room air and maintaining a good blood pressure 160/30 Heart rate is approximately 100 Will repeat labs tomorrow. Will make necessary changes to antibiotics as needed - Time Time Spent with patient: 25-34 minutes
[2020-03-28] MEDS: OXYCODONE-ACETAMINOPHEN 5-325 MG TABLET PO PRN (19:35)
[2020-03-28] MEDS: OXYCODONE HCL IR 5 MG TABLET PO PRN (19:36)
[2020-03-28] MEDS: ATORVASTATIN CALCIUM 10 MG TABLET PO SCH (21:33)
[2020-03-29] MEDS: ONDANSETRON 4 MG TAB.RAPDIS PO PRN (00:49)
[2020-03-29] MEDS: OXYCODONE HCL IR 5 MG TABLET PO PRN ×2 (06:20→18:44)
[2020-03-29] MEDS: OXYCODONE-ACETAMINOPHEN 5-325 MG TABLET PO PRN ×2 (06:22→18:44)
[2020-03-29 06:31] LABS: ABSOLUTE BASOPHILS # (AUTO) 0.1 10^3/uL (0.0-0.2); ABSOLUTE EOSINOPHILS # (AUTO) 0.1 10^3/uL (0.0-0.6); ABSOLUTE LYMPHOCYTES (AUTO) 2.3 10^3/uL (0.5-4.7); ABSOLUTE MONOCYTES (AUTO) 0.9 10^3/uL (0.1-1.4); ABSOLUTE NEUT (AUTO) 13.6 10^3/uL (1.7-8.2); BASOPHILS % (AUTO) 0.6 % (0-2); EOSINOPHILS % (AUTO) 0.6 % (0-6); HEMATOCRIT 32.4 % (36.0-47.0); HEMOGLOBIN 11.2 g/dL (12.0-15.5); LYMPHOCYTES % (AUTO) 13.7 % (13-45); MEAN CORPUSCULAR HEMOGLOBIN 29.3 pg (27.0-33.4); MEAN CORPUSCULAR HGB CONC 34.5 g/dL (32.0-36.0); MEAN CORPUSCULAR VOLUME 85 fl (80-97); MONOCYTES % (AUTO) 5.2 % (3-13); PLATELET COUNT 247 10^3/uL (150-450); RED BLOOD COUNT 3.82 10^6/uL (3.72-5.28); SEGMENTED NEUTROPHILS % (AUTO) 79.9 % (42-78); TOTAL CELLS COUNTED % (AUTO) 100 %
[2020-03-29 06:49] LABS: ANION GAP 11 (5-19); BLOOD UREA NITROGEN 22 mg/dL (7-20); CALCIUM 8.9 mg/dL (8.4-10.2); CARBON DIOXIDE 27 mmol/L (22-30); CHLORIDE 91 mmol/L (98-107); GLUCOSE 106 mg/dL (75-110)
[2020-03-29 06:54] LABS: POTASSIUM 2.7 mmol/L (3.6-5.0)
[2020-03-29] MEDS: INSULIN LISPRO 100 UNIT/ML 3 ML VIAL SUBCUT SCH ×4 (07:24→21:45)
[2020-03-29] MEDS: RISPERIDONE 1 MG TABLET PO SCH ×2 (07:46→21:52)
[2020-03-29] MEDS: METFORMIN HCL 500 MG TABLET PO SCH ×2 (07:46→15:24)
[2020-03-29] MEDS: POTASSIUM CHLORIDE 10 MEQ TABLET.ER PO SCH ×3 (07:46→21:51)
--- NOTE | 2020-03-29 08:54 | Operative Report ---
Nonrecallable Operative Report DATE OF SURGERY: 03/29/20 PREOPERATIVE DIAGNOSIS: urosepsis POSTOPERATIVE DIAGNOSIS: urosepsis OPERATION: right internal jugular central line placement SURGEON: HATTIE VERONICA ANESTHESIA: Local TISSUE REMOVED OR ALTERED: None COMPLICATIONS: None ESTIMATED BLOOD LOSS: 5 cc INTRAOPERATIVE FINDINGS: See note PROCEDURE: Procedure note; after appropriate timeout and site verification the procedure commenced. Patient was placed in a Trendelenburg position the right neck was prepped and draped in usual sterile fashion. Using 1% lidocaine a skin wheal was raised over the internal jugular vein. Using a 22-gauge needle the vein was identified. The 22-gauge needle was removed and then using a 16-gauge needle the vein was accessed. Through the needle a J-wire was placed. A dilator was then placed over the J-wire after making a small skin evette with a 11 blade. Dilator was removed and then a triple-lumen catheter was placed over the wire into the superior vena cava. The catheter was then fixed in place with 2-0 silk suture. A sterile dressing was applied. Patient tolerated the procedure well. A chest x-ray is pending.
[2020-03-29] MEDS: BENZTROPINE MESYLATE 1 MG TABLET PO SCH ×2 (09:17→21:51)
[2020-03-29] MEDS: PREGABALIN 75 MG CAPSULE PO SCH (09:17)
[2020-03-29] MEDS: ENOXAPARIN SODIUM INJ 40 MG/0.4 ML DISP.SYRIN SUBCUT SCH (09:17)
[2020-03-29] MEDS: ASPIRIN 81 MG TABLET, ENT COATED PO SCH (09:17)
[2020-03-29] MEDS: FAMOTIDINE 20 MG TABLET PO SCH ×2 (09:17→21:51)
[2020-03-29] MEDS: MAGNESIUM OXIDE 400 MG TABLET PO SCH ×2 (09:17→17:30)
[2020-03-29] MEDS: FUROSEMIDE 20 MG TABLET PO SCH (09:17)
[2020-03-29] MEDS: SERTRALINE HCL 50 MG TABLET PO SCH (09:17)
[2020-03-29] MEDS: FLUTICASONE/VILANTEROL 200-25 MCG/DOSE IH SCH (09:18)
[2020-03-29] MEDS: FLUTICASONE NASAL SPRAY 50 MCG/SPRY 120 SPRAY/16 GM NAREB SCH (09:18)
[2020-03-29] MEDS: TOPIRAMATE 100 MG TABLET PO SCH ×2 (09:18→21:49)
[2020-03-29] MEDS: NITROFURANTOIN MONOHYD/M-CRYST 100 MG CAPSULE PO SCH (09:18)
[2020-03-29] MEDS: DOCUSATE SODIUM 100 MG CAPSULE PO SCH ×2 (09:18→17:07)
[2020-03-29 09:44] LABS: INTERNATIONAL RATION (INR) 2.11
[2020-03-29 09:45] LABS: PARTIAL THROMBOPLASTIN TIME 32.7 SEC (23.5-35.8)
--- NOTE | 2020-03-29 09:46 | RADIOLOGY REPORT (SQ) ---
EXAM DESCRIPTION: CHEST SINGLE VIEW IMAGES COMPLETED DATE/TIME: 03/29/2020 9:24 am REASON FOR STUDY: central line placement COMPARISON: AP view of the chest from 03/26/2020. EXAM PARAMETERS: NUMBER OF VIEWS: One view. TECHNIQUE: An AP view of the chest was obtained. RADIATION DOSE: NA LIMITATIONS: None. FINDINGS: LUNGS AND PLEURA: No consolidation, pleural effusion or pneumothorax. MEDIASTINUM AND HILAR STRUCTURES: No mediastinal or hilar contour abnormality. HEART AND VASCULAR STRUCTURES: The cardiac silhouette is enlarged. The pulmonary vasculature is with in normal limits. BONES: No acute findings. HARDWARE: The tip of the right IJ central venous catheter projects within the SVC. OTHER: No other finding. IMPRESSION: Interval placement of a right IJ central venous catheter; the tip of the catheter projec ts within the SVC. There is no postprocedural pneumothorax. TECHNICAL DOCUMENTATION: JOB ID: [id number] [employer]- All Rights Reserved Reading location - IP/workstation name: [email or web address]
[2020-03-29] MEDS ORDERED: VANCOMYCIN HCL 0 MG in DEXTROSE 5%-WATER 250 ML IV NR (14:15)
--- NOTE | 2020-03-29 14:34 | PDOC PROGRESS REPORT ---
Subjective Progress Note for:: 03/29/20 Reason For Visit: UROSEPSIS, ANEMIA OF CHRONIC DISEASE, DEMENTIA, 03/29/2020 Patient admitted with fever, urosepsis, altered mental status, anemia of chronic disease, dementia Patient came from [facility] Physical Exam Vital Signs: Temp Pulse Resp BP Pulse Ox 99.2 F 104 H 16 134/65 H 96 03/29/20 12:05 03/29/20 12:05 03/29/20 12:05 03/29/20 12:05 03/29/20 12:05 Intake & Output 03/28/20 03/29/20 03/30/20 06:59 06:59 06:59 Intake Total 680 948 Balance 680 948 Weight 93.8 kg 92.6 kg General appearance: PRESENT: no acute distress, other - Patient speaking in full sentences answering questions appropriately Respiratory exam: PRESENT: clear to auscultation luz elena. ABSENT: rales, rhonchi, wheezes Cardiovascular exam: PRESENT: RRR. ABSENT: diastolic murmur, rubs, systolic murmur Neurological exam: PRESENT: alert, awake Psychiatric exam: PRESENT: flat affect Results Laboratory Results: 03/29/20 05:37 03/29/20 05:37 03/29/20 03/29/20 05:37 05:37 WBC 17.0 H RBC 3.82 Hgb 11.2 L Hct 32.4 L MCV 85 MCH 29.3 MCHC 34.5 RDW 15.0 H Plt Count 247 Seg Neutrophils % 79.9 H Sodium 128.8 L Potassium 2.7 L* Chloride 91 L Carbon Dioxide 27 Anion Gap 11 BUN 22 H Creatinine 0.96 Est GFR ( Amer) > 60 Glucose 106 Calcium 8.9 03/26/20 06:55 Catheterized Urine Urine Culture - Final Enterococcus Faecalis(Group D) 03/26/20 03/26/20 03/26/20 00:10 05:35 05:35 Creatine Kinase 33 CK-MB (CK-2) 0.22 Troponin I 0.044 NT-Pro-B Natriuret Pep 3430 H 03/26/20 03/26/20 03/26/20 05:53 11:59 18:35 Creatine Kinase CK-MB (CK-2) < 0.22 0.25 Troponin I 0.045 0.050 0.040 NT-Pro-B Natriuret Pep 03/26/20 23:27 Creatine Kinase CK-MB (CK-2) Cancelled Troponin I Cancelled NT-Pro-B Natriuret Pep Impressions: Humerus X-Ray 03/26/20 00:00 IMPRESSION: There is a subacute fracture deformity of the proximal right humeral diaphysis. This demonstrates some interval callus formation with similar alignment to prior imaging. Chest X-Ray 03/29/20 00:00 IMPRESSION: Interval placement of a right IJ central venous catheter; the tip of the catheter projects within the SVC. There is no postprocedural pneumothorax. Assessment and Plan - Diagnosis (1) D-dimer, elevated Is this a current diagnosis for this admission?: Yes (2) Fever Qualifiers: Fever type: unspecified Qualified Code(s): R50.9 - Fever, unspecified Is this a current diagnosis for this admission?: Yes (3) Urinary tract infection Qualifiers: Urinary tract infection type: site unspecified Hematuria presence: with hematuria Qualified Code(s): N39.0 - Urinary tract infection, site not specified; R31.9 - Hematuria, unspecified Is this a current diagnosis for this admission?: Yes (4) Diabetes mellitus type 2 in obese Is this a current diagnosis for this admission?: Yes (6) Schizophrenia Qualifiers: Schizophrenia type: unspecified Qualified Code(s): F20.9 - Schizophrenia, unspecified Is this a current diagnosis for this admission?: Yes - Plan Summary Summary: Patient will be admitted for gentle IV hydration, IV antibiotics, antipyretics although patient is allergic to ibuprofen. The emergency room provider knows the patient thoroughly and states that her neurologic status is baseline 03/27/2020 Patient is continuing to run a fever of approximately 103.1 Fahrenheit. Patient is getting acetaminophen [id number]. Unfortunately patient is allergic to ibuprofen. I have ordered a cooling blanket today Patient's pulse is anywhere from 100-118 due to her fever Patient's blood pressure is stable at 155/84 Patient's oxygen saturation is 96% on 2.5 L White count on admission was 10.9 today it is 12.8, chemistry panel is normal, hemoglobin A1c is 5.4 Troponins have been elevated but this is not unusual for her X-ray of her old humerus fracture from 4 weeks ago shows healing with good alignment Urine culture is pending. She is currently on Levaquin p.o. and taking p.o.'s well We will hold off trying to put a central line in unless necessary. Clinically patient appears comfortable in no distress. I have discussed patient's care in detail with nursing 03/28/2020 patient is very difficult to locate a vein for IV fluids or IV medications. Trying to avoid pic and central lines since she is [facility] patient Patient has continued to run a low-grade fever this morning earlier is 101.0 it is down slightly to 100.8 Patient's blood cultures are negative x48 hours but urine culture is growing out some sort of enterococcus. Final culture results will be out this afternoon as well as sensitivities. Lab did call me and over the phone told me several drugs that it was probably going to be sensitive to, and it was not sensitive to Levaquin. I have started her on nitrofurantoin twice daily. Continue the cooling blanket. Patient is maintaining good oxygen saturations on room air and maintaining a good blood pressure 160/30 Heart rate is approximately 100 Will repeat labs tomorrow. Will make necessary changes to antibiotics as needed 03/29/2020 10 had COVID tested today in anticipation for senior care placement this week She had a central line placed today because in fact she was not improving quickly on p.o. antibiotics. On her temperature was 103.1 On 03/27/2020 her temperature was 103.9 On 03/28/2020 patient's temperature was 101 On 03/29/2020, today patient's temperature had gone down to 100.0 Blood cultures negative x72 hours Patient is talking in full sentences answering questions appropriately. Thought when she was admitted that this was because of her schizophrenia however now I am wondering if it was more on the basis of sepsis and she is slowly improving. No peripheral IV access is available and therefore central line was started today to switch to IV vancomycin, to speed up the process of her UTI treatment. Patient is allergic to penicillins. We will also give IV K riders today as well as continue p.o. potassium but only every 12 hours instead of 3 times daily Anticipate patient may be able to go back to [facility] towards the end of the week. - Time Time Spent with patient: 25-34 minutes
[2020-03-29] MEDS: POTASSI CL 20 MEQ/50 ML RIDER 20 MEQ/50 ML RTUPB IV SCH ×2 (15:24→17:30)
[2020-03-29] MEDS: ACETAMINOPHEN 325 MG TABLET PO PRN (17:30)
[2020-03-29] MEDS: VANCOMYCIN HCL 750 MG in DEXTROSE 5%-WATER 250 ML IV SCH (18:34)
[2020-03-29] MEDS: ATORVASTATIN CALCIUM 10 MG TABLET PO SCH (21:51)
[2020-03-30] MEDS: VANCOMYCIN HCL 750 MG in DEXTROSE 5%-WATER 250 ML IV SCH ×2 (05:37→17:51)
[2020-03-30 05:46] LABS: ABSOLUTE BASOPHILS # (AUTO) 0.2 10^3/uL (0.0-0.2); ABSOLUTE EOSINOPHILS # (AUTO) 0.2 10^3/uL (0.0-0.6); ABSOLUTE LYMPHOCYTES (AUTO) 2.1 10^3/uL (0.5-4.7); ABSOLUTE MONOCYTES (AUTO) 0.8 10^3/uL (0.1-1.4); ABSOLUTE NEUT (AUTO) 10.1 10^3/uL (1.7-8.2); BASOPHILS % (AUTO) 1.3 % (0-2); EOSINOPHILS % (AUTO) 1.2 % (0-6); MEAN CORPUSCULAR HEMOGLOBIN 29.5 pg (27.0-33.4); MEAN CORPUSCULAR HGB CONC 34.3 g/dL (32.0-36.0); MEAN CORPUSCULAR VOLUME 86 fl (80-97); MONOCYTES % (AUTO) 5.7 % (3-13); PLATELET COUNT 218 10^3/uL (150-450); RED BLOOD COUNT 3.38 10^6/uL (3.72-5.28); RED CELL DISTRIBUTION WIDTH 15.8 % (11.5-14.0); SEGMENTED NEUTROPHILS % (AUTO) 75.8 % (42-78); TOTAL CELLS COUNTED % (AUTO) 100 %; WHITE BLOOD COUNT 13.4 10^3/uL (4.0-10.5)
[2020-03-30 06:08] LABS: ANION GAP 5 (5-19); BLOOD UREA NITROGEN 15 mg/dL (7-20); CALCIUM 8.6 mg/dL (8.4-10.2); CARBON DIOXIDE 27 mmol/L (22-30); CHLORIDE 97 mmol/L (98-107); GLUCOSE 90 mg/dL (75-110)
[2020-03-30 06:23] LABS: POTASSIUM 3.9 mmol/L (3.6-5.0)
[2020-03-30] MEDS: INSULIN LISPRO 100 UNIT/ML 3 ML VIAL SUBCUT SCH ×4 (07:42→22:00)
[2020-03-30] MEDS: METFORMIN HCL 500 MG TABLET PO SCH ×2 (07:43→17:51)
[2020-03-30] MEDS: RISPERIDONE 1 MG TABLET PO SCH ×2 (07:44→21:44)
[2020-03-30] MEDS: BENZTROPINE MESYLATE 1 MG TABLET PO SCH ×2 (09:53→21:43)
[2020-03-30] MEDS: POTASSIUM CHLORIDE 10 MEQ TABLET.ER PO SCH ×2 (09:53→22:00)
[2020-03-30] MEDS: MAGNESIUM OXIDE 400 MG TABLET PO SCH ×2 (09:53→17:51)
[2020-03-30] MEDS: ASPIRIN 81 MG TABLET, ENT COATED PO SCH (09:53)
[2020-03-30] MEDS: SERTRALINE HCL 50 MG TABLET PO SCH (09:53)
[2020-03-30] MEDS: FUROSEMIDE 20 MG TABLET PO SCH (09:53)
[2020-03-30] MEDS: FAMOTIDINE 20 MG TABLET PO SCH ×2 (09:53→21:43)
[2020-03-30] MEDS: TOPIRAMATE 100 MG TABLET PO SCH ×2 (09:54→21:43)
[2020-03-30] MEDS: FLUTICASONE/VILANTEROL 200-25 MCG/DOSE IH SCH (09:54)
[2020-03-30] MEDS: FLUTICASONE NASAL SPRAY 50 MCG/SPRY 120 SPRAY/16 GM NAREB SCH (09:54)
[2020-03-30] MEDS: ENOXAPARIN SODIUM INJ 40 MG/0.4 ML DISP.SYRIN SUBCUT SCH (09:54)
[2020-03-30] MEDS: PREGABALIN 75 MG CAPSULE PO SCH (09:54)
[2020-03-30] MEDS: DOCUSATE SODIUM 100 MG CAPSULE PO SCH ×2 (09:55→17:51)
[2020-03-30] MEDS ORDERED: FUROSEMIDE 40 MG TABLET PO SCH (10:00)
[2020-03-30] MEDS ORDERED: NORMAL SALINE 1000 ML 1,000 ML IV PRN ×2 (10:01→21:20)
--- NOTE | 2020-03-30 10:06 | PDOC PROGRESS REPORT ---
Subjective Progress Note for:: 03/30/20 Subjective:: Patient states that she feels well today. She did not eat breakfast but states that she is not a breakfast person. Emphasized need for adequate nutrition for patient and patient states that she would eat lunch. She denies any nausea or vomiting at the time. She also denies any fever, dysuria, abdominal pain. She states that she usually has diarrhea but has not had diarrhea in the past 24 hours. Denies any cough or shortness of breath. Denies any body wounds or sores. Reason For Visit: UROSEPSIS, ANEMIA OF CHRONIC DISEASE, DEMENTIA, Physical Exam Vital Signs: Temp Pulse Resp BP Pulse Ox 99.0 F 80 16 142/53 H 97 03/30/20 08:02 03/30/20 08:02 03/30/20 08:02 03/30/20 08:02 03/30/20 08:02 Intake & Output 03/29/20 03/30/20 03/31/20 06:59 06:59 06:59 Intake Total 948 830 250 Output Total 250 Balance 948 580 250 Weight 92.6 kg 92.6 kg General appearance: PRESENT: no acute distress, cooperative Neck exam: ABSENT: JVD Respiratory exam: PRESENT: clear to auscultation luz elena, unlabored. ABSENT: tachypnea, wheezes Cardiovascular exam: PRESENT: RRR, +S1, +S2. ABSENT: tachycardia GI/Abdominal exam: PRESENT: soft. ABSENT: rebound, rigid, tenderness Neurological exam: PRESENT: alert, awake, oriented to person, oriented to place, oriented to situation Results Laboratory Results: 03/30/20 05:35 03/30/20 05:35 03/30/20 03/30/20 05:35 05:35 WBC 13.4 H RBC 3.38 L Hgb 10.0 L Hct 29.0 L MCV 86 MCH 29.5 MCHC 34.3 RDW 15.8 H Plt Count 218 Seg Neutrophils % 75.8 Sodium 129.4 L Potassium 3.9 D Chloride 97 L Carbon Dioxide 27 Anion Gap 5 BUN 15 Creatinine 0.92 Est GFR ( Amer) > 60 Glucose 90 Calcium 8.6 Magnesium 2.0 03/26/20 03/26/20 03/26/20 00:10 05:35 05:35 Creatine Kinase 33 CK-MB (CK-2) 0.22 Troponin I 0.044 NT-Pro-B Natriuret Pep 3430 H 03/26/20 03/26/20 03/26/20 05:53 11:59 18:35 Creatine Kinase CK-MB (CK-2) < 0.22 0.25 Troponin I 0.045 0.050 0.040 NT-Pro-B Natriuret Pep 03/26/20 23:27 Creatine Kinase CK-MB (CK-2) Cancelled Troponin I Cancelled NT-Pro-B Natriuret Pep Impressions: Humerus X-Ray 03/26/20 00:00 IMPRESSION: There is a subacute fracture deformity of the proximal right humeral diaphysis. This demonstrates some interval callus formation with similar alignment to prior imaging. Chest X-Ray 03/29/20 00:00 IMPRESSION: Interval placement of a right IJ central venous catheter; the tip of the catheter projects within the SVC. There is no postprocedural pneumothorax. Assessment and Plan - Diagnosis (1) Urinary tract infection Qualifiers: Urinary tract infection type: site unspecified Hematuria presence: with hematuria Qualified Code(s): N39.0 - Urinary tract infection, site not specified; R31.9 - Hematuria, unspecified Is this a current diagnosis for this admission?: Yes Plan: Secondary to Enterococcus. I will continue IV vancomycin for today and transition patient to cephalosporin tomorrow. Continue to monitor leukocytosis on CBC. Penicillin allergy noted. (2) D-dimer, elevated Is this a current diagnosis for this admission?: Yes Plan: Nonspecific inflammatory marker. Venous Doppler 1 month ago was negative. Patient not hypoxic nor tachycardic and with no SOB, suspicion for PE is low. Elevation was likely secondary to infection/inflammation upon admission. No need for further evaluation at this time. (3) Fever Qualifiers: Fever type: unspecified Qualified Code(s): R50.9 - Fever, unspecified Is this a current diagnosis for this admission?: Yes Plan: Seems that this was suspected to be from UTI. Chest x-ray was clear and no noted skin infections. Currently not having diarrhea but if dysuria resume can check a C. difficile. Fever seems to be resolving with antibiotics. (4) Schizophrenia Qualifiers: Schizophrenia type: unspecified Qualified Code(s): F20.9 - Schizophrenia, unspecified Is this a current diagnosis for this admission?: Yes Plan: Continue Risperdal and benztropine. (5) Diabetes mellitus type 2 in obese Is this a current diagnosis for this admission?: Yes Plan: Continue metformin. Blood sugars have been controlled while inpatient.patient has not been on Tresiba. Continue to monitor with Accu-Cheks. (6) Hyponatremia Is this a current diagnosis for this admission?: Yes Plan: Patient notably has not been eating for the past few days. Ate a little bit yesterday night. May be dehydrated. Will give some normal saline today and recheck BMP later today. We will also check serum and urine osmolarity. - Time Time Spent with patient: Less than 15 minutes
[2020-03-30] MEDS: OXYCODONE-ACETAMINOPHEN 5-325 MG TABLET PO PRN (17:51)
[2020-03-30 18:27] LABS: ANION GAP 8 (5-19); BLOOD UREA NITROGEN 12 mg/dL (7-20); CALCIUM 8.2 mg/dL (8.4-10.2); CARBON DIOXIDE 24 mmol/L (22-30); CHLORIDE 97 mmol/L (98-107); GLUCOSE 151 mg/dL (75-110); POTASSIUM 3.4 mmol/L (3.6-5.0)
[2020-03-30] MEDS: ATORVASTATIN CALCIUM 10 MG TABLET PO SCH (21:43)
[2020-03-31] MEDS: VANCOMYCIN HCL 750 MG in DEXTROSE 5%-WATER 250 ML IV SCH (05:52)
[2020-03-31 06:53] LABS: ABSOLUTE BASOPHILS # (AUTO) 0.1 10^3/uL (0.0-0.2); ABSOLUTE EOSINOPHILS # (AUTO) 0.3 10^3/uL (0.0-0.6); ABSOLUTE LYMPHOCYTES (AUTO) 1.8 10^3/uL (0.5-4.7); ABSOLUTE MONOCYTES (AUTO) 0.7 10^3/uL (0.1-1.4); ABSOLUTE NEUT (AUTO) 10.4 10^3/uL (1.7-8.2); BASOPHILS % (AUTO) 0.6 % (0-2); EOSINOPHILS % (AUTO) 2.1 % (0-6); HEMOGLOBIN 9.7 g/dL (12.0-15.5); LYMPHOCYTES % (AUTO) 13.7 % (13-45); MEAN CORPUSCULAR HEMOGLOBIN 29.8 pg (27.0-33.4); MEAN CORPUSCULAR HGB CONC 34.6 g/dL (32.0-36.0); MEAN CORPUSCULAR VOLUME 86 fl (80-97); MONOCYTES % (AUTO) 5.6 % (3-13); PLATELET COUNT 219 10^3/uL (150-450); RED BLOOD COUNT 3.24 10^6/uL (3.72-5.28); RED CELL DISTRIBUTION WIDTH 15.3 % (11.5-14.0); TOTAL CELLS COUNTED % (AUTO) 100 %; WHITE BLOOD COUNT 13.4 10^3/uL (4.0-10.5)
[2020-03-31 07:08] LABS: ANION GAP 7 (5-19); BLOOD UREA NITROGEN 10 mg/dL (7-20); CALCIUM 8.5 mg/dL (8.4-10.2); CARBON DIOXIDE 26 mmol/L (22-30); CHLORIDE 97 mmol/L (98-107); GLUCOSE 117 mg/dL (75-110); POTASSIUM 3.3 mmol/L (3.6-5.0)
[2020-03-31] MEDS ORDERED: NORMAL SALINE 1000 ML 1,000 ML IV PRN (07:40)
[2020-03-31] MEDS: INSULIN LISPRO 100 UNIT/ML 3 ML VIAL SUBCUT SCH ×4 (08:57→21:13)
[2020-03-31] MEDS: BENZTROPINE MESYLATE 1 MG TABLET PO SCH ×2 (09:01→21:21)
[2020-03-31] MEDS: METFORMIN HCL 500 MG TABLET PO SCH ×2 (09:01→15:30)
[2020-03-31] MEDS: ASPIRIN 81 MG TABLET, ENT COATED PO SCH (09:01)
[2020-03-31] MEDS: PREGABALIN 75 MG CAPSULE PO SCH (09:01)
[2020-03-31] MEDS: SERTRALINE HCL 50 MG TABLET PO SCH (09:01)
[2020-03-31] MEDS: POTASSIUM CHLORIDE 10 MEQ TABLET.ER PO SCH ×2 (09:01→21:21)
[2020-03-31] MEDS: FLUTICASONE/VILANTEROL 200-25 MCG/DOSE IH SCH (09:02)
[2020-03-31] MEDS: TOPIRAMATE 100 MG TABLET PO SCH ×2 (09:02→21:21)
[2020-03-31] MEDS: FAMOTIDINE 20 MG TABLET PO SCH ×2 (09:02→21:21)
[2020-03-31] MEDS: RISPERIDONE 1 MG TABLET PO SCH ×2 (09:02→21:21)
[2020-03-31] MEDS: FLUTICASONE NASAL SPRAY 50 MCG/SPRY 120 SPRAY/16 GM NAREB SCH (09:02)
[2020-03-31] MEDS: ENOXAPARIN SODIUM INJ 40 MG/0.4 ML DISP.SYRIN SUBCUT SCH (09:05)
[2020-03-31] MEDS ORDERED: CEFTRIAXONE 2 GM/D5W RTU 2 GM/50 ML RTUPB IV SCH (10:00)
--- NOTE | 2020-03-31 10:28 | PDOC PROGRESS REPORT ---
Subjective Progress Note for:: 03/31/20 Subjective:: Had another febrile episode and noted to have multiple bouts of diarrhea yesterday. Patient was on Colace which was discontinued. Awaiting C. difficile sample. Patient otherwise feels well. She denies any shortness of breath, cough or chest pain. Denies abdominal pain. Ate some of her breakfast and some meals yesterday. Denies any nausea or vomiting. Reason For Visit: UROSEPSIS, ANEMIA OF CHRONIC DISEASE, DEMENTIA, Physical Exam Vital Signs: Temp Pulse Resp BP Pulse Ox 99.5 F 85 18 150/59 H 98 03/30/20 23:16 03/30/20 23:16 03/30/20 23:16 03/30/20 23:16 03/30/20 23:16 Intake & Output 03/30/20 03/31/20 04/01/20 06:59 06:59 06:59 Intake Total 830 2700 250 Output Total 250 Balance 580 2700 250 Weight 92.6 kg 95.3 kg General appearance: PRESENT: no acute distress, cooperative Mouth exam: PRESENT: neck supple Neck exam: ABSENT: JVD Respiratory exam: PRESENT: clear to auscultation luz elena, unlabored. ABSENT: tachypnea, wheezes Cardiovascular exam: PRESENT: RRR, +S1, +S2. ABSENT: tachycardia GI/Abdominal exam: PRESENT: normal bowel sounds, soft, tenderness - Right lower quadrant. ABSENT: firm, rebound, rigid Extremities exam: ABSENT: calf tenderness Neurological exam: PRESENT: alert, awake Psychiatric exam: ABSENT: agitated, anxious Focused psych exam: ABSENT: pressured speech Skin exam: ABSENT: jaundice Results Laboratory Results: 03/31/20 06:30 03/31/20 06:30 03/30/20 03/30/20 03/30/20 05:35 11:00 18:00 WBC RBC Hgb Hct MCV MCH MCHC RDW Plt Count Seg Neutrophils % Sodium 129.2 L Potassium 3.4 L Chloride 97 L Carbon Dioxide 24 Anion Gap 8 BUN 12 Creatinine 0.83 Est GFR ( Amer) > 60 Glucose 151 H Serum Osmolality 271 L Calcium 8.2 L Urine Osmolality 189 L 03/31/20 03/31/20 06:30 06:30 WBC 13.4 H RBC 3.24 L Hgb 9.7 L Hct 28.0 L MCV 86 MCH 29.8 MCHC 34.6 RDW 15.3 H Plt Count 219 Seg Neutrophils % 78.0 Sodium 130.3 L Potassium 3.3 L Chloride 97 L Carbon Dioxide 26 Anion Gap 7 BUN 10 Creatinine 0.84 Est GFR ( Amer) > 60 Glucose 117 H Serum Osmolality Calcium 8.5 Urine Osmolality 03/26/20 05:42 Blood Blood Culture - Final NO GROWTH IN 5 DAYS 03/26/20 05:35 Blood Blood Culture - Final NO GROWTH IN 5 DAYS 03/26/20 03/26/20 03/26/20 00:10 05:35 05:35 Creatine Kinase 33 CK-MB (CK-2) 0.22 Troponin I 0.044 NT-Pro-B Natriuret Pep 3430 H 03/26/20 03/26/20 03/26/20 05:53 11:59 18:35 Creatine Kinase CK-MB (CK-2) < 0.22 0.25 Troponin I 0.045 0.050 0.040 NT-Pro-B Natriuret Pep 03/26/20 23:27 Creatine Kinase CK-MB (CK-2) Cancelled Troponin I Cancelled NT-Pro-B Natriuret Pep Impressions: Humerus X-Ray 03/26/20 00:00 IMPRESSION: There is a subacute fracture deformity of the proximal right humeral diaphysis. This demonstrates some interval callus formation with similar alignment to prior imaging. Chest X-Ray 03/29/20 00:00 IMPRESSION: Interval placement of a right IJ central venous catheter; the tip of the catheter projects within the SVC. There is no postprocedural pneumothorax. Assessment and Plan - Diagnosis (1) Urinary tract infection Qualifiers: Urinary tract infection type: site unspecified Hematuria presence: with hematuria Qualified Code(s): N39.0 - Urinary tract infection, site not specified; R31.9 - Hematuria, unspecified Is this a current diagnosis for this admission?: Yes Plan: Secondary to Enterococcus. Leukocytosis did not improve from yesterday. Also had a low-grade fever. I have transition antibiotics from vancomycin to ceftriaxone. We will continue to monitor leukocytosis on CBC. Penicillin allergy noted. (2) D-dimer, elevated Is this a current diagnosis for this admission?: Yes Plan: Nonspecific inflammatory marker. Venous Doppler 1 month ago was negative. Patient not hypoxic nor tachycardic and with no SOB, suspicion for PE is low. Elevation was likely secondary to infection/inflammation upon admission. No nee d for further evaluation at this time. (3) Fever Qualifiers: Fever type: unspecified Qualified Code(s): R50.9 - Fever, unspecified Is this a current diagnosis for this admission?: Yes Plan: Seems that this was suspected to be from UTI. Chest x-ray was clear, blood cultures negative and no noted skin infections. Had an episode of low-grade temp 100.6 overnight. Had bouts of diarrhea but was also on Colace. Awaiting stool sample for C. difficile testing. Currently on ceftriaxone (4) Schizophrenia Qualifiers: Schizophrenia type: unspecified Qualified Code(s): F20.9 - Schizophrenia, unspecified Is this a current diagnosis for this admission?: Yes Plan: Continue Risperdal and benztropine. (5) Diabetes mellitus type 2 in obese Is this a current diagnosis for this admission?: Yes Plan: Continue metformin. Blood sugars have been controlled while inpatient.patient has not been on Tresiba. Continue to monitor with Accu-Cheks. (6) Hyponatremia Is this a current diagnosis for this admission?: Yes Plan: Improved after receiving IV fluids yesterday and today. Will maintain on gentle IV hydration for now. Patient encouraged to increase caloric intake. Will monitor clinical findings. - Time Time Spent with patient: Less than 15 minutes
[2020-03-31] MEDS: NORMAL SALINE 1000 ML 1,000 ML IV PRN ×2 (10:51→21:34)
[2020-03-31] MEDS: OXYCODONE-ACETAMINOPHEN 5-325 MG TABLET PO PRN (16:48)
[2020-03-31] MEDS: OXYCODONE HCL IR 5 MG TABLET PO PRN (16:49)
[2020-03-31 19:01] LABS: C DIFFICILE GDH NEGATIVE (NEGATIVE)
[2020-03-31] MEDS ORDERED: AMPICILLIN SOD INJ 2 GM VIAL IV SCH (19:30)
[2020-03-31] MEDS: ATORVASTATIN CALCIUM 10 MG TABLET PO SCH (21:20)
[2020-03-31] MEDS: ACETAMINOPHEN 325 MG TABLET PO PRN (21:20)
[2020-03-31] MEDS: AMPICILLIN SODIUM 2 GM in NORMAL SALINE 100 ML IV SCH (21:22)
[2020-04-01] MEDS: AMPICILLIN SODIUM 2 GM in NORMAL SALINE 100 ML IV SCH ×4 (02:54→22:15)
[2020-04-01 05:51] LABS: ABSOLUTE BASOPHILS # (AUTO) 0.1 10^3/uL (0.0-0.2); ABSOLUTE EOSINOPHILS # (AUTO) 0.4 10^3/uL (0.0-0.6); ABSOLUTE LYMPHOCYTES (AUTO) 2.3 10^3/uL (0.5-4.7); ABSOLUTE MONOCYTES (AUTO) 0.8 10^3/uL (0.1-1.4); ABSOLUTE NEUT (AUTO) 9.3 10^3/uL (1.7-8.2); BASOPHILS % (AUTO) 0.7 % (0-2); EOSINOPHILS % (AUTO) 3.2 % (0-6); HEMATOCRIT 28.7 % (36.0-47.0); HEMOGLOBIN 9.7 g/dL (12.0-15.5); MEAN CORPUSCULAR HEMOGLOBIN 29.4 pg (27.0-33.4); MEAN CORPUSCULAR HGB CONC 33.9 g/dL (32.0-36.0); MEAN CORPUSCULAR VOLUME 87 fl (80-97); MONOCYTES % (AUTO) 6.1 % (3-13); PLATELET COUNT 259 10^3/uL (150-450); RED CELL DISTRIBUTION WIDTH 15.5 % (11.5-14.0); TOTAL CELLS COUNTED % (AUTO) 100 %; WHITE BLOOD COUNT 12.9 10^3/uL (4.0-10.5)
[2020-04-01 06:04] LABS: ANION GAP 6 (5-19); BLOOD UREA NITROGEN 8 mg/dL (7-20); CALCIUM 8.9 mg/dL (8.4-10.2); CARBON DIOXIDE 26 mmol/L (22-30); CHLORIDE 101 mmol/L (98-107); GLUCOSE 90 mg/dL (75-110); POTASSIUM 3.9 mmol/L (3.6-5.0)
[2020-04-01] MEDS: INSULIN LISPRO 100 UNIT/ML 3 ML VIAL SUBCUT SCH ×4 (07:52→22:19)
[2020-04-01] MEDS: METFORMIN HCL 500 MG TABLET PO SCH ×2 (08:36→17:49)
[2020-04-01] MEDS: RISPERIDONE 1 MG TABLET PO SCH ×2 (08:36→22:18)
[2020-04-01] MEDS: OXYCODONE-ACETAMINOPHEN 5-325 MG TABLET PO PRN ×2 (08:46→17:55)
[2020-04-01] MEDS: OXYCODONE HCL IR 5 MG TABLET PO PRN ×2 (08:49→17:56)
--- NOTE | 2020-04-01 10:36 | PDOC TRANSFER SUMMARY ---
Impression - Admit/DC Date/PCP Admission Date/Primary Care Provider: 03/26/20 08:10 SOBIA YANEZ MD Discharge Date: 04/01/20 - Discharge Diagnosis (1) Urinary tract infection Is this a current diagnosis for this admission?: Yes (2) D-dimer, elevated Is this a current diagnosis for this admission?: Yes (3) Fever Is this a current diagnosis for this admission?: Yes (4) Schizophrenia Is this a current diagnosis for this admission?: Yes (5) Diabetes mellitus type 2 in obese Is this a current diagnosis for this admission?: Yes (6) Hyponatremia Is this a current diagnosis for this admission?: Yes - Additional Information Resuscitation Status: Full Code Referrals: [facility] [Outside] SOBIA YANEZ MD [Primary Care Provider] - Follow up as needed Prescriptions: Amoxicillin/Potassium Clav [Augmentin 875-125 Tablet] 1 tab PO Q12 5 Days #10 tablet Home Medications: Aspirin [Aspirin EC] 81 mg PO DAILY 07/22/18 Metformin HCl [Glucophage] 1,000 mg PO Q12 07/22/18 Risperidone [Risperdal 1 mg Tablet] 2 mg PO QHS 07/22/18 Atorvastatin Calcium [Lipitor 10 mg Tablet] 10 mg PO QHS 09/17/18 Benztropine Mesylate [Cogentin 1 mg Tablet] 1 mg PO Q12 09/17/18 Insulin Degludec [Tresiba Flextouch U-200] 20 unit SQ QPM 09/17/18 Topiramate [Topamax] 150 mg PO Q12 09/17/18 Furosemide [Lasix 20 mg Tablet] 40 mg PO DAILY 02/19/19 Sertraline HCl [Zoloft 50 mg Tablet] 75 mg PO DAILY 02/19/19 Pregabalin [Lyrica 75 mg Capsule] 75 mg PO DAILY 08/08/19 Risperidone [Risperdal 1 mg Tablet] 1 mg PO QAM 08/08/19 Clonazepam [Klonopin] 0.5 mg PO Q12HP PRN 01/27/20 Fluticasone Propionate [Flonase Nasal Pauline 50 Mcg/Pauline 16 gm] 1 spray NAREB DAILY 01/27/20 Ipratropium/Albuterol Sulfate [Duoneb 3 ml Ampul] 3 ml NEB RTQ4HP PRN 01/27/20 Menthol [Biofreeze] 1 applic TP Q6HP PRN 01/27/20 Oxycodone HCl/Acetaminophen [Percocet 7.5-325 mg Tablet] 1 each PO TIDP PRN 01/27/20 Suvorexant [Belsomra] 20 mg PO QHS 01/27/20 Fluticasone/Salmeterol [Advair 250-50 Diskus 14 Dose/Diskus] 1 inh IH Q12 03/26/20 Amoxicillin/Potassium Clav [Augmentin 875-125 Tablet] 1 tab PO Q12 5 Days #10 tablet 04/01/20 Magnesium Oxide [Mag-Ox 400 mg Tablet] 800 mg PO DAILY 15 Days #30 tablet 04/01/20 Potassium Chloride [Klor-Con 10 Meq Tablet ER] 20 meq PO BID tablet.er 04/01/20 History of Present Illiness History of Present Illness: According to admitting provider: NAVEEN TABARES is a 59 year old female comes in from [facility] with fever. Patient unfortunately is a poor historian and does not answer questions appropriately. Patient has chronic dementia. In the emergency room patient is found to have a urinalysis that appears to be infected. Except for her fever her other vital signs appear stable. Patient will be admitted for IV fluids, medicines for her fever, and IV antibiotics. Lactic acid 0.7 First troponin is elevated 0.045 but patient has a history of having elevated troponins. Trend was flat and no signs or symptoms of ACS. Hospital Course Hospital Course: (1) Urinary tract infection Qualifiers: Urinary tract infection type: site unspecified Hematuria presence: with hematuria Qualified Code(s): N39.0 - Urinary tract infection, site not specified; R31.9 - Hematuria, unspecified Is this a current diagnosis for this admission?: Yes Plan: Urine culture reviewed enterococcus faecalis D sensitive to ampicillin and vancomycin but resistant to quinolones. Leukocytosis improved. Initially on vancomycin IV and transition to ampicillin. We will continue Augmentin for 5 more days for treatment of complicated UTI. (2) D-dimer, elevated Is this a current diagnosis for this admission?: Yes Plan: Nonspecific inflammatory marker. Venous Doppler 1 month ago was negative. Patient not hypoxic nor tachycardic and with no SOB, suspicion for PE is very low. Elevation was likely secondary to infection/inflammation upon admission. No need for further evaluation at this time. (3) Fever Qualifiers: Fever type: unspecified Qualified Code(s): R50.9 - Fever, unspecified Is this a current diagnosis for this admission?: Yes Plan: Secondary to UTI. Chest x-ray was clear, blood cultures negative and no noted skin infections. C. difficile test negative. COVID-19 test also negative. Now afebrile. Last episode was 100.6F on 03/30. (4) Schizophrenia Qualifiers: Schizophrenia type: unspecified Qualified Code(s): F20.9 - Schizophrenia, u nspecified Is this a current diagnosis for this admission?: Yes Plan: Continue antipsychotics and benztropine. (5) Diabetes mellitus type 2 in obese Is this a current diagnosis for this admission?: Yes Plan: Continue metformin. Noted Tresiba on Home Med rec. However, blood sugars have been controlled while inpatient and patient has not been on Tresiba/Lantus throughout hospitalization. I would recommend cautious reintroduction of Tresiba and likely at a lower dose than what she was taking before. (6) Hyponatremia Is this a current diagnosis for this admission?: Yes Plan: As low as 128 and thought to be due to poor caloric intake initially during hospitalization and potentially dehydration. Laxatives and Colace stopped Lasix held for a few days. Patient was rehydrated and patient's p.o. intake improved significantly. With these measures, patient's hyponatremia improved significantly last measured 132.5 today. Physical Exam Vital Signs: Temp Pulse Resp BP Pulse Ox 98.6 F 72 17 137/55 H 100 04/01/20 00:13 04/01/20 00:13 04/01/20 00:13 04/01/20 00:13 04/01/20 00:13 Intake & Output 03/31/20 04/01/20 04/02/20 06:59 06:59 06:59 Intake Total 2700 2857 Balance 2700 2857 Weight 95.3 kg 95.4 kg General appearance: PRESENT: no acute distress, cooperative Neurological exam: PRESENT: alert, awake, oriented to person, oriented to place, oriented to situation, other - Awake and fully conversational Results Laboratory Results: WBC 12.9 10^3/uL (4.0-10.5) H 04/01/20 05:35 RBC 3.30 10^6/uL (3.72-5.28) L 04/01/20 05:35 Hgb 9.7 g/dL (12.0-15.5) L 04/01/20 05:35 Hct 28.7 % (36.0-47.0) L 04/01/20 05:35 MCV 87 fl (80-97) 04/01/20 05:35 MCH 29.4 pg (27.0-33.4) 04/01/20 05:35 MCHC 33.9 g/dL (32.0-36.0) 04/01/20 05:35 RDW 15.5 % (11.5-14.0) H 04/01/20 05:35 Plt Count 259 10^3/uL (150-450) 04/01/20 05:35 Lymph % (Auto) 18.0 % (13-45) 04/01/20 05:35 Reagan % (Auto) 6.1 % (3-13) 04/01/20 05:35 Eos % (Auto) 3.2 % (0-6) 04/01/20 05:35 Baso % (Auto) 0.7 % (0-2) 04/01/20 05:35 Absolute Neuts (auto) 9.3 10^3/uL (1.7-8.2) H 04/01/20 05:35 Absolute Lymphs (auto) 2.3 10^3/uL (0.5-4.7) 04/01/20 05:35 Absolute Monos (auto) 0.8 10^3/uL (0.1-1.4) 04/01/20 05:35 Absolute Eos (auto) 0.4 10^3/uL (0.0-0.6) 04/01/20 05:35 Absolute Basos (auto) 0.1 10^3/uL (0.0-0.2) 04/01/20 05:35 Seg Neutrophils % 72.0 % (42-78) 04/01/20 05:35 PT 24.0 SEC (11.4-15.4) H 03/29/20 09:25 INR 2.11 03/29/20 09:25 APTT 32.7 SEC (23.5-35.8) 03/29/20 09:25 D-Dimer 3.07 ug/mL (0.00-0.50) H 03/26/20 05:35 VBG pH 7.42 (7.30-7.42) 03/26/20 05:35 VBG pCO2 38.9 mmHg (35-63) 03/26/20 05:35 VBG HCO3 24.8 mmol/L (20-32) 03/26/20 05:35 VBG Base Excess 0.5 mmol/L 03/26/20 05:35 Sodium 132.5 mmol/L (137-145) L 04/01/20 05:35 Potassium 3.9 mmol/L (3.6-5.0) 04/01/20 05:35 Chloride 101 mmol/L (98-107) 04/01/20 05:35 Carbon Dioxide 26 mmol/L (22-30) 04/01/20 05:35 Anion Gap 6 (5-19) 04/01/20 05:35 BUN 8 mg/dL (7-20) 04/01/20 05:35 Creatinine 0.80 mg/dL (0.52-1.25) 04/01/20 05:35 Est GFR ( Amer) > 60 (>60) 04/01/20 05:35 Est GFR (MDRD) Non-Af > 60 (>60) 04/01/20 05:35 Glucose 90 mg/dL (75-110) 04/01/20 05:35 POC Glucose 108 mg/dL (70-110) 04/01/20 06:09 Hemoglobin A1c % 5.4 % (4.7-6.0) 03/27/20 04:23 Serum Osmolality 271 mOsm/kg (275-301) L 03/30/20 05:35 Lactic Acid 0.8 mmol/L (0.7-2.1) 03/26/20 11:59 Calcium 8.9 mg/dL (8.4-10.2) 04/01/20 05:35 Magnesium 2.0 mg/dL (1.6-2.3) 03/30/20 05:35 Ferritin 196.00 ng/mL (11.1-264.0) 03/26/20 05:33 Total Bilirubin 0.5 mg/dL (0.2-1.3) 03/26/20 05:35 Direct Bilirubin 0.1 mg/dL (0.0-0.4) 03/26/20 05:35 Neonat Total Bilirubin Not Reportable 03/26/20 05:35 Neonat Direct Bilirubin Not Reportable 03/26/20 05:35 Neonat Indirect Bili Not Reportable 03/26/20 05:35 AST 22 U/L (14-36) 03/26/20 05:35 ALT 11 U/L (<35) 03/26/20 05:35 Alkaline Phosphatase 146 U/L (38-126) H 03/26/20 05:35 Creatine Kinase 33 U/L (30-135) 03/26/20 05:35 CK-MB (CK-2) Cancelled 03/26/20 23:27 Troponin I Cancelled 03/26/20 23:27 C-Reactive Protein 20.3 mg/L (<10.0) H 03/26/20 05:33 NT-Pro-B Natriuret Pep 3430 pg/mL (<125) H 03/26/20 05:35 Total Protein 6.8 g/dL (6.3-8.2) 03/26/20 05:35 Albumin 3.8 g/dL (3.5-5.0) 03/26/20 05:35 Urine Color YELLOW 03/26/20 06:55 Urine Appearance TURBID 03/26/20 06:55 Urine pH 7.0 (5.0-9.0) 03/26/20 06:55 Ur Specific Arroyo 1.016 03/26/20 06:55 Urine Protein >=500 mg/dL (NEGATIVE) H 03/26/20 06:55 Urine Glucose (UA) NEGATIVE mg/dL (NEGATIVE) 03/26/20 06:55 Urine Ketones 20 mg/dL (NEGATIVE) H 03/26/20 06:55 Urine Blood SMALL (NEGATIVE) H 03/26/20 06:55 Urine Nitrite (Reflex) NEGATIVE (NEGATIVE) 03/26/20 06:55 Urine Bilirubin NEGATIVE (NEGATIVE) 03/26/20 06:55 Urine Urobilinogen NEGATIVE mg/dL (<2.0) 03/26/20 06:55 Leukocyte Esterase Rfl MODERATE (NEGATIVE) H 03/26/20 06:55 Urine RBC (Auto) 23 /HPF 03/26/20 06:55 Urine Bacteria (Auto) 3+ /HPF 03/26/20 06:55 Urine WBC (Reflex) > 182 /HPF 03/26/20 06:55 Urine WBC Clumps MANY /HPF 03/26/20 06:55 Urine Mucus (Auto) FEW /LPF 03/26/20 06:55 Urine Osmolality 189 mOsm/kg (300-900) L 03/30/20 11:00 Urine Ascorbic Acid 20 (NEGATIVE) H 03/26/20 06:55 Stl C. Difficile GDH Ag NEGATIVE (NEGATIVE) 03/31/20 16:40 Stl C.difficile Tox A&B NEGATIVE (NEGATIVE) 03/31/20 16:40 COVID-19 Source NASOPHARYNGEAL 03/29/20 13:10 COVID-19 (ZEFERINO) NOT DETECTED 03/29/20 13:10 03/26/20 03/26/20 03/26/20 00:10 05:35 05:53 CK-MB (CK-2) 0.22 Troponin I 0.044 0.045 NT-Pro-B Natriuret Pep 3430 H 03/26/20 03/26/20 03/26/20 11:59 18:35 23:27 CK-MB (CK-2) < 0.22 0.25 Cancelled Troponin I 0.050 0.040 Cancelled NT-Pro-B Natriuret Pep Impressions: Humerus X-Ray 03/26/20 00:00 IMPRESSION: There is a subacute fracture deformity of the proximal right humeral diaphysis. This demonstrates some interval callus formation with similar alignment to prior imaging. Chest X-Ray 03/26/20 06:12 IMPRESSION: Clear lungs. Chest X-Ray 03/29/20 00:00 IMPRESSION: Interval placement of a right IJ central venous catheter; the tip of the catheter projects within the SVC. There is no postprocedural pneumothorax. Plan Time Spent: Less than 30 Minutes Stroke Is this a Stroke Patient?: No Acute Heart Failure - Is this a Heart Failure Patient?: No
[2020-04-01] MEDS: FAMOTIDINE 20 MG TABLET PO SCH ×2 (10:49→22:16)
[2020-04-01] MEDS: BENZTROPINE MESYLATE 1 MG TABLET PO SCH ×2 (10:49→22:19)
[2020-04-01] MEDS: SERTRALINE HCL 50 MG TABLET PO SCH (10:49)
[2020-04-01] MEDS: ASPIRIN 81 MG TABLET, ENT COATED PO SCH (10:49)
[2020-04-01] MEDS: ENOXAPARIN SODIUM INJ 40 MG/0.4 ML DISP.SYRIN SUBCUT SCH (10:49)
[2020-04-01] MEDS: TOPIRAMATE 100 MG TABLET PO SCH ×2 (10:50→22:16)
[2020-04-01] MEDS: POTASSIUM CHLORIDE 10 MEQ TABLET.ER PO SCH ×2 (10:50→22:16)
[2020-04-01] MEDS: PREGABALIN 75 MG CAPSULE PO SCH (10:50)
[2020-04-01] MEDS: FLUTICASONE NASAL SPRAY 50 MCG/SPRY 120 SPRAY/16 GM NAREB SCH (10:51)
[2020-04-01] MEDS: FLUTICASONE/VILANTEROL 200-25 MCG/DOSE IH SCH (10:51)
--- NOTE | 2020-04-01 12:36 | Progress Note ---
Provider Note Provider Note: Patient had a plan for discharge however I was informed by community planner that [facility] be [facility] patient back tomorrow instead of today. However Augmentin discharge order. Patient is currently stable and doing well. Vital signs are normal. Unlabored breathing, symmetric respiration. Nontender abdomen on palpation and nondistended. No significant lower extremity swelling. Continue current plan for management of patient's Enterobacter UTI, hyponatremia, schizophrenia, diabetes mellitus type 2 and obesity. Continue on ampicillin. Plan to discharge on Augmentin.
[2020-04-01] MEDS: ATORVASTATIN CALCIUM 10 MG TABLET PO SCH (22:16)
[2020-04-02] MEDS: AMPICILLIN SODIUM 2 GM in NORMAL SALINE 100 ML IV SCH ×2 (03:23→11:25)
[2020-04-02] MEDS: INSULIN LISPRO 100 UNIT/ML 3 ML VIAL SUBCUT SCH ×3 (08:29→17:15)
[2020-04-02] MEDS: METFORMIN HCL 500 MG TABLET PO SCH ×2 (11:21→17:17)
[2020-04-02] MEDS: FAMOTIDINE 20 MG TABLET PO SCH (11:21)
[2020-04-02] MEDS: POTASSIUM CHLORIDE 10 MEQ TABLET.ER PO SCH (11:22)
[2020-04-02] MEDS: BENZTROPINE MESYLATE 1 MG TABLET PO SCH (11:22)
[2020-04-02] MEDS: PREGABALIN 75 MG CAPSULE PO SCH (11:22)
[2020-04-02] MEDS: ASPIRIN 81 MG TABLET, ENT COATED PO SCH (11:22)
[2020-04-02] MEDS: SERTRALINE HCL 50 MG TABLET PO SCH (11:22)
[2020-04-02] MEDS: TOPIRAMATE 100 MG TABLET PO SCH (11:23)
[2020-04-02] MEDS: RISPERIDONE 1 MG TABLET PO SCH (11:23)
[2020-04-02] MEDS: FLUTICASONE/VILANTEROL 200-25 MCG/DOSE IH SCH (11:25)
[2020-04-02] MEDS: FLUTICASONE NASAL SPRAY 50 MCG/SPRY 120 SPRAY/16 GM NAREB SCH (11:26)
[2020-04-02] MEDS: ENOXAPARIN SODIUM INJ 40 MG/0.4 ML DISP.SYRIN SUBCUT SCH (11:26)
[2020-04-02] MEDS: OXYCODONE HCL IR 5 MG TABLET PO PRN ×2 (11:34→19:36)
[2020-04-02] MEDS: OXYCODONE-ACETAMINOPHEN 5-325 MG TABLET PO PRN ×2 (11:34→19:36)
--- NOTE | 2020-04-02 11:55 | Progress Note ---
Provider Note Provider Note: Patient is doing okay. She has no complaints today. Vital signs are stable. We will continue treatment for enterococcus UTI. Continue Augmentin. Continues to be medically discharged but still awaiting placement at SNF. Apparently, [facility] does not have any isolation beds today for patient to return to [facility]. kit planner looking into other SNF for temporary placement until [facility] becomes available.
[2020-04-02 15:36] VITALS: BP 113/52
[2020-04-02] MEDS ORDERED: AMOXICILLIN TR/POT CLAVULANATE 875-125 MG TAB PO SCH (22:00)
== END 2020-04-02 21:07 | DRG 690 ==
LOC: ER 05:04 → EH 08:10 → 4N 11:28
PROVIDERS: ADMIT Hospitalist; ATTEND Internal Medicine
PROC: 02HV33Z Insertion of Infusion Device into Superior Vena Cava, Percutaneous Approach (ICD-10-PCS; principal; 2020-03-29)
DX: N39.0 Urinary tract infection, site not specified (principal); Z16.23 Resistance to quinolones and fluoroquinolones; E87.1 Hypo-osmolality and hyponatremia; R47.01 Aphasia; B95.2 Enterococcus as the cause of diseases classified elsewhere; R31.9 Hematuria, unspecified; R79.89 Other specified abnormal findings of blood chemistry; F20.9 Schizophrenia, unspecified; E11.9 Type 2 diabetes mellitus without complications; E66.9 Obesity, unspecified; F03.90 Unspecified dementia, unspecified severity, without behavioral disturbance, psychotic disturbance, mood disturbance, and anxiety; D63.8 Anemia in other chronic diseases classified elsewhere; S42.291D Other displaced fracture of upper end of right humerus, subsequent encounter for fracture with routine healing; X58.XXXD Exposure to other specified factors, subsequent encounter; R19.7 Diarrhea, unspecified; J44.9 Chronic obstructive pulmonary disease, unspecified; I50.9 Heart failure, unspecified; I25.10 Atherosclerotic heart disease of native coronary artery without angina pectoris; Z79.899 Other long term (current) drug therapy; Z79.82 Long term (current) use of aspirin; Z79.4 Long term (current) use of insulin; Z95.5 Presence of coronary angioplasty implant and graft; Z87.891 Personal history of nicotine dependence; Z88.8 Allergy status to other drugs, medicaments and biological substances; Z88.0 Allergy status to penicillin; Z11.59 Encounter for screening for other viral diseases
CPT/HCPCS: 36415; 51701; 71045; 80048; 80053; 81001; 82550; 82553; 82728; 82803; 82962; 83036; 83605; 83735; 83880; 83930; 83935; 84484; 85025; 85379; 85610; 85730; 86140; 87040; 87086; 87088; 87186; 87324; 87449; 87635; 93005; 93010; 96365; 99291; J0290; J0696; J1650; J1815; J1956; J3370; J3480; J3490; J7030; J7050; J7060; J8499; S0119